=== PATIENT | male | born 1980 | race Caucasian/White ===

== ENCOUNTER 2017-05-16 13:58 | Emergency (ER) | payer OTHER ==
[~2017-05-16] VITALS: Ht 185.4 cm; Wt 127.0 kg
[~2017-05-16 13:58] MED LIST: AMOXICILLIN875 MG PO; BENZTROPINE MESY1 MG PO; CENTRUM SILVER1 EAC3 PO; CHLORPROMAZINE50 MG PO; CIPRODEX OTIC7.5 ML AD; DIVALPROEX SOD125 M1 PO; DULERA 100 MCG/13 GM INH; FLUOXETINE HCL20 MG PO; GABAPENTIN300 MG PO; HYCET 7.5 MG-3473 ML PO; IBUPROFEN600 MG PO; LUTEIN6 M1 PO; OLANZAPINE5 MG PO; PROAIR HFA8.5 GM INH; VITAMIN B122500 MC1 PO; VITAMIN C500 M1 PO; VITAMIN D31000 UNIT PO
[2017-05-16] MEDS ORDERED: ZYPREXA7.5 MG PO (14:25)
[2017-05-16] MEDS ORDERED: KETOROLAC TROME10 MG PO (15:55)
== END 2017-05-16 16:09 | disposition home or self-care (01) ==
LOC: ED 13:58
DX: K42.9 Umbilical hernia without obstruction or gangrene (principal); K80.20 Calculus of gallbladder without cholecystitis without obstruction; F31.9 Bipolar disorder, unspecified; F20.9 Schizophrenia, unspecified; G40.909 Epilepsy, unspecified, not intractable, without status epilepticus; Z87.891 Personal history of nicotine dependence; Z90.89 Acquired absence of other organs; Z79.899 Other long term (current) drug therapy
CPT/HCPCS: 74177; 80053; 81001; 85025; 99284; Q9967

== ENCOUNTER 2017-08-09 12:30 | Emergency (ER) | payer OTHER ==
[~2017-08-09] VITALS: Ht 185.4 cm; Wt 127.0 kg
[~2017-08-09 12:30] MED LIST changes: +KETOROLAC TROME10 MG PO; +ZYPREXA7.5 MG PO
[2017-08-09] MEDS ORDERED: VITAMIN B125000 MCG PO (12:55)
[2017-08-09] MEDS ORDERED: L-METHYLFOLATE15 M1 PO (12:55)
[2017-08-09] MEDS ORDERED: STRATTERA40 MG PO (12:56)
[2017-08-09] MEDS ORDERED: MULTIVITAMINS1 EAC3 PO (12:56)
[2017-08-09] MEDS ORDERED: NAPROXEN500 MG PO (12:57)
[2017-08-09] MEDS ORDERED: GABAPENTIN300 MG PO (13:00)
[2017-08-09] MEDS ORDERED: OMEPRAZOLE20 MG PO (13:01)
[2017-08-09] MEDS ORDERED: OLANZAPINE5 MG PO (13:02)
[2017-08-09] MEDS ORDERED: VENTOLIN HFA18 GM INH (13:03)
[2017-08-09] MEDS ORDERED: SUDOGEST30 MG PO (13:03)
[2017-08-09] MEDS ORDERED: ATOMOXETINE HCL60 MG PO (13:04)
[2017-08-09] MEDS ORDERED: CLONIDINE HCL0.1 M1 PO (13:04)
[2017-08-10] MEDS ORDERED: AUGMENTIN 875-1 EACH PO (16:30)
== END 2017-08-10 16:44 | disposition home or self-care (01) ==
LOC: ED 12:30
PROC: 0T9B70Z Drainage of Bladder with Drainage Device, Via Natural or Artificial Opening (ICD-10-PCS; principal; 2017-08-09)
DX: T65.891A Toxic effect of other specified substances, accidental (unintentional), initial encounter (principal); F20.9 Schizophrenia, unspecified; F17.200 Nicotine dependence, unspecified, uncomplicated; Z79.899 Other long term (current) drug therapy
CPT/HCPCS: 36415; 51701; 80053; 80176; 81001; 84443; 85025; 96372; 99283; G0480; J2060

== ENCOUNTER 2017-11-22 15:06 | Emergency (ER) | payer MEDICAID ==
[~2017-11-22] VITALS: Ht 185.4 cm; Wt 127.0 kg
[~2017-11-22 15:06] MED LIST changes: +ATOMOXETINE HCL60 MG PO; +AUGMENTIN 875-1 EACH PO; +CLONIDINE HCL0.1 M1 PO; +L-METHYLFOLATE15 M1 PO; +MULTIVITAMINS1 EAC3 PO; +NAPROXEN500 MG PO; +OMEPRAZOLE20 MG PO; +STRATTERA40 MG PO; +SUDOGEST30 MG PO; +VENTOLIN HFA18 GM INH; +VITAMIN B125000 MCG PO
[2017-11-22] MEDS ORDERED: TRAZODONE HCL50 MG PO (16:45)
[2017-11-22] MEDS ORDERED: DEPAKOTE250 MG PO (16:46)
[2017-11-22] MEDS ORDERED: PENICILLIN V P500 MG PO (17:58)
== END 2017-11-22 18:09 | disposition home or self-care (01) ==
LOC: ED 15:06
PROC: 0T9B70Z Drainage of Bladder with Drainage Device, Via Natural or Artificial Opening (ICD-10-PCS; principal; 2017-11-22)
PROC: 0HQ1XZZ Repair Face Skin, External Approach (ICD-10-PCS; principal; 2017-11-22)
DX: S01.511A Laceration without foreign body of lip, initial encounter (principal); F20.9 Schizophrenia, unspecified; F17.200 Nicotine dependence, unspecified, uncomplicated; Z79.899 Other long term (current) drug therapy; Y04.0XXA Assault by unarmed brawl or fight, initial encounter
CPT/HCPCS: 12013; 51701; 80053; 80176; 81001; 84443; 85025; 96360; 99283; G0480; J7030

== ENCOUNTER 2019-09-08 22:05 | Observation (INO) | payer OTHER ==
[~2019-09-08] VITALS: Ht 185.4 cm; Wt 110.0 kg
--- OUTSIDE RECORDS SUMMARY | ~2019-09-08 | XMS | Encounter Summary ---
Demographics + + + | Address | [address] | | | [place] [address] | + + + | Home Phone | | + + + | Preferred Language | Unknown | + + + | Marital Status | Single | + + + | Yazdanism Affiliation | 1013 | + + + | Race | Unknown | + + + | Ethnic Group | Unknown | + + + Author + + + | Author | [facility] | | | and [place] | + + + | Organization | [facility] | | | and [place] | + + + | Address | Unknown | + + + | Phone | Unavailable | + + + Support + + + + + | Name | Relationship | Address | Phone | + + + + + | Claudiakyle Graf | ECON | [address] | | | | | [place], [place] | | | | | [address] | | + + + + + | Hilda Ramirez | ECON | [place], | | | | | [place] [address] | | + + + + + Care Team Providers + +------+ + | Care Camera Technician Name | Role | Phone | + +------+ + PCP | Unavailable | + +------+ + Encounter Details +--------+ + + + + | Date | Type | Department | Care Team | Description | +--------+ + + + + | 01/08/ | Hospital | [facility] | | | | 2007 | Encounter | MED CTR GENERIC OP | | | | | | CONV DEPT [address] | | | | | | [place], | | | | | | [place] [address] | | | | | | [phone] | | | +--------+ + + + + Social History + +-------+ +--------+------+ | Tobacco Use | Types | Packs/Day | Years | Date | | | | | Used | | + +-------+ +--------+------+ | Never Assessed | | | | | + +-------+ +--------+------+ + + + | Sex Assigned at | Date Recorded | | | | + + + | Not on file | | + + + + + + + | Job Start Date | Occupation | Industry | + + + + | Not on file | Not on file | Not on file | + + + + + + + + | Travel History | Travel Start | Travel End | + + + + + + | No recent travel history available. | + + documented as of this encounter Plan of Treatment Not on filedocumented as of this encounter Visit Diagnoses Not on filedocumented in this encounter"
--- OUTSIDE RECORDS SUMMARY | ~2019-09-08 | XMS | Encounter Summary ---
Demographics + + + | Address | [address] | | | [place] [address] | + + + | Home Phone | | + + + | Preferred Language | Unknown | + + + | Marital Status | Single | + + + | Catholic Affiliation | 1013 | + + + | Race | Unknown | + + + | Ethnic Group | Unknown | + + + Author + + + | Author | [facility] | | | and [place] | + + + | Organization | [facility] | | | and [place] | + + + | Address | Unknown | + + + | Phone | Unavailable | + + + Support + + + + + | Name | Relationship | Address | Phone | + + + + + | Claudia Homar | ECON | [address] | | | | | [place], [place] | | | | | [address] | | + + + + + | Hilda Ramirez | ECON | [place], | | | | | [place] [address] | | + + + + + Care Team Providers + +------+ + | Care Business Administration Professor Name | Role | Phone | + +------+ + | Chauncey Gloria MD | PCP | | + +------+ + Reason for Visit + + + | Reason | Comments | + + + | Pharyngitis | Rm 3 - x 1.5 week, mucous | + + + | Otalgia | | + + + | Headache | | + + + | Nasal Congestion | | + + + Encounter Details +--------+---------+ + + + | Date | Type | Department | Care Team | Description | +--------+---------+ + + + | 06/29/ | Office | [facility] [place] | Carlos Pizano, | Sore throat (Primary | | 2013 | Visit | [facility] [address] | MD [address] | Dx); Otitis media | | | | [address] [place] | [place] [facility] [place] | of both ears; URI | | | | [place] | [address] | (upper respiratory | | | | [address] | | infection) | | | | [phone] | | | +--------+---------+ + + + Social History + +-------+ +--------+------+ | Tobacco Use | Types | Packs/Day | Years | Date | | | | | Used | | + +-------+ +--------+------+ | Current Every Day | | 0.8 | | | | Smoker | | | | | + +-------+ +--------+------+ + +---+---+---+ | Smokeless Tobacco: | | | | | Never Used | | | | + +---+---+---+ + + +---------+ + | Alcohol Use | Drinks/Week | oz/Week | Comments | + + +---------+ + | Not Asked | | | | + + +---------+ + + + + | Sex Assigned at [...] + + documented as of this encounter Last Filed Vital Signs + + + + + | Vital Sign | Reading | Time Taken | Comments | + + + + + | Blood Pressure | 128/74 | 06/29/2012 9:36 AM | | | | | PST | | + + + + + | Pulse | 87 | 06/29/2012 9:36 AM | | | | | PST | | + + + + + | Temperature | 36.4 C (97.5 F) | 06/29/2012 9:36 AM | | | | | PST | | + + + + + | Respiratory Rate | 20 | 06/29/2012 9:36 AM | | | | | PST | | + + + + + | Oxygen Saturation | 96% | 06/29/2012 9:36 AM | | | | | PST | | + + + + + | Inhaled Oxygen | - | - | | | Concentration | | | | + + + + + | Weight | 123.7 kg (272 lb 9.6 | 06/29/2012 9:36 AM | | | | oz) | PST | | + + + + + | Height | 186.7 cm (6' 1.5") | 06/29/2012 9:36 AM | | | | | PST | | + + + + + | Body Mass Index | 35.48 | 06/29/2012 9:36 AM | | | | | PST | | + + + + + documented in this encounter Patient Instructions Patient Instructions Carlos Pizano MD - 06/29/2012 10:17 AM PSTGet plenty of rest and w ater. Take the medications as directed. Recheck as needed. documented in this encounter Progress Notes Carlos Pizano MD - 06/29/2012 10:17 AM PSTFormatting of this note might be different fr om the original. Subjective: Patient ID: Ant Graf is a 32 y.o. male. HPI Patient's medications, allergies, past medical, surgical, social and family histories were reviewed and updated as appropriate. This man came to the clinic because of several days of congestion and cough. He aches all over. He thinks he might have some fever but he doesn't have it here today. His ears hurt. He has a sore throat. He is blowing green mucus out of his nose and coughing green mucus up. His sinuses hurt. He's had no vomiting or diarrhea. Review of Systems Constitutional: Positive for chills. HENT: Positive for congestion and sinus pressure. Respiratory: Positive for cough. Cardiovascular: Negative. Gastrointestinal: Negative. Musculoskeletal: Positive for myalgias. Objective: Physical Exam Constitutional: He is oriented to person, place, and time. He appears well-developed and we ll-nourished. He appears distressed (he's not severely distress but clearly doesn't feel gia y good He is flushed and congested, hoarse, and his ears are red on exam). HENT: Head: Normocephalic. Right Ear: Hearing and external ear normal. Tympanic membrane is injected and erythematous. Left Ear: Hearing and external ear normal. Tympanic membrane is injected and erythematous. Nose: Rhinorrhea present. Right sinus exhibits maxillary sinus tenderness. Left sinus exhib its maxillary sinus tenderness. Mouth/Throat: Uvula is midline and mucous membranes are normal. Posterior oropharyngeal hannah thema present. Eyes: Conjunctivae are normal. Pupils are equal, round, and reactive to light. Neck: Normal range of motion. Neck supple. Cardiovascular: Normal rate, regular rhythm and normal heart sounds. Pulmonary/Chest: Effort normal. He has rhonchi in the right lower field and the left lower field. He has no rales. Abdominal: Soft. Musculoskeletal: Normal range of motion. Neurological: He is alert and oriented to person, place, and time. Skin: Skin is warm and dry. Assessment: 1. Sore throat POCT Rapid Strep A Screen 2. Otitis media of both ears 3. URI (upper respiratory infection) Plan: Please see the AVS for the plan unless outlined elsewhere. Rapid strep was neg documented in this e ncounter Plan of Treatment Not on filedocumented as of this encounter Procedures + +--------+ + + + | Procedure Name | Priori | Date/Time | Associated Diagnosis | Comments | | | ty | | | | + +--------+ + + + | POCT RAPID STREP A | Routin | 06/29/2012 | Sore throat | Results for this | | SCREEN | e | 9:55 AM | | procedure are in the | | | | PST | | results section. | + +--------+ + + + documented in this encounter Results POCT Rapid Strep A Screen (06/29/2012 9:55 AM PST) + + + + + + | Component | Value | Ref Range | Performed | Pathologist | | | | | At | Signature | + + + + + + | Rapid Strep | Negative | Negative | | | | A Screen | | | | | + + + + + + | Internal QC | | (none) | | | + + + + + + + + | Specimen | + + | Respiratory sample | | (specimen) | + + documented in this encounter Visit Diagnoses + + | Diagnosis | + + | Sore throat - Primary Acute pharyngitis | + + | Otitis media of both ears Unspecified otitis media | + + | URI (upper respiratory infection) Acute upper respiratory infections of unspecified | | site | + + documented in this encounter
--- OUTSIDE RECORDS SUMMARY | ~2019-09-08 | XMS | Encounter Summary ---
Demographics + + + | Address | [address] | | | [place] [address] | + + + | Home Phone | | + + + | Preferred Language | Unknown | + + + | Marital Status | Single | + + + | Orthodox Affiliation | 1013 | + + + | Race | Unknown | + + + | Ethnic Group | Unknown | + + + Author + + + | Author | [facility] | | | and [place] | + + + | Organization | [facility] | | | and [...] [place], [place] | | | | | [address] | | + + + + + | Hilda Ramirez | ECON | [place], | | | | | [place] [address] | | + + + + + Care Team Providers + +------+ + | Care Chief Of Surgery Name | Role | Phone | + +------+ + | No, Physician | PCP | Unavailable | + +------+ + Reason for Visit + + + | Reason | Comments | + + + | Foot Pain | | + + + Encounter Details +--------+ + + + + | Date | Type | Department | Care Team | Description | +--------+ + + + + | 01/26/ | Emergency | [facility] | Leonel Dimas, | Bilateral foot pain | | 2014 | | MED CTR EMERGENCY | MD [address] | (Primary Dx); | | | | CENTER [address] | [facility] [place] | Friction blisters of | | | | [place], [place] | [place] [address] | the soles, right, | | | | [address] | [phone] | initial encounter; | | | | [phone] | | Friction blisters of | | | | | | the soles, left, | | | | | | initial encounter | +--------+ + + + + Social History + + + +--------+------+ | Tobacco Use | Types | Packs/Day | Years | Date | | | | | Used | | + + + +--------+------+ | Current Every Day | Cigarettes | 0.5 | | | | Smoker | | | | | + + + +--------+------+ + +---+---+---+ | Smokeless Tobacco: | | | | | Never Used | | | | + +---+---+---+ + + +---------+ + | Alcohol Use | Drinks/Week | oz/Week | Comments | + + +---------+ + | Yes | | | | + + +---------+ [...] + + + | Blood Pressure | 130/78 | 01/26/2014 3:07 PM | | | | | PDT | | + + + + + | Pulse | 100 | 01/26/2014 3:07 PM | | | | | PDT | | + + + + + | Temperature | 36.8 C (98.2 F) | 01/26/2014 3:07 PM | | | | | PDT | | + + + + + | Respiratory Rate | 16 | 01/26/2014 3:07 PM | | | | | PDT | | + + + + + | Oxygen Saturation | 96% | 01/26/2014 3:07 PM | | | | | PDT | | + + + + + | Inhaled Oxygen | - | - | | | Concentration | | | | + + + + + | Weight | 106.6 kg (235 lb) | 01/26/2014 3:07 PM | | | | | PDT | | + + + + + | Height | 185.4 cm (6' 1") | 01/26/2014 3:07 PM | | | | | PDT | | + + + + + | Body Mass Index | 31 | 01/26/2014 3:07 PM | | | | | PDT | | + + + + + documented in this encounter Discharge Instructions Instructions Leonel Dimas MD - 01/26/2014Keep feet clean and dry Change socks daily Tylenol and/or ibuprofen for pain Wear supportive shoes (good arch support) AttachmentsThe following attachments cannot be sent through Care Everywhere.JANIS (RAMOS Dubois)documented in this encounter Medications at Time of Discharge + + + +---------+--------+ + | Medication | Sig | Dispensed | Refills | Start | End Date | | | | | | Date | | + + + +---------+--------+ + | Cholecalciferol | Take by mouth. | | 0 | | | | (VITAMIN D3) 5000 | | | | | | | UNITS CAPS | | | | | | + + + +---------+--------+ + documented as of this encounter Plan of Treatment Not on filedocumented as of this encounter Procedures + +--------+ + + + | Procedure Name | Priori | Date/Time | Associated Diagnosis | Comments | | | ty | | | | + +--------+ + + + | XR FOOT RIGHT 3 + VW | STAT | 01/26/2014 | | Results for this | | | | 3:44 PM | | procedure are in the | | | | PDT | | results section. | + +--------+ + + + | XR FOOT LEFT 3 + VW | STAT | 01/26/2014 | | Results for this | | | | 3:43 PM | | procedure are in the | | | | PDT | | results section. | + +--------+ + + + documented in this encounter Results XR Foot Right 3 + Vw (01/26/2014 3:44 PM PDT) + + | Specimen | + + | | + + + + + | Narrative | Performed At | + + + | XR FOOT RIGHT 3 + VW 01/26/2014 3:38 PM HISTORY: PAIN. | [facility] | | COMPARISON: None. FINDINGS: There are no acute osseous | LAB | | abnormalities. There is a tiny spur of the inferior calcaneus. Bone | | | mineralization is normal. Soft tissue structures are unremarkable. | | | IMPRESSION - No acute findings. Dictated and Signed by: Champ | | | MD Meek Electronically signed: 01/26/2014 4:30 PM | | + + + + + | Procedure Note | + + | Daniel Geiger Results In - 01/26/2014 4:33 PM PDT XR FOOT RIGHT 3 + VW 01/26/2014 3:38 PM | | | | HISTORY: PAIN. | | | | COMPARISON: None. | | | | FINDINGS: | | There are no acute osseous abnormalities. There is a tiny spur of the inferior | | calcaneus. Bone mineralization is normal. Soft tissue structures are | | unremarkable. | | | | IMPRESSION - | | No acute findings. | | | | Dictated and Signed by: Champ Eden MD | | Electronically signed: 01/26/2014 4:30 PM | + + + +---------+ + + | Performing | Address | City/State/Zipcode | Phone Number | | Organization | | | | + +---------+ + + | [facility] | | | [phone] | + +---------+ + + | [facility] | | | [phone] | + +---------+ + + XR Foot Left 3 + Vw (01/26/2014 3:43 PM PDT) + + | Specimen | + + | | + + + + + | Narrative | Performed At | + + + | XR FOOT LEFT 3 + VW 01/26/2014 3:36 PM HISTORY: PAIN. | MISCELANIOUS | | COMPARISON: None. FINDINGS: There are no acute osseous | LAB | | abnormalities. No significant degenerative changes are seen. Bone | | | mineralization is normal. Soft tissue structures are unremarkable. | | | IMPRESSION - No acute findings. Dictated and Signed by: Champ | | | MD Meek Electronically signed: 01/26/2014 4:30 PM | | + + + + + | Procedure Note | + + | Juanjo, Rad Results In - 01/26/2014 4:33 PM PDT XR FOOT LEFT 3 + VW 01/26/2014 3:36 PM | | | | HISTORY: PAIN. | | | | COMPARISON: None. | | | | FINDINGS: | | There are no acute osseous abnormalities. No significant degenerative changes | | are seen. Bone mineralization is normal. Soft tissue structures are | | unremarkable. | | | | IMPRESSION - | | No acute findings. | | | | Dictated and Signed by: Champ Eden MD | | Electronically signed: 01/26/2014 4:30 PM | + + + +---------+ + + | Performing | Address | City/State/Zipcode | Phone Number | | Organization | | | | + +---------+ + + | [facility] | | | [phone] | + +---------+ + + | [facility] | | | [phone] | + +---------+ + + documented in this encounter Visit Diagnoses + + | Diagnosis | + + | Bilateral foot pain - Primary Pain in limb | + + | Friction blisters of the soles, right, initial encounter | + + | Friction blisters of the soles, left, initial encounter | + + documented in this encounter
--- OUTSIDE RECORDS SUMMARY | ~2019-09-08 | XMS | Encounter Summary ---
Demographics + + + | Address | [address] | | | [place] [address] | + + + | Home Phone | | + + + | Preferred Language | Unknown | + + + | Marital Status | Single | + + + | Adventism Affiliation | 1013 | + + + | Race | Unknown | + + + | Ethnic Group | Unknown | + + + Author + + + | Author | [facility] | | | and [place] | + + + | Organization | [facility] | | | [...] [place], [place] | | | | | [address] | | + + + + + | Hilda Ramirez | ECON | [place], | | | | | [place] [address] | | + + + + + Care Team Providers + +------+ + | Care Food Bagging Machine Operator Name | Role | Phone | + +------+ + PCP | Unavailable | + +------+ + Encounter Details +--------+ + + + + | Date | Type | Department | Care Team | Description | +--------+ + + + + | 11/08/ | Hospital | [facility] | Brian Orozco | | | 2002 | Encounter | MED CTR EMERGENCY | MD [address] | | | | | [place] [address] | [facility] | | | | | [place], [place] | [place] [address] | | | | | [address] | [phone] | | | | | [phone] | | | +--------+ + + + [...]
--- OUTSIDE RECORDS SUMMARY | ~2019-09-08 | XMS | Encounter Summary ---
Demographics + + + | Address | [address] | | | [place] [address] | + + + | Home Phone | | + + + | Preferred Language | Unknown | + + + | Marital Status | Single | + + + | Anabaptist Affiliation | 1013 | + + + | Race | Unknown | + + + | Ethnic Group | Unknown | + + + Author + + + | Author | [facility] | | | and [place] | + + + | Organization | [facility] | | | [...] [place], [place] | | | | | [address] | | + + + + + | Hilda Ramirez | ECON | [place], | | | | | [place] [address] | | + + + + + Care Team Providers + +------+ + | Care Roofing Tile Sorter Name | Role | Phone | + +------+ + | No, Physician | PCP | Unavailable | + +------+ + Reason for Visit + + + | Reason | Comments | + + + | Difficulty Breathing | | + + + Encounter Details +--------+ + + + + | Date | Type | Department | Care Team | Description | +--------+ + + + + | 01/25/ | Emergency | [facility] | | Surgical or other | | 2013 | | MED CTR EMERGENCY | | procedure not | | | | [address] | | carried out because | | | | [place] | | of patient's | | | | [address] | | decision (Primary | | | | [phone] | | Dx) | +--------+ + + + + Social [...] + + + | Blood Pressure | 123/69 | 01/25/2014 5:23 PM | | | | | PDT | | + + + + + | Pulse | 87 | 01/25/2014 5:23 PM | | | | | PDT | | + + + + + | Temperature | 37 C (98.6 F) | 01/25/2014 5:23 PM | | | | | PDT | | + + + + + | Respiratory Rate | 16 | 01/25/2014 5:23 PM | | | | | PDT | | + + + + + | Oxygen Saturation | 99% | 01/25/2014 5:23 PM | | | | | PDT | | + + + + + | Inhaled Oxygen | - | - | | | Concentration | | | | + + + + + | Weight | 120.2 kg (265 lb) | 01/25/2014 5:23 PM | | | | | PDT | | + + + + + | Height | 185.4 cm (6' 1") | 01/25/2014 5:23 PM | | | | | PDT | | + + + + + | Body Mass Index | 34.96 | 01/25/2014 5:23 PM | | | | | PDT | | + + + + + documented in this encounter Medications at Time of [...] filedocumented as of this encounter Visit Diagnoses + + | Diagnosis | + + | Surgical or other procedure not carried out because of patient's decision - Primary | + + documented in this encounter
--- OUTSIDE RECORDS SUMMARY | ~2019-09-08 | XMS | Encounter Summary ---
Demographics + + + | Address | [address] | | | [place] [address] | + + + | Home Phone | | + + + | Preferred Language | Unknown | + + + | Marital Status | Single | + + + | Methodist Affiliation | 1013 | + + + | Race | Unknown | + + + | Ethnic Group | Unknown | + + + Author + + + | Author | [facility] | | | and [place] | + + + | Organization | [facility] | | | and [...] [place], [place] | | | | | [address] | | + + + + + | Hilda Ramirez | ECON | [place], | | | | | [place] [address] | | + + + + + Care Team Providers + +------+ + | Care Supervisor Bakery Sanitation Name | Role | Phone | + +------+ + | No, Physician | PCP | Unavailable | + +------+ + Encounter Details +--------+ + + + + | Date | Type | Department | Care Team | Description | +--------+ + + + + | 02/23/ | Emergency | [facility] | | Surgical or other | | 2013 | | [facility] | | procedure not | | | | CENTER [address] | | carried out because | | | | [place] | | of patient's | | | | [address] | | decision (Primary | | | | [phone] | | Dx) | +--------+ + + [...] + + documented as of this encounter Medications at Time of Discharge [...] | + +--------+ + + + | ED INFORMATION | Routin | 02/23/2014 | | Results for this | | EXCHANGE | e | 3:32 AM | | procedure are in the | | | | PDT | | results section. | + +--------+ + + + documented in this encounter Results ED INFORMATION EXCHANGE (02/23/2014 3:32 AM PDT) + + | Specimen | + + | | + + + + + | Narrative | Performed At | + + + | VISIT TRACKING (3 MO.) Visit Date Location | [facility] | | Type Diagnoses | | | -------- | | | ---- 02/23/2014 03:32 [place] | | | [facility] Emergency -Withdrawals 01/31/2014 | | | 20:26 [facility] Emergency | | | -Pain in limb | | | -Feet burning | | | | | | -Foot Pain 01/26/2014 15:03 | | | [facility] Emergency -Blister of | | | foot and toe(s), without mention of infection | | | | | | -Blister of foot and toe(s), without mention of | | | infection | | | -Back Pain | | | | | | -Foot Pain | | | | | | -Pain in limb 01/25/2014 16:54 [facility] | [place] Emergency -SOB | | | | | | -Difficulty Breathing VISIT COUNT (1 YR.) Visits Medicaid | | | NE Dx Location ------ --------- 4 | | | 0 [facility] | | | 4 0 Total Note: Visits | | | indicate total known visits. Medicaid NE Dx are the number of primary | | | diagnoses on the [facility]'s non-emergent dx list. | | | | | | --- [facility] has no Care Guidelines for this patient. | | + + + + +---------+ + + | Performing | Address | City/State/Zipcode | Phone Number | | Organization | | | | + +---------+ + + | [facility] | | | | + +---------+ + + documented in this encounter Visit Diagnoses + + | Diagnosis | + + | Surgical or other procedure not carried out because of patient's decision - Primary | + + documented in this encounter"
--- OUTSIDE RECORDS SUMMARY | ~2019-09-08 | XMS | Encounter Summary ---
Demographics + + + | Address | [address] | | | [place] [address] | + + + | Home Phone | | + + + | Preferred Language | Unknown | + + + | Marital Status | Single | + + + | Religion Affiliation | 1013 | + + + [...] [place], [place] | | | | | [address] | | + + + + + | Hilda Ramirez | ECON | [place], | | | | | [place] [address] | | + + + + + Care Team Providers + +------+ + | Care Detector Car Operator Name | Role | Phone | [...] | | | | CENTER [address] | | carried out because | | | | [place] | | of patient's | | | | [address] | | decision (Primary | | | | [phone] | | Dx) | +--------+ + + [...] TRACKING (3 MO.) Visit Date Location | [facility] | | Type Diagnoses | | | -------- | | | ---- 02/23/2014 03:32 [place] | | | [facility] Emergency -Withdrawals 01/31/2014 | | | 20:26 [facility] Emergency | | | -Pain in limb | | | -Feet burning | | | | | | -Foot Pain 01/26/2014 15:03 | | | [facility] Emergency -Blister of | | | foot and toe(s), without mention of infection | | | | | | -Blister of foot and toe(s), without mention of | | | infection | | | -Back Pain | | | | | | -Foot Pain | | | | | | -Pain in limb 01/25/2014 16:54 [facility] | [place] Emergency -SOB | | | | | | -Difficulty Breathing VISIT COUNT (1 YR.) Visits Medicaid | | | NE Dx Location ------ --------- 4 | | | 0 [facility] | | | 4 0 Total Note: Visits | | | indicate total known visits. Medicaid NE Dx are the number of primary | | | diagnoses on the [facility]'s non-emergent dx list. | | | [...]
--- OUTSIDE RECORDS SUMMARY | ~2019-09-08 | XMS | Encounter Summary ---
Demographics + + + | Address | [address] | | | [place] [address] | + + + | Home Phone | | + + + | Preferred Language | Unknown | + + + | Marital Status | Single | + + + | Restorationist Affiliation | 1013 | + + + | Race | Unknown | + + + | Ethnic Group | Unknown | + + + Author + + + | Author | [facility] | | | and [place] | + + + | Organization | [facility] | | | [...] [place], [place] | | | | | [address] | | + + + + + | Hilda Ramirez | ECON | [place], | | | | | [place] [address] | | + + + + + Care Team Providers + +------+ + | Care Chemistry Technical Officer Name | Role | Phone | + +------+ + PCP | Unavailable | + +------+ + Encounter Details +--------+ + + + + | Date | Type | Department | Care Team | Description | +--------+ + + + + | 10/10/ | Hospital | [facility] | David Alonso, | | | 2004 | Encounter | [facility] CTR LAB[facility] | [address] | | | | | [address] [place] | [place] | | | | | [place] | [address] | | | | | [address] | | | | | | [phone] | | | +--------+ + + + [...]
--- OUTSIDE RECORDS SUMMARY | ~2019-09-08 | XMS | Encounter Summary ---
Demographics + + + | Address | [address] | | | [place] [address] | + + + | Home Phone | | + + + | Preferred Language | Unknown | + + + | Marital Status | Single | + + + | Temple Affiliation | 1013 | + + + | Race | Unknown | + + + | Ethnic Group | Unknown | + + + Author + + + | Author | [facility] | | | and [place] | + + + | Organization | [facility] | | | [...] [place], [place] | | | | | [address] | | + + + + + | Hilda Ramirez | ECON | [place], | | | | | [place] [address] | | + + + + + Care Team Providers + +------+ + | Care Surgical Assistant Name | Role | Phone | + +------+ + PCP | Unavailable | + +------+ + Encounter Details +--------+ + + + + | Date | Type | Department | Care Team | Description | +--------+ + + + + | 10/10/ | Hospital | [facility] | David Alonso, | | | 2004 | Encounter | [facility] LAB[facility] | [address] | | | | | [address] [place] | [place] | | | | | [place] | [address] | | | | | [address] | | | | | | [phone] | | | +--------+ + + + [...]
--- OUTSIDE RECORDS SUMMARY | ~2019-09-08 | XMS | Encounter Summary ---
Demographics + + + | Address | [address] | | | [place] [address] | + + + | Home Phone | | + + + | Preferred Language | Unknown | + + + | Marital Status | Single | + + + | Sabianist Affiliation | 1013 | + + + | Race | Unknown | + + + | Ethnic Group | Unknown | + + + Author + + + | Author | [facility] | | | and [place] | + + + | Organization | [facility] | | | and [...] [place], [place] | | | | | [address] | | + + + + + | Hilda Ramirez | ECON | [place], | | | | | [place] [address] | | + + + + + Care Team Providers + +------+ + | Care Air Brakes Inspector Name | Role | Phone | + [...] + + | 01/26/ | Emergency | [facility] | Leonel Dimas, | Bilateral foot pain | | 2014 | | [facility] EM[facility] | MD [address] | (Primary Dx); | | | | CENTER [address] | [facility] [place] | Friction blisters of | | | | [place], [place] | [place] [address] | the soles, right, | | | | [address] | [phone] | initial encounter; | | | | [phone] | | Friction blisters of | | [...] + | MISCELLANEOUS LAB | | | [phone] | + +---------+ + + | MISCELANIOUS LAB | | | [phone] | + +---------+ + + XR Foot [...] + | MISCELLANEOUS LAB | | | [phone] | + +---------+ + + | MISCELANIOUS LAB | | | [phone] | + +---------+ + + documented in [...]
--- OUTSIDE RECORDS SUMMARY | ~2019-09-08 | XMS | Encounter Summary ---
Demographics + + + | Address | [address] | | | [place] [address] | + + + | Home Phone | | + + + | Preferred Language | Unknown | + + + | Marital Status | Single | + + + | Scientologist Affiliation | 1013 | + + + | Race | Unknown | + + + | Ethnic Group | Unknown | + + + Author + + + | Author | [facility] | | | and [place] | + + + | Organization | [facility] | | | and [...] [place], [place] | | | | | [address] | | + + + + + | Hilda Ramirez | ECON | [place], | | | | | [place] [address] | | + + + + + Care Team Providers + +------+ + | Care Community Coordinator For High School Name | Role | Phone | + +------+ + | No, Physician | PCP | Unavailable | + +------+ + Reason for Visit + + + | Reason | Comments | + + + | Generalized Body | | | Aches | | + + + Encounter Details +--------+ + + + + | Date | Type | Department | Care Team | Description | +--------+ + + + + | 02/25/ | Emergency | [facility] | Leonel Dimas, | Myalgia (Primary | | 2013 | | MED CTR EM[facility] | MD [address] | Dx); Arthralgia | | | | CENTER [address] | [facility] [place] | | | | | [place] | [place] [address] | | | | | [address] | [phone] | | | | | [phone] | | | +--------+ + + + [...] + + + | Blood Pressure | 105/65 | 02/25/2014 5:29 AM | | | | | PDT | | + + + + + | Pulse | 56 | 02/25/2014 5:29 AM | | | | | PDT | | + + + + + | Temperature | 37.3 C (99.1 F) | 02/25/2014 4:38 AM | | | | | PDT | | + + + + + | Respiratory Rate | 16 | 02/25/2014 4:38 AM | | | | | PDT | | + + + + + | Oxygen Saturation | 95% | 02/25/2014 5:29 AM | | | | | PDT | | + + + + + | Inhaled Oxygen | - | - | | | Concentration | | | | + + + + + | Weight | 99.8 kg (220 lb) | 02/25/2014 4:38 AM | | | | | PDT | | + + + + + | Height | 182.9 cm (6') | 02/25/2014 4:38 AM | | | | | PDT | | + + + + + | Body Mass Index | 29.84 | 02/25/2014 4:38 AM | | | | | PDT | | + + + + + documented in this encounter Discharge Instructions Instructions Leonel Dimas MD - 02/25/2014cetaminophen and/or ibuprofen for pain as n eeded. Stay well hydrated. Establish a primary care provider. AttachmentsThe following attachments cannot be sent through Care Everywhere.ARTHRALGIA (ENG THOMAS)MYALGIAS (ALBANIAN)documented in this encounter Medications at Time of [...] + | ED INFORMATION | Routin | 02/25/2014 | | Results for this | | EXCHANGE | e | 4:33 AM | | procedure are in the | | | | PDT | | results section. | + +--------+ + + + documented in this encounter Results ED INFORMATION EXCHANGE (02/25/2014 4:33 AM PDT) + + | Specimen | + + | | + + + + + | Narrative | Performed At | + + + | VISIT TRACKING (3 MO.) Visit Date Location | [facility] | | Type Diagnoses | | | -------- | | | ---- 02/25/2014 04:32 [place] | | | [facility] Emergency -Body pain 02/23/2014 | | | 03:36 [facility] Emergency | | | -Withdrawals 01/31/2014 20:26 [facility] Emergency -Pain in limb | | | | | | -Feet burning | | | -Foot Pain | | | 01/26/2014 15:03 [facility] | | | Emergency -Blister of foot and toe(s), without mention of | | | infection | | | -Blister of foot and | | | toe(s), without mention of infection | | | | | | -Back Pain | | | -Foot Pain | | | | | | -Pain in limb 01/25/2014 16:54 | | | [facility] Emergency -SOB | | | | | | -Difficulty Breathing VISIT COUNT (1 | | | YR.) Visits Medicaid NE Dx Location ------ | | | --------- 5 0 | | | [facility] 5 0 | | | Total Note: Visits indicate total known visits. Medicaid | | | NE Dx are the number of primary diagnoses on the [facility]'s non-emergent dx | | | list. | | | | | | [...] + | Diagnosis | + + | Myalgia - Primary Mylagia and myositis, unspecified | + + | Arthralgia Pain in joint, site unspecified | + + documented in this encounter Administered Medications + +--------+ +--------+------+------+ | Medication Order | MAR | Action | Dose | Rate | Site | | | Action | Date | | | | + +--------+ +--------+------+------+ | ibuprofen (ADVIL,MOTRIN) tablet | Given | 02/26/20 | 600 mg | | | | 600 mg 600 mg, Oral, ONCE, Lilliana | | 14 5:38 | | | | | 02/25/14 at 0530, For 1 dose, Give | | AM PDT | | | | | with food., | | | | | | + +--------+ +--------+------+------+ +---+---+ | | | +---+---+ documented in this encounter"
--- OUTSIDE RECORDS SUMMARY | ~2019-09-08 | XMS | Encounter Summary ---
Demographics + + + | Address | [address] | | | [place] [address] | + + + | Home Phone | | + + + | Preferred Language | Unknown | + + + | Marital Status | Single | + + + | Taoist Affiliation | 1013 | + + + | Race | Unknown | + + + | Ethnic Group | Unknown | + + + Author + + + | Author | [facility] | | | and [place] | + + + | Organization | [facility] | | | [...] [place], [place] | | | | | [address] | | + + + + + | Hilda Ramirez | ECON | [place], | | | | | [place] [address] | | + + + + + Care Team Providers + +------+ + | Care Field Services Analyst Name | Role | Phone | + [...] | | | | CENTER [address] | [facility] [place] | Friction blisters of | | | | [place], [place] | [place] [address] | the soles, right, | | | | [address] | [phone] | initial encounter; | | | | [phone] | | Friction blisters of | | [...] + | MISCELLANEOUS LAB | | | [phone] | + +---------+ + + | MISCELANIOUS LAB | | | [phone] | + +---------+ + + XR Foot [...] + | MISCELLANEOUS LAB | | | [phone] | + +---------+ + + | MISCELANIOUS LAB | | | [phone] | + +---------+ + + documented in [...]
--- OUTSIDE RECORDS SUMMARY | ~2019-09-08 | XMS | Encounter Summary ---
Demographics + + + | Address | [address] | | | [place] [address] | + + + | Home Phone | | + + + | Preferred Language | Unknown | + + + | Marital Status | Single | + + + | Druze Affiliation | 1013 | + + + | Race | Unknown | + + + | Ethnic Group | Unknown | + + + Author + + + | Author | [facility] | | | and [place] | + + + | Organization | [facility] | | [...] [place], [place] | | | | | [address] | | + + + + + | Hilda Ramirez | ECON | [place], | | | | | [place] [address] | | + + + + + Care Team Providers + +------+ + | Care County Director Name | Role | Phone | + +------+ + PCP | Unavailable | + +------+ + Encounter Details +--------+ + + + + | Date | Type | Department | Care Team | Description | +--------+ + + + + | 08/23/ | Hospital | [facility] | | | | 2007 | Encounter | [facility] LAB[facility] | | | | | | [address] | | | | | | [place] | | | | | | [address] | | | | | | [phone] | | | +--------+ + + + [...]
--- OUTSIDE RECORDS SUMMARY | ~2019-09-08 | XMS | Encounter Summary ---
Demographics + + + | Address | [address] | | | [place] [address] | + + + | Home Phone | | + + + | Preferred Language | Unknown | + + + | Marital Status | Single | + + + | Zoroastrian Affiliation | 1013 | + + + | Race | Unknown | + + + | Ethnic Group | Unknown | + + + Author + + + | Author | [facility] | | | and [place] | + + + | Organization | [facility] | | [...] [place], [place] | | | | | [address] | | + + + + + | Hilda Ramirez | ECON | [place], | | | | | [place] [address] | | + + + + + Care Team Providers + +------+ + | Care Autopsy Assistant Name | Role | Phone | [...] + + | 01/25/ | Emergency | [facility] | | Surgical or other | | 2013 | | MED CTR EM[facility]Y | | procedure not | | | | [address] | | carried out because | | | | [place] | | of patient's | | | | [address] | | decision (Primary | | | | [phone] | | Dx) | +--------+ + + [...]
--- OUTSIDE RECORDS SUMMARY | ~2019-09-08 | XMS | Encounter Summary ---
Demographics + + + | Address | [address] | | | [place] [address] | + + + | Home Phone | | + + + | Preferred Language | Unknown | + + + | Marital Status | Single | + + + | Faith Affiliation | 1013 | + + + | Race | Unknown | + + + | Ethnic Group | Unknown | + + + Author + + + | Author | [facility] | | | and [place] | + + + | Organization | [facility] | | | and [...] [place], [place] | | | | | [address] | | + + + + + | Hilda Ramirez | ECON | [place], | | | | | [place] [address] | | + + + + + Care Team Providers + +------+ + | Care Plasterer Spray Gun Name | Role | Phone | + [...] + + | 01/31/ | Emergency | [facility] | Brian Orozco | Foot pain, bilateral | | 2013 | | MED CTR EMERGENCY | MD [address] | (Primary Dx) | | | | CENTER [address] | [address] [facility] | | | | | [place], [place] | [place] [address] | | | | | [address] | [phone] | | | | | [phone] | | | +--------+ + + + [...]
--- OUTSIDE RECORDS SUMMARY | ~2019-09-08 | XMS | Encounter Summary ---
Demographics + + + | Address | [address] | | | [place] [address] | + + + | Home Phone | | + + + | Preferred Language | Unknown | + + + | Marital Status | Single | + + + | Nondenominational Affiliation | 1013 | + + + | Race | Unknown | + + + | Ethnic Group | Unknown | + + + Author + + + | Author | [facility] | | | and [place] | + + + | Organization | [facility] | | | [...] [place], [place] | | | | | [address] | | + + + + + | Hilda Ramirez | ECON | [place], | | | | | [place] [address] | | + + + + + Care Team Providers + +------+ + | Care Rail Engineer Name | Role | Phone | + +------+ + PCP | Unavailable | + +------+ + Encounter Details +--------+ + + + + | Date | Type | Department | Care Team | Description | +--------+ + + + + | 07/17/ | Hospital | [facility] | | | | 2000 | Encounter | MED CTR EM[facility]Y | | | | | | CENTER [address] | | | | | | [place], [place] | | | | | | [address] | | | | | | [phone] | | | +--------+ + + + [...]
--- OUTSIDE RECORDS SUMMARY | ~2019-09-08 | XMS | Encounter Summary ---
Demographics + + + | Address | [address] | | | [place] [address] | + + + | Home Phone | | + + + | Preferred Language | Unknown | + + + | Marital Status | Single | + + + | Mormon Affiliation | 1013 | + + + | Race | Unknown | + + + | Ethnic Group | Unknown | + + + Author + + + | Author | [facility] | | | and [place] | + + + | Organization | [facility] | | [...] [place], [place] | | | | | [address] | | + + + + + | Hilda Ramirez | ECON | [place], | | | | | [place] [address] | | + + + + + Care Team Providers + +------+ + | Care Sheeter Operator Name | Role | Phone | + +------+ + PCP | Unavailable | + +------+ + Encounter Details +--------+ + + + + | Date | Type | Department | Care Team | Description | +--------+ + + + + | 08/23/ | Hospital | [facility] | | | | 2007 | Encounter | MED [facility] LAB[facility] | | | | | | [address] | | | | | | [place] | | | | | | [address] | | | | | | [phone] | | | +--------+ + + + [...]
--- OUTSIDE RECORDS SUMMARY | ~2019-09-08 | XMS | Encounter Summary ---
Demographics + + + | Address | [address] | | | [place] [address] | + + + | Home Phone | | + + + | Preferred Language | Unknown | + + + | Marital Status | Single | + + + | Anglican Affiliation | 1013 | + + + | Race | Unknown | + + + | Ethnic Group | Unknown | + + + Author + + + | Author | [facility] | | | and [place] | + + + | Organization | [facility] | | | [...] [place], [place] | | | | | [address] | | + + + + + | Hilda Ramirez | ECON | [place], | | | | | [place] [address] | | + + + + + Care Team Providers + +------+ + | Care Supervisor Plastering Name | Role | Phone | + +------+ + PCP | Unavailable | + +------+ + Encounter Details +--------+ + + + + | Date | Type | Department | Care Team | Description | +--------+ + + + + | 12/20/ | Hospital | [facility] | Unknown, | | | 2006 | Encounter | MED CTR LABORATORY | MD [place] . | | | | | [address] | | | | | | [place] | (Fax) | | | | | [address] | | | | | | [phone] | | | +--------+ + + + [...]
--- OUTSIDE RECORDS SUMMARY | ~2019-09-08 | XMS | Encounter Summary ---
Demographics + + + | Address | [address] | | | [place] [address] | + + + | Home Phone | | + + + | Preferred Language | Unknown | + + + | Marital Status | Single | + + + | Episcopalian Affiliation | 1013 | + + + | Race | Unknown | + + + | Ethnic Group | Unknown | + + + Author + + + | Author | [facility] | | | and [place] | + + + | Organization | [facility] | | | [...] [place], [place] | | | | | [address] | | + + + + + | Hilda Ramirez | ECON | [place], | | | | | [place] [address] | | + + + + + Care Team Providers + +------+ + | Care Decating Machine Operator Name | Role | Phone | + +------+ + | No, Physician | PCP | Unavailable | + +------+ + Reason for Visit + + + | Reason | Comments | + + + | Pharyngitis | Rm#5, productive ligh green/brown/black phlegm x 1 month | | | ("fighting a cold for 3 years") fevers/chills | + + + | Otalgia | x 1 month | + + + | Jaw Pain | posterior neck pain ("might be grinding my teeth at night") x | | | 1month | + + + Encounter Details +--------+---------+ + + + | Date | Type | Department | Care Team | Description | +--------+---------+ + + + | 06/24/ | Office | [facility] | Carlos Pizano, | Sinusitis (Primary | | 2014 | Visit | [facility] [address] | MD [address] | Dx); Otitis media of | | | | [place], [place] | [place] | both ears; URI | | | | [id number] | [id number] | (upper respiratory | | | | [phone] | | infection); Sore | | | | | | throat | +--------+---------+ + + + Social History + + [...] + + + | Blood Pressure | 104/78 | 06/24/2014 11:21 AM | | | | | PST | | + + + + + | Pulse | 89 | 06/24/2014 11:21 AM | | | | | PST | | + + + + + | Temperature | 37.2 C (98.9 F) | 06/24/2014 11:21 AM | | | | | PST | | + + + + + | Respiratory Rate | 18 | 06/24/2014 11:21 AM | | | | | PST | | + + + + + | Oxygen Saturation | 95% | 06/24/2014 11:21 AM | | | | | PST | | + + + + + | Inhaled Oxygen | - | - | | | Concentration | | | | + + + + + | Weight | 127.3 kg (280 lb | 06/24/2014 11:21 AM | | | | 11.2 oz) | PST | | + + + + + | Height | 185.4 cm (6' 1") | 06/24/2014 11:21 AM | | | | | PST | | + + + + + | Body Mass Index | 37.03 | 06/24/2014 11:21 AM | | | | | PST | | + + + + + documented in this encounter Patient Instructions Patient Instructions Carlos Pizano MD - 06/24/2014 11:41 AM PSTGet plenty of rest and w ater. Take the amoxicillin as directed. Recheck as needed. documented in this encounter Progress Notes Carlos Pizano MD - 06/24/2014 11:57 AM PSTFormatting of this note might be different fr om the original. Subjective: Patient ID: Ant Graf is a 33 y.o. male. HPI Patient's medications, allergies, past medical, surgical, social and family histories were reviewed and updated as appropriate. This man came to the clinic with a complaint of 2 weeks of cough and congestion and now sin us and ear pain bilaterally. He is bringing up phlegm. He has no other complaint. Review of Systems Constitutional: Negative. HENT: Positive for congestion, ear pain and sinus pressure. Respiratory: Positive for cough. Cardiovascular: Negative. Gastrointestinal: Negative. Objective: Physical Exam Vitals reviewed. Constitutional: He is oriented to person, place, and time. He appears well-developed and we ll-nourished. No distress. HENT: Head: Normocephalic. Right Ear: External ear and ear canal normal. Tympanic membrane is erythematous. Left Ear: External ear and ear canal normal. Tympanic membrane is erythematous. Nose: Right sinus exhibits maxillary sinus tenderness. Right sinus exhibits no frontal sinu s tenderness. Left sinus exhibits maxillary sinus tenderness. Left sinus exhibits no frontal sinus tenderness. Mouth/Throat: Uvula is midline, oropharynx is clear and moist and mucous membranes are norm al. Eyes: Conjunctivae normal are normal. Pupils are equal, round, and reactive to light. Neck: Normal range of motion. Neck supple. Cardiovascular: Normal rate, regular rhythm and normal heart sounds. Pulmonary/Chest: Effort normal. He has no wheezes. He has rhonchi (Mild in both bases) in t he right lower field and the left lower field. He has no rales. Musculoskeletal: Normal range of motion. Lymphadenopathy: He has cervical adenopathy (Mild). Neurological: He is alert and oriented to person, place, and time. Assessment: 1. Sinusitis 2. Otitis media of both ears 3. URI (upper respiratory infection) Plan: Please see the AVS for the plan unless outlined elsewhere. I gave him prescription for amoxicillin. Recheck as needed. documented in this e ncounter Plan of Treatment Not on filedocumented as of this encounter Procedures + +--------+ + + + | Procedure Name | Priori | Date/Time | Associated Diagnosis | Comments | | | ty | | | | + +--------+ + + + | POCT RAPID STREP A | Routin | 06/24/2014 | Sore throat | Results for this | | SCREEN | e | 11:19 AM | | procedure are in the | | | | PST | | results section. | + +--------+ + + + documented in this encounter Results POCT Rapid Strep A Screen (06/24/2014 11:19 AM PST) + + + + + + | Component | Value | Ref Range | Performed | Pathologist | | | | | At | Signature | + + + + + + | Rapid Strep | Negative | Negative | | | | A Screen | | | | | + + + + + + | Internal QC | Acceptable | | | | + + + + + + | CULTURE | | | | | | SENT TO LAB | | | | | + + + + + + + + | Specimen | + + | Respiratory sample | | (specimen) | + + documented in this encounter Visit Diagnoses + + | Diagnosis | + + | Sinusitis - Primary Unspecified sinusitis (chronic) | + + | Otitis media of both ears Unspecified otitis media | + + | URI (upper respiratory infection) Acute upper respiratory infections of unspecified | | site | + + | Sore throat Acute pharyngitis | + + documented in this encounter
--- OUTSIDE RECORDS SUMMARY | ~2019-09-08 | XMS | Encounter Summary ---
Demographics + + + | Address | [address] | | | [place] [address] | + + + | Home Phone | | + + + | Preferred Language | Unknown | + + + | Marital Status | Single | + + + | Orthodoxy Affiliation | 1013 | + + + | Race | Unknown | + + + | Ethnic Group | Unknown | + + + Author + + + | Author | [facility] | | | and [place] | + + + | Organization | [facility] | | | and [...] [place], [place] | | | | | [address] | | + + + + + | Hilda Ramirez | ECON | [place], | | | | | [place] [address] | | + + + + + Care Team Providers + +------+ + | Care Journalism Instructor Name | Role | Phone | + +------+ + PCP | Unavailable | + +------+ + Encounter Details +--------+ + + + + | Date | Type | Department | Care Team | Description | +--------+ + + + + | 05/17/ | Hospital | [facility] | Milagros Kebede | | | 2008 | Encounter | [facility] | DO Brigido Dumont [place] | | | | | [address] [facility] | [place], [place] | | | | | [place], [place] | [address] | | | | | [address] | | | | | | [phone] | | | +--------+ + + + [...]
--- OUTSIDE RECORDS SUMMARY | ~2019-09-08 | XMS | Encounter Summary ---
Demographics + + + | Address | [address] | | | [place] [address] | + + + | Home Phone | | + + + | Preferred Language | Unknown | + + + | Marital Status | Single | + + + | Quaker Affiliation | 1013 | + + + | Race | Unknown | + + + | Ethnic Group | Unknown | + + + Author + + + | Author | [facility] | | | and [place] | + + + | Organization | [facility] | | [...] [place], [place] | | | | | [address] | | + + + + + | Hilda Ramirez | ECON | [place], | | | | | [place] [address] | | + + + + + Care Team Providers + +------+ + | Care Combat Rifle Crewmember Name | Role | Phone | + +------+ + PCP | Unavailable | + +------+ + Encounter Details +--------+ + + + + | Date | Type | Department | Care Team | Description | +--------+ + + + + | 11/08/ | Hospital | [facility] | Brian Orozco | | | 2002 | Encounter | [facility] | MD [address] | | | | | [place] [address] | [place] [facility] | | | | | [place], [place] | [place] [address] | | | | | [address] | [phone] | | | | | [phone] | | | +--------+ + + + [...]
--- OUTSIDE RECORDS SUMMARY | ~2019-09-08 | XMS | Encounter Summary ---
Demographics + + + | Address | [address] | | | [place] [address] | + + + | Home Phone | | + + + | Preferred Language | Unknown | + + + | Marital Status | Single | + + + | Lutheran Affiliation | 1013 | + + + | Race | Unknown | + + + | Ethnic Group | Unknown | + + + Author + + + | Author | [facility] | | | and [place] | + + + | Organization | [facility] | | | [...] [place], [place] | | | | | [address] | | + + + + + | Hilda Ramirez | ECON | [place], | | | | | [place] [address] | | + + + + + Care Team Providers + +------+ + | Care Cable Mock Up Assembler Name | Role | Phone | + +------+ + | No, Physician | PCP | Unavailable | + +------+ + Reason for Visit + + + | Reason | Comments | + + + | Congestion | Rm4 body aches x 3months | + + + Encounter Details +--------+---------+ + + + | Date | Type | Department | Care Team | Description | +--------+---------+ + + + | 02/05/ | Office | [facility] | Francisco Mcnamara | Cough (Primary Dx); | | 2013 | Visit | CARE [address] | Neeraj Fragoso MD | Nasal congestion; | | | | [place] | [address] | Weight loss | | | | [address] | [place] | | | | | [phone] | [address] | | | | | | | | +--------+---------+ + + + [...] + + + | Blood Pressure | 128/68 | 02/05/2014 10:29 AM | | | | | PDT | | + + + + + | Pulse | 77 | 02/05/2014 10:29 AM | | | | | PDT | | + + + + + | Temperature | 37.4 C (99.4 F) | 02/05/2014 10:29 AM | | | | | PDT | | + + + + + | Respiratory Rate | 20 | 02/05/2014 10:29 AM | | | | | PDT | | + + + + + | Oxygen Saturation | 97% | 02/05/2014 10:29 AM | | | | | PDT | | + + + + + | Inhaled Oxygen | - | - | | | Concentration | | | | + + + + + | Weight | 108.8 kg (239 lb | 02/05/2014 10:29 AM | | | | 12.8 oz) | PDT | | + + + + + | Height | 185.4 cm (6' 1") | 02/05/2014 10:29 AM | | | | | PDT | | + + + + + | Body Mass Index | 31.64 | 02/05/2014 10:29 AM | | | | | PDT | | + + + + + documented in this encounter Patient Instructions Patient Instructions Francisco Mcnamara Jr., MD - 02/05/2014 12:35 PM PDTMake an appoi ntment with Dr. Zamora as instructed by the ER Contact her health insurance company to see which edger runner or on your panel and make an a ppointment with a edger runner to address your foot pain documented in this encounter Progress Notes Francisco Mcnamara Jr., MD - 02/05/2014 11:22 AM PDTFormatting of this note might be d ifferent from the original. Ant Graf presents with a three-day six-month history of persistent nasal congestion with y ellow-green rhinorrhea and a cough productive of yellow-green rhinorrhea along with weight l oss. He denies vomiting or diarrhea. He has not had night sweats. He has no history of th yroid disorder Exam: No distress, non-toxic in appearance Nose: Mildly congested with bilateral maxillary sinus tenderness Ears: TM's not inflamed Throat: erythema, no exudate Neck: Supple, no stridor, no adenopathy, Thyroid not enlarged Chest: No rales, no rhonchi, no wheezes, good breath sounds bilaterally, no respiratory di stress Heart: Regular rhythm, no murmur, no gallop, no rub Abdomen: Soft, bowel sounds normal, not distended, no hepatosplenomegaly, no palpable mass Extremities: Good pinprick sensation and good vibratory sense with tuning fork on the ankle bones CXR: Negative Water's view: Negative Recent Results (from the past 24 hour(s)) CBC WITH DIFFERENTIAL Component Value Range WBC 10.2 4.0-11.0 K/uL RBC 5.27 4.30-5.70 M/uL Hgb 15.3 13.5-18.0 g/dL Hct 46.1 40.0-51.0 % MCV 87.4 83.0-101.0 fL MCH 28.9 28.0-35.0 pg MCHC 33.1 32.0-36.0 g/dL RDW 14.1 <15.0 % Platelet Count 256 140-440 K/uL MPV 9.0 % Neutrophils 72.2 45.0-82.0 % % Lymphocytes 18.5 (*) 20.0-45.0 % % Monocytes 6.2 4.0-12.0 % % Eosinophils 2.3 0.0-5.0 % % Basophils 0.8 0.0-1.0 % Absolute Neutrophils 7.40 1.80-8.50 K/uL Absolute Lymphocytes 1.90 0.60-3.20 K/uL Absolute Monocytes 0.60 0.00-1.00 K/uL Absolute Eosinophils 0.20 0.00-0.40 K/uL Absolute Basophils 0.10 0.00-0.10 K/uL COMPREHENSIVE METABOLIC PANEL Component Value Range NA 140 136-149 mmol/L K 3.7 3.5-5.1 mmol/L CL 107 98-109 mmol/L CO2 30 24-31 mmol/L ANION GAP 3 3-16 mmol/L GLUCOSE 97 70-109 mg/dL BUN 10 7-18 mg/dL Creatinine, Serum 0.91 0.60-1.30 mg/dL eGFR if not >60 >=60 mL/min/1.73m2 CALCIUM 9.1 8.3-10.5 mg/dL ALBUMIN 3.4 3.2-5.0 g/dL BILIRUBIN TOTAL 0.7 0.1-1.5 mg/dL Total protein 5.7 (*) 6.0-7.8 g/dL AST 18 10-42 U/L ALT 22 6-45 U/L ALK PHOS 48 40-110 U/L GLOBULIN 2.3 Albumin/Globulin ratio 1.5 BUN/CREA 11.0 TSH Component Value Range TSH 1.19 0.34-5.60 uIU/mL C-REACTIVE PROTEIN Component Value Range CRP 0.90 <8.00 mg/L SEDIMENTATION RATE Component Value Range ESR 1 <15 mm/hr Diagnosis: Weight loss of uncertain etiology, Bilateral foot pain oard, Thong Cee MA - 02/06/20 14 11:07 AM PDTDrew blood left ac. Patient tolerated well.1107 documented in this encounter Plan of Treatment [...] | + +--------+ + + + | SEDIMENTATION RATE | Routin | 02/05/2014 | Cough Nasal | Results for this | | | e | 11:07 AM | congestion Weight | procedure are in the | | | | PDT | loss | results section. | + +--------+ + + + | CBC WITH | Routin | 02/05/2014 | Cough Weight loss | Results for this | | DIFFERENTIAL | e | 11:07 AM | | procedure are in the | | | | PDT | | results section. | + +--------+ + + + | C-REACTIVE PROTEIN | STAT | 02/05/2014 | Cough Nasal | Results for this | | | | 11:07 AM | congestion Weight | procedure are in the | | | | PDT | loss | results section. | + +--------+ + + + | TSH | Routin | 02/05/2014 | Weight loss | Results for this | | | e | 11:07 AM | | procedure are in the | | | | PDT | | results section. | + +--------+ + + + | COMPREHENSIVE | Routin | 02/05/2014 | Weight loss | Results for this | | METABOLIC PANEL | e | 11:07 AM | | procedure are in the [...] + | MISCELLANEOUS LAB | | | [phone] | + +---------+ + + | MISCELANIOUS LAB | | | [phone] | + +---------+ + + XR Chest [...] + | MISCELLANEOUS LAB | | | [phone] | + +---------+ + + | MISCELANIOUS LAB | | | [phone] | + +---------+ + + Sedimentation Rate (02/05/2014 11:07 AM PDT) + +-------+ + + + | Component | Value | Ref Range | Performed | Pathologist | | | | | At | Signature | + +-------+ + + + | Erythrocyte | 1 | <15 mm/hr | [facility] | | | | [facility] | | | [facility] | | | MEDICAL | | | on Rate | | | CENTER - | | | | | | LABORATORY | | + +-------+ + + + + + | Specimen | + + | Blood | + + + + + + + | Performing | Address | City/State/Zipcode | Phone Number | | Organization | | | | + + + + + | [facility] | [address] | [place], [place] | [phone] | | [facility] | | [address] | | | - LABORATORY | | | | + + + + + | [facility] | [address] | [place], [place] | | | [facility] | | [address], [facility] | | | - LABORATORY | | | | + + + + + C-Reactive Protein (02/05/2014 11:07 AM PDT) + +-------+ + + + | Component | Value | Ref Range | Performed | Pathologist | | | | | At | Signature | + +-------+ + + + | CRP | 0.90 | <8.00 mg/L | [facility] | | | | | [facility] | | | | | | MEDICAL | | | | | | CENTER - | | | | | | LABORATORY | | + +-------+ + + + + + | Specimen | + + | Blood | + + + + + + + | Performing | Address | City/State/Zipcode | Phone Number | | Organization | | | | + + + + + | [facility] | [address] | [place] | [phone] | | [facility] | | [address] | | | - LABORATORY | | | | + + + + + | [facility] | [address] | [place], [place] | | | [facility] | | [id number] | | | - LABORATORY | | | | + + + + + TSH (02/05/2014 11:07 AM PDT) + + + + + + | Component | Value | Ref Range | Performed | Pathologist | | | | | At | Signature | + + + + + + | TSH | 1.19Comment: All TSH | 0.34 - 5.60 | [facility] | | | | samples are screened | uIU/mL | [facility] | | | | using a 2nd Generation | | MEDICAL | | | | test, and are reflexed | | CENTER - | | | | to a 3rd Generation test | | LABORATORY | | | | if indicated. | | | | + + + + + + + + | Specimen | + + | Blood | + + + + + + + | Performing | Address | City/State/Zipcode | Phone Number | | Organization | | | | + + + + + | [facility] | [address] | [place] | [phone] | | [facility] | | [address] | | | - LABORATORY | | | | + + + + + | [facility] | [address] | [place] | | | [facility] | | [id number] | | | - LABORATORY | | | | + + + + + Comprehensive Metabolic Panel (02/05/2014 11:07 AM PDT) + + + + + + | Component | Value | Ref Range | Performed | Pathologist | | | | | At | Signature | + + + + + + | Na | 140 | 136 - 149 | [facility] | | | | | mmol/L | [facility] | | | | | | MEDICAL | | | | | | CENTER - | | | | | | LABORATORY | | + + + + + + | K | 3.7 | 3.5 - 5.1 | [facility] | | | | | mmol/L | [facility] | | | | | | MEDICAL | | | | | | CENTER - | | | | | | LABORATORY | | + + + + + + | Cl | 107 | 98 - 109 mmol/L | [facility] | | | | | | [facility] | | | | | | MEDICAL | | | | | | CENTER - | | | | | | LABORATORY | | + + + + + + | CO2 | 30 | 24 - 31 mmol/L | [facility] | | | | | | [facility] | | | | | | MEDICAL | | | | | | CENTER - | | | | | | LABORATORY | | + + + + + + | Anion Gap | 3 | 3 - 16 mmol/L | [facility] | | | | | | [facility] | | | | | | MEDICAL | | | | | | CENTER - | | | | | | LABORATORY | | + + + + + + | Glucose | 97 | 70 - 109 mg/dL | [facility] | | | | | | [facility] | | | | | | MEDICAL | | | | | | CENTER - | | | | | | LABORATORY | | + + + + + + | BUN | 10 | 7 - 18 mg/dL | [facility] | | | | | | [facility] | | | | | | MEDICAL | | | | | | CENTER - | | | | | | LABORATORY | | + + + + + + | Creatinine | 0.91 | 0.60 - 1.30 | [facility] | | | | | mg/dL | [facility] | | | | | | MEDICAL | | | | | | CENTER - | | | | | | LABORATORY | | + + + + + + | eGFR if not | >60Comment: GLOMERULAR | >=60 | [facility] | | | | FILTRATION | mL/min/1.73m2 | [facility] | | | ANDORRAN | RATE,ESTIMATED | | MEDICAL | | | | mL/min/1.32x1Lygv than | | CENTER - | | | | 60 Chronic kidney | | LABORATORY | | | | disease,if found over a | | | | | | 3-month period.Less than | | | | | | 15 Kidney failureFor | | | | | | | | | | | | Americans,multiply the | | | | | | calculated GFR by 1.21. | | | | | | | | | | + + + + + + | Calcium | 9.1 | 8.3 - 10.5 | [facility] | | | | | mg/dL | [facility] | | | | | | MEDICAL | | | | | | CENTER - | | | | | | LABORATORY | | + + + + + + | Albumin | 3.4 | 3.2 - 5.0 g/dL | [facility] | | | | | | [facility] | | | | | | MEDICAL | | | | | | CENTER - | | | | | | LABORATORY | | + + + + + + | Bilirubin | 0.7 | 0.1 - 1.5 mg/dL | [facility] | | | Total | | | [facility] | | | | | | MEDICAL | | | | | | CENTER - | | | | | | LABORATORY | | + + + + + + | Total | 5.7 (L) | 6.0 - 7.8 g/dL | [facility] | | | Protein | | | [facility] | | | | | | MEDICAL | | | | | | CENTER - | | | | | | LABORATORY | | + + + + + + | AST | 18 | 10 - 42 U/L | [facility] | | | | | | [facility] | | | | | | MEDICAL | | | | | | CENTER - | | | | | | LABORATORY | | + + + + + + | ALT | 22 | 6 - 45 U/L | [facility] | | | | | | [facility] | | | | | | MEDICAL | | | | | | CENTER - | | | | | | LABORATORY | | + + + + + + | Alkaline | 48 | 40 - 110 U/L | [facility] | | | Phosphatase | | | [facility] | | | | | | MEDICAL | | | | | | CENTER - | | | | | | LABORATORY | | + + + + + + | Globulin | 2.3 | g/dL | [facility] | | | | | | [facility] | | | | | | MEDICAL | | | | | | CENTER - | | | | | | LABORATORY | | + + + + + + | Albumin/Raya | 1.5 | | [facility] | | | bulin Ratio | | | [facility] | | | | | | MEDICAL | | | | | | CENTER - | | | | | | LABORATORY | | + + + + + + | BUN/Creatin | 11.0 | | [facility] | | | ine Ratio | | | [facility] | | | | | | MEDICAL | | | | | | CENTER - | | | | | | LABORATORY | | + + + + + + + + | Specimen | + + | Blood | + + + + + + + | Performing | Address | City/State/Zipcode | Phone Number | | Organization | | | | + + + + + | [facility] | [address] | [place], [place] | [phone] | | [facility] | | [address] | | | - LABORATORY | | | | + + + + + | [facility] | [address] | [place], [place] | | | [facility] | | [id number] | | | - LABORATORY | | | | + + + + + CBC with Differential (02/05/2014 11:07 AM PDT) + + + + + + | Component | Value | Ref Range | Performed | Pathologist | | | | | At | Signature | + + + + + + | WBC | 10.2 | 4.0 - 11.0 K/uL | [facility] | | | | | | [facility] | | | | | | MEDICAL | | | | | | CENTER - | | | | | | LABORATORY | | + + + + + + | RBC | 5.27 | 4.30 - 5.70 | [facility] | | | | | M/uL | [facility] | | | | | | MEDICAL | | | | | | CENTER - | | | | | | LABORATORY | | + + + + + + | Hemoglobin | 15.3 | 13.5 - 18.0 | [facility] | | | | | g/dL | [facility] | | | | | | MEDICAL | | | | | | CENTER - | | | | | | LABORATORY | | + + + + + + | Hematocrit | 46.1 | 40.0 - 51.0 % | [facility] | | | | | | [facility] | | | | | | MEDICAL | | | | | | CENTER - | | | | | | LABORATORY | | + + + + + + | MCV | 87.4 | 83.0 - 101.0 fL | [facility] | | | | | | [facility] | | | | | | MEDICAL | | | | | | CENTER - | | | | | | LABORATORY | | + + + + + + | MCH | 28.9 | 28.0 - 35.0 pg | [facility] | | | | | | [facility] | | | | | | MEDICAL | | | | | | CENTER - | | | | | | LABORATORY | | + + + + + + | MCHC | 33.1 | 32.0 - 36.0 | [facility] | | | | | g/dL | [facility] | | | | | | MEDICAL | | | | | | CENTER - | | | | | | LABORATORY | | + + + + + + | RDW-CV | 14.1 | <15.0 % | [facility] | | | | | | [facility] | | | | | | MEDICAL | | | | | | CENTER - | | | | | | LABORATORY | | + + + + + + | Platelet | 256 | 140 - 440 K/uL | [facility] | | | Count | | | [facility] | | | | | | MEDICAL | | | | | | CENTER - | | | | | | LABORATORY | | + + + + + + | MPV | 9.0 | fL | [facility] | | | | | | [facility] | | | | | | MEDICAL | | | | | | CENTER - | | | | | | LABORATORY | | + + + + + + | % | 72.2 | 45.0 - 82.0 % | [facility] | | | Neutrophils | | | [facility] | | | | | | MEDICAL | | | | | | CENTER - | | | | | | LABORATORY | | + + + + + + | % | 18.5 (L) | 20.0 - 45.0 % | [facility] | | | Lymphocytes | | | [facility] | | | | | | MEDICAL | | | | | | CENTER - | | | | | | LABORATORY | | + + + + + + | % Monocytes | 6.2 | 4.0 - 12.0 % | [facility] | | | | | | [facility] | | | | | | MEDICAL | | | | | | CENTER - | | | | | | LABORATORY | | + + + + + + | % | 2.3 | 0.0 - 5.0 % | [facility] | | | Eosinophils | | | [facility] | | | | | | MEDICAL | | | | | | CENTER - | | | | | | LABORATORY | | + + + + + + | % Basophils | 0.8 | 0.0 - 1.0 % | [facility] | | | | | | [facility] | | | | | | MEDICAL | | | | | | CENTER - | | | | | | LABORATORY | | + + + + + + | Absolute | 7.40 | 1.80 - 8.50 | [facility] | | | Neutrophils | | K/uL | [facility] | | | | | | MEDICAL | | | | | | CENTER - | | | | | | LABORATORY | | + + + + + + | Absolute | 1.90 | 0.60 - 3.20 | [facility] | | | Lymphocytes | | K/uL | [facility] | | | | | | MEDICAL | | | | | | CENTER - | | | | | | LABORATORY | | + + + + + + | Absolute | 0.60 | 0.00 - 1.00 | [facility] | | | Monocytes | | K/uL | [facility] | | | | | | MEDICAL | | | | | | CENTER - | | | | | | LABORATORY | | + + + + + + | Absolute | 0.20 | 0.00 - 0.40 | [facility] | | | Eosinophils | | K/uL | [facility] | | | | | | MEDICAL | | | | | | CENTER - | | | | | | LABORATORY | | + + + + + + | Absolute | 0.10 | 0.00 - 0.10 | [facility] | | | Basophils | | K/uL | [facility] | | | | | | MEDICAL | | | | | | CENTER - | | | | | | LABORATORY | | + + + + + + + + | Specimen | + + | Blood | + + + + + + + | Performing | Address | City/State/Zipcode | Phone Number | | Organization | | | | + + + + + | [facility] | [address] | [place], [place] | [phone] | | [facility] | | [address] | | | - LABORATORY | | | | + + + + + | [facility] | [address] | [place], [place] | | | [facility] | | [id number] | | | - LABORATORY | | | | + + + + + documented in this encounter Visit Diagnoses + + | Diagnosis | + + | Cough - Primary | + + | Nasal congestion Other diseases of nasal cavity and sinuses | + + | Weight loss Loss of weight | + + documented in this encounter
--- OUTSIDE RECORDS SUMMARY | ~2019-09-08 | XMS | Encounter Summary ---
Demographics + + + | Address | [address] | | | [place] [address] | + + + | Home Phone [...] [place], [place] | | | | | [address] | | + + + + + | Hilda Ramirez | ECON | [place], | | | | | [place] [address] | | + + + + + Care Team Providers + +------+ + | Care Mud Analysis Well Logging Captain Name | Role | Phone | + [...] | SR | | | | | [address] | | | | | | [place], [place] | | | | | | [address] | | | | | | [phone] | | | +--------+ + + + [...]
--- OUTSIDE RECORDS SUMMARY | ~2019-09-08 | XMS | Encounter Summary ---
Demographics + + + | Address | [address] | | | [place] [address] | + + + | Home Phone | | + + + | Preferred Language | Unknown | + + + | Marital Status | Single | + + + | Christian Affiliation | 1013 | + + + | Race | Unknown | + + + | Ethnic Group | Unknown | + + + Author + + + | Author | [facility] | | | and [place] | + + + | Organization | [facility] | | | [...] [place], [place] | | | | | [address] | | + + + + + | Hilda Ramirez | ECON | [place], | | | | | [place] [address] | | + + + + + Care Team Providers + +------+ + | Care Social Contact Worker Name | Role | Phone | + +------+ + PCP | Unavailable | + +------+ + Encounter Details +--------+ + + + + | Date | Type | Department | Care Team | Description | +--------+ + + + + | 05/17/ | Hospital | [facility] | Milagros Kebede | | | 2008 | Encounter | [facility] | DO Brigido Dumont GONZ[place]LEZ | | | | | [address] [facility] | [place], [place] | | | | | [place], [place] | [address] | | | | | [address] | | | | | | [phone] | | | +--------+ + + + [...]
--- OUTSIDE RECORDS SUMMARY | ~2019-09-08 | XMS | Encounter Summary ---
Demographics + + + | Address | [address] | | | [place] [address] | + + + | Home Phone | | + + + | Preferred Language | Unknown | + + + | Marital Status | Single | + + + | Church Affiliation | 1013 | + + + | Race | Unknown | + + + | Ethnic Group | Unknown | + + + Author + + + | Author | [facility] | | | and [place] | + + + | Organization | [facility] | | | and [...] [place], [place] | | | | | [address] | | + + + + + | Hilda Ramirez | ECON | [place], | | | | | [place] [address] | | + + + + + Care Team Providers + +------+ + | Care Pharmacy Picking Tech Name | Role | Phone | + +------+ + PCP | Unavailable | + +------+ + Encounter Details +--------+ + + + + | Date | Type | Department | Care Team | Description | +--------+ + + + + | 12/20/ | Hospital | [facility] | Unknown, | | | 2006 | Encounter | [facility] | MD Tayler . | | | | | [address] | | | | | | [place] | (Fax) | | | | | [address] | | | | | | [phone] | | | +--------+ + + + [...]
--- OUTSIDE RECORDS SUMMARY | ~2019-09-08 | XMS | Encounter Summary ---
Demographics + + + | Address | [address] | | | [place] [address] | + + + | Home Phone | | + + + | Preferred Language | Unknown | + + + | Marital Status | Single | + + + | Congregation Affiliation | 1013 | + + + | Race | Unknown | + + + | Ethnic Group | Unknown | + + + Author + + + | Author | [facility] | | | and [place] | + + + | Organization | [facility] | | | and [...] [place], [place] | | | | | [address] | | + + + + + | Hilda Ramirez | ECON | [place], | | | | | [place] [address] | | + + + + + Care Team Providers + +------+ + | Care Manager Applied Name | Role | Phone | + +------+ + | No, Physician | PCP | Unavailable | + +------+ + Reason for Visit + + + | Reason | Comments | + + + | Follow-up | Re: Recent visit to Urgent Care | + + + Encounter Details +--------+ + + + + | Date | Type | Department | Care Team | Description | +--------+ + + + + | 06/30/ | Telephone | [facility] | Carlos Pizano, | Follow-up (Re: | | 2014 | | CARE [address] | MD [address] | Recent visit to | | | | [place] | [place] [facility] Urgent Care) | | | | [address] | [address] | | | | | [phone] | | | +--------+ + + + [...]
--- OUTSIDE RECORDS SUMMARY | ~2019-09-08 | XMS | Encounter Summary ---
Demographics + + + | Address | [address] | | | [place] [address] | + + + | Home Phone [...] | Organization | [facility] [...] [place], [place] | | | | | [address] | | + + + + + | Hilda Ramirez | ECON | [place], | | | | | [place] [address] | | + + + + + Care Team Providers + +------+ + | Care Air Conditioning Installer Name | Role | Phone | + +------+ + PCP | Unavailable | + +------+ + Encounter Details +--------+ + + + + | Date | Type | Department | Care Team | Description | +--------+ + + + + | 07/17/ | Hospital | [facility] | | | | 2000 | Encounter | [facility] | | | | | | CENTER [address] | | | | | | [place], [place] | | | | | | [address] | | | | | | [phone] | | | +--------+ + + + [...]
--- OUTSIDE RECORDS SUMMARY | ~2019-09-08 | XMS | Encounter Summary ---
Demographics + + + | Address | [address] | | | [place] [address] | + + + | Home Phone [...] [place], [place] | | | | | [address] | | + + + + + | Hilda Ramirez | ECON | [place], | | | | | [place] [address] | | + + + + + Care Team Providers + +------+ + | Care Library Cataloging Technician Name | Role | Phone | + +------+ + PCP | Unavailable | + +------+ + Encounter Details +--------+ + + + + | Date | Type | Department | Care Team | Description | +--------+ + + + + | 01/08/ | Hospital | [facility] | | | | 2007 | Encounter | [facility] GENER[facility] OP | | | | | | CONV DEPT [address] | | | | | [place], | | | | | | [place] [address] | | | | | | [phone] | | | +--------+ + + + [...]
--- OUTSIDE RECORDS SUMMARY | ~2019-09-08 | XMS | Encounter Summary ---
Demographics + + + | Address | [address] | | | [place] [address] | + + + | Home Phone | | + + + | Preferred Language | Unknown | + + + | Marital Status | Single | + + + | Jewish Affiliation | 1013 | + + + [...] [place], [place] | | | | | [address] | | + + + + + | Hilda Ramirez | ECON | [place], | | | | | [place] [address] | | + + + + + Care Team Providers + +------+ + | Care Lens Polisher Hand Name | Role | Phone | + [...] + + | 02/05/ | Office | [facility] | Francisco Mcnamara | Cough (Primary Dx); | | 2013 | Visit | CARE [address] | Neeraj Fragoso MD | Nasal congestion; | | | | [place] | [address] | Weight loss | | | | [address] | [place] [address] | | | | | [phone] | [address] | | | | | | | [...] her health insurance company to see which tool dresser or on your panel and make an a ppointment with a tool dresser to address your foot pain documented in [...] + | MISCELLANEOUS LAB | | | [phone] | + +---------+ + + | MISCELANIOUS LAB | | | [phone] | + +---------+ + + XR Chest [...] + | MISCELLANEOUS LAB | | | [phone] | + +---------+ + + | MISCELANIOUS LAB | | | [phone] | + +---------+ + + Sedimentation Rate [...] + | [facility] | [address] | [place], [place] | [phone] | | [facility] | | [address] | | | - LABORATORY | | | | + + + + + | [facility] | [address] | [place], [place] | | | [facility] | | [address], [facility] | | | - LABORATORY [...] + | [facility] | [address] | [place] | [phone] | | [facility] | | [address] | | | - LABORATORY | | | | + + + + + | [facility] | [address] | [place], [place] | | | [facility] | | [id number] | | | - LABORATORY | | | | + + + + + TSH (02/05/2014 11:07 AM PDT) + + + + + + | Component | Value | Ref Range | Performed | Pathologist | | | | | At | Signature | + + + + + + | TSH | 1.19Comment: All TSH | 0.34 - 5.60 | [facility] | | | | samples are screened | uIU/mL | [facility] | | | | using a 2nd [...] + | [facility] | [address] | [place] | [phone] | | [facility] | | [address] | | | - LABORATORY | | | | + + + + + | [facility] | [address] | [place] | | | [facility] | | [id number] | | | - LABORATORY | | [...] mL/min/1.73m2 | [facility] | | | [facility] | RATE,ESTIMATED | | MEDICAL | | | | mL/min/1.80t8Ixjf than | | CENTER - | | [...] + | [facility] | [address] | [place], [place] | [phone] | | [facility] | | [address] | | | - LABORATORY | | | | + + + + + | [facility] | [address] | [place], [place] | | | [facility] | | [id number] | | | - LABORATORY | | [...] ST. | [address] | [place], [place] | [phone] | | [facility] | | [address] | | | - LABORATORY | | | | + + + + + | [facility] | [address] | [place], [place] | | | [facility] | | [id number] | | | - LABORATORY | | [...]
--- OUTSIDE RECORDS SUMMARY | ~2019-09-08 | XMS | Encounter Summary ---
Demographics + + + | Address | [address] | | | [place] [address] | + + + | Home Phone | | + + + | Preferred Language | Unknown | + + + | Marital Status | Single | + + + | Voodoo Affiliation | 1013 | + + + | Race | Unknown | + + + | Ethnic Group | Unknown | + + + Author + + + | Author | [facility] | | | and [place] | + + + | Organization | [facility] | | [...] [place], [place] | | | | | [address] | | + + + + + | Hilda Ramirez | ECON | [place], | | | | | [place] [address] | | + + + + + Care Team Providers + +------+ + | Care Data Processor Name | Role | Phone | + [...] [address] | | | | | | [place], [place] | | | | | | [address] | | | | | | [phone] | | | +--------+ + + + [...]
--- OUTSIDE RECORDS SUMMARY | ~2019-09-08 | XMS | Encounter Summary ---
Demographics + + + | Address | [address] | | | [place] [address] | + + + | Home Phone | | + + + | Preferred Language | Unknown | + + + | Marital Status | Single | + + + | Mandaeism Affiliation | 1013 | + + + | Race | Unknown | + + + | Ethnic Group | Unknown | + + + Author + + + | Author | [facility] | | | and [place] | + + + | Organization | [facility] | | | [...] [place], [place] | | | | | [address] | | + + + + + | Hilda Ramirez | ECON | [place], | | | | | [place] [address] | | + + + + + Care Team Providers + +------+ + | Care Licensed Physical Therapist Name | Role | Phone | + +------+ + PCP | Unavailable | + +------+ + Encounter Details +--------+ + + + + | Date | Type | Department | Care Team | Description | +--------+ + + + + | 06/26/ | Hospital | [facility] | | | | 2008 | Encounter | MED CTR GENERIC OP | | | | | | CONV DEPT [address] | | | | | | [place], | | | | | | [place] [address] | | | | | | [phone] | | | +--------+ + + + [...]
--- OUTSIDE RECORDS SUMMARY | ~2019-09-08 | XMS | Encounter Summary ---
Demographics + + + | Address | [address] | | | [place] [address] | + + + | Home Phone | | + + + | Preferred Language | Unknown | + + + | Marital Status | Single | + + + | Adventist Affiliation | 1013 | + + + | Race | Unknown | + + + | Ethnic Group | Unknown | + + + Author + + + | Author | [facility] | | | and [place] | + + + | Organization | [facility] | | | [...] [place], [place] | | | | | [address] | | + + + + + | Hilda Ramirez | ECON | [place], | | | | | [place] [address] | | + + + + + Care Team Providers + +------+ + | Care Doll Wigs Hackler Name | Role | Phone | + [...] [address] | | | | | | [place], [place] | | | | | | [address] | | | | | | [phone] | | | +--------+ + + + [...]
--- OUTSIDE RECORDS SUMMARY | ~2019-09-08 | XMS | Encounter Summary ---
Demographics + + + | Address | [address] | | | [place] [address] | + + + | Home Phone | | + + + | Preferred Language | Unknown | + + + | Marital Status | Single | + + + | Nondenominational Affiliation | 1013 | + + + | Race | Unknown | + + + | Ethnic Group | Unknown | + + + Author + + + | Author | [facility] | | | and [place] | + + + | Organization | [facility] | | [...] [place], [place] | | | | | [address] | | + + + + + | Hilda Ramirez | ECON | [place], | | | | | [place] [address] | | + + + + + Care Team Providers + +------+ + | Care Morning News Anchor Name | Role | Phone | + +------+ + PCP | Unavailable | + +------+ + Encounter Details +--------+ + + + + | Date | Type | Department | Care Team | Description | +--------+ + + + + | 05/17/ | Hospital | [facility] | Milagros Kebede | | | 2008 | Encounter | MED CTR LABORATORY | DO Brigido Dumont GONZÁLEZ | | | | | [address] [facility] | [place], [place] | | | | | [place], [place] | [address] | | | | | [address] | | | | | | [phone] | | | +--------+ + + + [...]
--- OUTSIDE RECORDS SUMMARY | ~2019-09-08 | XMS | Encounter Summary ---
Demographics + + + | Address | [address] | | | [place] [address] | + + + | Home Phone | | + + + | Preferred Language | Unknown | + + + | Marital Status | Single | + + + | Sikh Affiliation | 1013 | + + + [...] [place], [place] | | | | | [address] | | + + + + + | Hilda Ramirez | ECON | [place], | | | | | [place] [address] | | + + + + + Care Team Providers + +------+ + | Care Obstetrician Name | Role | Phone | + +------+ + | No, Physician | PCP | Unavailable | + +------+ + Encounter Details +--------+ + + + + | Date | Type | Department | Care Team | Description | +--------+ + + + + | 02/05/ | Hospital | [facility] | Francisco Mcnamara | | | 2014 | Encounter | MED CTR [facility] XRAY | Neeraj Fragoso MD | | | | | [address] | [address] | | | | | [place] | [place] | | | | | [address] | [address] | | | | | [phone] | | | +--------+ + + + [...] + | MISCELLANEOUS LAB | | | [phone] | + +---------+ + + | MISCELANIOUS LAB | | | [phone] | + +---------+ + + XR Chest [...] + | MISCELLANEOUS LAB | | | [phone] | + +---------+ + + | MISCELANIOUS LAB | | | [phone] | + +---------+ + + documented in this encounter Visit Diagnoses Not on filedocumented in this encounter"
--- OUTSIDE RECORDS SUMMARY | ~2019-09-08 | XMS | Clinical Summary ---
Demographics + + + | Address | [address] | | | [place] [address] | + + + | Home Phone [...] [place], [place] | | | | | [address] | | + + + + + | Hilda Ramirez | ECON | [place], | | | | | [place] [address] | | + + + + + Care Team Providers + +------+ + | Care Crown Assembly Machine Set Up Mechanic Name | Role | Phone | + +------+ + | No, Physician | PCP | Unavailable | + +------+ + Allergies No Known [...] Noted Date | + + + | SINUSITIS | 01/15/2012 | + + + | SINUSITIS, ACUTE | 11/05/2011 | + + + Social History + + [...] | + + Last Filed Vital Signs + [...] | Vaccine: | | | | | Dtap/Tdap/Td (1 - | 3 | | | | Tdap) | | | | + + + + + | Vaccine: Influenza | | | | | (Season Ended) | 0 | | | + + + + + Results Not on filefrom Last 3 Months Insurance + +--------+ +--------+ [...] + +--------+ | MODA | MODA | [id number] | | [phone] | [address] | PPO | | | HEALTH | | [address] | [address] | [address] | | | | | | esent | | [place], | | | | [place] | | | | [place] [address] | | | | [place] | | | | | | + +--------+ +--------+ + +--------+ | [place] | MEDICA | [id number] | 06/24/19 | [phone] | | Medica [...] | Self | [birth year] | [address] | | | al/Seth | | 1981 | [phone] | [place], [place] | | | alyssa | | | 6 (Home) | [address] | + +--------+ +--------+ + + Advance Directives + + + + + | Type | Date Recorded | Patient | Explanation | | | | Exit Booth Agent | | + + + + + | Power of | | | | | Clutch Inspector | | | | + + + + + | Advance | 01/26/2014 3:43 | | | | Directive | PM | | | + + + + +
--- OUTSIDE RECORDS SUMMARY | ~2019-09-08 | XMS | Encounter Summary ---
Demographics + + + | Address | [address] | | | [place] [address] | + + + | Home Phone | | + + + | Preferred Language | Unknown | + + + | Marital Status | Single | + + + | Sabianism Affiliation | 1013 | + + + | Race | Unknown | + + + | Ethnic Group | Unknown | + + + Author + + + | Author | [facility] | | | and [place] | + + + | Organization | [facility] | | [...] [place], [place] | | | | | [address] | | + + + + + | Hilda Ramirez | ECON | [place], | | | | | [place] [address] | | + + + + + Care Team Providers + +------+ + | Care Composite Worker Name | Role | Phone | + +------+ + | No, Physician | PCP | Unavailable | + +------+ + Encounter Details +--------+ + + + + | Date | Type | Department | Care Team | Description | +--------+ + + + + | 02/05/ | Hospital | [facility] | Francisco Mcnamara | | | 2014 | Encounter | MED CTR GON[facility]LE[facility] XRAY | Neeraj Fragoso MD | | | | | [address] | [address] | | | | | [place] | [place] | | | | | [address] | [address] | | | | | [phone] | | | +--------+ + + + [...] + | MISCELLANEOUS LAB | | | [phone] | + +---------+ + + | MISCELANIOUS LAB | | | [phone] | + +---------+ + + XR Chest [...] + | MISCELLANEOUS LAB | | | [phone] | + +---------+ + + | MISCELANIOUS LAB | | | [phone] | + +---------+ + + documented in this encounter Visit Diagnoses Not on filedocumented in this encounter"
--- OUTSIDE RECORDS SUMMARY | ~2019-09-08 | XMS | Encounter Summary ---
Demographics + + + | Address | [address] | | | [place] [address] | + + + | Home Phone [...] [place], [place] | | | | | [address] | | + + + + + | Hilda Ramirez | ECON | [place], | | | | | [place] [address] | | + + + + + Care Team Providers + +------+ + | Care Map Editor Name | Role | Phone | + +------+ + PCP | Unavailable | + +------+ + Encounter Details +--------+ + + + + | Date | Type | Department | Care Team | Description | +--------+ + + + + | 12/20/ | Hospital | [facility] | Unknown, | | | 2006 | Encounter | MED CTR LABORATORY | MD Tayler . | | | | | [address] | | | | | | [place] | (Fax) | | | | | [address] | | | | | | [phone] | | | +--------+ + + + [...]
--- OUTSIDE RECORDS SUMMARY | ~2019-09-08 | XMS | Clinical Summary ---
Demographics + + + | Address | [address] | | | [place] [address] | + + + | Home Phone | | + + + | Preferred Language | Unknown | + + + | Marital Status | Single | + + + | Alevism Affiliation | 1013 | + + + | Race | Unknown | + + + | Ethnic Group | Unknown | + + + Author + + + | Author | [facility] | | | and [place] | + + + | Organization | [facility] | | | [...] [place], [place] | | | | | [address] | | + + + + + | Hilda Ramirez | ECON | [place], | | | | | [place] [address] | | + + + + + Care Team Providers + +------+ + | Care Instructor Robotics Name | Role | Phone | + [...] + +--------+ | MODA | MODA | [id number] | | [phone] | [address] | PPO | | | HEALTH | | [address] | 9 | [id number] | | | | | | esent | | [place], | | | | [place] | | | | [place] [address] | | | | [place] | | | | | | + +--------+ +--------+ + +--------+ | [place] | MEDICA | [id number] | 06/24/19 | [phone] | | Medica [...] | | al/Seth | | 1981 | [phone] | [place], [place] | | | [place] | | | 6 (Home) | [address] | + +--------+ +--------+ + + Advance Directives + + + + + | Type | Date Recorded | Patient | Explanation | | | | Research Manager | | + + + + + | Power of | | | | | Lead Pl Sql Developer | | | | + + + + + | Advance | 01/26/2014 3:43 | | | | Directive | PM | | | + + + + +
--- OUTSIDE RECORDS SUMMARY | ~2019-09-08 | XMS | Encounter Summary ---
Demographics + + + | Address | [address] | | | [place] [address] | + + + | Home Phone [...] + + + | Author | [facility] | | | and [place] | + + + | Organization | [facility] | | [...] [place], [place] | | | | | [address] | | + + + + + | Hilda Ramirez | ECON | [place], | | | | | [place] [address] | | + + + + + Care Team Providers + +------+ + | Care Finish Opener Name | Role | Phone | + [...] | 02/25/ | Emergency | [facility] | Leonel Dimas, | Myalgia (Primary | | 2013 | | MED CTR EMERGENCY | MD [address] | Dx); Arthralgia | | | | CENTER [address] | [facility] [place] | | | | | [place] | [place] [address] | | | | | [address] | [phone] | | | | | [phone] | | | +--------+ + + + [...] be sent through Care Everywhere.ARTHRALGIA (ENG THOMAS)MYALGIAS (CHINESE)documented in this encounter Medications at Time of [...] -------- | | | ---- 02/25/2014 04:32 [place] | | | [facility] Emergency -Body pain 02/23/2014 | | | 03:36 [facility] Emergency | | | -Withdrawals 01/31/2014 20:26 [facility] Emergency -Pain in limb | | | | | | -Feet burning | | | -Foot Pain | | | 01/26/2014 15:03 [facility] | | | Emergency -Blister of foot and toe(s), without mention of | | | infection | | | -Blister of foot and | | | toe(s), without mention of infection | | | | | | -Back Pain | | | -Foot Pain | | | | | | -Pain in limb 01/25/2014 16:54 | | | [facility] Emergency -SOB | | | | | | -Difficulty Breathing VISIT COUNT (1 | | | YR.) Visits Medicaid NE Dx Location ------ | | | --------- 5 0 | | | [facility] 5 0 | | | Total Note: Visits indicate total known visits. Medicaid | | | NE Dx are the number of primary diagnoses on the [facility]'s non-emergent dx | | | list. | [...]
--- OUTSIDE RECORDS SUMMARY | ~2019-09-08 | XMS | Encounter Summary ---
Demographics + + + | Address | [address] | | | [place] [address] | + + + | Home Phone | | + + + | Preferred Language | Unknown | + + + | Marital Status | Single | + + + | Yazidism Affiliation | 1013 | + + + | Race | Unknown | + + + | Ethnic Group | Unknown | + + + Author + + + | Author | [facility] | | | and [place] | + + + | Organization | [facility] | | | [...] [place], [place] | | | | | [address] | | + + + + + | Hilda Ramirez | ECON | [place], | | | | | [place] [address] | | + + + + + Care Team Providers + +------+ + | Care Spider Assembler Name | Role | Phone | + +------+ + PCP | Unavailable | + +------+ + Encounter Details +--------+ + + + + | Date | Type | Department | Care Team | Description | +--------+ + + + + | 11/08/ | Hospital | [facility] | Brian Orozco | | | 2002 | Encounter | MED CTR EMERGENCY | MD [address] | | | | | [place] [address] | [facility] | | | | | [place], [place] | [place] [address] | | | | | [address] | [phone] | | | | | [phone] | | | +--------+ + + + [...]
--- OUTSIDE RECORDS SUMMARY | ~2019-09-08 | XMS | Encounter Summary ---
Demographics + + + | Address | [address] | | | [place] [address] | + + + | Home Phone | | + + + | Preferred Language | Unknown | + + + | Marital Status | Single | + + + | Confucianism Affiliation | 1013 | + + + [...] [place], [place] | | | | | [address] | | + + + + + | Hilda Ramirez | ECON | [place], | | | | | [place] [address] | | + + + + + Care Team Providers + +------+ + | Care Mental Health Professional Name | Role | Phone | + +------+ + PCP | Unavailable | + +------+ + Encounter Details +--------+ + + + + | Date | Type | Department | Care Team | Description | +--------+ + + + + | 07/15/ | Hospital | [facility] | | | | 2000 | Encounter | MED CTR EMERGENCY | | | | | | CENTER [address] | | | | | | [place], [place] | | | | | | [address] | | | | | | [phone] | | | +--------+ + + + [...]
--- OUTSIDE RECORDS SUMMARY | ~2019-09-08 | XMS | Clinical Summary ---
Demographics + + + | Address | [address] | | | [place] [address] | + + + | Home Phone | | + + + | Preferred Language | Unknown | + + + | Marital Status | Single | + + + | Taoism Affiliation | 1013 | + + + | Race | Unknown | + + + | Ethnic Group | Unknown | + + + Author + + + | Author | [facility] | | | and [place] | + + + | Organization | [facility] | | [...] [place], [place] | | | | | [address] | | + + + + + | Hilda Ramirez | ECON | [place], | | | | | [place] [address] | | + + + + + Care Team Providers + +------+ + | Care Cemetery Keeper Name | Role | Phone | + [...] + +--------+ | MODA | MODA | [id number] | | [phone] | [address] | PPO | | | HEALTH | | [address] | 9 | [id number] | | | | | | esent | | [place], | | | | [place] | | | | [place] [address] | | | | [place] | | | | | | + +--------+ +--------+ + +--------+ | [place] | MEDICA | [id number] | 06/24/19 | [phone] | | Medica [...] | | al/Seth | | 1981 | [phone] | [place], [place] | | | [place] | | | 6 (Home) | [address] | + +--------+ +--------+ + + Advance Directives + + + + + | Type | Date Recorded | Patient | Explanation | | | | Duck Farmer | | + + + + + | Power of | | | | | Guyline Operator | | | | + + + + + | Advance | 01/26/2014 3:43 | | | | Directive | PM | | | + + + + +
--- OUTSIDE RECORDS SUMMARY | ~2019-09-08 | XMS | Encounter Summary ---
Demographics + + + | Address | [address] | | | [place] [address] | + + + | Home Phone | | + + + | Preferred Language | Unknown | + + + | Marital Status | Single | + + + | Pentecostal Affiliation | 1013 | + + + | Race | Unknown | + + + | Ethnic Group | Unknown | + + + Author + + + | Author | [facility] | | | and [place] | + + + | Organization | [facility] | | | [...] [place], [place] | | | | | [address] | | + + + + + | Hilda Ramirez | ECON | [place], | | | | | [place] [address] | | + + + + + Care Team Providers + +------+ + | Care Top Lift Cutter Name | Role | Phone | + +------+ + PCP | Unavailable | + +------+ + Encounter Details +--------+ + + + + | Date | Type | Department | Care Team | Description | +--------+ + + + + | 06/26/ | Hospital | [facility] | | | | 2008 | Encounter | MED CTR GENERIC OP | | | | | | CONV DEPT [address] | | | | | | [place], | | | | | | [place] [address] | | | | | | [phone] | | | +--------+ + + + [...]
--- OUTSIDE RECORDS SUMMARY | ~2019-09-08 | XMS | Encounter Summary ---
Demographics + + + | Address | [address] | | | [place] [address] | + + + | Home Phone [...] + + + | Author | [facility] | | | and [place] | + + + | Organization | [facility] | | | [...] [place], [place] | | | | | [address] | | + + + + + | Hilda Ramirez | ECON | [place], | | | | | [place] [address] | | + + + + + Care Team Providers + +------+ + | Care Polisher Numeral Name | Role | Phone | + [...] + + | 01/31/ | Emergency | [facility] | Brian Orozco | Foot pain, bilateral | | 2013 | | MED CTR EMERGENCY | MD [address] | (Primary Dx) | | | | CENTER [address] | [address] | | | | | [place], [place] | [place] [address] | | | | | [address] | [phone] | | | | | [phone] | | | +--------+ + + + [...]
--- OUTSIDE RECORDS SUMMARY | ~2019-09-08 | XMS | Encounter Summary ---
Demographics + + + | Address | [address] | | | [place] [address] | + + + | Home Phone | | + + + | Preferred Language | Unknown | + + + | Marital Status | Single | + + + | Yazidi Affiliation | 1013 | + + + | Race | Unknown | + + + | Ethnic Group | Unknown | + + + Author + + + | Author | [facility] | | | and [place] | + + + | Organization | [facility] | | | [...] [place], [place] | | | | | [address] | | + + + + + | Hilda Ramirez | ECON | [place], | | | | | [place] [address] | | + + + + + Care Team Providers + +------+ + | Care Box Turner Name | Role | Phone | + +------+ + PCP | Unavailable | + +------+ + Encounter Details +--------+ + + + + | Date | Type | Department | Care Team | Description | +--------+ + + + + | 03/24/ | Hospital | [facility] | | | | 2006 | Encounter | MED CTR LABORATORY | | | | | | [address] | | | | | | [place] | | | | | | [address] | | | | | | [phone] | | | +--------+ + + + [...]
--- OUTSIDE RECORDS SUMMARY | ~2019-09-08 | XMS | Encounter Summary ---
Demographics + + + | Address | [address] | | | [place] [address] | + + + | Home Phone | | + + + | Preferred Language | Unknown | + + + | Marital Status | Single | + + + | Worship Affiliation | 1013 | + + + | Race | Unknown | + + + | Ethnic Group | Unknown | + + + Author + + + | Author | [facility] | | | and [place] | + + + | Organization | [facility] | | | and [...] [place], [place] | | | | | [address] | | + + + + + | Hilda Ramirez | ECON | [place], | | | | | [place] [address] | | + + + + + Care Team Providers + +------+ + | Care Interior Designer Name | Role | Phone | + [...] + + | 01/25/ | Emergency | [facility] | | Surgical or other | | 2013 | | MED CTR EMERGENCY | | procedure not | | | | [address] | | carried out because | | | | [place] | | of patient's | | | | [address] | | decision (Primary | | | | [phone] | | Dx) | +--------+ + + [...]
--- OUTSIDE RECORDS SUMMARY | ~2019-09-08 | XMS | Encounter Summary ---
Demographics + + + | Address | [address] | | | [place] [address] | + + + | Home Phone | | + + + | Preferred Language | Unknown | + + + | Marital Status | Single | + + + | Scientologist Affiliation | 1013 | + + + | Race | Unknown | + + + | Ethnic Group | Unknown | + + + Author + + + | Author | [facility] | | | and [place] | + + + | Organization | [facility] | | [...] [place], [place] | | | | | [address] | | + + + + + | Hilda Ramirez | ECON | [place], | | | | | [place] [address] | | + + + + + Care Team Providers + +------+ + | Care Gravity Prospecting Observer Name | Role | Phone | + +------+ + PCP | Unavailable | + +------+ + Encounter Details +--------+ + + + + | Date | Type | Department | Care Team | Description | +--------+ + + + + | 03/24/ | Hospital | [facility] | | | | 2006 | Encounter | [facility] | | | | | | [address] | | | | | | [place] | | | | | | [address] | | | | | | [phone] | | | +--------+ + + + [...]
--- OUTSIDE RECORDS SUMMARY | ~2019-09-08 | XMS | Encounter Summary ---
Demographics + + + | Address | [address] | | | [place] [address] | + + + | Home Phone | | + + + | Preferred Language | Unknown | + + + | Marital Status | Single | + + + | Synagogue Affiliation | 1013 | + + + | Race | Unknown | + + + | Ethnic Group | Unknown | + + + Author + + + | Author | [facility] | | | and [place] | + + + | Organization | [facility] | | [...] [place], [place] | | | | | [address] | | + + + + + | Hilda Ramirez | ECON | [place], | | | | | [place] [address] | | + + + + + Care Team Providers + +------+ + | Care Turner Off Name | Role | Phone | + [...] + + | 02/25/ | Emergency | [facility] | Leonel Dimas, | Myalgia (Primary | | 2013 | | MED CTR EMERGENCY | MD [address] | Dx); Arthralgia | | | | CENTER [address] | [facility] [place] | | | | | [place] | [place] [address] | | | | | [address] | [phone] | | | | | [phone] | | | +--------+ + + + [...] be sent through Care Everywhere.ARTHRALGIA (ENG THOMAS)MYALGIAS (CZECH)documented in this encounter Medications at Time of [...] -------- | | | ---- 02/25/2014 04:32 [place] | | | [facility] Emergency -Body pain 02/23/2014 | | | 03:36 [facility] Emergency | | | -Withdrawals 01/31/2014 20:26 [facility] Emergency -Pain in limb | | | | | | -Feet burning | | | -Foot Pain | | | 01/26/2014 15:03 [facility] | | | Emergency -Blister of foot and toe(s), without mention of | | | infection | | | -Blister of foot and | | | toe(s), without mention of infection | | | | | | -Back Pain | | | -Foot Pain | | | | | | -Pain in limb 01/25/2014 16:54 | | | [facility] Emergency -SOB | | | | | | -Difficulty Breathing VISIT COUNT (1 | | | YR.) Visits Medicaid NE Dx Location ------ | | | --------- 5 0 | | | [facility] 5 0 | | | Total Note: Visits indicate total known visits. Medicaid | | | NE Dx are the number of primary diagnoses on the [facility]'s non-emergent dx | | | list. | [...]
--- OUTSIDE RECORDS SUMMARY | ~2019-09-08 | XMS | Encounter Summary ---
Demographics + + + | Address | [address] | | | [place] [address] | + + + | Home Phone [...] + + + | Author | [facility] | | | and [place] | + + + | Organization | [facility] | | [...] [place], [place] | | | | | [address] | | + + + + + | Hilda Ramirez | ECON | [place], | | | | | [place] [address] | | + + + + + Care Team Providers + +------+ + | Care Staple Cutter Name | Role | Phone | + +------+ + PCP | Unavailable | + +------+ + Encounter Details +--------+ + + + + | Date | Type | Department | Care Team | Description | +--------+ + + + + | 03/24/ | Hospital | [facility] | | | | 2006 | Encounter | [facility] LAB[facility] | | | | | | [address] | | | | | | [place] | | | | | | [address] | | | | | | [phone] | | | +--------+ + + + [...]
--- OUTSIDE RECORDS SUMMARY | ~2019-09-08 | XMS | Encounter Summary ---
Demographics + + + | Address | [address] | | | [place] [address] | + + + | Home Phone | | + + + | Preferred Language | Unknown | + + + | Marital Status | Single | + + + | Anabaptist Affiliation | 1013 | + + + | Race | Unknown | + + + | Ethnic Group | Unknown | + + + Author + + + | Author | [facility] | | | and [place] | + + + | Organization | [facility] | | | [...] [place], [place] | | | | | [address] | | + + + + + | Hilda Ramirez | ECON | [place], | | | | | [place] [address] | | + + + + + Care Team Providers + +------+ + | Care Digital Strategist Name | Role | Phone | + [...] + + | 01/31/ | Emergency | [facility] | Brian Orozco | Foot pain, bilateral | | 2013 | | MED CTR EMERGENCY | MD [address] | (Primary Dx) | | | | CENTER [address] | [address] [facility] | | | | | [place], [place] | [place] [address] | | | | | [address] | [phone] | | | | | [phone] | | | +--------+ + + + [...]
--- OUTSIDE RECORDS SUMMARY | ~2019-09-08 | XMS | Encounter Summary ---
Demographics + + + | Address | [address] | | | [place] [address] | + + + | Home Phone | | + + + | Preferred Language | Unknown | + + + | Marital Status | Single | + + + | Restorationism Affiliation | 1013 | + + + [...] [place], [place] | | | | | [address] | | + + + + + | Hilda Ramirez | ECON | [place], | | | | | [place] [address] | | + + + + + Care Team Providers + +------+ + | Care Lead Application Architect Name | Role | Phone | + +------+ + PCP | Unavailable | + +------+ + Encounter Details +--------+ + + + + | Date | Type | Department | Care Team | Description | +--------+ + + + + | 08/23/ | Hospital | [facility] | | | | 2007 | Encounter | [facility] LAB[facility] | | | | | | [address] | | | | | | [place] | | | | | | [address] | | | | | | [phone] | | | +--------+ + + + [...]
--- OUTSIDE RECORDS SUMMARY | ~2019-09-08 | XMS | Encounter Summary ---
Demographics + + + | Address | [address] | | | [place] [address] | + + + | Home Phone | | + + + | Preferred Language | Unknown | + + + | Marital Status | Single | + + + | Protestant Affiliation | 1013 | + + + | Race | Unknown | + + + | Ethnic Group | Unknown | + + + Author + + + | Author | [facility] | | | and [place] | + + + | Organization | [facility] | | [...] [place], [place] | | | | | [address] | | + + + + + | Hilda Ramirez | ECON | [place], | | | | | [place] [address] | | + + + + + Care Team Providers + +------+ + | Care Greenhouse Technician Name | Role | Phone | [...] + + | 06/30/ | Telephone | [facility] | Carlos Pizano, | Follow-up (Re: | | 2014 | | CARE [address] | MD [address] | Recent visit to | | | | [place] [facility] [place] | Urgent Care) | | | | [address] | [address] | | | | | [phone] | | | +--------+ + + + [...]
--- OUTSIDE RECORDS SUMMARY | ~2019-09-08 | XMS | Encounter Summary ---
Demographics + + + | Address | [address] | | | [place] [address] | + + + | Home Phone [...] + | Organization | [facility] | [...] [place], [place] | | | | | [address] | | + + + + + | Hilda Ramirez | ECON | [place], | | | | | [place] [address] | | + + + + + Care Team Providers + +------+ + | Care Merchandiser Seasonal Name | Role | Phone | + +------+ + PCP | Unavailable | + +------+ + Encounter Details +--------+ + + + + | Date | Type | Department | Care Team | Description | +--------+ + + + + | 07/15/ | Hospital | [facility] | | | | 2000 | Encounter | MED CTR EMERGENCY | | | | | | CENTER [address] | | | | | | [place], [place] | | | | | | [address] | | | | | | [phone] | | | +--------+ + + + [...]
--- OUTSIDE RECORDS SUMMARY | ~2019-09-08 | XMS | Encounter Summary ---
Demographics + + + | Address | [address] | | | [place] [address] | + + + | Home Phone | | + + + | Preferred Language | Unknown | + + + | Marital Status | Single | + + + | Mormonism Affiliation | 1013 | + + + | Race | Unknown | + + + | Ethnic Group | Unknown | + + + Author + + + | Author | [facility] | | | and [place] | + + + | Organization | [facility] | | | [...] [place], [place] | | | | | [address] | | + + + + + | Hilda Ramirez | ECON | [place], | | | | | [place] [address] | | + + + + + Care Team Providers + +------+ + | Care Crew Caller Name | Role | Phone | + +------+ + PCP | Unavailable | + +------+ + Encounter Details +--------+ + + + + | Date | Type | Department | Care Team | Description | +--------+ + + + + | 01/08/ | Hospital | [facility] | | | | 2007 | Encounter | MED CTR GENERIC OP | | | | | | CONV DEPT [address] | | | | | | [place], | | | | | | [place] [address] | | | | | | [phone] | | | +--------+ + + + [...]
--- OUTSIDE RECORDS SUMMARY | ~2019-09-08 | XMS | Encounter Summary ---
Demographics + + + | Address | [address] | | | [place] [address] | + + + | Home Phone [...] [place], [place] | | | | | [address] | | + + + + + | Hilda Ramirez | ECON | [place], | | | | | [place] [address] | | + + + + + Care Team Providers + +------+ + | Care Civil Geotechnical Engineer Name | Role | Phone | [...] | | [address] [place] | [facility] [place], [place] | of both ears; URI | | | | [place] | [address] | (upper respiratory | | | | [address] | | infection) | | | | [phone] | | | +--------+---------+ + + + [...]
--- OUTSIDE RECORDS SUMMARY | ~2019-09-08 | XMS | Encounter Summary ---
Demographics + + + | Address | [address] | | | [place] [address] | + + + | Home Phone | | + + + | Preferred Language | Unknown | + + + | Marital Status | Single | + + + | Gnosticist Affiliation | 1013 | + + + | Race | Unknown | + + + | Ethnic Group | Unknown | + + + Author + + + | Author | [facility] | | | and [place] | + + + | Organization | [facility] | | | and [...] [place], [place] | | | | | [address] | | + + + + + | Hilda Ramirez | ECON | [place], | | | | | [place] [address] | | + + + + + Care Team Providers + +------+ + | Care Manager Small Business Name | Role | Phone | + [...] + + | 06/30/ | Telephone | [facility] | Carlos Pizano, | Follow-up (Re: | | 2014 | | CARE [address] | MD [address] | Recent visit to | | | | [place] | Urgent Care) | | | | [address] | [address] | | | | | [phone] | | | +--------+ + + + [...]
--- OUTSIDE RECORDS SUMMARY | ~2019-09-08 | XMS | Encounter Summary ---
Demographics + + + | Address | [address] | | | [place] [address] | + + + | Home Phone | | + + + | Preferred Language | Unknown | + + + | Marital Status | Single | + + + | Scientologist Affiliation | 1013 | + + + | Race | Unknown | + + + | Ethnic Group | Unknown | + + + Author + + + | Author | [facility] | | | and [place] | + + + | Organization | [facility] | | [...] [place], [place] | | | | | [address] | | + + + + + | Hilda Ramirez | ECON | [place], | | | | | [place] [address] | | + + + + + Care Team Providers + +------+ + | Care Director Non Profit Name | Role | Phone | + [...] both ears; URI | | | | [address] | [address] | (upper respiratory | | | | [phone] | | infection); Sore | | | [...]
--- OUTSIDE RECORDS SUMMARY | ~2019-09-08 | XMS | Encounter Summary ---
Demographics + + + | Address | [address] | | | [place] [address] | + + + | Home Phone [...] + | Organization | [facility] | [...] [place], [place] | | | | | [address] | | + + + + + | Hilda Ramirez | ECON | [place], | | | | | [place] [address] | | + + + + + Care Team Providers + +------+ + | Care Mail Messenger Name | Role | Phone | + +------+ + PCP | Unavailable | + +------+ + Encounter Details +--------+ + + + + | Date | Type | Department | Care Team | Description | +--------+ + + + + | 10/10/ | Hospital | [facility] | David Alonso, | | | 2004 | Encounter | MED CTR LABORATORY | [address] | | | | | [address] [place] | [place] | | | | | [place] | [address] | | | | | [address] | | | | | | [phone] | | | +--------+ + + + [...]
--- OUTSIDE RECORDS SUMMARY | ~2019-09-08 | XMS | Encounter Summary ---
Demographics + + + | Address | [address] | | | [place] [address] | + + + | Home Phone | | + + + | Preferred Language | Unknown | + + + | Marital Status | Single | + + + | Adventism Affiliation | 1013 | + + + | Race | Unknown | + + + | Ethnic Group | Unknown | + + + Author + + + | Author | [facility] | | | and [place] | + + + | Organization | [facility] | [...] [place], [place] | | | | | [address] | | + + + + + | Hilda Ramirez | ECON | [place], | | | | | [place] [address] | | + + + + + Care Team Providers + +------+ + | Care Chest Pain Coordinator Name | Role | Phone | [...] both ears; URI | | | | [address] | [address] | (upper respiratory | | | | [phone] | | infection); Sore | | | [...]
--- OUTSIDE RECORDS SUMMARY | ~2019-09-08 | XMS | Encounter Summary ---
Demographics + + + | Address | [address] | | | [place] [address] | + + + | Home Phone | | + + + | Preferred Language | Unknown | + + + | Marital Status | Single | + + + | Zoroastrianism Affiliation | 1013 | + + + | Race | Unknown | + + + | Ethnic Group | Unknown | + + + Author + + + | Author | [facility] | | | and [place] | + + + | Organization | [facility] | | [...] [place], [place] | | | | | [address] | | + + + + + | Hilda Ramirez | ECON | [place], | | | | | [place] [address] | | + + + + + Care Team Providers + +------+ + | Care Trace Evidence Technician Name | Role | Phone | [...] | | | | CENTER [address] | | carried out because | | | | [place] | | of patient's | | | | [address] | | decision (Primary | | | | [phone] | | Dx) | +--------+ + + [...] TRACKING (3 MO.) Visit Date Location | [facility] | | Type Diagnoses | | | -------- | | | ---- 02/23/2014 03:32 [place] | | | [facility] Emergency -Withdrawals 01/31/2014 | | | 20:26 [facility] Emergency | | | -Pain in limb | | | -Feet burning | | | | | | -Foot Pain 01/26/2014 15:03 | | | [facility] Emergency -Blister of | | | foot and toe(s), without mention of infection | | | | | | -Blister of foot and toe(s), without mention of | | | infection | | | -Back Pain | | | | | | -Foot Pain | | | | | | -Pain in limb 01/25/2014 16:54 [facility] | [place] [facility] -SOB | | | | | | -Difficulty Breathing VISIT COUNT (1 YR.) Visits Medicaid | | | NE Dx Location ------ --------- 4 | | | 0 [facility] | | | 4 0 Total Note: Visits | | | indicate total known visits. Medicaid NE Dx are the number of primary | | | diagnoses on the [facility]'s non-emergent dx list. | | | [...]
--- OUTSIDE RECORDS SUMMARY | ~2019-09-08 | XMS | Encounter Summary ---
Demographics + + + | Address | [address] | | | [place] [address] | + + + | Home Phone [...] + + + | Author | [facility] | | | and [place] | + + + | Organization | [facility] | | [...] [place], [place] | | | | | [address] | | + + + + + | Hilda Ramirez | ECON | [place], | | | | | [place] [address] | | + + + + + Care Team Providers + +------+ + | Care Polishing Pad Mounter Name | Role | Phone | + +------+ + PCP | Unavailable | + +------+ + Encounter Details +--------+ + + + + | Date | Type | Department | Care Team | Description | +--------+ + + + + | 06/26/ | Hospital | [facility] | | | | 2008 | Encounter | MED CTR GENERIC OP | | | | | | CONV DEPT [address] | | | | | | [place], | | | | | | [place] [address] | | | | | | [phone] | | | +--------+ + + + [...]
--- OUTSIDE RECORDS SUMMARY | ~2019-09-08 | XMS | Encounter Summary ---
Demographics + + + | Address | [address] | | | [place] [address] | + + + | Home Phone | | + + + | Preferred Language | Unknown | + + + | Marital Status | Single | + + + | Baptism Affiliation | 1013 | + + + | Race | Unknown | + + + | Ethnic Group | Unknown | + + + Author + + + | Author | [facility] | | | and [place] | + + + | Organization | [facility] | | | [...] [place], [place] | | | | | [address] | | + + + + + | Hilda Ramirez | ECON | [place], | | | | | [place] [address] | | + + + + + Care Team Providers + +------+ + | Care Bulk Picker Name | Role | Phone | + +------+ + PCP | Unavailable | + +------+ + Encounter Details +--------+ + + + + | Date | Type | Department | Care Team | Description | +--------+ + + + + | 07/17/ | Hospital | [facility] | | | | 2000 | Encounter | MED CTR EMERGENCY | | | | | | CENTER [address] | | | | | | [place], [place] | | | | | | [address] | | | | | | [phone] | | | +--------+ + + + [...]
--- OUTSIDE RECORDS SUMMARY | ~2019-09-08 | XMS | Encounter Summary ---
Demographics + + + | Address | [address] | | | [place] [address] | + + + | Home Phone [...] + + + | Author | [facility] | | | and [place] | + + + | Organization | [facility] | | | [...] [place], [place] | | | | | [address] | | + + + + + | Hilda Ramirez | ECON | [place], | | | | | [place] [address] | | + + + + + Care Team Providers + +------+ + | Care Home Improvement Installer Name | Role | Phone | [...] + + | 02/05/ | Office | [facility] | Francisco Mcnamara | Cough (Primary Dx); | | 2013 | Visit | CARE [address] | Neeraj Fragoso MD | Nasal congestion; | | | | [place] | [address] | Weight loss | | | | [address] | [place] | | | | | [phone] | [address] | | | | | | | [...] her health insurance company to see which mother's helper or on your panel and make an a ppointment with a mother's helper to address your foot pain documented in [...] + | MISCELLANEOUS LAB | | | [phone] | + +---------+ + + | MISCELANIOUS LAB | | | [phone] | + +---------+ + + XR Chest [...] + | MISCELLANEOUS LAB | | | [phone] | + +---------+ + + | MISCELANIOUS LAB | | | [phone] | + +---------+ + + Sedimentation Rate [...] + | [facility] | [address] | [place], [place] | [phone] | | [facility] | | [address] | | | - LABORATORY | | | | + + + + + | [facility] | [address] | [place], [place] | | | [facility] | | [address], [facility] | | | - LABORATORY [...] + | [facility] | [address] | [place] | [phone] | | [facility] | | [address] | | | - LABORATORY | | | | + + + + + | [facility] | [address] | [place], [place] | | | [facility] | | [id number] | | | - LABORATORY | | | | + + + + + TSH (02/05/2014 11:07 AM PDT) + + + + + + | Component | Value | Ref Range | Performed | Pathologist | | | | | At | Signature | + + + + + + | TSH | 1.19Comment: All TSH | 0.34 - 5.60 | [facility] | | | | samples are screened | uIU/mL | [facility] | | | | using a 2nd [...] + | [facility] | [address] | [place] | [phone] | | [facility] | | [address] | | | - LABORATORY | | | | + + + + + | [facility] | [address] | [place] | | | [facility] | | [id number] | | | - LABORATORY | | [...] mL/min/1.73m2 | [facility] | | | [facility] | RATE,ESTIMATED | | MEDICAL | | | | mL/min/1.27v6Qxbb than | | CENTER - | | [...] + | [facility] | [address] | [place], [place] | [phone] | | [facility] | | [address] | | | - LABORATORY | | | | + + + + + | [facility] | [address] | [place], [place] | | | [facility] | | [id number] | | | - LABORATORY | | [...] ST. | [address] | [place], [place] | [phone] | | [facility] | | [address] | | | - LABORATORY | | | | + + + + + | [facility] | [address] | [place], [place] | | | [facility] | | [id number] | | | - LABORATORY | | [...]
--- OUTSIDE RECORDS SUMMARY | ~2019-09-08 | XMS | Encounter Summary ---
Demographics + + + | Address | [address] | | | [place] [address] | + + + | Home Phone | | + + + | Preferred Language | Unknown | + + + | Marital Status | Single | + + + | Yarsanism Affiliation | 1013 | + + + | Race | Unknown | + + + | Ethnic Group | Unknown | + + + Author + + + | Author | [facility] | | | and [place] | + + + | Organization | [facility] | | | [...] [place], [place] | | | | | [address] | | + + + + + | Hilda Ramirez | ECON | [place], | | | | | [place] [address] | | + + + + + Care Team Providers + +------+ + | Care Credit Portfolio Manager Name | Role | Phone | + +------+ + | No, Physician | PCP | Unavailable | + +------+ + Encounter Details +--------+ + + + + | Date | Type | Department | Care Team | Description | +--------+ + + + + | 02/05/ | Hospital | [facility] | Francisco Mcnamara | | | 2014 | Encounter | MED CTR [facility] XRAY | Neeraj Fragoso MD | | | | | [address] | [address] | | | | | [place] | [place] | | | | | [address] | [address] | | | | | [phone] | | | +--------+ + + + [...] + | MISCELLANEOUS LAB | | | [phone] | + +---------+ + + | MISCELANIOUS LAB | | | [phone] | + +---------+ + + XR Chest [...] + | MISCELLANEOUS LAB | | | [phone] | + +---------+ + + | MISCELANIOUS LAB | | | [phone] | + +---------+ + + documented in this encounter Visit Diagnoses Not on filedocumented in this encounter"
--- OUTSIDE RECORDS SUMMARY | ~2019-09-08 | XMS | Encounter Summary ---
Demographics + + + | Address | [address] | | | [place] [address] | + + + | Home Phone | | + + + | Preferred Language | Unknown | + + + | Marital Status | Single | + + + | Oriental Orthodox Affiliation | 1013 | + + + | Race | Unknown | + + + | Ethnic Group | Unknown | + + + Author + + + | Author | [facility] | | | and [place] | + + + | Organization | [facility] | | [...] [place], [place] | | | | | [address] | | + + + + + | Hilda Ramirez | ECON | [place], | | | | | [place] [address] | | + + + + + Care Team Providers + +------+ + | Care Homicide Detective Name | Role | Phone | + +------+ + PCP | Unavailable | + +------+ + Encounter Details +--------+ + + + + | Date | Type | Department | Care Team | Description | +--------+ + + + + | 07/15/ | Hospital | [facility] | | | | 2000 | Encounter | MED CTR EMERGENCY | | | | | | CENTER [address] | | | | | | [place], [place] | | | | | | [address] | | | | | | [phone] | | | +--------+ + + + [...]
--- OUTSIDE RECORDS SUMMARY | ~2019-09-08 | XMS | Encounter Summary ---
Demographics + + + | Address | [address] | | | [place] [address] | + + + | Home Phone [...] + + + | Author | [facility] | | | and [place] | + + + | Organization | [facility] | | | [...] [place], [place] | | | | | [address] | | + + + + + | Hilda Ramirez | ECON | [place], | | | | | [place] [address] | | + + + + + Care Team Providers + +------+ + | Care Concrete Finisher Apprentice Name | Role | Phone | + [...] | | [address] [place] | [facility], [place] | of both ears; URI | | | | [place] | [address] | (upper respiratory | | | | [address] | | infection) | | | | [phone] | | | +--------+---------+ + + + [...]
[~2019-09-08 22:05] MED LIST changes: +DEPAKOTE250 MG PO; +PENICILLIN V P500 MG PO; +TRAZODONE HCL50 MG PO
--- OUTSIDE RECORDS SUMMARY | 2019-09-08 22:08 | XMS ---
PreManage Notification: DOLORES OVIEDO Security Hide Salter Events No recent Security Events currently on file CRITERIA MET - [facility] Guidelines - [facility] SASHA DELGADO Physician Business Applications Manager 05/18/2019-Current PHONE: [phone] Guidelines Source: [facility] Guidelines Date: 11/14/2018 Additional Information: [facility].\T\nbsp; Please contact [facility] for mental health concerns:\T\nbsp;\T\nbsp; Care History Behavioral 09/30/2017 [facility] Enrolled in the Assertive Community Treatment program at [facility] [place].\T\nbsp; Contact Pauly Combs with behavioral health concerns. [phone] E.D. VISIT COUNT (12 MO.) 9 [facility] 1 [facility] 2 [facility] TOTAL 12 NOTE: Visits indicate total known visits. ED/UCC VISIT TRACKING (12 MO.) 09/08/2019 22:06 [facility] [place] TYPE: Emergency COMPLAINT: - MULTIPLE COMPLAINTS 08/08/2019 16:27 [facility] [place] [facility]: Emergency DIAGNOSES: 0. AMS VIA OPD 05/15/2019 10:[address] [facility] [place] TYPE: Emergency COMPLAINT: - MEDICAL CLEARANCE DIAGNOSES: - Schizophrenia, unspecified - Nicotine dependence, unspecified, uncomplicated 05/01/2019 14:43 [facility] [place] [facility] TYPE: Emergency DIAGNOSES: 0. SENT BY [facility] 03/26/2019 16:30 [facility] TYPE: Emergency DIAGNOSES: 0. AMS 03/07/2019 20:47 [facility] [place] [facility] TYPE: Emergency DIAGNOSES: 0. DETOX 03/07/2019 04:52 [facility] [place] [facility] TYPE: Emergency DIAGNOSES: 0. AMS VIA TVP 02/05/2019 14:37 [facility] [place] TYPE: Emergency DIAGNOSES: 0. NAUSEA X1 WEEK POSS FOOD POISONING 01/28/2019 20:50 [facility] [place] TYPE: Emergency DIAGNOSES: 0. WANTS TO GET CHECKED OUT 01/16/2019 23:28 [facility] [place] TYPE: Emergency DIAGNOSES: 0. FOOT PAIN 12/02/2018 [facility] [place] [facility]: [facility] DIAGNOSES: - Body pain - Pain, unspecified - Generalized Body Aches 11/13/2018 08:04 [facility] [place] [facility] TYPE: Emergency DIAGNOSES: 0. BOIL ON INSIDE OF LEG INPATIENT VISIT TRACKING (12 MO.) No inpatient visits to display in this time frame [id number]
[2019-09-08] MEDS ORDERED: CATAPRES0.1 MG PO (22:21)
[2019-09-08] MEDS ORDERED: ATIVAN0.5 MG PO (22:21)
--- NOTE | 2019-09-09 03:44 | NUR ---
PT ARRIVED TO THE UNIT FROM ER [facility], [place] STRETCHER. DROWSY, ORIENTED TO HIMSELF AND PLACE. WAS ABLE TO TRANSFER HIMSELF FROM THE STRETCHER TO BED. DENIED PAIN. VS CHECKED, SCHEDULED MEDICATION GIVEN. SEE JUL. THERE IS A DRESSING ON RIGHT LEG. IV FLASHED WITH 10 ML OF NS. PATENT. IV DRESSING IS INTACT. BED ALARM ON FOR SAFETY. CALL LIGHT IN REACH. DIM LIGHT IN THE ROOM.
--- NOTE | 2019-09-09 06:42 | NUR ---
PT ARRIVED TO THE UNIT FROM ER [facility] STRETCHER. DROWSY. WAS ABLE TO TRANSFER HIMSELF FROM STRETNCHER TO BED. IV FLUSHED WITH 10 ML OF NS, PATENT. DRESSING INTACT. PT SLEPT UNTIL MORNING. WOKE UP, ANBULATED TO THE BATHROOM. VOIDED. FEBRILE. REPORTED PAIN IN HIS RIGHT LEG. PT USED HOME REMEDIES TRYING TO GET RID OF TATTOO. DRESSING CHANGED WITH ABD AND GAUZ. SOME DISCHARGE NOTED, REDNESS, SKIN HOT TO TOUCH. SCDs ORDERED, PUT ON LEFT LEG.
--- NOTE | 2019-09-09 06:57 | NUR ---
pt reported pain in his right leg and headache. prn medciations was given see jul. pt resting in bed with eyes closed. call light in reach.
--- NOTE | 2019-09-09 07:30 | NUR ---
RECEIVED REPORT FROM JENNIFER CORONADO, PT APPEARS TO BE RESTING AT THIS TIME. CLAIMS ADJUDICATOR JULIANA VASQUEZ WILL BE FOLLOWING THIS RN TODAY FOR THIS PT
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
--- NOTE | 2019-09-09 09:30 | NUR ---
Notified by charge account identification clerk, pt will not have surgery due to the cellulitis in his leg. They are working on his discharge.
--- NOTE | 2019-09-09 09:45 | NUR ---
DICUSSED WITH PT THAT WE ARE WORKING ON HIS DISCHARGE PACKET. DID PTS WOUND DRESSING AND EDUCATED PT ABOUT KEEPING THE DRESSING CLEAN, WARM AND DRY. ALSO DISCUSSED WITH PT TO COVER THE GAUZE WITH A LOOSE DRESSING TO ALLOW FOR SWELLING AND SOME AIR FLOW TO WOUND
[2019-09-09] MEDS ORDERED: SULFAMETHOXAZO1 EAC1 PO (10:10)
[2019-09-09] MEDS ORDERED: NICOTINE PATCH1 EAC1 TD (10:11)
--- NOTE | 2019-09-09 10:14 | NUR ---
DISCUSSED WITH PT HOW TO DO WOUND DRESSINGS AND WHEN TO DO THEM. PT PARTICIPATE IN TEACH-BACK EDCUATION ON WOUND CARE. DISCUSSED WITH PT THAT IF HE IS A SMOKER THAT WOUND HEALING WILL BE SLOWER. PT STATED THAT HE KNEW THAT. DICUSSED WITH PT THAT IN THE HOSPITAL WE HAVE A QUIT CESSATION PROGRAM, PT STATED THAT HE WANTED TO GO [place]. DISCUSSED WITH , WHO ORDERED TAMMY FROM RT TO COME AND SPEAK WITH PT
--- NOTE | 2019-09-09 12:27 | NUR ---
Called and spokew with Marco Antonio from the ACT Team at [facility]. Updated given. He states they call him daily and case manage his care. He will follow up with him today.
--- NOTE | 2019-09-09 12:54 | NUR ---
PT WAS TO HAVE SURGERY, BUT INFECTION HAS PUT THAT ON HOLD. HAD GOOD VISIT, PT SEEMED ATTENTIVE, EVEN THOUGH SOMEWHAT SUBDUED. PT REQUESTED PRAYER
--- NOTE | 2019-09-10 13:05 | HP ---
[facility] [address] [place], [place] [address] Signed ADMISSION DATE: 09/08/2019 REASON FOR ADMISSION: Nonreducible symptomatic umbilical hernia. HISTORY OF PRESENT ILLNESS: This 39-year-old white man has a history of chronic schizophrenia. He said he has had vomiting for the preceding two weeks, and he presented to the emergency room at approximately [address] evaluated by Dr. Neff. He was noted to have abdominal pain radiating to his sternum and clinical examination confirming a nonreducible hernia at the umbilicus. Abdomen is soft and nondistended without signs of peritonitis, but a 4 cm umbilical hernia unable to be reduced with overlying violaceous skin was noted. On the basis of these findings, he is admitted for further evaluation and care. His past medical history does include history of gallstones incidentally noted on CT scan. CT scan additionally showed an umbilical hernia containing a short segment of small bowel with incomplete bowel obstruction noted, this was interpreted by Dr. Dumas. Evaluation also showed white count of 10.9, hematocrit of 41.2, and platelets 240,000 with normal electrolytes. Creatinine was elevated at 1.15. HOSPITAL COURSE: The patient was admitted and given intravenous fluids and rest. He had no nausea, vomiting, or anything to suggest complete bowel obstruction. I evaluated him in the morning, and he was found to have spontaneous reduction of the umbilical hernia. He has no abdominal tenderness and states his desire to be discharged. The patient is on the [facility] Health Plan and has been considered for hernia repair in the past, so due to the structure of the program, non-incarcerated hernias are not eligible for repair. Additionally, the patient smokes one pack of cigarettes a day and has never been able to initiate a smoking cessation plan to allow for elective procedures of any sort. The patient was noted on my examination to have a soft abdomen and no sign of hernia. The fascial defect approximately 2 cm at the umbilicus. He has no tenderness, certainly no evidence of bowel obstruction. Incidentally noted on his right lateral calf is an area of a large tattoo, which he has been attempting to remove himself with a salt rock poultice and abrasion. This area was rather inflamed, although not frankly infected, is slightly erythematous on the edges and vulnerable to infection. Electronically Signed By: CLARY VARNER MD 09/10/19 1305 PATIENT NAME: DOLORES OVIEDO HISTORY AND PHYSICAL DATE OF : 82 REPORT #: [id number] PHYSICIAN: CLARY VARNER MD PCP: DEEP KO MD REPORT IS CONFIDENTIAL AND NOT TO BE RELEASED WITHOUT AUTHORIZATION [facility] [address] [place], [place] [address] Signed ASSESSMENT AND PLAN: The patient was admitted with a non-reducible umbilical hernia with impending small bowel obstruction, which ultimately spontaneously reduced with intravenous fluids and rest. The patient is very desirous of discharge at this point. His underlying schizophrenia is well acknowledged by the patient and he says he has been taking medications for this. Repair of the hernia would be indicated typically with implantation of mesh considering the fascial defect size and his overall body habitus. I would certainly not advise implantation of mesh currently considering his right lateral calf, possibly a low-grade infection in relation to his attempts at self debridement of his tattoo. I explained to him that approach for tattoo removal will not be successful and likely result in harm including infection and so on. At this point, the patient is able to be discharged to home and highly desirous of doing so. We will treat the right lateral lower extremity infection with Bactrim DS one p.o. b.i.d., #20. Additionally, we will initiate a smoking cessation plan with nicotine patch 21 mg topically daily. He will follow up with his primary provider, Dr. Ko, for further evaluation of these two elements. Upon referral from Dr. Ko per program requirements, revisit for the wound infection as well as the umbilical hernia, which at present is fully reducible without signs of obstruction. I have advised the patient to avoid excessive lifting, so as to avoid worsening his umbilical hernia pending arrangements for its repair in the future possibly. Clary Varner MD /MODL /[id number] cc: MD Deep Nielsen MD Electronically Signed By: CLARY VARNER MD 09/10/19 1305 PATIENT NAME: DOLORES OVIEDO HISTORY AND PHYSICAL DATE OF : 82 REPORT #: [id number] PHYSICIAN: CLARY VARNER MD PCP: DEEP KO MD REPORT IS CONFIDENTIAL AND NOT TO BE RELEASED WITHOUT AUTHORIZATION [address] [address] Signed Copies: SYDNEY NEFF MD, ROBERT D DMD ~ Electronically Signed By: CLARY VARNER MD 09/10/19 1305 PATIENT NAME: DOLORES OVIEDO HISTORY AND PHYSICAL DATE OF : [birth year] REPORT #: [id number] PHYSICIAN: CLARY VARNER MD PCP: DEEP KO MD REPORT IS CONFIDENTIAL AND NOT TO BE RELEASED WITHOUT AUTHORIZATION
== END 2019-09-09 10:45 | disposition home or self-care (01) ==
LOC: ED 22:05 → MS 22:07
PROVIDERS: ADMIT Surgery
DX: K42.0 Umbilical hernia with obstruction, without gangrene (principal); F20.9 Schizophrenia, unspecified; F32.9 Major depressive disorder, single episode, unspecified; F41.9 Anxiety disorder, unspecified; F17.200 Nicotine dependence, unspecified, uncomplicated; Z79.899 Other long term (current) drug therapy
CPT/HCPCS: 74177; 80053; 81001; 83690; 85025; 96361; 96375; 96376; 99285-25; 99406; G0378; J2270; J2405; J3370; J7030; J7121; Q9967

== ENCOUNTER 2019-10-14 22:26 | Emergency (ER) | payer OTHER ==
[~2019-10-14] VITALS: Ht 185.4 cm; Wt 97.5 kg
[~2019-10-14 22:26] MED LIST changes: +ATIVAN0.5 MG PO; +CATAPRES0.1 MG PO; +NICOTINE PATCH1 EAC1 TD; +SULFAMETHOXAZO1 EAC1 PO
--- OUTSIDE RECORDS SUMMARY | 2019-10-14 22:28 | XMS ---
PreManage Notification: DOLORES OVIEDO Security Operations Clerk Events No recent Security Events currently on file CRITERIA MET - [facility] Guidelines - [facility] CARE PROVIDERS MENDOZA HOLLY Clinical Nurse Specialist: Family Health Current PHONE: [phone] SASHA DELGADO Physician Manager Payer 05/18/2019-Current PHONE: [phone] Guidelines Source: [facility] Luz Lopez Guidelines Date: 11/14/2018 Additional Information: Currently engaged in mental health services with [facility].\T\nbsp; Please contact [facility] for mental health concerns:\T\nbsp;\T\nbsp; Care History Behavioral 09/30/2017 [facility] Luz Lopez Enrolled in the Assertive Community Treatment program at [facility].\T\nbsp; Contact Pauly Combs with behavioral health concerns. [phone] E.D. VISIT COUNT (12 MO.) [address] [facility] TOTAL 13 NOTE: Visits indicate total known visits. ED/UCC VISIT TRACKING (12 MO.) 10/14/2019 22:26 [facility] [place] TYPE: Emergency COMPLAINT: - LT HAND PAIN/INJURY 09/08/2019 22:06 [facility] [place] TYPE: Emergency COMPLAINT: - MULTIPLE COMPLAINTS 08/08/2019 16:27 [facility] DIAGNOSES: 0. AMS VIA OPD 05/15/2019 10:[address] [facility] TYPE: Emergency COMPLAINT: - MEDICAL CLEARANCE DIAGNOSES: - Schizophrenia, unspecified - Nicotine dependence, unspecified, uncomplicated 05/01/2019 14:43 [facility] DIAGNOSES: 0. SENT BY [employer] 03/26/2019 16:30 [facility] DIAGNOSES: 0. AMS 03/07/2019 20:47 [facility] DIAGNOSES: 0. DETOX 03/07/2019 04[facility] DIAGNOSES: 0. AMS VIA TVP 02/05/2019 14:37 [facility] DIAGNOSES: 0. NAUSEA X1 WEEK POSS FOOD POISONING 01/28/2019 20:50 [facility]: Emergency DIAGNOSES: 0. WANTS TO GET CHECKED OUT 01/16/2019 23:28 [facility] [place] TYPE: Emergency DIAGNOSES: 0. FOOT PAIN 12/02/2018 13:11 [facility] TYPE: Emergency DIAGNOSES: - Body pain - Pain, unspecified - Generalized Body Aches 11/13/2018 08:04 [facility] [place] TYPE: Emergency DIAGNOSES: 0. BOIL ON INSIDE OF LEG INPATIENT VISIT TRACKING (12 MO.) 09/08/2019 22:07 [facility] [place] TYPE: Observation COMPLAINT: - INCARCERATED UMBILICAL HERNIA DIAGNOSES: - Other retirement (current) drug therapy - Umbilical hernia with obstruction, without gangrene - Major depressive disorder, single episode, unspecified - Anxiety disorder, unspecified - Schizophrenia, unspecified - Nicotine dependence, unspecified, uncomplicated [email or web address]
== END 2019-10-14 23:57 | disposition home or self-care (01) ==
LOC: ED 22:26
PROC: 2W3MX1Z Immobilization of Left Lower Extremity using Splint (ICD-10-PCS; principal; 2019-10-14)
DX: S62.317A Displaced fracture of base of fifth metacarpal bone, left hand, initial encounter for closed fracture (principal); F32.9 Major depressive disorder, single episode, unspecified; F41.9 Anxiety disorder, unspecified; F17.200 Nicotine dependence, unspecified, uncomplicated; Z79.899 Other long term (current) drug therapy; W22.8XXA Striking against or struck by other objects, initial encounter
CPT/HCPCS: 29125; 73110; 73130; 99283-25

== ENCOUNTER 2019-10-21 15:21 | Emergency (ER) | payer OTHER ==
[~2019-10-21] VITALS: Ht 185.4 cm; Wt 97.5 kg
--- OUTSIDE RECORDS SUMMARY | 2019-10-21 15:24 | XMS ---
PreManage Notification: DOLORES OVIEDO Security Welcome Center Agent Events No recent Security Events currently on file CRITERIA MET - 6 ED Visits in 6 Months - [facility] - Has Care Guidelines - PDMP - [facility] - 2 Visits in 30 Days CARE PROVIDERS MENDOZA HOLLY Clinical Nurse Specialist: Family Health Current PHONE: [phone] SASHA DELGADO Physician Supervisor Assembly Department 05/18/2019-Current PHONE: [phone] DEEP KO [facility] 10/15/2019-Current PHONE: [phone] Guidelines Source: [facility] Guidelines Date: 11/14/2018 Additional Information: Currently engaged in mental health services with [facility]T\nbsp; Please contact [facility] for mental health concerns:\T\nbsp;\T\nbsp; Care History Behavioral 09/30/2017 Kieran Lopez Enrolled in the Assertive Community Treatment program at [facility].\T\nbsp; Contact Pauly Combs with behavioral health concerns. [phone] E.D. VISIT COUNT (12 MO.) [address] [place] [address] [facility] TOTAL 14 NOTE: Visits indicate total known visits. ED/UCC VISIT TRACKING (12 MO.) 10/21/2019 15:22 [facility] [place] TYPE: Emergency COMPLAINT: - MEDICAL CLEARANCE 10/14/2019 22:26 [facility] [place] TYPE: Emergency COMPLAINT: - LT HAND PAIN/INJURY DIAGNOSES: - Pain in left hand - Striking against or struck by other objects, initial encounte - Displaced fracture of base of fifth metacarpal bone, left mejia - Nicotine dependence, unspecified, uncomplicated - Other remote computer terminal operator (current) drug therapy - Major depressive disorder, single episode, unspecified - Anxiety disorder, unspecified 09/08/2019 22:06 [facility] TYPE: Emergency COMPLAINT: - MULTIPLE COMPLAINTS 08/08/2019 16:27 [facility] TYPE: Emergency DIAGNOSES: 0. AMS VIA OPD 05/15/2019 10:[address] [facility] TYPE: Emergency COMPLAINT: - MEDICAL CLEARANCE DIAGNOSES: - Schizophrenia, unspecified - Nicotine dependence, unspecified, uncomplicated 05/01/2019 14:43 [facility]: Emergency DIAGNOSES: 0. SENT BY [employer] 03/26/2019 16:30 [facility]: Emergency DIAGNOSES: 0. AMS 03/07/2019 20:47 [facility]: Emergency DIAGNOSES: 0. DETOX 03/07/2019 04:52 [facility] [place] TYPE: Emergency DIAGNOSES: 0. AMS VIA TVP 02/05/2019 14:37 [facility] OR [place] TYPE: Emergency DIAGNOSES: 0. NAUSEA X1 WEEK POSS FOOD POISONING 01/28/2019 20:50 [facility] [place] TYPE: Emergency DIAGNOSES: 0. WANTS TO GET CHECKED OUT 01/16/2019 23:28 [facility] [place] TYPE: Emergency DIAGNOSES: 0. FOOT PAIN 12/02/2018 [facility] DIAGNOSES: - Body pain - Pain, unspecified - Generalized Body Aches 11/13/2018 08:04 [facility] DIAGNOSES: 0. BOIL ON INSIDE OF LEG INPATIENT VISIT TRACKING (12 MO.) 09/08/2019 22:07 [facility] TYPE: Observation COMPLAINT: - INCARCERATED UMBILICAL HERNIA DIAGNOSES: - Other remote computer terminal operator (current) drug therapy - Umbilical hernia with obstruction, without gangrene - Major depressive disorder, single episode, unspecified - Anxiety disorder, unspecified - Schizophrenia, unspecified - Nicotine dependence, unspecified, uncomplicated [email or web address]
[2019-10-21] MEDS ORDERED: STRATTERA25 MG PO (21:09)
[2019-10-21] MEDS ORDERED: VITAMIN D21250 MCG PO (21:12)
[2019-10-21] MEDS ORDERED: OMEPRAZOLE20 MG PO (21:12)
[2019-10-21] MEDS ORDERED: PROPRANOLOL HCL20 MG PO (21:14)
[2019-10-21] MEDS ORDERED: INVEGA TRI819 MG/2.6 IM (21:14)
[2019-10-21] MEDS ORDERED: LORAZEPAM0.5 MG PO (21:15)
== END 2019-10-22 16:05 ==
LOC: ED 15:21
DX: F99 Mental disorder, not otherwise specified (principal); F31.9 Bipolar disorder, unspecified; F41.9 Anxiety disorder, unspecified; F17.200 Nicotine dependence, unspecified, uncomplicated; Z79.899 Other long term (current) drug therapy
CPT/HCPCS: 80053; 80176; 81001; 84443; 85025; 99284; G0480

== ENCOUNTER 2019-12-18 11:05 | Emergency (ER) | payer OTHER ==
[~2019-12-18] VITALS: Ht 185.4 cm; Wt 80.6 kg
--- OUTSIDE RECORDS SUMMARY | ~2019-12-18 | XMS | Encounter Summary ---
Demographics + + + | Address | [address] | | | [place] [address] | + + + | Home Phone | | + + + | Preferred Language | Unknown | + + + | Marital Status | Single | + + + | Denominational Affiliation | Unknown | + + + | Race | White | + + + | Ethnic Group | Not or | + + + Author + + + | Author | [facility] | + + + | Organization | [facility] | + + + | Address | Unknown | + + + | Phone | Unavailable | + + + Support + + +---------+ + | Name | Relationship | Address | Phone | + + +---------+ + | Beth Galaviz | ECON | Unknown | | + + +---------+ + Care Team Providers + +------+ + | Care Gas Plumbing Inspector Name | Role | Phone | + +------+ + | Etienne Spencer MD | PCP | | + +------+ + Encounter Details +--------+--------+ + + + | Date | Type | Department | Care Team | Description | +--------+--------+ + + + | 12/01/ | Intake | Transfer Center | | N/A | | 2020 | | [address] | | | | | | [place], | | | | | | [place] [address] | | | +--------+--------+ + + + [...]
--- OUTSIDE RECORDS SUMMARY | ~2019-12-18 | XMS | Clinical Summary ---
Demographics + + + | Address | [address] | | | [place] [address] | + + + | Home Phone [...] Team Providers + +------+ + | Care Process Engineering Intern Name | Role | Phone | + +------+ + | Etienne Spencer MD | PCP | | + +------+ + Source Comments [facility] is fully live on both [facility] and [facility] InPatient.[facility] Allergies Not on File Medications Not on file Active Problems Not on file Encounters +--------+--------+ + + + | Date | Type | Specialty | Care Team | Description | +--------+--------+ + + + | 12/01/ | Intake | | | N/A | | 2020 | | | | [...] recent travel history available. | + + Last Filed Vital Signs Not on file Plan of Treatment + + + + + | Health Maintenance | Due Date | Last Done | Comments | + + + + + | Influenza (Flu) | | 04/29/2017, 05/08/2016, | | | vaccination (#1) | 0 | 08/02/2015, Additional history | | | | | exists | | + + + + + | Pneumococcal | Aged Out | | No longer eligible | | vaccination | | | based on patient's | | | | | age to complete this | | | | | topic | + + + + + Results Not on filefrom Last 3 Months"
--- OUTSIDE RECORDS SUMMARY | ~2019-12-18 | XMS | Encounter Summary ---
Demographics + + + | Address | [address] | | | [place] [address] | + + + | Home Phone | | + + + | Preferred Language | Unknown | + + + | Marital Status | Single | + + + | Amish Affiliation | Unknown | + + + | Race | White | + + + | Ethnic Group | Not or | + + + Author + + + | Author | [facility] | + + + | Organization | [facility] | + + + | Address | Unknown | + + + | Phone | Unavailable | + + + Support + + +---------+ + | Name | Relationship | Address | Phone | + + +---------+ + | Beth Galaviz | ECON | Unknown | | + + +---------+ + Care Team Providers + +------+ + | Care Swine Extension Field Specialist Name | Role | Phone | [...] | | | | | [place], | | | | | | [place] [address] | | | +--------+--------+ + + + [...]
--- OUTSIDE RECORDS SUMMARY | ~2019-12-18 | XMS | Clinical Summary ---
Demographics + + + | Address | [address] | | | [place] [address] | + + + | Home Phone | | + + + | Preferred Language | Unknown | + + + | Marital Status | Single | + + + | Worship Affiliation | Unknown | + + + [...] Team Providers + +------+ + | Care Special Events Fundraiser Name | Role | Phone | + +------+ + | Etienne Spencer MD | PCP | | + +------+ + Source Comments IRASEMA is fully live on both [facility] Amb[facility] and [facility] InPatient.[facility] Allergies Not on File Medications Not [...]
[~2019-12-18 11:05] MED LIST changes: +INVEGA TRI819 MG/2.6 IM; +LORAZEPAM0.5 MG PO; +LORAZEPAM1 MG PO; +PERPHENAZINE4 MG PO; +PREPLUS CA-FE1 EACH PO; +PROPRANOLOL HCL20 MG PO; +SERTRALINE HCL50 MG PO; +STRATTERA25 MG PO; +TRAZODONE HCL150 MG PO; +VITAMIN D21250 MCG PO
--- OUTSIDE RECORDS SUMMARY | 2019-12-18 11:08 | XMS ---
PreManage Notification: DOLORES OVIEDO Security Trust Officer Events No recent Security Events currently on file CRITERIA MET - 6 ED Visits in 6 Months - [facility] - Has Care Guidelines - PDMP - [facility] - 2 Visits in 30 Days CARE PROVIDERS MENDOZA HOLLY Clinical Nurse Specialist: Family Health Current PHONE: [phone] SASHA DELGADO Physician Cut Out Stitcher 05/18/2019-Current PHONE: [phone] DEEP KO [facility] 10/15/2019-Current PHONE: [phone] Guidelines Source: [facility] Guidelines Date: 11/14/2018 Additional Information: Currently engaged in mental health services with [facility].\T\nbsp; Please contact [facility] for mental health concerns:\T\nbsp;\T\nbsp; Care History Behavioral 09/30/2017 Kieran Lopez Enrolled in the Assertive Community Treatment program at [facility].\T\nbsp; Contact Pauly Combs with behavioral health concerns. [phone] E.D. VISIT COUNT (12 MO.) [address] [place] [address] [facility] [place] TOTAL 14 NOTE: Visits indicate total known visits. ED/UCC VISIT TRACKING (12 MO.) 12/18/2019 11:05 [facility] [place] TYPE: Emergency COMPLAINT: - VOMITING, SWALLOWING PROBLEM 11/29/2019 19:50 [facility] [place] TYPE: Emergency COMPLAINT: - SEIZURES, HEAD INJURY 10/21/2019 15:22 [facility] [place] TYPE: Emergency COMPLAINT: - MEDICAL CLEARANCE DIAGNOSES: - Other assistant terminal manager (current) drug therapy - Mental disorder, not otherwise specified - Unspecified psychosis not due to a substance or known physiol - Anxiety disorder, unspecified - Nicotine dependence, unspecified, uncomplicated - Bipolar disorder, unspecified 10/14/2019 22:26 [facility] [place] TYPE: Emergency COMPLAINT: - LT HAND PAIN/INJURY DIAGNOSES: - Pain in left hand - Striking against or struck by other objects, initial encounte - Displaced fracture of base of fifth metacarpal bone, left mejia - Nicotine dependence, unspecified, uncomplicated - Other alf (current) drug therapy - Major depressive disorder, single episode, unspecified - Anxiety disorder, unspecified 09/08/2019 22:06 [facility] TYPE: Emergency COMPLAINT: - MULTIPLE COMPLAINTS 08/08/2019 16:27 [facility] DIAGNOSES: 0. AMS VIA OPD 05/15/2019 10:32 [facility] TYPE: Emergency COMPLAINT: - MEDICAL CLEARANCE DIAGNOSES: - Schizophrenia, unspecified - Nicotine dependence, unspecified, uncomplicated 05/01/2019 14:43 [facility]: Emergency DIAGNOSES: 0. SENT BY [employer] 03/26/2019 16:30 [facility] TYPE: Emergency DIAGNOSES: 0. AMS 03/07/2019 20:47 [facility] OR [facility] TYPE: Emergency DIAGNOSES: 0. DETOX 03/07/2019 04:52 [facility] OR [facility] TYPE: Emergency DIAGNOSES: 0. AMS VIA TVP 02/05/2019 14:37 [facility] TYPE: Emergency DIAGNOSES: 0. NAUSEA X1 WEEK POSS FOOD POISONING 01/28/2019 20:50 [facility] TYPE: Emergency DIAGNOSES: 0. WANTS TO GET CHECKED OUT 01/16/2019 23:28 [facility]: Emergency DIAGNOSES: 0. FOOT PAIN INPATIENT VISIT TRACKING (12 MO.) 11/29/2019 19:51 [facility] TYPE: Observation COMPLAINT: - SYNCOPE, DEHYDRATION DIAGNOSES: - Dehydration - Hypokalemia - Acute kidney failure, unspecified - Abnormal weight loss - Orthostatic hypotension - Schizophrenia, unspecified - Body mass index (BMI) 23.0-23.9, adult - Contact with and (suspected) exposure to other viral communic - Other assistant terminal manager (current) drug therapy - Dysphagia, unspecified - Malignant neoplasm of cardia - Gastro-esophageal reflux disease without esophagitis 09/08/2019 22:[address] [facility] [address] [facility] [place] TYPE: Observation COMPLAINT: - INCARCERATED UMBILICAL HERNIA DIAGNOSES: - Other alf (current) drug therapy - Umbilical hernia with obstruction, without gangrene - Major depressive disorder, single episode, unspecified - Anxiety disorder, unspecified - Schizophrenia, unspecified - Nicotine dependence, unspecified, uncomplicated [email or web address]
[2019-12-18] MEDS ORDERED: SUMATRIPTAN SUC50 MG PO ×2 (11:38→11:39)
== END 2019-12-18 16:55 | disposition short-term general hospital (02) ==
LOC: ED 11:05
DX: C15.9 Malignant neoplasm of esophagus, unspecified (principal); F20.9 Schizophrenia, unspecified; F31.9 Bipolar disorder, unspecified; F41.9 Anxiety disorder, unspecified; F17.200 Nicotine dependence, unspecified, uncomplicated; Z79.899 Other long term (current) drug therapy
CPT/HCPCS: 71045; 80053; 81001; 83690; 85025; 96361; 96374; 96375; 96376; 99285-25; J1170; J1790; J7030

== ENCOUNTER 2020-01-05 14:53 | Emergency (ER) | payer OTHER ==
[~2020-01-05] VITALS: Ht 185.4 cm; Wt 62.6 kg
--- OUTSIDE RECORDS SUMMARY | ~2020-01-05 | XMS | Encounter Summary ---
Demographics + + + | Address | [address] | | | [place] [address] | + + + | Home Phone | | + + + | Preferred Language | Unknown | + + + | Marital Status | Single | + + + | Gnosticist Affiliation | Unknown | + + + [...] Team Providers + +------+ + | Care Auto Engine Mechanic Name | Role | Phone | + [...] | | | | | Ava Ambrosio [place], | | | | | | [place] [address] | | | +--------+--------+ + + + [...]
--- OUTSIDE RECORDS SUMMARY | ~2020-01-05 | XMS | Clinical Summary ---
Demographics + + + | Address | [address] | | | [place] [address] | + + + | Home Phone | | + + + | Preferred Language | Unknown | + + + | Marital Status | Single | + + + | Hoahaoism Affiliation | Unknown | + + + [...] Team Providers + +------+ + | Care Industrial Electrician Name | Role | Phone | + +------+ + | Etienne Spencer MD | PCP | | + +------+ + Source Comments IRASEMA is fully live on both [facility] Ambulatory and [facility] InPatient.[facility] Allergies Not on File Medications Not on file Active Problems Not on file Encounters +--------+--------+ + + + | Date | Type | Specialty | Care Team | Description | +--------+--------+ + + + | 12/17/ | Intake | | | N/A | [...]
--- OUTSIDE RECORDS SUMMARY | ~2020-01-05 | XMS | Encounter Summary ---
Demographics + + + | Address | [address] | | | [place] [address] | + + + | Home Phone | | + + + | Preferred Language | Unknown | + + + | Marital Status | Single | + + + | Confucianist Affiliation | Unknown | + + + | Race | White | + + + | Ethnic Group | Not or | + + + Author + + + | Author | [facility] | + + + | Organization | [facility] | + + + | Address | Unknown | + + + | Phone | Unavailable | + + + Support + + +---------+ + | Name | Relationship | Address | Phone | + + +---------+ + | Beth Galaviz | ECON | Unknown | | + + +---------+ + Care Team Providers + +------+ + | Care Senior Ui Software Engineer Name | Role | Phone | [...] | | | | | Ava Ambrosio [place], | | | | | | [place] [address] | | | +--------+--------+ + + + [...]
--- OUTSIDE RECORDS SUMMARY | ~2020-01-05 | XMS | Encounter Summary ---
Demographics + + + | Address | [address] | | | [place] [address] | + + + | Home Phone | | + + + | Preferred Language | Unknown | + + + | Marital Status | Single | + + + | Rastafari Affiliation | Unknown | + + + | Race | White | + + + | Ethnic Group | Not or | + + + Author + + + | Author | [facility] | + + + | Organization | [facility] | + + + | Address | Unknown | + + + | Phone | Unavailable | + + + Support + + +---------+ + | Name | Relationship | Address | Phone | + + +---------+ + | Beth Galaviz | ECON | Unknown | | + + +---------+ + Care Team Providers + +------+ + | Care Employment Consultant Name | Role | Phone | [...] | | | | | Ava Ambrosio [place], | | | | | | [place] [address] | | | +--------+--------+ + + + [...]
--- OUTSIDE RECORDS SUMMARY | ~2020-01-05 | XMS | Clinical Summary ---
Demographics + + + | Address | [address] | | | [place] [address] | + + + | Home Phone | | + + + | Preferred Language | Unknown | + + + | Marital Status | Single | + + + | Sikh Affiliation | Unknown | + + + [...] Team Providers + +------+ + | Care Microsoft Developer Name | Role | Phone | + +------+ + | Etienne Spencer MD | PCP | | + +------+ + Source Comments IRASEMA is fully live on both [facility] Ambulatory and [facility] InPatient.[facility] Allergies Not on File Medications Not [...]
--- OUTSIDE RECORDS SUMMARY | ~2020-01-05 | XMS | Encounter Summary ---
Demographics + + + | Address | [address] | | | [place] [address] | + + + | Home Phone | | + + + | Preferred Language | Unknown | + + + | Marital Status | Single | + + + | Episcopal Affiliation | Unknown | + + + | Race | White | + + + | Ethnic Group | Not or | + + + Author + + + | Author | [facility] | + + + | Organization | [facility] | + + + | Address | Unknown | + + + | Phone | Unavailable | + + + Support + + +---------+ + | Name | Relationship | Address | Phone | + + +---------+ + | Beth Galaviz | ECON | Unknown | | + + +---------+ + Care Team Providers + +------+ + | Care Freight Forwarder Name | Role | Phone | + [...] | | | | | Ava Ambrosio [place], | | | | | | [place] [address] | | | +--------+--------+ + + + [...]
[~2020-01-05 14:53] MED LIST changes: +SUMATRIPTAN SUC50 MG PO
--- OUTSIDE RECORDS SUMMARY | 2020-01-05 14:56 | XMS ---
PreManage Notification: DOLORES OVIEDO Security Greens Keeper Events No recent Security Events currently on file CRITERIA MET - 6 ED Visits in 6 Months - [facility] - Has Care Guidelines - PDMP - [facility] - 2 Visits in 30 Days CARE PROVIDERS MENDOZA HOLLY Clinical Nurse Specialist: Family Health Current PHONE: [phone] SASHA DELGADO Physician Ethics Manager 05/18/2019-Current PHONE: [phone] DEEP KO [facility] 10/15/2019-Current PHONE: [phone] Guidelines Source: [employer] Luz [place] Guidelines Date: 12/18/2019 Additional Information: Currently engaged in mental health services with [employer].\T\nbsp; Please contact [facility] for all mental health concerns:\T\nbsp; [place] Office: [phone]. Currently assigned with [facility] for medical concerns. Contact has also been made to\T\nbsp;Lior Julian one of the foster care case manager at [place]\T\rsquo; aftab Ferrera Contact information: Nancy Benedict RN Veneer Taping Machine Operator, Healthcare Services office\T\nbsp; [phone]\T\nbsp;\T\nbsp; \F\\T\nbsp; \T\ nbsp;\T\nbsp;[email or web address] Care History Behavioral 09/30/2017 [facility] Luz Lopez Enrolled in the Assertive Community Treatment program at [facility].\T\nbsp; Contact [facility] with behavioral health concerns. [phone] E.D. VISIT COUNT (12 MO.) [address] TOTAL 15 NOTE: Visits indicate total known visits. ED/UCC VISIT TRACKING (12 MO.) 01/05/2020 14:54 [facility] [place] TYPE: Emergency COMPLAINT: - DEHYDRATION 12/18/2019 11:05 [facility] [place] TYPE: Emergency COMPLAINT: - VOMITING, SWALLOWING PROBLEM DIAGNOSES: - Nicotine dependence, unspecified, uncomplicated - Schizophrenia, unspecified - Dysphagia, unspecified - Other halfway (current) drug therapy - Bipolar disorder, unspecified - Anxiety disorder, unspecified - Malignant neoplasm of esophagus, unspecified 11/29/2019 19:50 [facility] [place] TYPE: Emergency COMPLAINT: - SEIZURES, HEAD INJURY 10/21/2019 15:22 [facility] [place] TYPE: Emergency COMPLAINT: - MEDICAL CLEARANCE DIAGNOSES: - Other screw driver operator (current) drug therapy - Mental disorder, not otherwise specified - Unspecified psychosis not due to a substance or known physiol - Schizoaffective disorder, unspecified - Anxiety disorder, unspecified - Nicotine dependence, unspecified, uncomplicated - Bipolar disorder, unspecified 10/14/2019 22:26 [facility] [place] TYPE: Emergency COMPLAINT: - LT HAND PAIN/INJURY DIAGNOSES: - Pain in left hand - Striking against or struck by other objects, initial encounte - Displaced fracture of base of fifth metacarpal bone, left mejia - Nicotine dependence, unspecified, uncomplicated - Other screw driver operator (current) drug therapy - Major depressive disorder, single episode, unspecified - Anxiety disorder, unspecified 09/08/2019 22:06 [facility] [place] TYPE: Emergency COMPLAINT: - MULTIPLE COMPLAINTS 08/08/2019 16:27 [facility] DIAGNOSES: 0. AMS VIA OPD 05/15/2019 10:[address] [facility] TYPE: Emergency COMPLAINT: - MEDICAL CLEARANCE DIAGNOSES: - Schizophrenia, unspecified - Nicotine dependence, unspecified, uncomplicated 05/01/2019 14:43 [facility] DIAGNOSES: 0. SENT BY [facility] 03/26/2019 16:30 [facility] DIAGNOSES: 0. AMS 03/07/2019 20:47 [facility] DIAGNOSES: 0. DETOX 03/07/2019 04:52 [facility] DIAGNOSES: 0. AMS VIA TVP 02/05/2019 14:37 [facility] DIAGNOSES: 0. NAUSEA X1 WEEK POSS FOOD POISONING 01/28/2019 20:50 [facility] DIAGNOSES: 0. WANTS TO GET CHECKED OUT 01/16/2019 23:28 [facility] DIAGNOSES: 0. FOOT PAIN INPATIENT VISIT TRACKING (12 MO.) 12/18/2019 20:05 [facility] [place] TYPE: Oncology DIAGNOSES: - esophageal cancer - Hypokalemia - Undifferentiated schizophrenia - Secondary malignant neoplasm of unspecified site - Esophageal obstruction - Unspecified asthma, uncomplicated - Unspecified severe protein-calorie malnutrition - Bipolar disorder, currently in remission, most recent episode - Bilious vomiting - Tobacco use - Low back pain - Other chronic pain - Nicotine dependence, unspecified, uncomplicated - Malignant neoplasm of esophagus, unspecified - schizophrenia - Schizophrenia, unspecified 11/29/2019 19:51 [facility] [place] TYPE: Observation COMPLAINT: - SYNCOPE, DEHYDRATION DIAGNOSES: - Dehydration - Hypokalemia - Acute kidney failure, unspecified - Abnormal weight loss - Orthostatic hypotension - Schizophrenia, unspecified - Body mass index (BMI) 23.0-23.9, adult - Contact with and (suspected) exposure to other viral communic - Other screw driver operator (current) drug therapy - Dysphagia, unspecified - Malignant neoplasm of cardia - Gastro-esophageal reflux disease without esophagitis 09/08/2019 22:07 [facility] [place] TYPE: Observation COMPLAINT: - INCARCERATED UMBILICAL HERNIA DIAGNOSES: - Other halfway (current) drug therapy - Umbilical hernia with obstruction, without gangrene - Major depressive disorder, single episode, unspecified - Anxiety disorder, unspecified - Schizophrenia, unspecified - Nicotine dependence, unspecified, uncomplicated [email or web address]
== END 2020-01-05 18:20 | disposition home or self-care (01) ==
LOC: ED 14:53
DX: T67.8XXA Other effects of heat and light, initial encounter (principal); R11.10 Vomiting, unspecified; F31.9 Bipolar disorder, unspecified; F41.9 Anxiety disorder, unspecified; F17.200 Nicotine dependence, unspecified, uncomplicated; Z79.899 Other long term (current) drug therapy
CPT/HCPCS: 80053; 81001; 83735; 85025; 99284; J7030

== ENCOUNTER 2020-01-23 19:25 | Emergency (ER) | payer OTHER ==
[~2020-01-23] VITALS: Ht 185.4 cm; Wt 59.0 kg
--- OUTSIDE RECORDS SUMMARY | ~2020-01-23 | XMS | Encounter Summary ---
Demographics + + + | Address | [address] | | | [place] [address] | + + + | Home Phone | | + + + | Preferred Language | Unknown | + + + | Marital Status | Single | + + + | Congregational Affiliation | Unknown | + + + [...] Team Providers + +------+ + | Care Mortgage Field Inspector Name | Role | Phone | [...] | | | | | Ava Ambrosio [place], | | | | | | [place] [address] | | | +--------+--------+ + + + [...] Referring Physician: Dr. Joiner Referring Site (or [facility] Specialists involved: Oncology Reason for Transfer/Admission: Esophageal [...] up biopsy results from EGD (performed in [place], no need for repeat) 3. Nutrition status- [...]
--- OUTSIDE RECORDS SUMMARY | ~2020-01-23 | XMS | Clinical Summary ---
Demographics + + + | Address | [address] | | | [place] [address] | + + + | Home Phone | | + + + | Preferred Language | Unknown | + + + | Marital Status | Single | + + + | Baptist Affiliation | Unknown | + + + [...] Team Providers + +------+ + | Care Felt Hat Mellowing Machine Operator Name | Role | Phone | + +------+ + | Etienne Spencer MD | PCP | | + +------+ + Source Comments IRASEMA is fully live on both [facility] Ambulatory and [facility] InPatient.[facility] Allergies Not on File Medications Not [...]
--- OUTSIDE RECORDS SUMMARY | ~2020-01-23 | XMS | Encounter Summary ---
Demographics + + + | Address | [address] | | | [place] [address] | + + + | Home Phone | | + + + | Preferred Language | Unknown | + + + | Marital Status | Single | + + + | Catholic Affiliation | Unknown | + + + | Race | White | + + + | Ethnic Group | Not or | + + + Author + + + | Author | [facility] | + + + | Organization | [facility] | + + + | Address | Unknown | + + + | Phone | Unavailable | + + + Support + + +---------+ + | Name | Relationship | Address | Phone | + + +---------+ + | Beth Galaviz | ECON | Unknown | | + + +---------+ + Care Team Providers + +------+ + | Care Cook Mess Name | Role | Phone | + [...] | | | | | Ava Ambros[place], | | | | | | [place] [address] | | | +--------+--------+ + + + [...]
[~2020-01-23 19:25] MED LIST changes: +KLOR-CON20 MEQ PO
--- OUTSIDE RECORDS SUMMARY | 2020-01-23 19:28 | XMS ---
PreManage Notification: DOLORES OVIEDO Security Search Engine Optimization Analyst Events No recent Security Events currently on file CRITERIA MET - 6 ED Visits in 6 Months - [facility] - Has Care Guidelines - PDMP - [facility] - 2 Visits in 30 Days CARE PROVIDERS MENDOZA HOLLY Clinical Nurse Specialist: Family Health Current PHONE: [phone] SASHA DELGADO Physician Recreational Therapy Technician 05/18/2019-Current PHONE: [phone] DEEP KO [facility] 10/15/2019-Current PHONE: [phone] Guidelines Source: [employer] [place] Guidelines Date: 12/18/2019 Additional Information: Currently engaged in mental health services with [employer].\T\nbsp; Please contact [facility] for all mental health concerns:\T\nbsp; [place] Office: [phone]. Currently assigned with [facility] for medical concerns. Contact has also been made to\T\nbsp;Lior Julian one of the medical case worker at [place]\T\rsquo; aftab Ferrera Contact information: Nancy Madison Lead RN Crimp Setter, Healthcare Services office\T\nbsp; [phone]\T\nbsp;\T\nbsp; \F\\T\nbsp; \T\ nbsp;\T\nbsp;brands4friends Care History Behavioral 09/30/2017 [facility] - [place] Enrolled in the Assertive Community Treatment program at [facility].\T\nbsp; Contact [facility] with behavioral health concerns. [phone] Medical/Surgical 01/18/2020 [facility] - PLEASE CONTACT [facility] IF PATIENT IS ADMITTED AND OR SEEN IN THE ED- PATIENT IS CURRENTLY UNDER THEIR CARE- [phone]. 01/07/2020 [facility] - PLEASE REVIEW CURRENT TUBE FEED ORDERS (ATTACHED) - [facility] IS CURRENTLY WORK WITH PATIENT. - PLEASE REVIEW ATTACHED DOCUMENTS IN EDIE. [place] VISIT COUNT ([address] MO[address] 7 [facility] 9 [facility] TOTAL 16 NOTE: Visits indicate total known visits. ED/UCC VISIT TRACKING (12 MO.) 01/23/2020 19:26 [facility] [place] TYPE: Emergency COMPLAINT: - SYNCOPE EPISODE 01/17/2020 12:58 [facility] [place] TYPE: Emergency COMPLAINT: - FALL DIAGNOSES: - Nicotine dependence, unspecified, uncomplicated - Anxiety disorder, unspecified - Major depressive disorder, single episode, unspecified - Schizophrenia, unspecified - Fall on same level, unspecified, initial encounter - Other chest pain - Hypokalemia - Malignant neoplasm of esophagus, unspecified - Other usp (current) drug therapy 01/05/2020 14:54 [facility] [place] TYPE: Emergency COMPLAINT: - DEHYDRATION DIAGNOSES: - Other terminal computer operator (current) drug therapy - Nicotine dependence, unspecified, uncomplicated - Vomiting, unspecified - Other effects of heat and light, initial encounter - Bipolar disorder, unspecified - Anxiety disorder, unspecified 12/18/2019 11:05 [facility] [place] TYPE: Emergency COMPLAINT: - VOMITING, SWALLOWING PROBLEM DIAGNOSES: - Nicotine dependence, unspecified, uncomplicated - Schizophrenia, unspecified - Dysphagia, unspecified - Other terminal computer operator (current) drug therapy - Bipolar disorder, unspecified - Anxiety disorder, unspecified - Malignant neoplasm of esophagus, unspecified 11/29/2019 19:50 [facility] [place] TYPE: Emergency COMPLAINT: - SEIZURES, HEAD INJURY 10/21/2019 15:22 [facility] [place] TYPE: Emergency COMPLAINT: - MEDICAL CLEARANCE DIAGNOSES: - Other terminal computer operator (current) drug therapy - Mental disorder, [...] - Nicotine dependence, unspecified, uncomplicated - Other usp (current) drug therapy - Major depressive disorder, single episode, unspecified - Anxiety disorder, unspecified 09/08/2019 22:06 [facility] [place] TYPE: Emergency COMPLAINT: - MULTIPLE COMPLAINTS 08/08/2019 16:27 [facility] [place] TYPE: Emergency DIAGNOSES: 0. AMS VIA OPD 05/15/2019 10:32 [facility] [place] TYPE: Emergency COMPLAINT: - MEDICAL CLEARANCE DIAGNOSES: - Schizophrenia, unspecified - Nicotine dependence, unspecified, uncomplicated 05/01/2019 14:43 [facility] TYPE: Emergency DIAGNOSES: 0. SENT BY [facility] 03/26/2019 16:30 [facility] TYPE: Emergency DIAGNOSES: 0. AMS 03/07/2019 20:47 [facility] TYPE: Emergency DIAGNOSES: 0. DETOX 03/07/2019 04:52 [facility] TYPE: Emergency DIAGNOSES: 0. AMS VIA TVP 02/05/2019 14:37 [facility] [place] [facility] TYPE: Emergency DIAGNOSES: 0. NAUSEA X1 WEEK POSS FOOD POISONING 01/28/2019 20:50 [facility] [place] TYPE: Emergency DIAGNOSES: 0. WANTS TO GET CHECKED OUT INPATIENT VISIT TRACKING (12 MO.) 12/18/2019 [facility] DIAGNOSES: - esophageal cancer - [...] exposure to other viral communic - Other usp (current) drug therapy - Dysphagia, unspecified - Malignant neoplasm of cardia - Gastro-esophageal reflux disease without esophagitis 09/08/2019 22:07 [facility] [place] TYPE: Observation COMPLAINT: - INCARCERATED UMBILICAL HERNIA DIAGNOSES: - Other terminal computer operator (current) drug therapy - Umbilical hernia with obstruction, without gangrene - Major depressive disorder, single episode, unspecified - Anxiety disorder, unspecified - Schizophrenia, unspecified - Nicotine dependence, unspecified, uncomplicated [email or web address]
[2020-01-23] MEDS ORDERED: ZYPREXA5 MG PO (19:39)
[2020-01-23] MEDS ORDERED: ONDANSETRON ODT8 MG PO (19:40)
[2020-01-23] MEDS ORDERED: ATOMOXETINE HCL25 MG PO (19:41)
[2020-01-23] MEDS ORDERED: FOLIC ACID1 MG PO (19:41)
[2020-01-23] MEDS ORDERED: PRENATAL TABLE1 EAC2 PO (19:41)
[2020-01-23] MEDS ORDERED: PROCHLORPERAZIN10 MG PO (19:42)
[2020-01-23] MEDS ORDERED: NALTREXONE HCL50 MG PO (19:42)
[2020-01-23] MEDS ORDERED: VITAMIN D21250 MCG PO (19:42)
[2020-01-23] MEDS ORDERED: VITAMIN E1000 UNI2 PO (19:43)
[2020-01-23] MEDS ORDERED: K-TAB ER20 MEQ PO (21:38)
== END 2020-01-23 22:01 | disposition home or self-care (01) ==
LOC: ED 19:25
DX: R55 Syncope and collapse (principal); F31.9 Bipolar disorder, unspecified; F41.9 Anxiety disorder, unspecified; F17.200 Nicotine dependence, unspecified, uncomplicated; Z79.899 Other long term (current) drug therapy
CPT/HCPCS: 80053; 85025; 96374; 99284-25; J7030; J7121

== ENCOUNTER 2020-01-24 16:28 | Emergency (ER) | payer OTHER ==
[~2020-01-24] VITALS: Ht 185.4 cm; Wt 59.0 kg
--- OUTSIDE RECORDS SUMMARY | ~2020-01-24 | XMS | Encounter Summary ---
Demographics + + + | Address | [address] | | | [place] [address] | + + + | Home Phone | | + + + | Preferred Language | Unknown | + + + | Marital Status | Single | + + + | Mormon Affiliation | Unknown | + + + | Race | White | + + + | Ethnic Group | Not or | + + + Author + + + | Author | [facility] | + + + | Organization | [facility] | + + + | Address | Unknown | + + + | Phone | Unavailable | + + + Support + + +---------+ + | Name | Relationship | Address | Phone | + + +---------+ + | Beth Galaviz | ECON | Unknown | | + + +---------+ + Care Team Providers + +------+ + | Care Traveling Construction Superintendent Name | Role | Phone | + +------+ + | Etienne Spencer MD | PCP | | + +------+ + Encounter Details +--------+--------+ + + + | Date | Type | Department | Care Team | Description | +--------+--------+ + + + | 12/17/ | Intake | Transfer Center | | | | 2020 | | [address] | | | | | | [place], | | | | | | [place] [address] | | | +--------+--------+ + + + Social History + +-------+ [...]
--- OUTSIDE RECORDS SUMMARY | ~2020-01-24 | XMS | Clinical Summary ---
Demographics + + + | Address | [address] | | | [place] [address] | + + + | Home Phone | | + + + | Preferred Language | Unknown | + + + | Marital Status | Single | + + + | Adventist Affiliation | Unknown | + + + [...] Team Providers + +------+ + | Care Software Database Architect Name | Role | Phone | + +------+ + | Etienne Spencer MD | PCP | | + +------+ + Source Comments IRASEMA is fully live on both [facility] Ambulatory and [facility] InPatient.[facility] Allergies Not on File Medications Not [...]
--- OUTSIDE RECORDS SUMMARY | ~2020-01-24 | XMS | Encounter Summary ---
Demographics + + + | Address | [address] | | | [place] [address] | + + + | Home Phone [...] Author + + + | Author | [facility] | + + + | Organization | [facility] | + + + | Address | Unknown | + + + | Phone | Unavailable | + + + Support + + +---------+ + | Name | Relationship | Address | Phone | + + +---------+ + | Beth Galaviz | ECON | Unknown | | + + +---------+ + Care Team Providers + +------+ + | Care Mobile Health Vehicle Operator Name | Role | Phone | [...] | | | | | [place], | | | | | | [place] [address] | | | +--------+--------+ + + + [...] Referring Physician: Dr. Joiner Referring Site (or [facility] Specialists involved: Oncology Reason for Transfer/Admission: [...] up biopsy results from EGD (performed in [place], no need for repeat) 3. Nutrition status- [...]
[~2020-01-24 16:28] MED LIST changes: +ATOMOXETINE HCL25 MG PO; +FOLIC ACID1 MG PO; +K-TAB ER20 MEQ PO; +NALTREXONE HCL50 MG PO; +ONDANSETRON ODT8 MG PO; +PRENATAL TABLE1 EAC2 PO; +PROCHLORPERAZIN10 MG PO; +VITAMIN E1000 UNI2 PO; +ZYPREXA5 MG PO
--- OUTSIDE RECORDS SUMMARY | 2020-01-24 16:32 | XMS ---
PreManage Notification: DOLORES OVIEDO Security Heel Trimmer Events No recent Security Events currently on file CRITERIA MET - 6 ED Visits in 6 Months - [facility] - Has Care Guidelines - PDMP - [facility] - 2 Visits in 30 Days CARE PROVIDERS MENDOZA HOLLY Clinical Nurse Specialist: Family Health Current PHONE: [phone] SASHA DELGADO Physician Social Media Marketer 05/18/2019-Current PHONE: [phone] DEEP KO [facility] 10/15/2019-Current PHONE: [phone] Guidelines Source: [employer] [place] Guidelines Date: 12/18/2019 Additional Information: Currently engaged in mental health services with [employer].\T\nbsp; Please contact [facility] for all mental health concerns:\T\nbsp; [place] Office: . Currently assigned with [facility] for medical concerns. Contact has also been made to\T\nbsp;Lior Julian one of the director of casework department at [place]\T\rsquo; aftab Ferrera Contact information: Nancy Madison Lead RN Sales And Marketing Administrator, Healthcare Services office\T\nbsp; [phone]\T\nbsp;\T\nbsp; \F\\T\nbsp; \T\ nbsp;\T\nbsp;[facility] Care History Behavioral 09/30/2017 [facility] - [place] Enrolled in the Assertive Community Treatment program at [facility].\T\nbsp; Contact [facility] with behavioral health concerns. [phone] Medical/Surgical 01/18/2020 [facility] - PLEASE CONTACT [facility] IF PATIENT IS ADMITTED AND OR SEEN IN THE ED- PATIENT IS CURRENTLY UNDER THEIR CARE- [phone]. 01/07/2020 [facility] - PLEASE REVIEW CURRENT TUBE FEED ORDERS (ATTACHED) - [facility] IS CURRENTLY WORK WITH PATIENT. - PLEASE REVIEW ATTACHED DOCUMENTS IN EDIE. [place] VISIT COUNT (12 MO[address] [facility] 10 [facility] TOTAL 17 NOTE: Visits indicate total known visits. ED/UCC VISIT TRACKING (12 MO.) 01/24/2020 16:29 [facility] [place] TYPE: Emergency COMPLAINT: - SYNCOPE EPISODE, HIT HEAD 01/23/2020 19:26 [facility] [place] TYPE: Emergency COMPLAINT: - SYNCOPE EPISODE 01/17/2020 12:58 [facility] [place] TYPE: Emergency COMPLAINT: - FALL DIAGNOSES: - Nicotine dependence, unspecified, uncomplicated - Anxiety disorder, unspecified - Major depressive disorder, single episode, unspecified - Schizophrenia, unspecified - Fall on same level, unspecified, initial encounter - Other chest pain - Hypokalemia - Malignant neoplasm of esophagus, unspecified - Other care home (current) drug therapy 01/05/2020 14:54 [facility] [place] TYPE: Emergency COMPLAINT: - DEHYDRATION DIAGNOSES: - Other care home (current) drug therapy - Nicotine dependence, unspecified, uncomplicated - Vomiting, unspecified - Other effects of heat and light, initial encounter - Bipolar disorder, unspecified - Anxiety disorder, unspecified 12/18/2019 11:05 [facility] [place] TYPE: Emergency COMPLAINT: - VOMITING, SWALLOWING PROBLEM DIAGNOSES: - Nicotine dependence, unspecified, uncomplicated - Schizophrenia, unspecified - Dysphagia, unspecified - Other care home (current) drug therapy - Bipolar disorder, unspecified - Anxiety disorder, unspecified - Malignant neoplasm of esophagus, unspecified 11/29/2019 19:50 [facility] [place] TYPE: Emergency COMPLAINT: - SEIZURES, HEAD INJURY 10/21/2019 15:22 [facility] [place] TYPE: Emergency COMPLAINT: - MEDICAL CLEARANCE DIAGNOSES: - Other care home (current) drug therapy - Mental disorder, not [...] - Nicotine dependence, unspecified, uncomplicated - Other auto rebuilder (current) drug therapy - Major depressive disorder, single episode, unspecified - Anxiety disorder, unspecified 09/08/2019 22:06 [facility] [place] TYPE: Emergency COMPLAINT: - MULTIPLE COMPLAINTS 08/08/2019 16:27 [facility] DIAGNOSES: 0. AMS VIA OPD 05/15/2019 10:[address] [facility] TYPE: Emergency COMPLAINT: - MEDICAL CLEARANCE DIAGNOSES: - Schizophrenia, unspecified - Nicotine dependence, unspecified, uncomplicated 05/01/2019 14:43 [facility] DIAGNOSES: 0. SENT BY [employer] 03/26/2019 16:30 [facility] DIAGNOSES: 0. AMS 03/07/2019 20:47 [facility] DIAGNOSES: 0. DETOX 03/07/2019 04:52 [facility] OR [facility] TYPE: Emergency DIAGNOSES: 0. AMS VIA TVP 02/05/2019 14:37 [facility] TYPE: Emergency DIAGNOSES: 0. NAUSEA X1 WEEK POSS FOOD POISONING 01/28/2019 20:50 [facility] [place] [facility] TYPE: Emergency DIAGNOSES: 0. WANTS TO GET CHECKED OUT INPATIENT VISIT TRACKING (12 MO.) 12/18/2019 20:05 [facility] [place] TYPE: Oncology DIAGNOSES: - esophageal cancer [...] exposure to other viral communic - Other auto rebuilder (current) drug therapy - Dysphagia, unspecified - Malignant neoplasm of cardia - Gastro-esophageal reflux disease without esophagitis 09/08/2019 22:07 [facility] [place] TYPE: Observation COMPLAINT: - INCARCERATED UMBILICAL HERNIA DIAGNOSES: - Other care home (current) drug therapy - Umbilical hernia with obstruction, without gangrene - Major depressive disorder, single episode, unspecified - Anxiety disorder, unspecified - Schizophrenia, unspecified - Nicotine dependence, unspecified, uncomplicated [email or web address]
--- NOTE | 2020-01-24 22:47 | EKG ---
[facility] [address] [place] [address] Signed Normal sinus rhythm Prolonged QT Abnormal ECG When compared with ECG of 08-MAY-2016 07:26, Non-specific change in ST segment in Anterior leads QT has lengthened Confirmed by ANDREEA SHIPMAN MD ([id number]) on 01/24/2020 10:46:59 PM Electronically Signed By: ANDREEA SHIPMAN MD 01/24/20 2247 PATIENT NAME: PREETDOLORES Electrocardiogram DATE OF : 82 PHYSICIAN: ANDREEA SHIPMAN MD REPORT #: [id number] REPORT IS CONFIDENTIAL AND NOT TO BE RELEASED WITHOUT AUTHORIZATION
== END 2020-01-24 19:58 | disposition home or self-care (01) ==
LOC: ED 16:28
PROC: 0HQ0XZZ Repair Scalp Skin, External Approach (ICD-10-PCS; principal; 2020-01-24)
DX: S01.01XA Laceration without foreign body of scalp, initial encounter (principal); E86.0 Dehydration; E87.6 Hypokalemia; F15.90 Other stimulant use, unspecified, uncomplicated; X58.XXXA Exposure to other specified factors, initial encounter
CPT/HCPCS: 12002; 70450; 80053; 81001; 84484; 85025; 93005; 93010; 99285-25; J2060; J2270; J3480; J7030

== ENCOUNTER 2020-01-29 03:40 | Emergency (ER) | payer OTHER ==
[~2020-01-29] VITALS: Ht 185.4 cm; Wt 59.0 kg
--- OUTSIDE RECORDS SUMMARY | ~2020-01-29 | XMS | Clinical Summary ---
Demographics + + + | Address | [address] | | | [place] [address] | + + + | Home Phone | | + + + | Preferred Language | Unknown | + + + | Marital Status | Single | + + + | Uatsdin Affiliation | Unknown | + + + [...] Team Providers + +------+ + | Care Network Contract Manager Name | Role | Phone | + +------+ + | Etienne Spencer MD | PCP | | + +------+ + Source Comments IRASEMA is fully live on both [facility] Amb[facility] and [facility] InPatient.[facility] Allergies Not on File Medications [...]
--- OUTSIDE RECORDS SUMMARY | ~2020-01-29 | XMS | Encounter Summary ---
Demographics + + + | Address | [address] | | | [place] [address] | + + + | Home Phone | | + + + | Preferred Language | Unknown | + + + | Marital Status | Single | + + + | Mosque Affiliation | Unknown | + + + [...] Team Providers + +------+ + | Care Central Lab Technician Name | Role | Phone | [...] | | | | | [place], | | | | | | [place] [address] | | | +--------+--------+ + + + [...]
--- OUTSIDE RECORDS SUMMARY | ~2020-01-29 | XMS | Encounter Summary ---
Demographics + + + | Address | [address] | | | [place] [address] | + + + | Home Phone [...] + + + | Author | [facility] | + + + | Organization | [facility] | + + + | Address | Unknown | + + + | Phone | Unavailable | + + + Support + + +---------+ + | Name | Relationship | Address | Phone | + + +---------+ + | Beth Galaviz | ECON | Unknown | | + + +---------+ + Care Team Providers + +------+ + | Care Die Maker Electronic Name | Role | Phone | + [...] | | | | | [place], | | | | | | [place] [address] | | | +--------+--------+ + + + [...] Referring Physician: Dr. Joiner Referring Site (or [facility] Specialists involved: Oncology Reason for Transfer/Admission: Esophageal [...] up biopsy results from EGD (performed in [place], no need for repeat) 3. Nutrition status- [...]
--- OUTSIDE RECORDS SUMMARY | 2020-01-29 03:42 | XMS ---
PreManage Notification: DOLORES OVIEDO Security Squeegeer And Former Events No recent Security Events currently on file CRITERIA MET - 6 ED Visits in 6 Months - [facility] - Has Care Guidelines - PDMP - [facility] - 2 Visits in 30 Days CARE PROVIDERS MENDOZA HOLLY Clinical Nurse Specialist: Family Health Current PHONE: [phone] SASHA DELGADO Physician Extension Specialist 05/18/2019-Current PHONE: [phone] DEEP KO [facility] 10/15/2019-Current PHONE: [phone] Guidelines Source: [employer] [place] Guidelines Date: 12/18/2019 Additional Information: Currently engaged in mental health services with [employer].\T\nbsp; Please contact [facility] for all mental health concerns:\T\nbsp; [place] Office: . Currently assigned with [facility] for medical concerns. Contact has also been made to\T\nbsp;Lior Julian one of the pillowcase cutter at [place]\T\rsquo; aftab Ferrera Contact information: Nancy Madison Lead RN Janitorial Maintenance Worker, Healthcare Services office\T\nbsp; [phone]\T\nbsp;\T\nbsp; \F\\T\nbsp; \T\ nbsp;\T\nbsp;[employer] Care History Behavioral 09/30/2017 [facility] - [place] Enrolled in the Assertive Community Treatment program at [facility].\T\nbsp; Contact [facility] with behavioral health concerns. [phone] Medical/Surgical 01/18/2020 [facility] - PLEASE CONTACT [facility] IF PATIENT IS ADMITTED AND OR SEEN IN THE ED- PATIENT IS CURRENTLY UNDER THEIR CARE- [phone]. 01/07/2020 [facility] - PLEASE REVIEW CURRENT TUBE FEED ORDERS (ATTACHED) - [facility] IS CURRENTLY WORK WITH PATIENT. - PLEASE REVIEW ATTACHED DOCUMENTS IN EDIE. [place] VISIT COUNT (12 MO.) [address] [facility] 11 [facility] TOTAL 17 NOTE: Visits indicate total known visits. ED/UCC VISIT TRACKING (12 MO.) 01/29/2020 03:41 [facility] [place] TYPE: Emergency COMPLAINT: - CHEST AND ABDOMENAL PAIN 01/24/2020 16:29 [facility] [place] TYPE: Emergency COMPLAINT: - SYNCOPE EPISODE, HIT HEAD DIAGNOSES: - Laceration without foreign body of scalp, initial encounter - Exposure to other specified factors, initial encounter - Dehydration - Other stimulant use, unspecified, uncomplicated - Hypokalemia - Unspecified injury of head, initial encounter 01/23/2020 19:26 [facility] [place] TYPE: Emergency COMPLAINT: - SYNCOPE EPISODE DIAGNOSES: - Nicotine dependence, unspecified, uncomplicated - Syncope and collapse - Other terminal carman (current) drug therapy - Bipolar disorder, unspecified - Weakness - Anxiety disorder, unspecified 01/17/2020 12:58 [facility] [place] TYPE: Emergency COMPLAINT: - FALL DIAGNOSES: - Nicotine dependence, unspecified, uncomplicated - Anxiety disorder, unspecified - Major depressive disorder, single episode, unspecified - Schizophrenia, unspecified - Fall on same level, unspecified, initial encounter - Other chest pain - Hypokalemia - Malignant neoplasm of esophagus, unspecified - Other assisted (current) drug therapy 01/05/2020 14:54 [facility] [place] TYPE: Emergency COMPLAINT: - DEHYDRATION DIAGNOSES: - Other terminal carman (current) drug therapy - Nicotine dependence, unspecified, uncomplicated - Vomiting, unspecified - Other effects of heat and light, initial encounter - Bipolar disorder, unspecified - Anxiety disorder, unspecified 12/18/2019 11:05 [facility] [place] TYPE: Emergency COMPLAINT: - VOMITING, SWALLOWING PROBLEM DIAGNOSES: - Nicotine dependence, unspecified, uncomplicated - Schizophrenia, unspecified - Dysphagia, unspecified - Other terminal carman (current) drug therapy - Bipolar disorder, unspecified - Anxiety disorder, unspecified - Malignant neoplasm of esophagus, unspecified 11/29/2019 19:50 [facility] [place] TYPE: Emergency COMPLAINT: - SEIZURES, HEAD INJURY 10/21/2019 15:22 [facility] [place] TYPE: Emergency COMPLAINT: - MEDICAL CLEARANCE DIAGNOSES: - Other assisted (current) drug therapy - Mental disorder, not [...] - Nicotine dependence, unspecified, uncomplicated - Other terminal carman (current) drug therapy - Major depressive disorder, single episode, unspecified - Anxiety disorder, unspecified 09/08/2019 22:06 [facility] [place] TYPE: Emergency COMPLAINT: - MULTIPLE COMPLAINTS 08/08/2019 16:27 [facility] OR [facility] TYPE: Emergency DIAGNOSES: 0. AMS VIA OPD 05/15/2019 10:[address] [facility] [place] TYPE: Emergency COMPLAINT: - MEDICAL CLEARANCE DIAGNOSES: - Schizophrenia, unspecified - Nicotine dependence, unspecified, uncomplicated 05/01/2019 14:43 [facility] OR [facility] TYPE: Emergency DIAGNOSES: 0. SENT BY [employer] [facility] 03/26/2019 16:30 [facility] TYPE: Emergency DIAGNOSES: 0. AMS 03/07/2019 20:47 [facility]: [facility] DIAGNOSES: 0. DETOX 03/07/2019 04:52 [facility]: Emergency DIAGNOSES: 0. AMS VIA TVP 02/05/2019 14:37 [facility]: [facility] DIAGNOSES: 0. NAUSEA X1 WEEK POSS FOOD POISONING 01/28/2019 20:[facility]: Emergency DIAGNOSES: 0. WANTS TO GET CHECKED OUT INPATIENT VISIT TRACKING (12 MO.) 12/18/2019 [facility] TYPE: Oncology DIAGNOSES: - esophageal [...] exposure to other viral communic - Other terminal carman (current) drug therapy - Dysphagia, unspecified - Malignant neoplasm of cardia - Gastro-esophageal reflux disease without esophagitis 09/08/2019 22:07 [facility] [place] TYPE: Observation COMPLAINT: - INCARCERATED UMBILICAL HERNIA DIAGNOSES: - Other assisted (current) drug therapy - Umbilical hernia with obstruction, without gangrene - Major depressive disorder, single episode, unspecified - Anxiety disorder, unspecified - Schizophrenia, unspecified - Nicotine dependence, unspecified, uncomplicated [email or web address]
--- NOTE | 2020-01-30 15:10 | EKG ---
[facility] [address] [place] [address] Signed Normal sinus rhythm Prolonged QT Abnormal ECG When compared with ECG of 24-JAN-2020 17:26, QT has shortened Confirmed by ALEAH ADAMS MD ([id number]) on 01/30/2020 3:10:20 PM Electronically Signed By: ALEAH ADAMS MD 01/30/20 1510 PATIENT NAME: PREETDOLORES Electrocardiogram DATE OF : 82 PHYSICIAN: ALEAH ADAMS MD REPORT #: [id number] REPORT IS CONFIDENTIAL AND NOT TO BE RELEASED WITHOUT AUTHORIZATION
== END 2020-01-29 04:30 | disposition home or self-care (01) ==
LOC: ED 03:40
DX: C15.9 Malignant neoplasm of esophagus, unspecified (principal); F20.9 Schizophrenia, unspecified; G89.3 Neoplasm related pain (acute) (chronic); R07.9 Chest pain, unspecified; M54.9 Dorsalgia, unspecified; R10.9 Unspecified abdominal pain; F32.9 Major depressive disorder, single episode, unspecified; F41.9 Anxiety disorder, unspecified; F17.200 Nicotine dependence, unspecified, uncomplicated; Z79.899 Other long term (current) drug therapy
CPT/HCPCS: 93005; 93010; 99285-25

== ENCOUNTER 2020-02-01 13:24 | Emergency (ER) | payer OTHER ==
[~2020-02-01] VITALS: Ht 185.4 cm; Wt 59.0 kg
--- OUTSIDE RECORDS SUMMARY | 2020-02-01 13:28 | XMS ---
PreManage Notification: DOLORES OVIEDO Security Able Seaman Events No recent Security Events currently on file CRITERIA MET - 6 ED Visits in 6 Months - [facility] - Has Care Guidelines - PDMP - [facility] - 2 Visits in 30 Days CARE PROVIDERS MENDOZA HOLLY Clinical Nurse Specialist: Family Health Current PHONE: [phone] SASHA DELGADO Physician Quality Compliance Consultant 05/18/2019-Current PHONE: [phone] DEEP KO [facility] 10/15/2019-Current PHONE: [phone] Guidelines Source: [employer] [place] Luz Lopez Guidelines Date: 02/01/2020 Additional Information: Currently engaged in mental health services and enrolled in the ACT program with [employer] [place].\T\nbsp; Please contact [place] [place] for all mental health concerns:\T\nbsp; [employer] Office: [phone]. Current Moda member. Contact has been made to\T\ nbsp;Lior Julian one of the outpatient case manager at [place]\T\rsquo;s. Moda has approved for client to be admitted to a swing bed for medical concerns:\T\nbsp; Moda Contact information: Nancy Benedict RN Freight Coordinator, Healthcare Services office\T\nbsp;[phone]\T\nbsp;\T\nbsp;\F\\T\nbsp;\T\nbsp;\T\nbsp; [employer] Contact information: Lidia Quintero MA, [facility] Clinical Shipping And Receiving [email or web address] [phone] Care History Medical/Surgical 01/18/2020 [facility] - PLEASE CONTACT [facility] IF PATIENT IS ADMITTED AND OR SEEN IN THE ED- PATIENT IS CURRENTLY UNDER THEIR CARE- [phone]. 01/07/2020 [facility] - PLEASE REVIEW CURRENT TUBE FEED ORDERS (ATTACHED) - [facility] IS CURRENTLY WORK WITH PATIENT. - PLEASE REVIEW ATTACHED DOCUMENTS IN CAR[place]. Behavioral 09/30/2017 [facility] [place] - [place] Currently engaged in mental health services and enrolled in the ACT program with [employer] [place].\T\nbsp; Please contact [place] [place] for all mental health concerns:\ T\nbsp; [employer] Office: [phone]. Current Moda member. Contact has been made to\T\nbsp;Lior Julian one of the outpatient case manager at [place]\T\rsquo;s. Moda has approved for client to be admitted to a swing bed for medical concerns:\T\nbsp; Moda Contact information: Nancy Benedict RN Freight Coordinator, Healthcare Services office\T\nbsp;[phone]\T\nbsp;\T\nbsp;\F\\ T\nbsp;\T\nbsp;\T\nbsp;[employer] Contact information: Lidia Quintero MA, [facility] Complex Clinical Shipping And Receiving [email or web address] [phone] Scot VISIT COUNT ([address] [facility] [address] [facility] [place] TOTAL 18 NOTE: Visits indicate total known visits. ED/UCC VISIT TRACKING (12 MO.) 02/01/2020 13:24 [facility] [place] TYPE: Emergency COMPLAINT: - BODY ACHE, DEHYDRATION, UNABLE TO EAT 01/29/2020 03:41 [facility] [place] TYPE: Emergency COMPLAINT: - CHEST AND ABDOMENAL PAIN 01/24/2020 16:29 [facility] [place] TYPE: Emergency COMPLAINT: - SYNCOPE EPISODE, [...] uncomplicated - Syncope and collapse - Other intermediate (current) drug therapy - Bipolar disorder, unspecified [...] Malignant neoplasm of esophagus, unspecified - Other intermediate (current) drug therapy 01/05/2020 14:54 [facility] [place] TYPE: Emergency COMPLAINT: - DEHYDRATION DIAGNOSES: - Other intermediate (current) drug therapy - Nicotine dependence, unspecified, uncomplicated - Vomiting, unspecified - Other effects of heat and light, initial encounter - Bipolar disorder, unspecified - Anxiety disorder, unspecified 12/18/2019 11:05 [facility] [place] TYPE: Emergency COMPLAINT: - VOMITING, SWALLOWING PROBLEM DIAGNOSES: - Nicotine dependence, unspecified, uncomplicated - Schizophrenia, unspecified - Dysphagia, unspecified - Other intermodal truck driver (current) drug therapy - Bipolar disorder, unspecified - Anxiety disorder, unspecified - Malignant neoplasm of esophagus, unspecified 11/29/2019 19:50 [facility] [place] TYPE: Emergency COMPLAINT: - SEIZURES, HEAD INJURY 10/21/2019 15:22 [facility] [place] TYPE: Emergency COMPLAINT: - MEDICAL CLEARANCE DIAGNOSES: - Other intermodal truck driver (current) drug therapy - Mental disorder, not [...] - Nicotine dependence, unspecified, uncomplicated - Other intermediate (current) drug therapy - Major depressive disorder, single episode, unspecified - Anxiety disorder, unspecified 09/08/2019 22:06 [facility] [place] TYPE: Emergency COMPLAINT: - MULTIPLE COMPLAINTS 08/08/2019 16:27 [facility] OR [facility] TYPE: Emergency DIAGNOSES: 0. AMS VIA OPD 05/15/2019 10:32 [facility] [place] TYPE: Emergency COMPLAINT: - MEDICAL CLEARANCE DIAGNOSES: - Schizophrenia, unspecified - Nicotine dependence, unspecified, uncomplicated 05/01/2019 14:43 [facility] DIAGNOSES: 0. SENT BY [employer] 03/26/2019 16:30 [facility] DIAGNOSES: 0. AMS 03/07/2019 20:47 [facility] [place] TYPE: Emergency DIAGNOSES: 0. DETOX 03/07/2019 04:52 [facility] [place] TYPE: Emergency DIAGNOSES: 0. AMS VIA TVP 02/05/2019 14:37 [facility] [place] TYPE: Emergency DIAGNOSES: 0. NAUSEA X1 WEEK POSS FOOD POISONING INPATIENT VISIT TRACKING (12 MO.) 12[facility]18[facility]2019 [facility] DIAGNOSES: - esophageal cancer [...] exposure to other viral communic - Other intermediate (current) drug therapy - Dysphagia, unspecified - Malignant neoplasm of cardia - Gastro-esophageal reflux disease without esophagitis 09/08/2019 22:07 [facility] [place] TYPE: Observation COMPLAINT: - INCARCERATED UMBILICAL HERNIA DIAGNOSES: - Other intermediate (current) drug therapy - Umbilical hernia with obstruction, without gangrene - Major depressive disorder, single episode, unspecified - Anxiety disorder, unspecified - Schizophrenia, unspecified - Nicotine dependence, unspecified, uncomplicated [email or web address]
[2020-02-01] MEDS ORDERED: POTASSIUM40 MEQ/15 PO (16:32)
== END 2020-02-01 16:45 | disposition home or self-care (01) ==
LOC: ED 13:24
DX: C15.9 Malignant neoplasm of esophagus, unspecified (principal); K22.2 Esophageal obstruction; E87.6 Hypokalemia; F31.9 Bipolar disorder, unspecified; F17.200 Nicotine dependence, unspecified, uncomplicated; Z79.899 Other long term (current) drug therapy
CPT/HCPCS: 80053; 85025; 96360; 99284-25; J7030

== ENCOUNTER 2020-02-18 14:21 | Inpatient (IN) | payer OTHER ==
[~2020-02-18] VITALS: Ht 185.4 cm; Wt 54.9 kg
--- OUTSIDE RECORDS SUMMARY | ~2020-02-18 | XMS | Encounter Summary ---
Demographics + + + | Address | [address] | | | [place] [address] | + + + | Home Phone | | + + + | Preferred Language | Unknown | + + + | Marital Status | Single | + + + | Shinto Affiliation | 1013 | + + + | Race | White | + + + | Ethnic Group | Not or | + + + Author + + + | Author | [facility] | | | and [place] | + + + | Organization | [facility] | | | and [place] | + + + | Address | Unknown | + + + | Phone | Unavailable | + + + Support + + + + + | Name | Relationship | Address | Phone | + + + + + | Claudia Graf | ECON | [address] | | | | | [place], [place] | | | | | [address] | | + + + + + | Hilda Ramirez | ECON | [place], | | | | | [place] [address] | | + + + + + | Sara Fields | ECON | Unknown | | | [place] | | | | + + + + + Care Team Providers + +------+ + | Care Audio Specialist Name | Role | Phone | + +------+ + PCP | Unavailable | + +------+ + Encounter Details +--------+ + + + + | Date | Type | Department | Care Team | Description | +--------+ + + + + | 05/17/ | Hospital | [facility] | Milagros Kebede | | | 2008 | Encounter | MED CTR LABORATORY | DO Brigido Dumont | | | | | [address] [facility] | [place], [place] | | | | | [place], [place] | [address] | | | | | [address] | | | | | | [phone] | | | +--------+ + + + [...] on file | | + + + documented as of this encounter Plan of Treatment Not on filedocumented as of this encounter Visit Diagnoses Not on filedocumented in this encounter"
--- OUTSIDE RECORDS SUMMARY | ~2020-02-18 | XMS | Clinical Summary ---
Demographics + + + | Address | [address] | | | [place] [address] | + + + | Home Phone | | + + + | Preferred Language | Unknown | + + + | Marital Status | Single | + + + | Moravian Affiliation | Unknown | + + + | Race | White | + + + | Ethnic Group | Not or | + + + Author + + + | Author | [facility] | + + + | Organization | [facility] | + + + | Address | Unknown | + + + | Phone | Unavailable | + + + Support + + +---------+ + | Name | Relationship | Address | Phone | + + +---------+ + | Beth Galaviz | ECON | Unknown | | + + +---------+ + Care Team Providers + +------+ + | Care Iridologist Name | Role | Phone | + +------+ + | Etienne Spencer MD | PCP | | + +------+ + Source Comments IRASEMA is fully live on both [facility] Ambulatory and [facility] InPatient.[facility] Allergies Not on File Medications Not on file Active Problems Not on file Encounters +--------+--------+ + + + | Date | Type | Specialty | Care Team | Description | +--------+--------+ + + + | 02/18/ | Intake | | | | | 2019 | | | | | +--------+--------+ + + + | 12/17/ | Intake | | | | | 2020 | | | | | +--------+--------+ + + + | 12/01/ | Intake | | | | | 2020 | | | | | +--------+--------+ + + + from Last 3 Months Social History + +-------+ +--------+------+ | Tobacco [...] on file | | + + + Last Filed Vital Signs Not on file Plan of Treatment + + + + + | Health Maintenance | Due Date | Last | Comments | | | | Done | | + + + + + | Influenza (Flu) | | 04/29/20 | | | vaccination (#1) | 0 | 17, | | | | | 05/08/20 | | | | | 16, | | | | | 08/02/19 | | | | | 16, | | | | | Addition | | | | | al | | | | | history | | | | | exists | | + + + + + | Pneumococcal | Aged Out | | No longer eligible based on patient's age | | vaccination | | | to complete this topic | + + + + + Results Not on filefrom Last 3 Months"
--- OUTSIDE RECORDS SUMMARY | ~2020-02-18 | XMS | Encounter Summary ---
Demographics + + + | Address | [address] | | | [place] [address] | + + + | Home Phone | | + + + | Preferred Language | Unknown | + + + | Marital Status | Single | + + + | Taoist Affiliation | 1013 | + + + | Race | White | + + + | Ethnic Group | Not or | + + + Author + + + | Author | [facility] | | | and [place] | + + + | Organization | [facility] | | | and [place] [...] [place], [place] | | | | | [address] | | + + + + + | Hilda Ramirez | ECON | [place], | | | | | [place] [address] | | + + + + + | Sara Fields | ECON | Unknown | | | [place] | | | | + + + + + Care Team Providers + +------+ + | Care Thread Separator Name | Role | Phone | + [...] + + | 01/26/ | Emergency | [facility] | Leonel Dimas, | Bilateral foot pain | | 2013 | | MED CTR EMERGENCY | MD [address] | (Primary Dx); | | | | CENTER [address] | [facility] | Friction blisters of | | | | [place] | [place] [address] | the soles, right, | | | | [address] | [phone] | initial encounter; | | | | [phone] | | Friction blisters of | | [...] +---------+--------+ + documented as of this encounter ED Notes Leonel Dimas MD - 01/26/2014 3:32 PM PDTFormatting of this note might be different f rom the original. [facility] Ant Graf Emergency Department Encounter Note [address] [place] [address] PCP:Physician No [phone] CHIEF COMPLAINT Chief Complaint Patient presents with Foot Pain HPI Ant Graf is a 33 y.o. male who presents to the emergency department with bilateral foot pain. The patient presented to the emergency department complaining that both his feet are hurting. He has blisters on both of his feet. He states he walks a lot. He has had e pisodes where he has injured his feet, although he cannot recall a specific incident in the last day or 2. This pain has been ongoing issue. He notes that whenever he starts to walk the pain flares up once again. No neck or back pain. No headache. He is providing his own history. Patient states that he is homeless. Patient noted that his right foot pain seeme d to start after he started storing methamphetamine in his sock. PAST MEDICAL HISTORY Past Medical History Diagnosis Date Schizophrenia (HCC) Bipolar disorder (HCC) SURGICAL HISTORY No past surgical history on file. CURRENT MEDICATIONS Previous Medications CHOLECALCIFEROL (VITAMIN D3) 5000 UNITS CAPS Take by mouth. ALLERGIES Allergies Allergen Reactions Hydrocodone Itching FAMILY HISTORY No family history on file. SOCIAL HISTORY History Social History Marital Status: Single Spouse Name: N/A Number of Children: N/A Years of Education: N/A Social History Main Topics Smoking status: Current Every Day Smoker -- 0.5 packs/day Types: Cigarettes Smokeless tobacco: Never Used Alcohol Use: Yes Drug Use: Yes Special: Marijuana, Methamphetamines, Cocaine Sexually Active: None Other Topics Concern None Social History Narrative None REVIEW OF SYSTEMS All systems reviewed and found negative except what is in the HPI PHYSICAL EXAM VITAL SIGNS: BP 130/78 | Pulse 100 | Temp 36.8 C (98.2 F) (Oral) | Resp 16 | Ht 1.854 m (6' 1") | Wt 106.595 kg (235 lb) | BMI 31.01 kg/m2 | SpO2 96% Constitutional: Well developed, Desheveled, No acute distress, Non-toxic appearance. HENT: Normocephalic, Atraumatic, Bilateral external ears normal, Mucous membranes are penny [address], Nasal mucosa is normal. Eyes: PERRL, EOMI, Conjunctiva normal, No discharge. Palpebral conjunctiva are pink. Neck: Normal range of motion, No tenderness, Supple, No stridor. Respiratory: No respiratory distress, No wheezing Extremities: Warm and well perfused, no edema, no joint swelling or deformity. Good ROM. Tenderness of both feet in the midfoot. Back: No CVAT, No tenderness of the thoracic or lumbar spine. Skin: Warm, Dry, No erythema, No induration, No rash. Blisters in various stages on both f eet plantar aspects. Neurologic: Alert & oriented x 3, No focal motor or sensory deficits. Speech is clear. G ait is normal. RADIOLOGY Bilateral foot x-rays show no acute pathology ED COURSE & MEDICAL DECISION MAKING Pertinent Labs & Imaging studies reviewed. (See chart for details) The patient was seen and examined shortly after arriving in the emergency department. Hist ory and physical were obtained, vital signs were noted. The patient has blisters. Radiogra phs are unremarkable. No infections are present. I will recommend decreased use, keep feet clean and dry. F/U with PCP. FINAL IMPRESSION 1. Bilateral foot pain 2. Friction blisters of the soles, right, initial encounter 3. Friction blisters of the soles, left, initial encounter PLAN Follow-up Information Follow up with your doctor. In 2 weeks. Follow up with SAMANTHA Yoon. Call today. Contact information: [phone] Leonel Dimas MD 01/26/14 2312 docume nted in this encounter Miscellaneous Notes Plan of Care - ONMICHAEL SCAN WAMT - 01/28/2014 12:00 AM PDT D Triage Notes - Delbert Zuniga RN - 01/26/2014 3:05 PM PD TReports foot pain states he walks a lot documented in this en counter Plan of Treatment Not on filedocumented as [...] + | MISCELLANEOUS LAB | | | [phone] | + +---------+ + + | MISCELANIOUS LAB | | | [phone] | + +---------+ + + XR Foot [...] + | MISCELLANEOUS LAB | | | [phone] | + +---------+ + + | MISCELANIOUS LAB | | | [phone] | + +---------+ + + documented in [...]
--- OUTSIDE RECORDS SUMMARY | ~2020-02-18 | XMS | Encounter Summary ---
Demographics + + + | Address | [address] | | | [place] [address] | + + + | Home Phone | | + + + | Preferred Language | Unknown | + + + | Marital Status | Single | + + + | Scientology Affiliation | 1013 | + + + | Race | White | + + + | Ethnic Group | Not or | + + + Author + + + | Author | [facility] | | | and [place] | + + + | Organization | [facility] | | | and [place] [...] [place], [place] | | | | | [address] | | + + + + + | Hilda Ramirez | ECON | [place], | | | | | [place] [address] | | + + + + + | Sara Fields | ECON | Unknown | | | [place] | | | | + + + + + Care Team Providers + +------+ + | Care Military Police Officer Name | Role | Phone | + +------+ + PCP | Unavailable | + +------+ + Encounter Details +--------+ + + + + | Date | Type | Department | Care Team | Description | +--------+ + + + + | 11/08/ | Hospital | [facility] | Brian Orozco | | | 2002 | Encounter | MED CTR EMERGENCY | MD Se[address] | | | | | [place] [address] | [facility] | | | | | [place], [place] | [place] [address] | | | | | [address] | [phone] | | | | | [phone] | | | +--------+ + + + [...]
--- OUTSIDE RECORDS SUMMARY | ~2020-02-18 | XMS | Encounter Summary ---
Demographics + + + | Address | [address] | | | [place] [address] | + + + | Home Phone | | + + + | Preferred Language | Unknown | + + + | Marital Status | Single | + + + | Sikhism Affiliation | 1013 | + + + | Race | White | + + + | Ethnic Group | Not or | + + + Author + + + | Author | [facility] | | | and [place] | + + + | Organization | [facility] | | | and [place] | [...] [place], [place] | | | | | [address] | | + + + + + | Hilda Ramirez | ECON | [place], | | | | | [place] [address] | | + + + + + | Sara Fields | ECON | Unknown | | | [facility] | | | | + + + + + Care Team Providers + +------+ + | Care Welder Fitter Name | Role | Phone | + +------+ + PCP | Unavailable | + +------+ + Encounter Details +--------+ + + + + | Date | Type | Department | Care Team | Description | +--------+ + + + + | 03/24/ | Hospital | [facility] | | | | 2006 | Encounter | [facility] | | | | | | [address] | | | | | | [place] | | | | | | [address] | | | | | | [phone] | | | +--------+ + + + [...]
--- OUTSIDE RECORDS SUMMARY | ~2020-02-18 | XMS | Encounter Summary ---
Demographics + + + | Address | [address] | | | [place] [address] | + + + | Home Phone | | + + + | Preferred Language | Unknown | + + + | Marital Status | Single | + + + | Rastafarian Affiliation | 1013 | + + + | Race | White | + + + | Ethnic Group | Not or | + + + Author + + + | Author | [facility] | | | and [place] | + + + | Organization | [facility] | | | and [...] [place], [place] | | | | | [address] | | + + + + + | Hilda Ramirez | ECON | [place], | | | | | [place] [address] | | + + + + + | Sara Fileds | ECON | Unknown | | | [facility] | | | | + + + + + Care Team Providers + +------+ + | Care Patient Carrier Name | Role | Phone | + [...] + + | 01/26/ | Emergency | [facility] | Leonel Dimas, | Bilateral foot pain | | 2013 | | MED CTR EMERGENCY | MD [address] | (Primary Dx); | | | | CENTER [address] | [facility] | Friction blisters of | | | | [place] | [place] [address] | the soles, right, | | | | [address] | [phone] | initial encounter; | | | | [phone] | | Friction blisters of | | [...] might be different f rom the original. [facility] Emergency Department Encounter Note [address] [place] [address] PCP:Physician No [phone] CHIEF COMPLAINT Chief Complaint [...] with SAMANTHA Yoon. Call today. Contact information: [phone] Leonel Dimas MD 01/26/14 2312 docume nted [...] + | MISCELLANEOUS LAB | | | [phone] | + +---------+ + + | MISCELANIOUS LAB | | | [phone] | + +---------+ + + XR Foot [...] + | MISCELLANEOUS LAB | | | [phone] | + +---------+ + + | MISCELANIOUS LAB | | | [phone] | + +---------+ + + documented in [...]
--- OUTSIDE RECORDS SUMMARY | ~2020-02-18 | XMS | Encounter Summary ---
Demographics + + + | Address | [address] | | | [place] [address] | + + + | Home Phone | | + + + | Preferred Language | Unknown | + + + | Marital Status | Single | + + + | Tenriism Affiliation | 1013 | + + + | Race | White | + + + | Ethnic Group | Not or | + + + Author + + + | Author | [facility] | | | and [place] | + + + | Organization | [facility] | | | and [place] | [...] [place], [place] | | | | | [address] | | + + + + + | Hilda Ramirez | ECON | [place], | | | | | [place] [address] | | + + + + + | Sara Fields | ECON | Unknown | | | [facility] | | | | + + + + + Care Team Providers + +------+ + | Care Electronic Publications Specialist Name | Role | Phone | + +------+ + PCP | Unavailable | + +------+ + Encounter Details +--------+ + + + + | Date | Type | Department | Care Team | Description | +--------+ + + + + | 07/15/ | Hospital | [facility] | | | | 2000 | Encounter | MED CTR EMER[facility]ENCY | | | | | | CENTER [address] | | | | | | [place] | | | | | | [address] | | | | | | [phone] | | | +--------+ + + + [...]
--- OUTSIDE RECORDS SUMMARY | ~2020-02-18 | XMS | Encounter Summary ---
Demographics + + + | Address | [address] | | | [place] [address] | + + + | Home Phone | | + + + | Preferred Language | Unknown | + + + | Marital Status | Single | + + + | Latter Day Affiliation | 1013 | + + + | Race | White | + + + | Ethnic Group | Not or | + + + Author + + + | Author | [facility] | | | and [place] | + + + | Organization | [facility] | | | and [place] | [...] [place], [place] | | | | | [address] | | + + + + + | Hilda Ramirez | ECON | [place], | | | | | [place] [address] | | + + + + + | Sara Fields | ECON | Unknown | | | [facility] | | | | + + + + + Care Team Providers + +------+ + | Care Mining And Quarrying Machinery Repairer Name | Role | Phone | + [...] | +--------+ + + + + | 01/31/ | Emergency | [facility] | Brian Orozco | Foot pain, bilateral | | 2013 | | MED CTR EMERGENCY | MD [address] | (Primary Dx) | | | | CENTER [address] | [facility] | | | | | [place] | [place] [address] | | | | | [address] | [phone] | | | | | [phone] | | | +--------+ + + + [...] + + + | Blood Pressure | 137/84 | 01/31/2014 7:45 PM | | | | | PDT | | + + + + + | Pulse | 94 | 01/31/2014 7:45 PM | | | | | PDT | | + + + + + | Temperature | 37.3 C (99.1 F) | 01/31/2014 7:45 PM | | | | | PDT | | + + + + + | Respiratory Rate | 16 | 01/31/2014 7:45 PM | | | | | PDT | | + + + + + | Oxygen Saturation | 97% | 01/31/2014 7:45 PM | | | | | PDT | | + + + + + | Inhaled Oxygen | - | - | | | Concentration | | | | + + + + + | Weight | 113.4 kg (250 lb) | 01/31/2014 7:45 PM | | | | | PDT | | + + + + + | Height | 185.4 cm (6' 1") | 01/31/2014 7:45 PM | | | | | PDT | | + + + + + | Body Mass Index | 32.98 | 01/31/2014 7:45 PM | | | | | PDT | | + + + + + documented in this encounter Discharge Instructions Instructions Brian Orozco MD - 01/31/2014Try getting bunion pads to protect your f eet Call the crisis number for help establishing mental health care. documented in this encounter Medications at Time [...] documented as of this encounter ED Notes Brian Orozco MD - 01/31/2014 8:43 PM PDTFormatting of this note might be differen t from the original. [facility] Emergency Department Encounter Note [address] [place] [address] PCP:Physician No [phone] eMERGENCY dEPARTMENT eNCOUnter CHIEF COMPLAINT Chief Complaint Patient presents with Foot Pain HPI [facility] is a 33 y.o. male who presents evaluation of bilateral burning pain to his feet. This is been going on for about a month. He seen here a week ago for the same probl em and was found have blisters. Since then he's got new shoes and some gel pad and soles wh ich has helped some. He continues to have significant corns and calluses on his feet and th ey hurt when he walks on them. They don't hurt otherwise. He is asking for help getting es tablish with primary care and with mental health care. PAST MEDICAL HISTORY Past Medical History Diagnosis Date Schizophrenia (HCC) Bipolar disorder (HCC) SURGICAL HISTORY History reviewed. No pertinent past surgical history. CURRENT MEDICATIONS Previous Medications CHOLECALCIFEROL (VITAMIN D3) 5000 UNITS CAPS Take by mouth. ALLERGIES No Active Allergies FAMILY HISTORY No family history on file. [...] Narrative None REVIEW OF SYSTEMS All systems negative except as marked. PHYSICAL EXAM VITAL SIGNS: (first vital signs):Temp: 37.3 C (99.1 F) Pulse: 94 Resp: 16 SpO2: 97 % BP: 137/84 mmHg Constitutional: No Acute distress Focused Exam: Bilateral feet: Multiple callouses and corns around the heels, over the base of the fifth m etatarsals and over the ball of the feet. No sign of infection. Normal sensation. Normal cap refill and pulses. ED COURSE & MEDICAL DECISION MAKING Last Set of Vital Signs: Temp: 37.3 C (99.1 F) Pulse: 94 Resp: 16 SpO2: 97 % BP: 137/ 84 mmHg Pertinent Labs & Imaging studies reviewed. (See chart for details) The patient has multiple callouses and corns. I recommended he try some bunion past to rel ieve the pressure. I am also giving him a referral for primary care and we will give him a number for crisis to help establish mental health care. FINAL IMPRESSION 1. Foot pain, bilateral Plan: Follow-up Information Schedule an appointment as soon as possible for a visit with Griffin Zam[facility] MD. [facility] Specialty: Family Medicine Contact information: [address] [place] [address] Discharge Instructions Try getting bunion pads to protect your feet Call the crisis number for help establishing mental health care. Portions of this chart may have been created with [employer] voice recognition software. Occasi onal wrong-word or sound-alike substitutions may have occurred due to the inherent maria itations of voice recognition software. Please read the chart carefully and recognize, using context, where these substitutions have occurred Brian Orozco MD 01/31/149 doc umented in this encounter Miscellaneous Notes Plan of Care - HERMELINDO SCAN WAMT - 02/01/2014 12:00 AM PDT D Triage Notes - Windy Spencer, RN - 01/31/2014 7:44 PM PDT Pt reports getting new shoes and his feet are burning. States he was seen here for this bef ore and they took xrays and he was told that if it got worse to come back.Electronically sig salima by Windy Spencer RN at 01/31/2014 7:45 PM PDTdocumented in this encounter Plan of Treatment Not on filedocumented as of this encounter Visit Diagnoses + + | Diagnosis | + + | Foot pain, bilateral - Primary | + + documented in this encounter Administered Medications + +--------+ + +------+------+ | Medication Order | MAR | Action | Dose | Rate | Site | | | Action | Date | | | | + +--------+ + +------+------+ | acetaminophen (TYLENOL) tablet | Given | 02/01/20 | 1,000 mg | | | | 1,000 mg 1,000 mg, Oral, ONCE, | | 14 9:00 | | | | | 01/31/14 at 2115, For 1 dose | | PM PDT | | | | + +--------+ + +------+------+ +---+---+ | | | +---+---+ documented in this encounter
--- OUTSIDE RECORDS SUMMARY | ~2020-02-18 | XMS | Encounter Summary ---
Demographics + + + | Address | [address] | | | [place] [address] | + + + | Home Phone | | + + + | Preferred Language | Unknown | + + + | Marital Status | Single | + + + | Latter Day Affiliation | Unknown | + + + | Race | White | + + + | Ethnic Group | Not or | + + + Author + + + | Author | [facility] | + + + | Organization | [facility] | + + + | Address | Unknown | + + + | Phone | Unavailable | + + + Support + + +---------+ + | Name | Relationship | Address | Phone | + + +---------+ + | Beth Galaviz | ECON | Unknown | | + + +---------+ + Care Team Providers + +------+ + | Care Launch Check Out Name | Role | Phone | + [...] | | | | | [place], | | | | | | [place] [address] | | | +--------+--------+ + + + [...] + + documented as of this encounter Miscellaneous Notes Transfer Note - Windy Kinney MD - 12/02/2019 3:15 PM PDTINPATIENT MEDICINE TRANSFER CENTER & INTRA-HOSPITAL ACCEPT NOTE Medicine Hospitalist Attending Author: Windy Kinney MD PCP: No primary provider on file. No primary physician on file. Phone: None FAX: None Referring Physician: Dr. Joiner Referring Site (or [facility] Specialists involved: Oncology Reason for Transfer/Admission: Esophageal mass Floor or ICU Request: Floor HPI/PMH/Exam: 39M Schizophrenia Admitted to OSH with KALEE, syncope- found to have esophageal mass 40 lb weight loss over past few months CT scan with thickening around GEJ EGD +obstructive mass- biopsies taken but not resulted Patient cannot take any po- including liquids and solids Has poor understanding of his disease/prognosis Ex-fiance somewhat engaged in care- ?G tube Needs parenteral nutrition during workup # KALEE- normalized with fluids # Esophageal mass 1. FTT- unable to tolerate po as above 2. Malignancy workup and determination whether he can tolerate inpatient chemo (with curren t FTT/ECOG status) Procedures: EGD 11/30 Code Status: FULL Other Isolation/Care Issues: Isolation COVID r/o but no results yet Disposition: (accepted or declined) accepted Problem List/Recommendations: 1. Staging- CT chest with contrast and PET scan 2. Follow up biopsy results from EGD (performed in [place], no need for repeat) 3. Nutrition status- ?parenteral therapy to bridge to therapy 4. Consult oncology for recommendations re: possible chemo/RT- will probably depend on ECOG status as above 5. If no therapy inpatient/GOC not consistent, may need to consider GI consult for ?pallati ve stent documented in thi s encounter Plan of Treatment Not on filedocumented as of this encounter Visit Diagnoses Not on filedocumented in this encounter"
--- OUTSIDE RECORDS SUMMARY | ~2020-02-18 | XMS | Encounter Summary ---
Demographics + + + | Address | [address] | | | [place] [address] | + + + | Home Phone | | + + + | Preferred Language | Unknown | + + + | Marital Status | Single | + + + | Roman Catholic Affiliation | Unknown | + + + | Race | White | + + + | Ethnic Group | Not or | + + + Author + + + | Author | [facility] | + + + | Organization | [facility] | + + + | Address | Unknown | + + + | Phone | Unavailable | + + + Support + + +---------+ + | Name | Relationship | Address | Phone | + + +---------+ + | Beth Galaviz | ECON | Unknown | | + + +---------+ + Care Team Providers + +------+ + | Care Cushion Assembler Name | Role | Phone | + +------+ + | Etienne Spencer MD | PCP | | + +------+ + Encounter Details +--------+--------+ + + + | Date | Type | Department | Care Team | Description | +--------+--------+ + + + | 02/18/ | Intake | Transfer Center | | | | 2020 | | [address] | | | | | | [place], | | | | | | [place] [address] | | | +--------+--------+ + + + [...]
--- OUTSIDE RECORDS SUMMARY | ~2020-02-18 | XMS | Encounter Summary ---
Demographics + + + | Address | [address] | | | [place] [address] | + + + | Home Phone | | + + + | Preferred Language | Unknown | + + + | Marital Status | Single | + + + | Roman Catholic Affiliation | 1013 | + + + | Race | White | + + + | Ethnic Group | Not or | + + + Author + + + | Author | [facility] | | | and [place] | + + + | Organization | [facility] | | [...] [place], [place] | | | | | [address] | | + + + + + | Hilda Ramirez | ECON | [place], | | | | | [place] [address] | | + + + + + | Sara Fields | ECON | Unknown | | | [place] | | | | + + + + + Care Team Providers + +------+ + | Care Sap Pi Developer Name | Role | Phone | + +------+ + PCP | Unavailable | + +------+ + Encounter Details +--------+ + + + + | Date | Type | Department | Care Team | Description | +--------+ + + + + | 01/29/ | Abstract | [facility] | [facility] | | | 2011 | | Conversion Location | SR | | | | | [facility] | | | | | | [place], [place] | | | | | | [address] | | | | | | [phone] | | | +--------+ + + + [...] + + + | Blood Pressure | 163/90 | 01/15/2012 12:00 AM | | | | | PDT | | + + + + + | Pulse | - | - | | + + + + + | Temperature | - | - | | + + + + + | Respiratory Rate | - | - | | + + + + + | Oxygen Saturation | - | - | | + + + + + | Inhaled Oxygen | - | - | | | Concentration | | | | + + + + + | Weight | 132.9 kg (293 lb) | 01/15/2012 12:00 AM | | | | | PDT | | + + + + + | Height | 185.4 cm (6' 1") | 11/05/2011 12:00 AM | | | | | PDT | | + + + + + | Body Mass Index | 38.66 | 11/05/2011 12:00 AM | | | | | PDT | | + + + + + documented in this encounter Plan of Treatment Not on filedocumented as of this encounter Visit Diagnoses Not on filedocumented in this encounter
--- OUTSIDE RECORDS SUMMARY | ~2020-02-18 | XMS | Encounter Summary ---
Demographics + + + | Address | [address] [facility] | | | [place] [address] | + + + | Home Phone [...] Author + + + | Author | [facility] | | | and [place] | + + + | Organization | [facility] | | | and [place] [...] [place], [place] | | | | | [address] | | + + + + + | Hilda Ramirez | ECON | [place], | | | | | [place] [address] | | + + + + + | Sara Fields | ECON | Unknown | | | [place] | | | | + + + + + Care Team Providers + +------+ + | Care Breakdown Worker Name | Role | Phone | + +------+ + | No, Physician | PCP | Unavailable | + +------+ + Reason for Visit + +--------+ + | Reason | Onset | Comments | | | Date | | + +--------+ + | Follow-up | 06/30/ | Re: Recent visit to Urgent Care | | | 2014 | | + +--------+ + Encounter Details +--------+ + + + + | Date | Type | Department | Care Team | Description | +--------+ + + + + | 06/30/ | Telephone | [facility] | Carlos Pizano, | Follow-up (Re: | | 2014 | | CARE [address] | MD [address] | Recent visit to | | | | [place] | [place] | Urgent Care) | | | | [address] | [address] | | | | | [phone] | | | +--------+ + + + [...] documented as of this encounter Miscellaneous Notes Telephone Encounter - Lexi Gupta - 06/30/2014 4:48 PM PSTCalled and left courtesy [employer] w-up voice message regarding patient's recent visit to Urgent Care. documented in this encounter Plan of Treatment Not on filedocumented as of this encounter Visit Diagnoses Not on filedocumented in this encounter"
--- OUTSIDE RECORDS SUMMARY | ~2020-02-18 | XMS | Encounter Summary ---
Demographics + + + | Address | [address] [facility] [address] [facility] | | | [place] [address] | + + + | Home Phone | | + + + | Preferred Language | Unknown | + + + | Marital Status | Single | + + + | Judaism Affiliation | 1013 | + + + | Race | White | + + + | Ethnic Group | Not or | + + + Author + + + | Author | [facility] | | | and [place] | + + + | Organization | [facility] | | | and [place] [...] [place], [place] | | | | | [address] | | + + + + + | Hilda Ramirez | ECON | [place], | | | | | [place] [address] | | + + + + + | Sara Fields | ECON | Unknown | | | [place] | | | | + + + + + Care Team Providers + +------+ + | Care Box Stamper Name | Role | Phone | + +------+ + | No, Physician | PCP | Unavailable | + +------+ + Encounter Details +--------+ + + + + | Date | Type | Department | Care Team | Description | +--------+ + + + + | 02/05/ | Hospital | [facility] | Francisco Mcnamara | | | 2013 | Encounter | [facility] | Neeraj Fragoso MD | | | | | [address] | [address] | | | | | [place] | [place] | | | | | [address] | [address] | | | | | [phone] | | | +--------+ + + + [...] + +--------+ + + + | XR SINUSES < 3 VW | Routin | 02/05/2014 | Nasal congestion | Results for this | | | e | 11:23 AM | | procedure are in the | | | | PDT | | results section. | + +--------+ + + + | XR CHEST PA AND | Routin | 02/05/2014 | Cough | Results for this | | LATERAL | e | 11:23 AM | | procedure are in the | | | | PDT | | results section. | + +--------+ + + + documented in this encounter Results XR Sinuses < 3 Vw (02/05/2014 11:23 AM PDT) + + | Specimen | + + | | + + + + + | Narrative | Performed At | + + + | XR SINUSES < 3 VW 02/05/2014 11:23 AM HISTORY: sinus congestion | MISCELANIOUS | | for 3 months. COMPARISON: None. FINDINGS: The orbits and | LAB | | paranasal sinuses are normal. Mastoids are grossly unremarkable. | | | Limited evaluation of the nasal bones demonstrate no abnormalities. | | | Skull and imaged cervical spine show no acute findings. | | | IMPRESSION - No acute findings. Dictated and Signed by: Champ | | | MD Meek Electronically signed: 02/05/2014 11:27 AM | | + + + + + | Procedure Note | + + | Juanjo, Rad Results In - 02/05/2014 11:30 AM PDT XR SINUSES < 3 VW 02/05/2014 11:23 AM | | | | HISTORY: sinus congestion for 3 months. | | | | COMPARISON: None. | | | | FINDINGS: | | The orbits and paranasal sinuses are normal. Mastoids are grossly unremarkable. | | Limited evaluation of the nasal bones demonstrate no abnormalities. Skull and | | imaged cervical spine show no acute findings. | | | | IMPRESSION - | | No acute findings. | | | | Dictated and Signed by: Champ Eden MD | | Electronically signed: 02/05/2014 11:27 AM | + + + +---------+ + + | Performing | Address | City/State/Zipcode | Phone Number | | Organization | | | | + +---------+ + + | MISCELLANEOUS LAB | | | [phone] | + +---------+ + + | MISCELANIOUS LAB | | | [phone] | + +---------+ + + XR Chest PA and Lateral (02/05/2014 11:23 AM PDT) + + | Specimen | + + | | + + + + + | Narrative | Performed At | + + + | XR CHEST PA AND LATERAL 02/05/2014 11:23 AM HISTORY: cough. | MISCELANIOUS | | COMPARISON: None. Findings: Heart size is within normal limits. | LAB | | Aorta is normal. Mediastinum is unremarkable. Central pulmonary | | | vasculature is normal. The bilateral lungs are clear with no evidence | | | for pleural effusion or pneumothorax. There are no acute osseous | | | abnormalities. IMPRESSION - No acute findings. Dictated | | | and Signed by: Champ Eden MD Electronically signed: 02/05/2014 | | | 11:26 AM | | + + + + + | Procedure Note | + + | Juanjo, Rad Results In - 02/05/2014 11:29 AM PDT XR CHEST PA AND LATERAL 02/05/2014 11:23 | | AMHISTORY: cough.COMPARISON: None.Findings:Heart size is within normal limits. Aorta is | | normal. Mediastinum isunremarkable. Central pulmonary vasculature is normal. The | | bilateral lungs areclear with no evidence for pleural effusion or pneumothorax. There | | are no acuteosseous abnormalities.IMPRESSION -No acute findings. Dictated and Signed by: | | Champ Eden MD Electronically signed: 02/05/2014 11:26 AM | |Findings: | |Heart size is within normal limits. Aorta is normal. Mediastinum is | |unremarkable. Central pulmonary vasculature is normal. The bilateral lungs are | |clear with no evidence for pleural effusion or pneumothorax. There are no acute | |osseous abnormalities. | | | |IMPRESSION - | |No acute findings. | | | | | |Dictated and Signed by: Champ Eden MD | | Electronically signed: 02/05/2014 11:26 AM | + + + +---------+ + + | Performing | Address | City/State/Zipcode | Phone Number | | Organization | | | | + +---------+ + + | MISCELLANEOUS LAB | | | [phone] | + +---------+ + + | MISCELANIOUS LAB | | | [phone] | + +---------+ + + documented in this encounter Visit Diagnoses Not on filedocumented in this encounter"
--- OUTSIDE RECORDS SUMMARY | ~2020-02-18 | XMS | Encounter Summary ---
Demographics + + + | Address | [address] | | | [place] [address] | + + + | Home Phone [...] Author + + + | Author | [facility] | | | and [place] | + + + | Organization | [facility] | | | and [place] [...] [place], [place] | | | | | [address] | | + + + + + | Hilda Ramirez | ECON | [place], | | | | | [place] [address] | | + + + + + | Sara Fields | ECON | Unknown | | | [facility] | | | | + + + + + Care Team Providers + +------+ + | Care Sand Shoveler Name | Role | Phone | + +------+ + PCP | Unavailable | + +------+ + Encounter Details +--------+ + + + + | Date | Type | Department | Care Team | Description | +--------+ + + + + | 03/24/ | Hospital | [facility] | | | | 2006 | Encounter | [facility] | | | | | | [address] | | | | | | [place] | | | | | | [address] | | | | | | [phone] | | | +--------+ + + + [...]
--- OUTSIDE RECORDS SUMMARY | ~2020-02-18 | XMS | Encounter Summary ---
Demographics + + + | Address | [address] | | | [place] [address] | + + + | Home Phone | | + + + | Preferred Language | Unknown | + + + | Marital Status | Single | + + + | Baptist Affiliation | 1013 | + + + | Race | White | + + + | Ethnic Group | Not or | + + + Author + + + | Author | [facility] | | | and [place] | + + + | Organization | [facility] and [facility] | | | and [place] | [...] [place], [place] | | | | | [address] | | + + + + + | Hilda Ramirez | ECON | [place], | | | | | [place] [address] | | + + + + + | Sara Fields | ECON | Unknown | | | [place] | | | | + + + + + Care Team Providers + +------+ + | Care Sr. Payroll Manager Name | Role | Phone | + [...] + + | 02/25/ | Emergency | [facility] | Leonel Dimas, | Myalgia (Primary | | 2013 | | MED CTR EMERGENCY | [address] | Dx); Arthralgia | | | | CENTER [address] | [facility] | | | | | [place] | [place] [address] | | | | | [address] | [phone] | | | | | [phone] | | | +--------+ + + + [...] be sent through Care Everywhere.ARTHRALGIA (ENG THOMAS)MYALGIAS (MACEDONIAN)documented in this encounter Medications at Time of [...] documented as of this encounter ED Notes Maki Gonzalez RN - 02/25/2014 5:41 AM PDTPatient discharge instructions reviewed, p atient states "I'm not doing that" - patient questioned regarding his statement and patient refused to provide further detail and left emergency department. Patient ambulated with nam pinzon gait. Radha Grant MD - 02/25/2014 5:03 AM PDTFormatting of this note might be different from the o riginal. [facility] [place] Emergency Department Encounter Note [address] [place] [address] PCP:Physician No [phone] CHIEF COMPLAINT Chief Complaint Patient presents with Generalized Body Aches HPI Ant Graf is a 33 y.o. male who presents to the emergency department with generalize d aching. This patient presented to the emergency apartment for evaluation. Tonight he sta emelia that he feels like he is achy all over the place. He states that he also has been feeli ng a little bit nauseated. He is homeless. He is providing his own history. He has been p resenting to the emergency department frequently over the past month. No skin sores or lesi ons at this time. No chest pain or shortness of breath. He denies any cough or cold sympto ms at this time. He denies any abdominal pain at this time. He states the generalized achi ng has been going on for years. PAST MEDICAL HISTORY Past Medical History Diagnosis Date Schizophrenia (HCC) Bipolar disorder (HCC) SURGICAL HISTORY History reviewed. No pertinent past surgical history. CURRENT MEDICATIONS Previous Medications CHOLECALCIFEROL (VITAMIN D3) 5000 UNITS CAPS Take by mouth. ALLERGIES No Known Allergies FAMILY HISTORY No family history on [...] the HPI PHYSICAL EXAM VITAL SIGNS: BP 120/70 | Pulse 62 | Temp 37.3 C (99.1 F) (Oral) | Resp 16 | Ht 1.829 m (6') | Wt 99.791 kg (220 lb) | BMI 29.83 kg/m2 | SpO2 99% Constitutional: Well developed, Well nourished, disheveled, No acute distress, Non-toxic a ppearance. HENT: Normocephalic, Atraumatic, Bilateral external ears normal, Tympanic membranes normal , Mucous membranes are moist, Nasal mucosa is normal. Eyes: PERRL, EOMI, Conjunctiva normal, No discharge. Palpebral conjunctiva are pink. Neck: Normal range of motion, No tenderness, Supple, No stridor. Respiratory: Clear to auscultation bilaterally, No respiratory distress, No wheezing Cardiovascular: Normal heart rate, Normal rhythm, No murmurs appreciated. GI: Soft, Non tenderness, No peritoneal signs, No masses Extremities: Warm and well perfused, no edema, no joint swelling or deformity. Good ROM. Back: No CVAT, No tenderness of the thoracic or lumbar spine. Skin: Warm, Dry, No erythema, No induration, No rash. Neurologic: Alert & oriented x 3, No focal motor or sensory deficits. Speech is clear. G ait is normal. ED COURSE & MEDICAL DECISION MAKING Pertinent Labs & Imaging studies reviewed. (See chart for details) The patient was seen and examined shortly after arriving in the emergency department. Hist ory and physical were obtained, vital signs were noted. Vital signs are unremarkable. Ther e is no significant findings on exam that require some type of intervention. I recommend sy mptomatic outpatient treatment for the pain he is experiencing. Tylenol and/or ibuprofen sh ould help. I've encouraged him to establish a primary care provider. FINAL IMPRESSION 1. Myalgia 2. Arthralgia PLAN Follow-up Information Follow up with Graeme Flores MD. Schedule an appointment as soon as possible for a visi t in 1 week. Specialty: Family Medicine Contact information: [address] [place] [phone] Leonel Dimas MD 02/25/14 0719 docume nted in this encounter Miscellaneous Notes Plan of Care - HERMELINDO IBARRA [facility] - 03/01/2014 12:00 AM PDT D Triage Notes - Cindy Macias RN - 02/25/2014 4:3 7 AM PDTPt. Complains of generalized body aches for "years", also right foot pain for the la st several "years". documented in this encounter Plan of Treatment [...] -------- | | | ---- 02/25/2014 04:32 [place] | | | [facility] Emergency -Body pain 02/23/2014 | | | 03:36 [facility] Emergency | | | -Withdrawals 01/31/2014 20:26 [facility] | [place] Emergency -Pain in limb | | | | | | -Feet burning | | | -Foot Pain | | | 01/26/2014 15:03 [facility] | | | Emergency -Blister of foot and toe(s), without mention of | | | infection | | | -Blister of foot and | | | toe(s), without mention of infection | | | | | | -Back Pain | | | -Foot Pain | | | | | | -Pain in limb 01/25/2014 16:54 | | | [facility] Emergency -SOB | | | | | | -Difficulty Breathing VISIT COUNT (1 | | | YR.) Visits Medicaid NE Dx Location ------ | | | --------- 5 0 | | | [facility] 5 0 | | | Total Note: Visits indicate total known visits. Medicaid | | | NE Dx are the number of primary diagnoses on the [facility]'s non-emergent dx | | | list. | [...]
--- OUTSIDE RECORDS SUMMARY | ~2020-02-18 | XMS | Encounter Summary ---
Demographics + + + | Address | [address] | | | [place] [address] | + + + | Home Phone | | + + + | Preferred Language | Unknown | + + + | Marital Status | Single | + + + | Synagogue Affiliation | 1013 | + + + | Race | White | + + + | Ethnic Group | Not or | + + + Author + + + | Author | [facility] | | | and [place] | + + + | Organization | [facility] | [...] [place], [place] | | | | | [address] | | + + + + + | Hilda Ramirez | ECON | [place], | | | | | [place] [address] | | + + + + + | Sara Fields | ECON | Unknown | | | [place] | | | | + + + + + Care Team Providers + +------+ + | Care Marketing Associate Name | Role | Phone | + [...] Carlos Pizano, | Sinusitis (Primary | | 2015 | Visit | CARE [address] | [place] [address] | Dx); Otitis media of | | | | [place] | both ears; URI | | | | [address] | [address] | (upper respiratory | | | | [phone] | | infection); Sore | | | [...] as needed. documented in this e ncounter Miscellaneous Notes Addendum Note - Lexi Newell - 06/24/2014 12:19 PM PST Addended by: LEXI NEWELL on: 2014 12:19 Modules accepted: Orders documented in this encoun ter Plan of Treatment Not on filedocumented as [...]
--- OUTSIDE RECORDS SUMMARY | ~2020-02-18 | XMS | Encounter Summary ---
Demographics + + + | Address | [address] | | | [place] [address] | + + + | Home Phone | | + + + | Preferred Language | Unknown | + + + | Marital Status | Single | + + + | Yarsani Affiliation | Unknown | + + + [...] Team Providers + +------+ + | Care Police Captain Senior Name | Role | Phone | + [...] | | | | | [place], | | | | | | [place] [address] | | | +--------+--------+ + + + [...] Referring Physician: Dr. Joiner Referring Site (or [facility] Service): [facility]) [facility] Specialists involved: Oncology Reason for Transfer/Admission: Esophageal [...] up biopsy results from EGD (performed in [place], no need for repeat) 3. Nutrition status- [...]
--- OUTSIDE RECORDS SUMMARY | ~2020-02-18 | XMS | Encounter Summary ---
Demographics + + + | Address | [address] | | | [place] [address] | + + + | Home Phone [...] Author + + + | Author | [facility] | | | and [place] | + + + | Organization | [facility] | | | and [...] [place], [place] | | | | | [address] | | + + + + + | Hilda Ramirez | ECON | [place], | | | | | [place] [address] | | + + + + + | Sara Fields | ECON | Unknown | | | [place] | | | | + + + + + Care Team Providers + +------+ + | Care Patient Services Rep Name | Role | Phone | + [...] both ears; URI | | | | [address] | [address] | (upper respiratory | | | | [phone] | | infection); Sore | | | [...]
--- OUTSIDE RECORDS SUMMARY | ~2020-02-18 | XMS | Encounter Summary ---
Demographics + + + | Address | [address] | | | [place] [address] | + + + | Home Phone | | + + + | Preferred Language | Unknown | + + + | Marital Status | Single | + + + | Moravian Affiliation | 1013 | + + + | Race | White | + + + | Ethnic Group | Not or | + + + Author + + + | Author | [facility] | | | and [place] | + + + | Organization | [facility] | | | and [place] [...] [place], [place] | | | | | [address] | | + + + + + | Hilda Ramirez | ECON | [place], | | | | | [place] [address] | | + + + + + | Sara Fields | ECON | Unknown | | | [place] | | | | + + + + + Care Team Providers + +------+ + | Care Lead Solutions Architect Name | Role | Phone | [...] | | | | | [facility] | | | | | | [place], [place] | | | | | | [address] | | | | | | [phone] | | | +--------+ + + + [...]
--- OUTSIDE RECORDS SUMMARY | ~2020-02-18 | XMS | Encounter Summary ---
Demographics + + + | Address | [address] | | | [place] [address] | + + + | Home Phone | | + + + | Preferred Language | Unknown | + + + | Marital Status | Single | + + + | Anabaptism Affiliation | 1013 | + + + | Race | White | + + + | Ethnic Group | Not or | + + + Author + + + | Author | [facility] | | | and [place] | + + + | Organization | [facility] and [facility] | | | and [place] | [...] [place], [place] | | | | | [address] | | + + + + + | Hilda Ramirez | ECON | [place], | | | | | [place] [address] | | + + + + + | Sara Fields | ECON | Unknown | | | [place] | | | | + + + + + Care Team Providers + +------+ + | Care Gsa Coordinator Name | Role | Phone | + [...] | Urgent Care) | | | | [address] | [address] | | | | | [phone] | | | +--------+ + + + [...] 06/30/2014 4:48 PM PSTCalled and left courtesy qcueo w-up voice message regarding patient's recent visit to Urgent Care. documented in this encounter Plan of Treatment Not on filedocumented as of this encounter Visit Diagnoses Not on filedocumented in this encounter"
--- OUTSIDE RECORDS SUMMARY | ~2020-02-18 | XMS | Encounter Summary ---
Demographics + + + | Address | [address] [facility] | | | [place] [address] | + + + | Home Phone | | + + + | Preferred Language | Unknown | + + + | Marital Status | Single | + + + | Evangelical Affiliation | 1013 | + + + | Race | White | + + + | Ethnic Group | Not or | + + + Author + + + | Author | [facility] | | | and [place] | + + + | Organization | [facility] | | | and [...] [place], [place] | | | | | [address] | | + + + + + | Hilda Ramirez | ECON | [place], | | | | | [place] [address] | | + + + + + | Sara Fields | ECON | Unknown | | | [place] | | | | + + + + + Care Team Providers + +------+ + | Care Heavy Duty Press Operator Name | Role | Phone | [...] + + | 02/25/ | Emergency | [facility] | Leonel Dimas, | Myalgia (Primary | | 2013 | | MED CTR EMERGENCY | [address] | Dx); Arthralgia | | | | CENTER [address] | [facility] | | | | | [place] | [place] [address] | | | | | [address] | [phone] | | | | | [phone] | | | +--------+ + + + [...] be sent through Care Everywhere.ARTHRALGIA (ENG THOMAS)MYALGIAS (MALIAN)documented in this encounter Medications at Time of [...] might be different from the o riginal. [facility] Ant [place]f Emergency Department Encounter Note [address] [place] [address] PCP:Physician No [phone] CHIEF COMPLAINT Chief Complaint [...] 1 week. Specialty: Family Medicine Contact information: [address] [place] [phone] Leonel Dimas MD 02/25/14 0719 docume nted in this encounter Miscellaneous Notes Plan of Care - HER[facility]ELINDO [facility]RA [facility] - 03/01/2014 12:00 AM PDT D [...] -------- | | | ---- 02/25/2014 04:32 [place] | | | [facility] Emergency -Body pain 02/23/2014 | | | 03:36 [facility] Emergency | | | -Withdrawals 01/31/2014 20:26 [facility] | [place] Emergency -Pain in limb | | | | | | -Feet burning | | | -Foot Pain | | | 01/26/2014 15:03 [facility] | | | Emergency -Blister of foot and toe(s), without mention of | | | infection | | | -Blister of foot and | | | toe(s), without mention of infection | | | | | | -Back Pain | | | -Foot Pain | | | | | | -Pain in limb 01/25/2014 16:54 | | | [facility] Emergency -SOB | | | | | | -Difficulty Breathing VISIT COUNT (1 | | | YR.) Visits Medicaid NE Dx Location ------ | | | --------- 5 0 | | | [facility] 5 0 | | | Total Note: Visits indicate total known visits. Medicaid | | | NE Dx are the number of primary diagnoses on the [facility]'s non-emergent dx | | | list. [...]
--- OUTSIDE RECORDS SUMMARY | ~2020-02-18 | XMS | Encounter Summary ---
Demographics + + + | Address | [address] [facility] [facility] | | | [place] [address] | + + + | Home Phone | | + + + | Preferred Language | Unknown | + + + | Marital Status | Single | + + + | Restoration Affiliation | 1013 | + + + | Race | White | + + + | Ethnic Group | Not or | + + + Author + + + | Author | [facility] | | | and [place] | + + + | Organization | [facility] and [facility] | | | and [place] | [...] [place], [place] | | | | | [address] | | + + + + + | Hilda Ramierz | ECON | [place], | | | | | [place] [address] | | + + + + + | Sara Fields | ECON | Unknown | | | [place] | | | | + + + + + Care Team Providers + +------+ + | Care Call Center Dispatcher Name | Role | Phone | + +------+ + PCP | Unavailable | + +------+ + Encounter Details +--------+ + + + + | Date | Type | Department | Care Team | Description | +--------+ + + + + | 06/26/ | Hospital | [facility] | | | | 2008 | Encounter | MED CTR GENERIC OP | | | | | | CONV DEPT [address] | | | | | | [place], | | | | | | [place] [address] | | | | | | [phone] | | | +--------+ + + + [...]
--- OUTSIDE RECORDS SUMMARY | ~2020-02-18 | XMS | Encounter Summary ---
Demographics + + + | Address | [address] | | | [place] [address] | + + + | Home Phone | | + + + | Preferred Language | Unknown | + + + | Marital Status | Single | + + + | Samaritan Affiliation | Unknown | + + + | Race | White | + + + | Ethnic Group | Not or | + + + Author + + + | Author | [facility] | + + + | Organization | [facility] | + + + | Address | Unknown | + + + | Phone | Unavailable | + + + Support + + +---------+ + | Name | Relationship | Address | Phone | + + +---------+ + | Beth Galaviz | ECON | Unknown | | + + +---------+ + Care Team Providers + +------+ + | Care Vacuum Applicator Operator Name | Role | Phone | [...] | | | | | [place] Ambros[place], | | | | | | [place] [address] | | | +--------+--------+ + + + [...]
--- OUTSIDE RECORDS SUMMARY | ~2020-02-18 | XMS | Encounter Summary ---
Demographics + + + | Address | [address] | | | [place] [address] | + + + | Home Phone [...] Organization | [facility] | | | and [place] [...] [place], [place] | | | | | [address] | | + + + + + | Hilda Ramirez | ECON | [place], | | | | | [place] [address] | | + + + + + | Sara Fields | ECON | Unknown | | | [place] | | | | + + + + + Care Team Providers + +------+ + | Care Car Audio Installer Name | Role | Phone | + +------+ + PCP | Unavailable | + +------+ + Encounter Details +--------+ + + + + | Date | Type | Department | Care Team | Description | +--------+ + + + + | 07/15/ | Hospital | [facility] | | | | 2000 | Encounter | MED CTR EMERGENCY | | | | | | CENTER [address] | | | | | | [place] | | | | | | [address] | | | | | | [phone] | | | +--------+ + + + [...]
--- OUTSIDE RECORDS SUMMARY | ~2020-02-18 | XMS | Encounter Summary ---
Demographics + + + | Address | [address] [facility] | | | [place] [address] | + + + | Home Phone [...] Author + + + | Author | [facility] | | | and [place] | + + + | Organization | [facility] | | | and [place] [...] [place], [place] | | | | | [address] | | + + + + + | Hilda Ramirez | ECON | [place], | | | | | [place] [address] | | + + + + + | Sara Fields | ECON | Unknown | | | [place] | | | | + + + + + Care Team Providers + +------+ + | Care Video Photographer Name | Role | Phone | + +------+ + PCP | Unavailable | + +------+ + Encounter Details +--------+ + + + + | Date | Type | Department | Care Team | Description | +--------+ + + + + | 06/26/ | Hospital | [facility] | | | | 2008 | Encounter | MED CTR GENERIC OP | | | | | | CONV DEPT [address] | | | | | | [place], | | | | | | [place] [address] | | | | | | [phone] | | | +--------+ + + + [...]
--- OUTSIDE RECORDS SUMMARY | ~2020-02-18 | XMS | Encounter Summary ---
Demographics + + + | Address | [address] [facility] | | | [place] [address] | + + + | Home Phone | | + + + | Preferred Language | Unknown | + + + | Marital Status | Single | + + + | Mandaen Affiliation | 1013 | + + + | Race | White | + + + | Ethnic Group | Not or | + + + Author + + + | Author | [facility] | | | and [place] | + + + | Organization | [facility] | | | and [place] [...] [place], [place] | | | | | [address] | | + + + + + | Hilda Ramirez | ECON | [place], | | | | | [place] [address] | | + + + + + | Sara Fields | ECON | Unknown | | | [place] | | | | + + + + + Care Team Providers + +------+ + | Care Crusher Foreman Name | Role | Phone | + +------+ + PCP | Unavailable | + +------+ + Encounter Details +--------+ + + + + | Date | Type | Department | Care Team | Description | +--------+ + + + + | 11/08/ | Hospital | [facility] | Brian Orozco | | | 2002 | Encounter | MED CTR EMERGENCY | MD [address] | | | | | [place] [address] | [address] | | | | | [place], [place] | [place] [address] | | | | | [address] | [phone] | | | | | [phone] | | | +--------+ + + + [...]
--- OUTSIDE RECORDS SUMMARY | ~2020-02-18 | XMS | Encounter Summary ---
Demographics + + + | Address | [address] [facility] | | | [place] [address] | + + + | Home Phone | | + + + | Preferred Language | Unknown | + + + | Marital Status | Single | + + + | Buddhist Affiliation | 1013 | + + + | Race | White | + + + | Ethnic Group | Not or | + + + Author + + + | Author | [facility] | | | and [place] | + + + | Organization | [facility] | | | and [...] [place], [place] | | | | | [address] | | + + + + + | Hilda Ramirez | ECON | [place], | | | | | [place] [address] | | + + + + + | Sara Fields | ECON | Unknown | | | [place] | | | | + + + + + Care Team Providers + +------+ + | Care Free Lance Model Name | Role | Phone | + +------+ + PCP | Unavailable | + +------+ + Encounter Details +--------+ + + + + | Date | Type | Department | Care Team | Description | +--------+ + + + + | 01/08/ | Hospital | [facility] | | | | 2007 | Encounter | MED CTR GENERIC OP | | | | | | CONV DEPT [address] | | | | | | [place], | | | | | | [place] [address] | | | | | | [phone] | | | +--------+ + + + [...]
--- OUTSIDE RECORDS SUMMARY | ~2020-02-18 | XMS | Encounter Summary ---
Demographics + + + | Address | [address] [facility] | | | [place] [address] | + + + | Home Phone | | + + + | Preferred Language | Unknown | + + + | Marital Status | Single | + + + | Advent Affiliation | 1013 | + + + | Race | White | + + + | Ethnic Group | Not or | + + + Author + + + | Author | [facility] | | | and [place] | + + + | Organization | [facility] | | | and [...] [place], [place] | | | | | [address] | | + + + + + | Hilda Ramirez | ECON | [place], | | | | | [place] [address] | | + + + + + | Sara Fields | ECON | Unknown | | | [place] | | | | + + + + + Care Team Providers + +------+ + | Care Biomathematician Name | Role | Phone | + [...] + + | 01/25/ | Emergency | [facility] | | Surgical or other | | 2013 | | MED CTR EMERGENCY | | procedure not | | | | JAC Galvan | | carried out because | | | | [place] | | of patient's | | | | [address] | | decision (Primary | | | | [phone] | | Dx) | +--------+ + + [...] +---------+--------+ + documented as of this encounter Miscellaneous Notes ED Triage Notes - Loulou Khan RN - 01/25/2014 5:21 PM PDTC/O difficulty breathing. Pt states he is unable to breathe through his nose and continues to repeat "I need oxygen". No acute distress. States this is an ongoing issue for him, denies any new symptoms. ETOH.El ectronically signed by Loulou Khan RN at 01/25/2014 5:23 PM PDTdocumented in this enc ounter Plan of Treatment Not on filedocumented as of this encounter Visit Diagnoses + + | Diagnosis | + + | Surgical or other procedure not carried out because of patient's decision - Primary | + + documented in this encounter
--- OUTSIDE RECORDS SUMMARY | ~2020-02-18 | XMS | Encounter Summary ---
Demographics + + + | Address | [address] | | | [place] [address] | + + + | Home Phone | | + + + | Preferred Language | Unknown | + + + | Marital Status | Single | + + + | Spiritism Affiliation | Unknown | + + + | Race | White | + + + | Ethnic Group | Not or | + + + Author + + + | Author | [facility] | + + + | Organization | [facility] | + + + | Address | Unknown | + + + | Phone | Unavailable | + + + Support + + +---------+ + | Name | Relationship | Address | Phone | + + +---------+ + | Beth Galaviz | ECON | Unknown | | + + +---------+ + Care Team Providers + +------+ + | Care Echo Vascular Technologist Name | Role | Phone | + [...] | | | | | Ava Ambrosio [place], | | | | | | [place] [address] | | | +--------+--------+ + + + [...]
--- OUTSIDE RECORDS SUMMARY | ~2020-02-18 | XMS | Encounter Summary ---
Demographics + + + | Address | [address] | | | [place] [address] | + + + | Home Phone [...] Organization | [facility] | | | and [...] [place], [place] | | | | | [address] | | + + + + + | Hilda Ramirez | ECON | [place], | | | | | [place] [address] | | + + + + + | Sara Fields | ECON | Unknown | | | [facility] | | | | + + + + + Care Team Providers + +------+ + | Care Weather Reporter Name | Role | Phone | + +------+ + PCP | Unavailable | + +------+ + Encounter Details +--------+ + + + + | Date | Type | Department | Care Team | Description | +--------+ + + + + | 07/17/ | Hospital | [facility] | | | | 2000 | Encounter | [facility] | | | | | | CENTER [address] | | | | | | [place] | | | | | | [address] | | | | | | [phone] | | | +--------+ + + + [...]
--- OUTSIDE RECORDS SUMMARY | ~2020-02-18 | XMS | Encounter Summary ---
Demographics + + + | Address | [address] | | | [place] [address] | + + + | Home Phone | | + + + | Preferred Language | Unknown | + + + | Marital Status | Single | + + + | Alevism Affiliation | 1013 | + + + | Race | White | + + + | Ethnic Group | Not or | + + + Author + + + | Author | [facility] | | | and [place] | + + + | Organization | [facility] | | | and [place] [...] [place], [place] | | | | | [address] | | + + + + + | Hilda Ramirez | ECON | [place], | | | | | [place] [address] | | + + + + + | Sara Fields | ECON | Unknown | | | [facility] | | | | + + + + + Care Team Providers + +------+ + | Care Certified Technician Specialist Name | Role | Phone | [...] + | 01/25/ | Emergency | [facility] | | Surgical or other | | 2013 | | [facility] | | procedure not | | | | JAC Galvan | | carried out because | | | | [place] | | of patient's | | | | [address] | | decision (Primary | | | | [phone] | | Dx) | +--------+ + + [...]
--- OUTSIDE RECORDS SUMMARY | ~2020-02-18 | XMS | Encounter Summary ---
Demographics + + + | Address | [address] | | | [place] [address] | + + + | Home Phone | | + + + | Preferred Language | Unknown | + + + | Marital Status | Single | + + + | Christianity Affiliation | 1013 | + + + | Race | White | + + + | Ethnic Group | Not or | + + + Author + + + | Author | [facility] | | | and [place] | + + + | Organization | [facility] | | | and [place] [...] [place], [place] | | | | | [address] | | + + + + + | Hilda Ramirez | ECON | [place], | | | | | [place] [address] | | + + + + + | Sara Fields | ECON | Unknown | | | [facility] | | | | + + + + + Care Team Providers + +------+ + | Care Engraving Supervisor Name | Role | Phone | + +------+ + PCP | Unavailable | + +------+ + Encounter Details +--------+ + + + + | Date | Type | Department | Care Team | Description | +--------+ + + + + | 12/20/ | Hospital | [facility] | Unknown, | | | 2006 | Encounter | [facility] | [place] . | | | | | [address] | | | | | | [place] | (Fax) | | | | | [address] | | | | | | [phone] | | | +--------+ + + + [...]
--- OUTSIDE RECORDS SUMMARY | ~2020-02-18 | XMS | Clinical Summary ---
Demographics + + + | Address | [address] | | | [place] [address] | + + + | Home Phone | | + + + | Preferred Language | Unknown | + + + | Marital Status | Single | + + + | Jehovah'S Witness Affiliation | 1013 | + + + | Race | White | + + + | Ethnic Group | Not or | + + + Author + + + | Author | [facility] | | | and [place] | + + + | Organization | [facility] | | | and [place] [...] [place], [place] | | | | | [address] | | + + + + + | Hilda Ramirez | ECON | [place], | | | | | [place] [address] | | + + + + + | Sara Fields | ECON | Unknown | | | [facility] | | | | + + + + + Care Team Providers + +------+ + | Care Soda Tester Name | Role | Phone | + +------+ + | Etienne Spencer | PCP | | + +------+ + Allergies No Known Allergies Medications + + + +---------+------+------+-------+ | Medication | Sig | Dispensed | Refills | Star | End | Statu | | | | | | t | Date | s | | | | | | Date | | | + + + +---------+------+------+-------+ | Cholecalciferol | Take by mouth. | | 0 | | | Activ | | (VITAMIN D3) 5000 | | | | | | e | | UNITS CAPS | | | | | | | + + + +---------+------+------+-------+ | OMEPRAZOLE PO | Take by mouth | | 0 | | | Activ | | | Daily. | | | | | e | + + + +---------+------+------+-------+ | BuPROPion HCl | Take by mouth. | | 0 | | | Activ | | (WELLBUTRIN PO) | Patient states he | | | | | e | | | takes 1 capsule in | | | | | | | | the morning and 2 at | | | | | | | | night. | | | | | | + + + +---------+------+------+-------+ | lamoTRIgine | Take 25 mg by mouth | | 0 | | | Activ | | (LAMICTAL) 25 mg | 2 times daily. | | | | | e | | tablet | | | | | | | + + + +---------+------+------+-------+ | escitalopram | Take 20 mg by mouth | | 0 | | | Activ | | (LEXAPRO) 20 mg | Daily. | | | | | e | | tablet | | | | | | | + + + +---------+------+------+-------+ | QUEtiapine | Take 300 mg by mouth | | 0 | | | Activ | | (SEROQUEL) 300 mg | Daily. Patient | | | | | e | | tablet | states he takes 1 in | | | | | | | | the morning and two | | | | | | | | in the evening. | | | | | | + + + +---------+------+------+-------+ | PERPHENAZINE PO | Take by mouth. | | 0 | | | Activ | | | | | | | | e | + + + +---------+------+------+-------+ | MIRTAZAPINE PO | Take by mouth. | | 0 | | | Activ | | | | | | | | e | + + + +---------+------+------+-------+ | TRAZODONE HCL PO | take 1/2 tablet by | | 0 | 05/0 | | Activ | | | mouth nightly at | | | 5/20 | | e | | | bedtime if needed | | | 20 | | | + + + +---------+------+------+-------+ | albuterol 90 | Inhale 2 puffs into | | 0 | | | Activ | | mcg/puff inhaler | the lungs every 6 | | | | | e | | | hours as needed. | | | | | | + + + +---------+------+------+-------+ | albuterol 90 | | | 0 | 06/1 | | Activ | | mcg/puff inhaler | | | | 9/20 | | e | | | | | | 20 | | | + + + +---------+------+------+-------+ | PROAIR DIGIHALER | inhale 1 to 2 puffs | | 0 | 05/0 | | Activ | | 108 MCG/ACT inhaler | by mouth and INTO | | | 8/20 | | e | | | THE LUNGS every 6 | | | 20 | | | | | hours if needed | | | | | | + + + +---------+------+------+-------+ | B Complex Vitamins | Take 1 tablet by | | 0 | | | Activ | | (VITAMIN B-COMPLEX) | mouth. | | | | | e | | TABS | | | | | | | + + + +---------+------+------+-------+ | benztropine | 1 mg. | | 0 | 08/0 | | Activ | | (COGENTIN) 1 mg | | | | 9/20 | | e | | tablet | | | | 20 | | | + + + +---------+------+------+-------+ | benztropine | | | 0 | 08/0 | | Activ | | (COGENTIN) 1 mg | | | | 9/20 | | e | | tablet | | | | 20 | | | + + + +---------+------+------+-------+ | cloNIDine | Take 0.2 mg by mouth | | 0 | 12/2 | | Activ | | (CATAPRES) 0.2 MG | nightly at | | | 7/20 | | e | | tablet | bedtime.. | | | 19 | | | + + + +---------+------+------+-------+ | diclofenac | | | 0 | 09/1 | | Activ | | (VOLTAREN) 50 mg EC | | | | 9/20 | | e | | tablet | | | | 19 | | | + + + +---------+------+------+-------+ | ergocalciferol | | | 0 | 09/1 | | Activ | | (VITAMIN D2) 1.25 mg | | | | 0/20 | | e | | (50,000 units) | | | | 20 | | | | capsule | | | | | | | + + + +---------+------+------+-------+ | famotidine | | | 0 | 10/1 | | Activ | | (PEPCID) 20 mg | | | | 5/20 | | e | | tablet | | | | 19 | | | + + + +---------+------+------+-------+ | FLOVENT DISKUS 100 | | | 0 | 01/2 | | Activ | | MCG/BLIST diskus | | | | 4/20 | | e | | inhaler | | | | 20 | | | + + + +---------+------+------+-------+ | ADVAIR HFA 45-21 | | | 0 | 08/0 | | Activ | | MCG/ACT inhaler | | | | 9/20 | | e | | | | | | 20 | | | + + + +---------+------+------+-------+ | gabapentin | 300 mg Twice daily | | 0 | 08/0 | | Activ | | (NEURONTIN) 300 mg | as needed. | | | 9/20 | | e | | capsule | | | | 20 | | | + + + +---------+------+------+-------+ | LORazepam (ATIVAN) | Take 0.5 mg by mouth | | 0 | 03/3 | | Activ | | 0.5 mg tablet | every morning. | | | 0/20 | | e | | | | | | 20 | | | + + + +---------+------+------+-------+ | naltrexone (REVIA) | | | 0 | 05/1 | | Activ | | 50 mg tablet | | | | 8/20 | | e | | | | | | 20 | | | + + + +---------+------+------+-------+ | | | | 0 | 06/1 | | Activ | | osajzfke-cwlkvuzmq-c | | | | 9/20 | | e | | ydrocortisone | | | | 20 | | | | (CORTISPORIN) otic | | | | | | | | solution | | | | | | | + + + +---------+------+------+-------+ | nicotine | | | 0 | 04/2 | | Activ | | (NICODERM) 21 mg/24 | | | | 2/20 | | e | | hr | | | | 20 | | | + + + +---------+------+------+-------+ | nicotine | Place 1 patch onto | | 0 | 08/0 | | Activ | | (NICODERM) 14 mg/24 | the skin Daily as | | | 9/20 | | e | | hr | needed. | | | 20 | | | + + + +---------+------+------+-------+ | omeprazole | | | 0 | 07/0 | | Activ | | (PRILOSEC) 20 mg | | | | 8/20 | | e | | capsule | | | | 20 | | | + + + +---------+------+------+-------+ | ondansetron | | | 0 | 06/1 | | Activ | | (ZOFRAN) 4 mg tablet | | | | 9/20 | | e | | | | | | 20 | | | + + + +---------+------+------+-------+ | OXcarbazepine | Take 150 mg by mouth | | 0 | 12/2 | | Activ | | (TRILEPTAL) 150 mg | 2 times daily. | | | 8/20 | | e | | tablet | | | | 19 | | | + + + +---------+------+------+-------+ | paliperidone | Take 6 mg by mouth | | 0 | 12/2 | | Activ | | (INVEGA) 6 MG 24 hr | every morning. | | | 8/20 | | e | | tablet | | | | 19 | | | + + + +---------+------+------+-------+ | perphenazine 2 mg | TAKE TWO TABLET BY | | 0 | 04/0 | | Activ | | tablet | MOUTH EVERY DAY | | | 1/20 | | e | | | (4mg) | | | 20 | | | + + + +---------+------+------+-------+ | Vit-Fe | | | 0 | 06/2 | | Activ | | Fumarate-FA (M-DAGMAR | | | | 2/20 | | e | | PLUS) 27-1 MG TABS | | | | 20 | | | + + + +---------+------+------+-------+ | prochlorperazine 5 | | | 0 | 08/0 | | Activ | | mg tablet | | | | 9/20 | | e | | | | | | 20 | | | + + + +---------+------+------+-------+ | propranolol | 20 mg. | | 0 | 08/0 | | Activ | | (INDERAL) 20 MG | | | | 9/20 | | e | | tablet | | | | 20 | | | + + + +---------+------+------+-------+ | docusate-senna | 1 tablet Daily as | | 0 | 08/0 | | Activ | | (SENOKOT-S) 50-8.6 | needed. | | | 9/20 | | e | | mg per tablet | | | | 20 | | | + + + +---------+------+------+-------+ | | | | 0 | 04/2 | | Activ | | sulfamethoxazole-tri | | | | 2/20 | | e | | methoprim (BACTRIM | | | | 20 | | | | DS) 800-160 mg per | | | | | | | | tablet | | | | | | | + + + +---------+------+------+-------+ | SUMAtriptan | | | 0 | 06/1 | | Activ | | (IMITREX) 50 mg | | | | 2/20 | | e | | tablet | | | | 20 | | | + + + +---------+------+------+-------+ | ANORO ELLIPTA | | | 0 | 06/1 | | Activ | | 62.5-25 MCG/INH | | | | 9/20 | | e | | inhaler | | | | 20 | | | + + + +---------+------+------+-------+ Active Problems + + + | Problem | Noted Date | + + + | Malignant neoplasm of lower third of esophagus | 02/01/2020 | + + + + + | Cancer Staging: Clinical stage from 12/22/2019: Stage IVB (cTX, | | cN1, cM1, G3) - Signed by Jeffry Mcintosh MD on | | 02/01/2020 | + + + + + | SINUSITIS | 01/15/2012 | + + + | SINUSITIS, ACUTE | 11/05/2011 | + + + Encounters +--------+---------+ + + + | Date | Type | Specialty | Care Team | Description | +--------+---------+ + + + | 01/31/ | Office | Oncology | Arnaldo, | Malignant neoplasm | | 2020 | Visit | | Jeffry Cosme MD | of lower third of | | | | | | esophagus (HCC) | +--------+---------+ + + + from Last 3 Months Immunizations + + + + | Name | Administration Dates | Next Due | + + + + | DTP (PED) | 01/19/1986, 04/18/1983, 03/16/1982, | | | | 1981, 1981 | | + + + + | Hep B (PED/ADOL) 3 | 10/10/1999, 03/07/1999, 01/10/1999 | | | DOSE | | | + + + + | INFLUENZA PF | 04/29/2017, 05/08/2016, 04/14/2013 | | | QUAD(PED/ADOL/ADULT) | | | | ,PSKT or VIAL | | | + + + + | INFLUENZA TRIV | 08/02/2015 | | | W/PRES(PED/ADOL/ADUL | | | | T),MULTIDOSE | | | + + + + | MMR, 2 DOSE | 01/10/1999, 12/12/1982 | | | (PED/ADULT) | | | + + + + | POLIOVIRUS,OPV | 04/18/1983, 03/16/1982, 1981, | | | (LIVE) | 1981 | | + + + + | PPD Test | 10/02/2016, 07/26/2015 | | + + + + | TD PF (2 LF TETANUS) | 01/10/1999 | | | (ADOL/ADULT) | | | + + + + | TDAP, (ADOL/ADULT) | 08/13/2013 | | + + + + Family History + + +------+ + | Medical History | Relation | Name | Comments | + + +------+ + | Breast cancer | Mother | | | + + +------+ + | Lung cancer | Paternal | | | | | Grandfath | | | | | er | | | + + +------+ + + +------+ + + | Relation | Name | Status | Comments | + +------+ + + | Mother | | | | + +------+ + + | Paternal Grandfather | | | | + +------+ + + Social History + + + +--------+------+ | Tobacco Use | Types | Packs/Day | Years | Date | | | | | Used | | + + + +--------+------+ | Current Every Day | Cigarettes | 0.5 | | | | Smoker | | | | | + + + +--------+------+ + +---+---+---+ | Smokeless Tobacco: | | | | | Former User | | | | + +---+---+---+ + [...] + + + Last Filed Vital Signs + + + + + | Vital Sign | Reading | Time Taken | Comments | + + + + + | Blood Pressure | 120/76 | 02/01/2020 10:28 AM | | | | | PDT | | + + + + + | Pulse | 98 | 02/01/2020 10:28 AM | | | | | PDT | | + + + + + | Temperature | 37.6 C (99.6 F) | 02/01/2020 10:28 AM | | | | | PDT | | + + + + + | Respiratory Rate | 16 | 02/01/2020 10:28 AM | | | | | PDT | | + + + + + | Oxygen Saturation | 97% | 02/01/2020 10:28 AM | | | | | PDT | | + + + + + | Inhaled Oxygen | - | - | | | Concentration | | | | + + + + + | Weight | 67.2 kg (148 lb 1.9 | 02/01/2020 10:28 AM | | | | oz) | PDT | | + + + + + | Height | 181.6 cm (5' 11.5") | 02/01/2020 10:28 AM | | | | | PDT | | + + + + + | Body Mass Index | 20.37 | 02/01/2020 10:28 AM | | | | | PDT | | + + + + + Plan of Treatment + + + + + | Health Maintenance | Due Date | Last | Comments | | | | Done | | + + + + + | Hepatitis C | | | | | Screening | 2 | | | + + + + + | Med Mgmt: HBA1C | | | | | | 2 | | | + + + + + | Med Mgmt: HDL | | | | | | 2 | | | + + + + + | Med Mgmt: LDL | | | | | | 2 | | | + + + + + | Med Mgmt: Total | | | | | Cholesterol | 2 | | | + + + + + | Med Mgmt: | | | | | Triglycerides | 2 | | | + + + + + | Med Mgmt: Vit D | | | | | | 2 | | | + + + + + | Medication | | | | | Management | 2 | | | + + + + + | Vaccine: | | | | | Pneumococcal 19-64 | 8 | | | | (1 of 3 - PCV13) | | | | + + + + + | Med Mgmt: ALT | | 02/06/20 | | | | 5 | 14 | | + + + + + | Med Mgmt: AST | | 02/06/20 | | | | 5 | 14 | | + + + + + | Med Mgmt: BUN | | 02/06/20 | | | | 5 | 14 | | + + + + + | Med Mgmt: Cr | | 02/06/20 | | | | 5 | 14 | | + + + + + | Med Mgmt: HCT | | 02/06/20 | | | | 5 | 14 | | + + + + + | Med Mgmt: HGB | | 02/06/20 | | | | 5 | 14 | | + + + + + | Med Mgmt: Na | | 02/06/20 | | | | 5 | 14 | | + + + + + | Med Mgmt: PLT | | 02/06/20 | | | | 5 | 14 | | + + + + + | Med Mgmt: RBC | | 02/06/20 | | | | 5 | 14 | | + + + + + | Med Mgmt: WBC | | 02/06/20 | | | | 5 | 14 | | + + + + + | Med Mgmt: eGFR | | 02/06/20 | | | | 5 | 14 | | + + + + + | Vaccine: Influenza | | 04/29/20 | | | (#1) | 0 | 17, | | | | | 05/08/20 | | | | | 16, | | | | | 08/02/19 | | | | | 16, | | | | | Addition | | | | | al | | | | | history | | | | | exists | | + + + + + | Vaccine: | | 08/14/19 | | | Dtap/Tdap/Td (7 - | 4 | 14, | | | Td) | | 01/10/19 | | | | | 99, | | | | | 01/19/19 | | | | | 86, | | | | | Addition | | | | | al | | | | | history | | | | | exists | | + + + + + Procedures + +--------+ + + + | Procedure Name | Priori | Date/Time | Associated Diagnosis | Comments | | | ty | | | | + +--------+ + + + | PATHOLOGY - EXTERNAL | | 12/01/2019 | | Results for this | | SCAN | | 12:00 AM | | procedure are in the | | | | PDT | | results section. | + +--------+ + + + | LABS - EXTERNAL SCAN | | 11/29/2019 | | Results for this | | | | 12:00 AM | | procedure are in the | | | | PDT | | results section. | + +--------+ + + + | IMAGING REPORT - | | 11/29/2019 | | Results for this | | EXTERNAL SCAN | | 12:00 AM | | procedure are in the | | | | PDT | | results section. | + +--------+ + + + | IMAGING REPORT - | | 11/29/2019 | | Results for this | | EXTERNAL SCAN | | 12:00 AM | | procedure are in the | | | | PDT | | results section. | + +--------+ + + + from Last 3 Months Results PATHOLOGY - EXTERNAL SCAN (12/01/2019 12:00 AM PDT) + + + | Narrative | Performed At | + + + | Ordered by an | | | unspecified provider. | | + + + IMAGING REPORT - EXTERNAL SCAN (11/29/2019 12:00 AM PDT)Only the most recent of 2 results w isaiasin the time period is included. + + + | Narrative | Performed At | + + + | Ordered by an | | | unspecified provider. | | + + + LABS - EXTERNAL SCAN (11/29/2019 12:00 AM PDT) + + + | Narrative | Performed At | + + + | Ordered by an | | | unspecified provider. | | + + + from Last 3 Months Insurance + +--------+ +--------+ + +--------+ | Payer | Benefi | Subscriber | Effect | Phone | Address | Type | | | t Plan | ID | kayla | | | | | | / | | Dates | | | | | | Group | | | | | | + +--------+ +--------+ + +--------+ | [employer] | MODA | [id number] | | [phone] | [address] | PPO | | | HEALTH | | [address] | 9 | [phone] | | | | | | esent | | [place], | | | | [place] | | | | [place] [address] | | | | [place] | | | | | | + +--------+ +--------+ + +--------+ | [employer] | MODA | [id number] | | [phone] | | Medica | | MEDICAID HMO | HEALTH | | 020-Pr | 1 | | id | | | MDCD | | esent | | | | | | [place] | | | | | | + +--------+ +--------+ + +--------+ | [place] | MEDICA | [id number] | 06/24/19 | [phone] | | Medica | | | ID | | 15-Pre | 2 | | id | | | [place] | | sent | | | | + +--------+ +--------+ + +--------+ + +--------+ +--------+ + + | Guarantor Name | Accoun | Relation to | Date | Phone | Billing Address | | | t Type | Patient | of | | | | | | | | | | + +--------+ +--------+ + + | Ant Graf | Person | Self [birth year] | [address] | | | al/Fam | | 1980 | [phone] | [place], [place] | | | [place] | | | 9 (Home) | [address] | + +--------+ +--------+ + + | Ant Graf | Person | Self [birth year] | [address] | | | al/Fam | | 1980 | [phone] | [facility] [place] | | | [place] | | | 9 (Home) | [address] | | | | | | [phone] | | | | | | | 5 (Work) | | + +--------+ +--------+ + + Advance Directives + + + + + | Type | Date Recorded | Patient | Explanation | | | | Foil Wrapper | | + + + + + | Power of | | | | | Teaching Specialists | | | | + + + + + | Advance | 01/26/2014 3:43 | | | | Directive | PM | | | + + + + +
--- OUTSIDE RECORDS SUMMARY | ~2020-02-18 | XMS | Encounter Summary ---
Demographics + + + | Address | [address] | | | [place] [address] | + + + | Home Phone | | + + + | Preferred Language | Unknown | + + + | Marital Status | Single | + + + | Samaritan Affiliation | 1013 | + + + | Race | White | + + + | Ethnic Group | Not or | + + + Author + + + | Author | [facility] | | | and [place] | + + + | Organization | [facility] | | | and [...] [place], [place] | | | | | [address] | | + + + + + | Hilda Ramirez | ECON | [place], | | | | | [place] [address] | | + + + + + | Sara Fields | ECON | Unknown | | | [facility] | | | | + + + + + Care Team Providers + +------+ + | Care Mandarin Chinese Teacher Name | Role | Phone | + +------+ + PCP | Unavailable | + +------+ + Encounter Details +--------+ + + + + | Date | Type | Department | Care Team | Description | +--------+ + + + + | 07/17/ | Hospital | [facility] | | | | 2000 | Encounter | [facility] | | | | | | CENTER [address] | | | | | | [place] | | | | | | [address] | | | | | | [phone] | | | +--------+ + + + [...]
--- OUTSIDE RECORDS SUMMARY | ~2020-02-18 | XMS | Encounter Summary ---
Demographics + + + | Address | [address] | | | [place] [address] | + + + | Home Phone [...] Author + + + | Author | [facility] | | | and [place] | + + + | Organization | [facility] | | | and [...] [place], [place] | | | | | [address] | | + + + + + | Hilda Ramirez | ECON | [place], | | | | | [place] [address] | | + + + + + | Sara Fields | ECON | Unknown | | | [facility] | | | | + + + + + Care Team Providers + +------+ + | Care Shuttle Hand Name | Role | Phone | + +------+ + | No, Physician | PCP | Unavailable | + +------+ + Encounter Details +--------+ + + + + | Date | Type | Department | Care Team | Description | +--------+ + + + + | 02/23/ | Emergency | [facility] | | Surgical or other | | 2013 | | [facility] | | procedure not | | | | [address] [place] | | carried out because | | | | [place] | | of patient's | | | | [address] | | decision (Primary | | | | [phone] | | Dx) | +--------+ + + [...] (3 MO.) Visit Date Location | [facility] | | Type Diagnoses | | | -------- | | | ---- 02/23/2014 03:32 [facility] | | | Emergency -Withdrawals 01/31/2014 | | | 20:26 [facility] Emergency | | | -Pain in limb | | | -Feet burning | | | | | | -Foot Pain 01/26/2014 15:03 | | | [facility] Emergency -Blister of | | | foot and toe(s), without mention of infection | | | | | | -Blister of foot and toe(s), without mention of | | | infection | | | -Back Pain | | | | | | -Foot Pain | | | | | | -Pain in limb 01/25/2014 16:54 [facility] [place] [facility] -SOB | | | | | | -Difficulty Breathing VISIT COUNT (1 YR.) Visits Medicaid | | | NE Dx Location ------ --------- 4 | | | 0 [facility] | | | 4 0 Total Note: Visits | | | indicate total known visits. Medicaid [place] Dx are the number of primary | | | diagnoses on the [facility] non-emergent dx list. | | | | [...]
--- OUTSIDE RECORDS SUMMARY | ~2020-02-18 | XMS | Encounter Summary ---
Demographics + + + | Address | [address] | | | [place] [address] | + + + | Home Phone [...] Author + + + | Author | [facility] | | | and [place] | + + + | Organization | [facility] | | | and [...] [place], [place] | | | | | [address] | | + + + + + | Hilda Ramirez | ECON | [place], | | | | | [place] [address] | | + + + + + | Sara Fields | ECON | Unknown | | | [employer] | | | | + + + + + Care Team Providers + +------+ + | Care Programmer Analyst Consultant Name | Role | Phone | + +------+ + PCP | Unavailable | + +------+ + Encounter Details +--------+ + + + + | Date | Type | Department | Care Team | Description | +--------+ + + + + | 01/08/ | Hospital | [facility] | | | | 2007 | Encounter | [facility] | | | | | | CONV DEPT [address] | | | | | | [place], | | | | | | [place] [address] | | | | | | [phone] | | | +--------+ + + + [...]
--- OUTSIDE RECORDS SUMMARY | ~2020-02-18 | XMS | Encounter Summary ---
Demographics + + + | Address | [address] | | | [place] [address] | + + + | Home Phone | | + + + | Preferred Language | Unknown | + + + | Marital Status | Single | + + + | Jehovah'S Witness Affiliation | Unknown | + + + | Race | White | + + + | Ethnic Group | Not or | + + + Author + + + | Author | [facility] | + + + | Organization | [facility] | + + + | Address | Unknown | + + + | Phone | Unavailable | + + + Support + + +---------+ + | Name | Relationship | Address | Phone | + + +---------+ + | Beth Galaviz | ECON | Unknown | | + + +---------+ + Care Team Providers + +------+ + | Care Bolt Maker Name | Role | Phone | + [...] | | | | | [place], | | | | | | [place] [address] | | | +--------+--------+ + + + [...]
--- OUTSIDE RECORDS SUMMARY | ~2020-02-18 | XMS | Encounter Summary ---
Demographics + + + | Address | [address] | | | [place] [address] | + + + | Home Phone | | + + + | Preferred Language | Unknown | + + + | Marital Status | Single | + + + | Mosque Affiliation | 1013 | + + + | Race | White | + + + | Ethnic Group | Not or | + + + Author + + + | Author | [facility] | | | and [place] | + + + | Organization | [facility] | | | and [place] | [...] [place], [place] | | | | | [address] | | + + + + + | Hilda Ramirez | ECON | [place], | | | | | [place] [address] | | + + + + + | Sara Fields | ECON | Unknown | | | [facility] | | | | + + + + + Care Team Providers + +------+ + | Care Supervisor [employer]iture [employer] Name | Role | Phone | + [...] + + | 06/29/ | Office | [facility] [place] | Carlos Pizano, | Sore throat (Primary | | 2012 | Visit | [facility] [address] | [address] | Dx); Otitis media | | | | [facility] | [place] | of both ears; URI | | | | [place] | [address] | (upper respiratory | | | | [address] | | infection) | | | | [phone] | | | +--------+---------+ + + + [...]
--- OUTSIDE RECORDS SUMMARY | ~2020-02-18 | XMS | Encounter Summary ---
Demographics + + + | Address | [address] | | | [place] [address] | + + + | Home Phone [...] Organization | [facility] | | | and [place] [...] [place], [place] | | | | | [address] | | + + + + + | Hilda Ramirez | ECON | [place], | | | | | [place] [address] | | + + + + + | Sara Fields | ECON | Unknown | | | [facility] | | | | + + + + + Care Team Providers + +------+ + | Care Credit Director Name | Role | Phone | + +------+ + PCP | Unavailable | + +------+ + Encounter Details +--------+ + + + + | Date | Type | Department | Care Team | Description | +--------+ + + + + | 10/10/ | Hospital | [facility] | David Alonso, | | | 2004 | Encounter | [facility] | [address] | | | | | [address] | [place] | | | | | [place] | [id number] | | | | | [address] | | | | | | [phone] | | | +--------+ + + + [...]
--- OUTSIDE RECORDS SUMMARY | ~2020-02-18 | XMS | Encounter Summary ---
Demographics + + + | Address | [address] | | | [place] [address] | + + + | Home Phone [...] + | Author | [facility] | | | and [place] | + + + | Organization | [facility] | | | and [place] | + + + | Address | Unknown | + + + | Phone | Unavailable | + + + Support + + + + + | Name | Relationship | Address | Phone | + + + + + | Claudia Oviedo | ECON | [address] | | | | | [place], [place] | | | | | [address] | | + + + + + | Hilda Ramirez | ECON | [place], | | | | | [place] [address] | | + + + + + | Sara Fields | ECON | Unknown | | | [facility] | | | | + + + + + Care Team Providers + +------+ + | Care Senior Applications Analyst Name | Role | Phone | + +------+ + | Etienne Spencer | PCP | | + +------+ + Reason for Referral Evaluate & Treat (Urgent) + + + + + + + | Status | Reason | Specialty | Diagnoses / | Referred By | Referred To | | | | | Procedures | Contact | Contact | + + + + + + + | Authorizatio | Specialty | Radiation | Diagnoses | | Forrest Gupta | | n not | Services | Oncology | Malignant | Arnaldo, | MD Valeria | | Required | Required | | neoplasm of | Rang[address]havwamy | [address] | | | | | lower third | MD Carmelina [address] | | | | | of esophagus | [address] | | | | | (HCC) | AVE | [place] | | | | | | [place], | [address] | | | | | | [place] [address] | Phone: | | | | | | Phone: | [phone] | | | | | | [phone] | Fax: | | | | | | Fax: | [phone] | | | | | | [phone] | | + + + + + + + Reason for Visit + + + | Reason | Comments | + + + | Consultation | onc | + + + Evaluate & Treat (Routine) + +--------+ + + + + | Status | Reason | Specialty | Diagnoses / | Referred By | Referred To | | | | | Procedures | Contact | Contact | + +--------+ + + + + | Authorizatio | | Hematology | Diagnoses | Tj, | | | n not | | and Oncology | Malignant | Etienne Rubi | Arnaldo, | | Required | | | neoplasm of | [address] | [address], | | | | | esophagus, | Tal[address] | [address] | | | | | unspecified | [place], | [address] | | | | | (HCC) | [place] [address] | [place], | | | | | Onc/New/Othe | Phone: | [place] [address] | | | | | r | [phone] | Phone: | | | | | | Fax: | [phone] | | | | | | [phone] | Fax: | | | | | | | [phone] | + +--------+ + + + + Encounter Details +--------+---------+ + + + | Date | Type | Department | Care Team | Description | +--------+---------+ + + + | 01/31/ | Office | [facility] | Chintapaattilaa, | Malignant neoplasm | | 2020 | Visit | HEMATOLOGY AND | Jeffry Cosme MD | of lower third of | | | | ONCOLOGY [address] | [address] | esophagus (HCC) | | | | [address] | [place] | | | | | [place] | [address] | | | | | [address] | | | | | | [phone] | | | +--------+---------+ + + + [...] + + + documented in this encounter Progress Notes Jeffry Mcintosh MD - 02/01/2020 10:00 AM PDTFormatting of this note might be dif ferent from the original. [facility] Hematology & Oncology Initial Oncology Consultation Patient Name: ANT OVIEDO Date of : 1980 Age: 39 y.o. Referring Provider: Dr. Wiggins PCP: Etienne Spencer Dear Dr. Wiggins, On February 01, 2020, I had the privilege of seeing your patient, Mr. Ant Oviedo, in consultation. I am certain that you are fully apprised of his medical history, but I would like to review it here for the sake of our mutual medical records. Reason for Consultation Esophageal Cancer History of Present Illness Mr. Ant Oviedo is a pleasant 39 y.o. male with history of psychiatric disorders, refe rred for further management of esophageal cancer. Patient had worsening dysphagia, and weight loss, and underwent endoscopy performed on 11/30 that showed a large obstructing mass in the distal third of esophagus. 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 He had CT abdomen and pelvis performed on 11/29/2019 that showed focal fatty i nfiltration of the liver, but otherwise no obvious evidence of distant metastatic disease. Esophageal thickness was noted. Patient was referred to [facility] in [place] for further management. PET CT scan perform ed on 12/21/2019 that showed supraclavicular lymph node measuring up to 12 mm with an SUV of 5 .6, distal esophageal and GE junction hypermetabolism with an SUV of 5.4, and hypermetabolic retroperitoneal lymph nodes measuring up to 1.5 cm with an SUV of 11.4. There are some lef t subcutaneous nodules in the lower abdomen that are presumed to be injection sites. Skyler leong had ultrasound guided biopsy of the left cervical lymph node performed on 12/22/2019 that co nfirmed diagnosis of metastatic lymph node involvement from esophageal cancer. Patient also had a PEG tube placement given significant dysphagia and weight loss. He is h ere today to establish care for further management. He reportedly was already seen at [facility] but I do not have details of work-up/recommendations available to me at this time. Review of systems as noted below Cancer Stage Cancer Staging No matching staging information was found for the patient. Oncology History Oncology History No history exists. Medical History No Known Allergies Past Medical History: Diagnosis Date Bipolar disorder (HCC) Schizophrenia (HCC) Past Surgical History: Procedure Laterality Date GASTROSTOMY TUBE INSERTION Family History Problem Relation Age of Onset Breast cancer Mother Lung cancer Paternal Grandfather Social History Socioeconomic History Marital status: Single Spouse name: Not on file Number of children: Not on file Years of education: Not on file Highest education level: Not on file Occupational History Not on file Social Needs Financial resource strain: Not on file Food insecurity Worry: Not on file Inability: Not on file Transportation needs Medical: Not on file Non-medical: Not on file Tobacco Use Smoking status: Current Every Day Smoker Packs/day: 0.50 Types: Cigarettes Smokeless tobacco: Former User Substance and Sexual Activity Alcohol use: Yes Drug use: Yes Types: Marijuana, Methamphetamines, Cocaine Sexual activity: Not on file Lifestyle Physical activity Days per week: Not on file Minutes per session: Not on file Stress: Not on file Relationships Social connections Talks on phone: Not on file Gets together: Not on file Attends christian service: Not on file Active member of club or organization: Not on file Attends meetings of clubs or organizations: Not on file Relationship status: Not on file Intimate partner violence Fear of current or ex partner: Not on file Emotionally abused: Not on file Physically abused: Not on file Forced sexual activity: Not on file Other Topics Concern Not on file Social History Narrative Not on file Patient's medical history above reviewed and updated on 02/01/2020 Medications Current Outpatient Medications Medication Sig Dispense Refill ADVAIR HFA 45-21 MCG/ACT inhaler albuterol 90 mcg/puff inhaler Inhale 2 puffs into the lungs every 6 hours as needed. albuterol 90 mcg/puff inhaler ANORO ELLIPTA 62.5-25 MCG/INH inhaler B Complex Vitamins (VITAMIN B-COMPLEX) TABS Take 1 tablet by mouth. benztropine (COGENTIN) 1 mg tablet 1 mg. benztropine (COGENTIN) 1 mg tablet BuPROPion HCl (WELLBUTRIN PO) Take by mouth. Patient states he takes 1 capsule in the morning and 2 at night. Cholecalciferol (VITAMIN D3) 5000 UNITS CAPS Take by mouth. cloNIDine (CATAPRES) 0.2 MG tablet Take 0.2 mg by mouth nightly at bedtime.. diclofenac (VOLTAREN) 50 mg EC tablet docusate-senna (SENOKOT-S) 50-8.6 mg per tablet 1 tablet Daily as needed. ergocalciferol (VITAMIN D2) 1.25 mg (50,000 units) capsule escitalopram (LEXAPRO) 20 mg tablet Take 20 mg by mouth Daily. famotidine (PEPCID) 20 mg tablet FLOVENT DISKUS 100 MCG/BLIST diskus inhaler gabapentin (NEURONTIN) 300 mg capsule 300 mg Twice daily as needed. lamoTRIgine (LAMICTAL) 25 mg tablet Take 25 mg by mouth 2 times daily. LORazepam (ATIVAN) 0.5 mg tablet Take 0.5 mg by mouth every morning. MIRTAZAPINE PO Take by mouth. naltrexone (REVIA) 50 mg tablet vyuegskp-ynuaykhpe-arihnokyrezfpx (CORTISPORIN) otic solution nicotine (NICODERM) 14 mg/[address] 1 patch onto the skin Daily as needed. nicotine (NICODERM) 21 mg/24 hr omeprazole (PRILOSEC) 20 mg capsule OMEPRAZOLE PO Take by mouth Daily. ondansetron (ZOFRAN) 4 mg tablet OXcarbazepine (TRILEPTAL) 150 mg tablet Take 150 mg by mouth 2 times daily. paliperidone (INVEGA) 6 MG 24 hr tablet Take 6 mg by mouth every morning. perphenazine 2 mg tablet TAKE TWO TABLET BY MOUTH EVERY DAY (4mg) PERPHENAZINE PO Take by mouth. Vit-Fe Fumarate-FA (M- PLUS) 27-1 MG TABS PROAIR DIGIHALER 108 MCG/ACT inhaler inhale 1 to 2 puffs by mouth and INTO THE LUNGS ev hannah 6 hours if needed prochlorperazine 5 mg tablet propranolol (INDERAL) 20 MG tablet 20 mg. QUEtiapine (SEROQUEL) 300 mg tablet Take 300 mg by mouth Daily. Patient states he takes 1 in the morning and two in the evening. sulfamethoxazole-trimethoprim (BACTRIM DS) 800-160 mg per tablet SUMAtriptan (IMITREX) 50 mg tablet TRAZODONE HCL PO take 1/2 tablet by mouth nightly at bedtime if needed No current facility-administered medications for this visit. Medications reviewed and updated on 02/01/2020 Review of Systems Review of Systems Constitutional: Positive for activity change, appetite change, fatigue and unexpected weigh t change. Negative for fever. HENT: Positive for trouble swallowing. Negative for mouth sores and sore throat. Eyes: Negative for photophobia and visual disturbance. Respiratory: Negative for cough, chest tightness and shortness of breath. Cardiovascular: Negative for chest pain and leg swelling. Gastrointestinal: Positive for abdominal pain. Negative for diarrhea, nausea and vomiting. Genitourinary: Negative for dysuria and hematuria. Musculoskeletal: Centralized body pains left shoulder pain Skin: Negative for rash. Allergic/Immunologic: Negative for immunocompromised state. Neurological: Negative for dizziness, seizures and headaches. Hematological: Negative for adenopathy. Does not bruise/bleed easily. Psychiatric/Behavioral: Negative for agitation and confusion. Physical Exam BP 120/76 | Pulse 98 | Temp 37.6 C (99.6 F) (Tympanic) | Resp 16 | Ht 1.816 m (5' 1 1.5") | Wt 67.2 kg (148 lb 1.9 oz) | SpO2 97% | BMI 20.37 kg/m ECOG Performance Status: 1 Physical Exam Constitutional: General: He is not in acute distress. HENT: Head: Normocephalic and atraumatic. Eyes: General: No scleral icterus. Conjunctiva/sclera: Conjunctivae normal. Neck: Musculoskeletal: Neck supple. Cardiovascular: Rate and Rhythm: Normal rate and regular rhythm. Pulmonary: Effort: Pulmonary effort is normal. No respiratory distress. Breath sounds: Normal breath sounds. Abdominal: General: Bowel sounds are normal. Palpations: Abdomen is soft. There is no mass. Comments: G-tube in place Musculoskeletal: General: No tenderness or deformity. Lymphadenopathy: Cervical: No cervical adenopathy. Upper Body: Right upper body: No supraclavicular or axillary adenopathy. Left upper body: Supraclavicular adenopathy present. No axillary adenopathy. Lower Body: No right inguinal adenopathy. No left inguinal adenopathy. Skin: General: Skin is warm and dry. Findings: No rash. Neurological: Mental Status: He is alert and oriented to person, place, and time. Psychiatric: Comments: Normal eye contact, asks appropriate questions Labs and Imaging No visits with results within 1 Month(s) from this visit. Latest known visit with results is: Office Visit on 06/24/2014 Component Date Value Ref Range Status Rapid Strep A Screen 06/24/2014 Negative Negative Final Internal QC 06/24/2014 Acceptable Final Assessment Mr. Ant Oviedo is a pleasant 39 y.o. male with history of psychiatric disorders, refe rred for further management of esophageal cancer. Plan 1. Reviewed biopsy confirming diagnosis of esophageal cancer, and PET CT scan showing dist al esophageal thickening and metastatic lymphadenopathy in the left supraclavicular lymph no de region retroperitoneal lymphadenopathy. Retroperitoneal lymphadenopathy could be related to lower esophageal cancer spread regionally, but supraclavicular lymphadenopathy should be considered as distant metastatic disease. However, given that there is no other evidence o f distant metastatic disease reasonable to pursue aggressive therapy with chemoradiation the rapy esophageal cancer with combination of chemotherapy and radiation therapy, along with ra diation given to supraclavicular lymph node. 2. I have reviewed his case with Dr. Forrest Gupta from radiation oncology after the visit who kindly agreed to see the patient as soon as possible to discuss regarding chemoradiation th marlene. I will try to obtain images of PET CT scan, as well as consult notes/recommendations from [facility] in [place] for review. Also, he has history of psychiatric disorders and would have difficult time sticking with decisions during the visit. Initially he was not in clined to pursue any treatment but after reviewing the discussion he is willing to consider starting treatment with chemoradiation therapy mentioned above. 3. I will present his case in the multidisciplinary tumor board to seek recommendations. Tentatively plan to start with chemoradiation therapy consisting of weekly carboplatin and p aclitaxel along with radiation therapy in the next 2 to 3 weeks, pending review of outside r eports/images and radiation oncology consult. If planning to pursue chemotherapy, consider port placement. Patient is accompanied by a caregiver from mental health facility during the visit. All the patient's questions were answered to his satisfaction. Greater than 60 minutes wer e spent in ooda-cy-ytyj encounter with review of medical records, counseling, coordination o f care, and CPOE. More than 50% of that time was spent counseling and coordination of care. I would like to thank Dr. Wiggins for the courtesy of this referral. Jeffry Mcintosh MD [facility] Hematology & Oncology 02/01/2020 Portions of this chart may have been created with voice recognition software. Occasional wr liyah-word or "sound-alike" substitutions may have occurred, even after review, due to the inh erent limitations of voice recognition software. Please read the chart carefully and recogni ze, using context, where these substitutions have occurred. Personal communication is reques frank for any clarification documented in this encounter Plan of Treatment + + +--------+ + + | Name | Type | Priori | Associated Diagnoses | Order Schedule | | | | ty | | | + + +--------+ + + | Ambulatory referral | Outpatient | [facility] | Malignant neoplasm | 1 Occurrences | | to Radiation | Referral | | of lower third of | starting 02/01/2020 | | Oncology [facility] | | | esophagus (HCC) | until 01/31/2021 | + + +--------+ + + documented as of this encounter Visit Diagnoses + + | Diagnosis | + + | Malignant neoplasm of lower third of esophagus (HCC) Malignant neoplasm of lower | | third of esophagus | + + documented in this encounter
--- OUTSIDE RECORDS SUMMARY | ~2020-02-18 | XMS | Encounter Summary ---
Demographics + + + | Address | [address] | | | [place] [address] | + + + | Home Phone [...] | Organization | [facility] | [...] [place], [place] | | | | | [address] | | + + + + + | Hilda Ramirez | ECON | [place], | | | | | [place] [address] | | + + + + + | Sara Fields | ECON | Unknown | | | [facility] | | | | + + + + + Care Team Providers + +------+ + | Care Photo Finisher Name | Role | Phone | + +------+ + PCP | Unavailable | + +------+ + Encounter Details +--------+ + + + + | Date | Type | Department | Care Team | Description | +--------+ + + + + | 10/10/ | Hospital | [facility] | David Alonso, | | | 2004 | Encounter | MED CTR LAB[facility]ATORY | [address] | | | | | [address] | [place] | | | | | [place] | [id number] | | | | | [address] | | | | | | [phone] | | | +--------+ + + + [...]
--- OUTSIDE RECORDS SUMMARY | ~2020-02-18 | XMS | Encounter Summary ---
Demographics + + + | Address | [address] | | | [place] [address] | + + + | Home Phone [...] + | Organization | [facility] | | | and [...] [place], [place] | | | | | [address] | | + + + + + | Hilda Ramirez | ECON | [place], | | | | | [place] [address] | | + + + + + | Sara Fields | ECON | Unknown | | | [facility] | | | | + + + + + Care Team Providers + +------+ + | Care Management Consulting Name | Role | Phone | + [...] + + | 02/05/ | Office | [facility] | Francisco Mcnamara | Cough (Primary Dx); | | 2013 | Visit | CARE [address] | Neeraj Fragoso MD | Nasal congestion; | | | | [place] | [address] | Weight loss | | | | [address] | [place] | | | | | [phone] | [address] | | | | | | | [...] her health insurance company to see which wind energy project manager or on your panel and make an a ppointment with a wind energy project manager to address your foot pain documented in [...] loss of uncertain etiology, Bilateral foot pain Jodee Campos Cert MA - 02/06/20 14 11:07 AM PDTDrew [...] + | MISCELLANEOUS LAB | | | [phone] | + +---------+ + + | MISCELANIOUS LAB | | | [phone] | + +---------+ + + XR Chest [...] + | MISCELLANEOUS LAB | | | [phone] | + +---------+ + + | MISCELANIOUS LAB | | | [phone] | + +---------+ + + Sedimentation Rate [...] + | [facility] | [address] | [place], [place] | [phone] | | [facility] | | [address] | | | - LABORATORY | | | | + + + + + | [facility] | [address] | [place], [place] | | | [facility] | | [address] | | | - LABORATORY | | | | + + + + + C-Reactive Protein (02/05/2014 11:07 AM PDT) + +-------+ + + + | Component | Value | Ref Range | Performed | Pathologist | | | | | At | Signature | + +-------+ + + + | CRP | 0.90 | <8.00 mg/L | [facility] | | | | | | [facility] | | | | | | [...] + | [facility] | [address] | [place], [place] | [phone] | | [facility] | | [address] | | | - LABORATORY | | | | + + + + + | [facility] | [address] | [place], [place] | | | [facility] | | [address] | | | - LABORATORY [...] All TSH | 0.34 - 5.60 | [facility] | | | | samples are screened | uIU/mL | [facility] | | | | using a 2nd [...] + | [facility] | [address] | [place], [place] | [phone] | | [facility] | | [address] | | | - LABORATORY | | | | + + + + + | [facility] | [address] | [place], [place] | | | [facility] | | [address], [facility] | | | - LABORATORY [...] | | | | mmol/L | [facility] | | | | | | MEDICAL | | | | | | CENTER - | | | | | | LABORATORY | | + + + + + + | K | 3.7 | 3.5 - 5.1 | [facility] | | | | | mmol/L | [facility] | | | | [...] [facility] | | | | | | [facility] | | | | | | MEDICAL | | | | | | CENTER - | | | | | | LABORATORY | | + + + + + + | Anion Gap | 3 | 3 - 16 mmol/L | [facility] | | | | | | [facility] | | | | | | MEDICAL | | | | | | CENTER - | | | | | | LABORATORY | | + + + + + + | Glucose | 97 | 70 - 109 mg/dL | [facility] | | | | | | [facility] | | | | | | MEDICAL | | | | | | CENTER - | | | | | | LABORATORY | | + + + + + + | BUN | 10 | 7 - 18 mg/dL | [facility] | | | | | | [facility] | | | | | | MEDICAL | | | | | | CENTER - | | | | | | LABORATORY | | + + + + + + | Creatinine | 0.91 | 0.60 - 1.30 | [facility] | | | | | mg/dL | [facility] | | | | | | MEDICAL | | | | | | CENTER - | | | | | | LABORATORY | | + + + + + + | eGFR, | >60Comment: GLOMERULAR | >=60 | [facility] | | | non- | FILTRATION | mL/min/1.73m2 | [facility] | | | [place] | RATE,ESTIMATED | | MEDICAL | | | | mL/min/1.60u0Mafz than | | CENTER - | | [...] | | | | mg/dL | [facility] | | | | | | MEDICAL | | | | | | CENTER - | | | | | | LABORATORY | | + + + + + + | Albumin | 3.4 | 3.2 - 5.0 g/dL | [facility] | | | | | | [facility] | | | | | | MEDICAL | | | | | | CENTER - | | | | | | LABORATORY | | + + + + + + | Bilirubin | 0.7 | 0.1 - 1.5 mg/dL | [facility] | | | Total | | | [facility] | | | | | | MEDICAL | | | | | | CENTER - | | | | | | LABORATORY | | + + + + + + | Total | 5.7 (L) | 6.0 - 7.8 g/dL | [facility] | | | Protein | | | [facility] | | [...] + | [facility] | [address] | [place], [place] | [phone] | | [facility] | | [address] | | | - LABORATORY | | | | + + + + + | [facility] | [address] | [place], [place] | | | [facility] | | [address], [facility] | | | - LABORATORY | | | | + + + + + CBC with Differential (02/05/2014 11:07 AM PDT) + + + + + + | Component | Value | Ref Range | Performed | Pathologist | | | | | At | Signature | + + + + + + | White Blood | 10.2 | 4.0 - 11.0 K/uL | [facility] | | | Cells | | | [facility] | | | | | | MEDICAL | | | | | | CENTER - | | | | | | LABORATORY | | + + + + + + | Red Blood | 5.27 | 4.30 - 5.70 | [facility] | | | Cells | | M/uL | [facility] | [...] | Neutrophils | | K/uL | [facility] | | | | | | MEDICAL | | | | | | CENTER - | | | | | | LABORATORY | | + + + + + + | Absolute | 1.90 | 0.60 - 3.20 | [facility] | | | Lymphocytes | | K/uL | [facility] | | | | | | MEDICAL | | | | | | CENTER - | | | | | | LABORATORY | | + + + + + + | Absolute | 0.60 | 0.00 - 1.00 | [facility] | | | Monocytes | | K/uL | [facility] | [...] | | Basophils | | K/uL | [facility] | [...] + | [facility] | [address] | [place], [place] | [phone] | | [facility] | | [address] | | | - LABORATORY | | | | + + + + + | [facility] | [address] | [place] | | | [facility] | | [address] | | | - LABORATORY [...]
--- OUTSIDE RECORDS SUMMARY | ~2020-02-18 | XMS | Encounter Summary ---
Demographics + + + | Address | [address] | | | [place] [address] | + + + | Home Phone [...] | [facility] | | | and [...] [place], [place] | | | | | [address] | | + + + + + | Hilda Ramirez | ECON | [place], | | | | | [place] [address] | | + + + + + | Sara Fields | ECON | Unknown | | | [facility] | | | | + + + + + Care Team Providers + +------+ + | Care Design Printing Machine Setter Name | Role | Phone | + [...] + + | 01/31/ | Emergency | [facility] | Brian Orozco | Foot pain, bilateral | | 2013 | | [facility] CTR EM[facility]Y | MD Seun [address] | (Primary Dx) | | | | CENTER [address] | [facility] | | | | | [place] | [place] [address] | | | | | [address] | [phone] | | | | | [phone] | | | +--------+ + + + [...] might be differen t from the original. [facility] Emergency Department Encounter Note [address] [place] [address] PCP:Physician No [id number] eMERGENCY dEPARTMENT eNCOUnter CHIEF COMPLAINT Chief Complaint [...] a visit with Griffin Zamora MD. [facility] Specialty: Family Medicine Contact information: [address] [place] [address] Discharge Instructions Try getting bunion pads to protect your feet Call the crisis number for help establishing mental health care. Portions of this chart may have been created with [employer] voice recognition software. Occasi onal wrong-word or [...]
--- OUTSIDE RECORDS SUMMARY | ~2020-02-18 | XMS | Encounter Summary ---
Demographics + + + | Address | [address] | | | [place] [address] | + + + | Home Phone | | + + + | Preferred Language | Unknown | + + + | Marital Status | Single | + + + | Baptism Affiliation | 1013 | + + + | Race | White | + + + | Ethnic Group | Not or | + + + Author + + + | Author | and Services Ph[facility] | | | and [place] | + + + | Organization | and [facility] | | | and [...] [place], [place] | | | | | [address] | | + + + + + | Hilda Ramirez | ECON | [place], | | | | | [place] [address] | | + + + + + | Sara Fields | ECON | Unknown | | | [facility] | | | | + + + + + Care Team Providers + +------+ + | Care Kilnman Name | Role | Phone | + +------+ + | No, Physician | PCP | Unavailable | + +------+ + Encounter Details +--------+ + + + + | Date | Type | Department | Care Team | Description | +--------+ + + + + | 02/05/ | Hospital | [facility] | Francisco Mcnamara | | | 2013 | Encounter | [facility] | Neeraj Fragoso MD | | | | | [address] [place] | [address] | | | | | [place] | [place] | | | | | [address] | [address] | | | | | [phone] | | | +--------+ + + + [...] + | MISCELLANEOUS LAB | | | [phone] | + +---------+ + + | MISCELANIOUS LAB | | | [phone] | + +---------+ + + XR Chest [...] + | MISCELLANEOUS LAB | | | [phone] | + +---------+ + + | MISCELANIOUS LAB | | | [phone] | + +---------+ + + documented in this encounter Visit Diagnoses Not on filedocumented in this encounter"
--- OUTSIDE RECORDS SUMMARY | ~2020-02-18 | XMS | Encounter Summary ---
Demographics + + + | Address | [address] | | | [place] [address] | + + + | Home Phone [...] + | Author | [facility] and [facility] | | | and [place] | + + + | Organization | [facility] | | | and [place] [...] [place], [place] | | | | | [address] | | + + + + + | Hilda Ramirez | ECON | [place], | | | | | [place] [address] | | + + + + + | Sara Fields | ECON | Unknown | | | [facility] | | | | + + + + + Care Team Providers + +------+ + | Care Traffic Incident Management Manager Name | Role | Phone | [...] + + | 06/29/ | Office | [facility] [place] | Carlos Pizano, | Sore throat (Primary | | 2012 | Visit | [facility] | [address] | Dx); Otitis media | | | | [facility] | [place] | of both ears; URI | | | | [place] | [address] | (upper respiratory | | | | [address] | | infection) | | | | [phone] | | | +--------+---------+ + + + [...]
--- OUTSIDE RECORDS SUMMARY | ~2020-02-18 | XMS | Encounter Summary ---
Demographics + + + | Address | [address] | | | [place] [address] | + + + | Home Phone [...] | Organization | [facility] | | | and [place] | [...] [place], [place] | | | | | [address] | | + + + + + | Hilda Ramirez | ECON | [place], | | | | | [place] [address] | | + + + + + | Sara Fields | ECON | Unknown | | | [facility] | | | | + + + + + Care Team Providers + +------+ + | Care Glass Glazier Name | Role | Phone | + +------+ + PCP | Unavailable | + +------+ + Encounter Details +--------+ + + + + | Date | Type | Department | Care Team | Description | +--------+ + + + + | 08/23/ | Hospital | [facility] | | | | 2007 | Encounter | MED CTR LABORATORY | | | | | | [address] | | | | | | [place] | | | | | | [address] | | | | | | [phone] | | | +--------+ + + + [...]
--- OUTSIDE RECORDS SUMMARY | ~2020-02-18 | XMS | Encounter Summary ---
Demographics + + + | Address | [address] | | | [place] [address] | + + + | Home Phone [...] + | Author | [facility] and [facility] | | | and [place] | + + + | Organization | [facility] | | | and [place] [...] [place], [place] | | | | | [address] | | + + + + + | Hilda Ramirez | ECON | [place], | | | | | [place] [address] | | + + + + + | Sara Fields | ECON | Unknown | | | [facility] | | | | + + + + + Care Team Providers + +------+ + | Care Redevelopment Manager Name | Role | Phone | + +------+ + PCP | Unavailable | + +------+ + Encounter Details +--------+ + + + + | Date | Type | Department | Care Team | Description | +--------+ + + + + | 12/20/ | Hospital | [facility] | Unknown, | | | 2006 | Encounter | MED CTR LAB[facility]ATORY | MD Tayler . | | | | | [address] | | | | | | [place] | (Fax) | | | | | [address] | | | | | | [phone] | | | +--------+ + + + [...]
--- OUTSIDE RECORDS SUMMARY | ~2020-02-18 | XMS | Encounter Summary ---
Demographics + + + | Address | [address] | | | [place] [address] | + + + | Home Phone | | + + + | Preferred Language | Unknown | + + + | Marital Status | Single | + + + | Confucianist Affiliation | 1013 | + + + | Race | White | + + + | Ethnic Group | Not or | + + + Author + + + | Author | [facility] and [facility] | | | and [place] | + + + | Organization | [facility] | | [...] [place], [place] | | | | | [address] | | + + + + + | Hilda Ramirez | ECON | [place], | | | | | [place] [address] | | + + + + + | Sara Fields | ECON | Unknown | | | [facility] | | | | + + + + + Care Team Providers + +------+ + | Care Softball Player Name | Role | Phone | + +------+ + | No, Physician | PCP | Unavailable | + +------+ + Encounter Details +--------+ + + + + | Date | Type | Department | Care Team | Description | +--------+ + + + + | 02/23/ | Emergency | [facility] | | Surgical or other | | 2013 | | [facility] EM[facility] | | procedure not | | | | [address] [place] | | carried out because | | | | [place] | | of patient's | | | | [address] | | decision (Primary | | | | [phone] | | Dx) | +--------+ + + [...] -------- | | | ---- 02/23/2014 03:32 [place] | | | [facility] Emergency -Withdrawals 01/31/2014 | | | 20:26 [facility] Emergency | | | -Pain in limb | | | -Feet burning | | | | | | -Foot Pain 01/26/2014 15:03 | | | [facility] Emergency -Blister of | | | foot and toe(s), without mention of infection | | | | | | -Blister of foot and toe(s), without mention of | | | infection | | | -Back Pain | | | | | | -Foot Pain | | | | | | -Pain in limb 01/25/2014 16:54 [facility] | [place] [facility] -SOB | | | | | | -Difficulty Breathing VISIT COUNT (1 YR.) Visits Medicaid | | | NE Dx Location ------ --------- 4 | | | 0 [facility] | | | 4 0 Total Note: Visits | | | indicate total known visits. Medicaid [place] Dx are the number of primary | | | diagnoses on the [facility]'s non-emergent dx list. | | | [...]
--- OUTSIDE RECORDS SUMMARY | ~2020-02-18 | XMS | Encounter Summary ---
Demographics + + + | Address | [address] | | | [place] [address] | + + + | Home Phone [...] | Organization | [facility] | | | and [place] [...] [place], [place] | | | | | [address] | | + + + + + | Hilda Ramirez | ECON | [place], | | | | | [place] [address] | | + + + + + | Sara Fields | ECON | Unknown | | | [facility] | | | | + + + + + Care Team Providers + +------+ + | Care Sales And Distribution Clerk Name | Role | Phone | + [...] | Weight loss | | | | [address] | [place] | | | | | [phone] | [address] | | | | | | | [...] her health insurance company to see which octave board assembler or on your panel and make an a ppointment with a octave board assembler to address your foot pain documented in [...] + | MISCELLANEOUS LAB | | | [phone] | + +---------+ + + | MISCELANIOUS LAB | | | [phone] | + +---------+ + + XR Chest [...] + | MISCELLANEOUS LAB | | | [phone] | + +---------+ + + | MISCELANIOUS LAB | | | [phone] | + +---------+ + + Sedimentation Rate [...] + | [facility] | [address] | [place], [place] | [phone] | | [facility] | | [address] | | | - LABORATORY | | | | + + + + + | [facility] | [address] | [place], [place] | | | [facility] | | [address] | | | [...] + | [facility] | [address] | [place], [place] | [phone] | | [facility] | | [address] | | | - LABORATORY | | | | + + + + + | [facility] | [address] | [place], [place] | | | [facility] | | [address] | | | - LABORATORY | | [...] + | [facility] | [address] | [place], [place] | [phone] | | [facility] | | [address] | | | - LABORATORY | | | | + + + + + | [facility] | [address] | [place], [place] | | | [facility] | | [address], [facility] | | | - LABORATORY | | [...] | | | | | mg/dL | [facility] | | | | | | MEDICAL | | | | | | CENTER - | | | | | | LABORATORY | | + + + + + + | eGFR, | >60Comment: GLOMERULAR | >=60 | [facility] | | | non- | FILTRATION | mL/min/1.73m2 | [facility] | | | Prydeinig | RATE,ESTIMATED | | MEDICAL | | | | mL/min/1.03i1Zuts than | | CENTER - | | [...] + | [facility] | [address] | [place], [place] | [phone] | | [facility] | | [address] | | | - LABORATORY | | | | + + + + + | [facility] | [address] | [place], [place] | | | [facility] | | [address], [facility] | | | - LABORATORY | | [...] + | [facility] | [address] | [place], [place] | [phone] | | [facility] | | [address] | | | - LABORATORY | | | | + + + + + | [facility] | [address] | [place] | | | [facility] | | [address] | | | - LABORATORY | | [...]
--- OUTSIDE RECORDS SUMMARY | ~2020-02-18 | XMS | Encounter Summary ---
Demographics + + + | Address | [address] [facility] | | | [place] [address] | + + + | Home Phone | | + + + | Preferred Language | Unknown | + + + | Marital Status | Single | + + + | Mu-Ism Affiliation | 1013 | + + + | Race | White | + + + | Ethnic Group | Not or | + + + Author + + + | Author | [facility] and [facility] | | | and [place] | + + + | Organization | [facility] | | | and [...] [place], [place] | | | | | [address] | | + + + + + | Hilda Ramirez | ECON | [place], | | | | | [place] [address] | | + + + + + | Sara Fields | ECON | Unknown | | | [place] | | | | + + + + + Care Team Providers + +------+ + | Care Goggles Assembler Name | Role | Phone | + +------+ + PCP | Unavailable | + +------+ + Encounter Details +--------+ + + + + | Date | Type | Department | Care Team | Description | +--------+ + + + + | 05/17/ | Hospital | [facility] | Milagros Kebede | | | 2008 | Encounter | MED CTR LABORATORY | DO Brigido Dumont | | | | | [address] [facility] | [place], [place] | | | | | [place], [place] | [address] | | | | | [address] | | | | | | [phone] | | | +--------+ + + + [...]
--- OUTSIDE RECORDS SUMMARY | ~2020-02-18 | XMS | Clinical Summary ---
Demographics + + + | Address | [address] | | | [place] [address] | + + + | Home Phone | | + + + | Preferred Language | Unknown | + + + | Marital Status | Single | + + + | Jew Affiliation | 1013 | + + + | Race | White | + + + | Ethnic Group | Not or | + + + Author + + + | Author | [facility] and [facility] | | | and [place] | + + + | Organization | [facility] | | | and [place] [...] [place], [place] | | | | | [address] | | + + + + + | Hilda Ramirez | ECON | [place], | | | | | [place] [address] | | + + + + + | Sara Fields | ECON | Unknown | | | [place] | | | | + + + + + Care Team Providers + +------+ + | Care Metallurgical Or Materials Technician Name | Role | Phone | [...] | 06/1 | | Activ | | [id number] | | | | 9/20 | | [...] + +--------+ | MOD[employer] | MODA | [id number] | | [phone] | [address] | PPO | | | HEALTH | | [address] | 9 | [address] | | | | | | esent | | [place], | | | | [place] | | | | [place] [address] | | | | [place] | | | | | | + +--------+ +--------+ + +--------+ | [employer] | MODA | [id number] | | [phone] | | Medica | | MEDICAID HMO | HEALTH | | 020-Pr | 1 | | id | | | MDCD | | esent | | | | | | [place]MO [place] | | | | | | + +--------+ +--------+ + +--------+ | MEDICAID [place] | MEDICA | [id number] | 06/24/19 | [phone] | | Medica [...] | | al/Fam | | 1980 | [phone] | [place], [place] | | | alyssa | | | 9 (Home) | [address] | + +--------+ +--------+ + + | [place] | Person | Self | [birth year] | [address] | | | al/Fam | | 1980 | [phone] | [facility] [place] | | | alyssa | | | 9 (Home) | [address] | | | | | | [phone] | | | | | | | 5 (Work) | | + +--------+ +--------+ + + Advance Directives + + + + + | Type | Date Recorded | Patient | Explanation | | | | Camera Assembler | | + + + + + | Power of | | | | | Entry Level Software Engineer | | | | + + + + + | Advance | 01/26/2014 3:43 | | | | Directive | PM | | | + + + + +
--- OUTSIDE RECORDS SUMMARY | ~2020-02-18 | XMS | Clinical Summary ---
Demographics + + + | Address | [address] | | | [place] [address] | + + + | Home Phone | | + + + | Preferred Language | Unknown | + + + | Marital Status | Single | + + + | Anabaptist Affiliation | Unknown | + + + [...] Phone | + + +---------+ + | Beht Galaviz | ECON | Unknown | | + + +---------+ + Care Team Providers + +------+ + | Care Sports Book Server Name | Role | Phone | + +------+ + | Etienne Spencer MD | PCP | | + +------+ + Source Comments [facility] is fully live on both [facility] Ambulatory and [facility] InPatient.[facility] Allergies Not on File Medications Not [...]
--- OUTSIDE RECORDS SUMMARY | ~2020-02-18 | XMS | Encounter Summary ---
Demographics + + + | Address | [address] | | | [place] [address] | + + + | Home Phone [...] | Organization | [facility] | | | and [...] [place], [place] | | | | | [address] | | + + + + + | Hilda Ramirez | ECON | [place], | | | | | [place] [address] | | + + + + + | Sara Fields | ECON | Unknown | | | [facility] | | | | + + + + + Care Team Providers + +------+ + | Care Patent Legal Assistant Name | Role | Phone | [...] | | lower third | MD Carmelina [address] | | | | | of esophagus | [address] | | | | | (HCC) | AVE | [place] | | | | | | [place], | [address] | | | | | | [place] [address] | Phone: | | | | | | Phone: | [phone] | | | | | | [phone] | Fax: | | | | | | Fax: | [phone] | | | | | | [phone] | | + + + + + [...] | | esophagus, | Talat Best | [address] | | | | | unspecified | [place], | [address] | | | | | (HCC) | [place] [address] | [place], | | | | | Onc/New/Othe | Phone: | [place] [address] | | | | | r | [phone] | Phone: | | | | | | Fax: | [phone] | | | | | | [phone] | Fax: | | | | | | | [phone] | + +--------+ + + + + Encounter Details +--------+---------+ + + + | Date | Type | Department | Care Team | Description | +--------+---------+ + + + | 01/31/ | Office | [facility] | [place], | 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 [facility] Hematology & Oncology Initial Oncology Consultation Patient [...] thickness was noted. Patient was referred to [facility] in [place] for further management. PET CT scan perform [...] management. He reportedly was already seen at [facility] but I do not have details of [...] file Gets together: Not on file Attends zoroastrianism service: Not on file Active member of [...] by mouth. naltrexone (REVIA) 50 mg tablet quadjeee-lzairsbvl-gpytisqvlbtwll (CORTISPORIN) otic solution nicotine (NICODERM) 14 mg/24 [...] scan, as well as consult notes/recommendations from [facility] in [place] for review. Also, he has history of [...] than 60 minutes wer e spent in kdbm-im-keek encounter with review of medical records, counseling, coordination o f care, and CPOE. More than 50% of that time was spent counseling and coordination of care. I would like to thank Dr. Wiggins for the courtesy of this referral. Jeffry Mcintosh MD [facility] Hematology & Oncology 02/01/2020 Portions of this [...]
--- OUTSIDE RECORDS SUMMARY | ~2020-02-18 | XMS | Encounter Summary ---
Demographics + + + | Address | [address] | | | [place] [address] | + + + | Home Phone [...] + + + | Organization | and [facility] | | | and [place] [...] [place], [place] | | | | | [address] | | + + + + + | Hilda Ramirez | ECON | [place], | | | | | [place] [address] | | + + + + + | Sara Fields | ECON | Unknown | | | [facility] | | | | + + + + + Care Team Providers + +------+ + | Care Bar Machine Operator Production Name | Role | Phone | + +------+ + PCP | Unavailable | + +------+ + Encounter Details +--------+ + + + + | Date | Type | Department | Care Team | Description | +--------+ + + + + | 08/23/ | Hospital | [facility] | | | | 2007 | Encounter | [facility] | | | | | | [address] | | | | | | [place] | | | | | | [address] | | | | | | [phone] | | | +--------+ + + + [...]
[~2020-02-18 14:21] MED LIST changes: +POTASSIUM40 MEQ/15 PO
--- OUTSIDE RECORDS SUMMARY | 2020-02-18 14:24 | XMS ---
PreManage Notification: DOLORES OVIEDO Security Partnership Manager Events No recent Security Events currently on file CRITERIA MET - 6 ED Visits in 6 Months - [facility] - Has Care Guidelines - [facility] - 2 Visits in 30 Days CARE PROVIDERS MENDOZA HOLLY Clinical Nurse Specialist: Family Health Current PHONE: [phone] SASHA DELGADO Physician Management Manager 05/18/2019-Current PHONE: [phone] DEEP KO [facility] 10/15/2019-Current PHONE: [phone] Guidelines Source: [facility] - [place] Guidelines Date: 02/01/2020 Additional Information: Currently engaged in mental health services and enrolled in the ACT program with [employer].\T\nbsp; Please contact [facility] for all mental health concerns:\T\nbsp; [employer] Office: [phone]. Current Moda member. Contact has been made to\T\ nbsp;Lior Julian one of the telehealth case manager at [place]\T\rsquo;s. Moda has approved for client to be admitted to a swing bed for medical concerns:\T\nbsp; Moda Contact information: Nancy Benedict RN Melting Supervisor, Healthcare Services office\T\nbsp;[phone]\T\nbsp;\T\nbsp;\F\\T\nbsp;\T\nbsp;\T\nbsp; [employer] Contact information: Lidia Quintero MA, [facility] Clinical Account Support Specialist [email or web address] [phone] Care History Medical/Surgical 01/18/2020 [facility] - PLEASE CONTACT [facility] IF PATIENT IS ADMITTED AND OR SEEN IN THE ED- PATIENT IS CURRENTLY UNDER THEIR CARE- [phone]. 01/07/2020 [facility] - PLEASE REVIEW CURRENT TUBE FEED ORDERS (ATTACHED) - [facility] IS CURRENTLY WORKING WITH PATIENT. - PLEASE REVIEW ATTACHED DOCUMENTS IN CARLY. Behavioral 09/30/2017 [facility] - [place] Currently engaged in mental health services and enrolled in the ACT program with [facility].\T\nbsp; Please contact [facility] for all mental health concerns:\ T\nbsp; [employer] Office: [phone]. Current Moda member. Contact has been made to\T\nbsp;Lior Julian one of the telehealth case manager at [place]\T\rsquo;s. Moda has approved for client to be admitted to a swing bed for medical concerns:\T\nbsp; Moda Contact information: Nancy Benedict RN Melting Supervisor, Healthcare Services office\T\nbsp;[phone]\T\nbsp;\T\nbsp;\F\\ T\nbsp;\T\nbsp;\T\nbsp;[employer] Contact information: Lidia Quintero MA, [facility] Complex Clinical Account Support Specialist [email or web address] [phone] Scot VISIT COUNT (12 MO.) [address] [facility] [address] [place] TOTAL 19 NOTE: Visits indicate total known visits. ED/UCC VISIT TRACKING (12 MO.) 02/18/2020 14:22 [facility] [place] TYPE: Emergency COMPLAINT: - JAW PAIN 02/04/2020 12:34 [facility] [place] TYPE: Emergency DIAGNOSES: - Dehydration - Malignant neoplasm of esophagus, unspecified - dehydration - Unspecified protein-calorie malnutrition - Neoplasm related pain (acute) (chronic) 02/01/2020 13:24 [facility] [place] TYPE: Emergency COMPLAINT: - BODY ACHE, DEHYDRATION, UNABLE TO EAT DIAGNOSES: - Malignant neoplasm of esophagus, unspecified - Esophageal obstruction - Other industrial welder (current) drug therapy - Bipolar disorder, unspecified - Hypokalemia - Nicotine dependence, unspecified, uncomplicated 01/29/2020 03:41 [facility] [place] TYPE: Emergency COMPLAINT: - CHEST AND ABDOMENAL PAIN DIAGNOSES: - Schizophrenia, unspecified - Unspecified abdominal pain - Other industrial welder (current) drug therapy - Chest pain, unspecified - Malignant neoplasm of esophagus, unspecified - Dorsalgia, unspecified - Major depressive disorder, single episode, unspecified - Anxiety disorder, unspecified - Neoplasm related pain (acute) (chronic) - Nicotine dependence, unspecified, uncomplicated 01/24/2020 16:29 [facility] [place] TYPE: Emergency [...] uncomplicated - Syncope and collapse - Other industrial welder (current) drug therapy - Bipolar disorder, unspecified [...] Malignant neoplasm of esophagus, unspecified - Other penitentiary (current) drug therapy 01/05/2020 14:54 [facility] [place] TYPE: Emergency COMPLAINT: - DEHYDRATION DIAGNOSES: - Other penitentiary (current) drug therapy - Nicotine dependence, unspecified, uncomplicated - Vomiting, unspecified - Other effects of heat and light, initial encounter - Bipolar disorder, unspecified - Anxiety disorder, unspecified 12/18/2019 11:05 [facility] [place] TYPE: Emergency COMPLAINT: - VOMITING, SWALLOWING PROBLEM DIAGNOSES: - Nicotine dependence, unspecified, uncomplicated - Schizophrenia, unspecified - Dysphagia, unspecified - Other industrial welder (current) drug therapy - Bipolar disorder, unspecified - Anxiety disorder, unspecified - Malignant neoplasm of esophagus, unspecified 11/29/2019 19:50 [facility] [place] TYPE: Emergency COMPLAINT: - SEIZURES, HEAD INJURY 10/21/2019 15:22 [facility] [place] TYPE: Emergency COMPLAINT: - MEDICAL CLEARANCE DIAGNOSES: - Other penitentiary (current) drug therapy - Mental disorder, not [...] - Nicotine dependence, unspecified, uncomplicated - Other penitentiary (current) drug therapy - Major depressive disorder, single episode, unspecified - Anxiety disorder, unspecified 09/08/2019 22:06 [facility] [place] TYPE: Emergency COMPLAINT: - MULTIPLE COMPLAINTS 08/08/2019 16:27 [facility] [place] TYPE: Emergency DIAGNOSES: 0. AMS VIA OPD 05/15/2019 10:[address] [facility] [place] TYPE: Emergency COMPLAINT: - MEDICAL CLEARANCE DIAGNOSES: - Schizophrenia, unspecified - Nicotine dependence, unspecified, uncomplicated 05/01/2019 14:43 [facility] [place] TYPE: Emergency DIAGNOSES: 0. SENT BY [employer] 03/26/2019 16:30 [facility] [place] TYPE: Emergency DIAGNOSES: 0. AMS 03/07/2019 20:47 [facility] [place] TYPE: Emergency DIAGNOSES: 0. DETOX 03/07/2019 04:52 [facility] [place] [place] OR [facility] TYPE: Emergency DIAGNOSES: 0. AMS VIA TVP INPATIENT VISIT TRACKING (12 MO.) 12/18/2019 [facility]05 [facility] TYPE: Oncology DIAGNOSES: - esophageal [...] exposure to other viral communic - Other penitentiary (current) drug therapy - Dysphagia, unspecified - Malignant neoplasm of cardia - Gastro-esophageal reflux disease without esophagitis 09/08/2019 22:07 [facility] [place] TYPE: Observation COMPLAINT: - INCARCERATED UMBILICAL HERNIA DIAGNOSES: - Other industrial welder (current) drug therapy - Umbilical hernia with obstruction, without gangrene - Major depressive disorder, single episode, unspecified - Anxiety disorder, unspecified - Schizophrenia, unspecified - Nicotine dependence, unspecified, uncomplicated [email or web address]
--- NOTE | 2020-02-19 07:08 | NUR ---
0645 PATIENT ARRIVED VIA STRETCHER. ABLE TO ASSIST PATIENT TO MOVE OVER TO THE BED. PATIENT IS WEAK AND LETHARGIC. WAKING ONLY TO LOUD VERBAL STIMULI. VS STABLE. IV FLUIDS STARTED PER ORDER. PATIENT PLACED ON OVERNIGHT ASSOCIATE. WARM BLANKET PROVIDED. CALL LIGHT ON LAP. HOB ELEVATED. PATIENT APPEARS CALM AND COMFORTABLE.
--- NOTE | 2020-02-19 07:30 | NUR ---
PATIENT SHIFT REPORT RECIVED FROM SAND CASTER APPRENTICE RN. PATIENT RESTING I NBED AT THIS TIME. PATIENT IS DROWSY BUT WILL WAKE TO STIMULUS. CALL LIGHT IN REACH. CURTAIN OPEN FOR PATIENT SAFETY. NO OTHER NEEDS AT THIS TIME. WILL CONTINUE TO CLOSELY MONITOR.
--- NOTE | 2020-02-19 08:39 | NUR ---
Pt. right armpit has open sores, weeping pus, I wiped out and cleaned entire area and notified CLIFF Torres
--- NOTE | 2020-02-19 09:30 | NUR ---
PATIENTS ASSESSMENT COMPLETED. PATIENT AWAKE, BUT DRIFTS OFF TO SLEEP EASILY. PATIENT HAS A GTUBE PRESENT. PATIENTS BREATH SOUNDS CLEAR. BOWEL TONES RARE. PATIENT STATES "I HAVENT BEEN USING MY DRINKS". PATIENT REQUESTS TUBE TO BE CLEANED. LEANED AROUND TUBE PER REQUEST. PATIENT PROVIDED WITH MOUTH SWABS AND ORAL CARE DONE. WILL CONTINUE TO CLSOELY MONITOR.
--- NOTE | 2020-02-19 09:40 | NUR ---
Attempted to speak with Ant. He is able to answer questions, but I am unable to understand his response. Pt very tired and falls asleep frequently. He does say he is staying in a motel and [facility] is assisting him. Discharge plan is pending at this time.
[2020-02-19] MEDS ORDERED: VENTOLIN HFA18 GM INH (09:57)
[2020-02-19] MEDS ORDERED: L-METHYLFOLATE15 MG PO (09:58)
[2020-02-19] MEDS ORDERED: ANORO ELLIPTA1 EACH INH (09:59)
--- NOTE | 2020-02-19 11:45 | NUR ---
XRAYS DONE TO CONFIRM TUBE PLACEMENT. PATIENT TOLERATED WELL. ICE PACK PROVIDED FOR PATIENTS FACE. GAVE ICE PER MDS APPROVAL. WILL CONSULT WITH DESK CLERKS SUPERVISOR IN REGAURDS TO PATIENTS TUBE FEEDS. PATIENTS ASESSMENT REMAINS UNACHANGED AT SI TIME. WILL CONTINUE TO CLSOELY MONITOR.
--- NOTE | 2020-02-19 13:00 | NUR ---
PER MD MATSON PATIENT MAY HAVE POPCYCLES FOR COMFORT. WILL START NG TUBE FEEDS ONCE G-TUBE PLACEMENT IS VERIFIED. PATIENT AGREEABLE TO PLAN OF CARE. WILL CONTINUE TO CLSOELY MONITOR. PATIENT RESTING AT THIS TIME.
--- NOTE | 2020-02-19 13:22 | NUR ---
at 1320 Dr. Joiner called and stated that pt. has g tube in that it can be used. I relayed message to CLIFF Chapa
--- NOTE | 2020-02-19 14:45 | NUR ---
PATIENT UP TO THE BEDSIDE CAMMODE WITH 1 PERSON STAND-BY TO MANAGE LINES. PATIENT TOELRATED WELL. LINEN CHANGED. NEW CLOTHES PROVIDED. NO OTHER NEEDS AT THIS TIME. PATIENT RESTING BACK IN BED AT THIS TIME. WILL CONTINUE TO CLOSELY MONTIOR.
--- NOTE | 2020-02-19 16:00 | NUR ---
REPORT GIVEN TO RENE CORONADO. RENE RN IN TO START TUBE FEEDINGS PER MD MATSON. PLACEMENT WAS VERIFIED AND OKAY TO USE TUBE. PER MD MATSON FOLLOW PLUG PASTER RECOMMENDATIONS. WILL PLACE ORDERS THAT PLUG PASTER WROTE AND SPOKE WITH AND THIS RN ABOUT. ALL QUESTIONS ANSWERED. PATIENT WILL TANSFER TO ROOM 111.
--- NOTE | 2020-02-19 16:17 | NUR ---
1600: JEVITY 1.2 BERTHA VIA THE G-TUBE STARTED ORDERED AFTER FLUSHING WITH 50 ML OF TAP WATER. PT CLEANED UP AND A FRESH GOWN AND PJ PANTS PLACED ON THE PT.
--- NOTE | 2020-02-19 16:30 | NUR ---
PATIENT TRANSFERED TO ROOM 111 WITH RENE CORONADO. NO FURTHER QUESTIONS AT THIS TIME.
--- NOTE | 2020-02-19 16:46 | NUR ---
Report received from Jarod CORONADO. 1640: Pt arrived to room 111 in Med surg via bed transfer. Pt oriented to his new room.
--- NOTE | 2020-02-19 17:16 | NUR ---
PT SLEEPING AT THIS TIME. HOB ELEVATED AND AN ICE PACK IS IN PLACE TO HIS LEFT JAW. CALL DIGGS WITHIN REACH, BED ALARM IS ON, PT IS VISIBLE FROM THE NURSING STATION.
--- NOTE | 2020-02-19 18:31 | NUR ---
MD AWARE OF PT'S BP. PT SLEEPING AT THIS TIME, HOB ELEVATED, CALL DIGGS WITHIN REACH, BED ALARM IS ON. TUBE FEEDING CONTINUES ORDERED.
--- NOTE | 2020-02-19 20:09 | NUR ---
PT SOMNELENT. AWAKENS ONLY BREIFLY DURING ASSESMENT, SPEECH GARBLED, UNCHANGED PER RENE RN REPORT AT CHANGE OF SHIFT. PT DENIES PAIN OR OTHER CONCERN, FALLS ASLEEP EASILY DURING CONVERSATION. GTUBE RUNNING JEVITY 1.2 BERTHA 20ML PER HR ON KANGAROO PUMP, PT DENIES NAUSEA OR ABD PAIN, ABD NON DISTENDED, BT HYPOACTIVE. MODERATE SWELLING NOTED TO THE LEFT JAW. IV INFUSING WNL. CALL LIGHT WITHIN REACH. BED ALARM ON.
--- NOTE | 2020-02-19 22:10 | NUR ---
PT REMAINS SOMNELENT, DOES NOT AWAKEN DURING FLUSHING OF GTUBE. APPROX 20ML OF BROWNISH RESIDUAL NOTED. ADMINISTERED MEDICATIONS VIA TUBE WITH 10ML OF TAP WATER AND THEN FLUSHED WITH 50ML TAP WATER PER ORDER, PT ALLEY WELL. PUMP CLEARED FOR 132ML OF FEEDING. BED ALARM ON.
--- NOTE | 2020-02-19 23:22 | PATH ---
[facility] [address], [place] [address] Signed ORDERING PHYSICIAN: Nii Neff MD PATIENT NAME: DOLORES OVIEDO GENDER: Antonia : 1980 Prior History: No cases found. SPECIMEN(S): No Source Given MOLECULAR PATHOLOGY RESULTS: SARS-CoV-2 Not Detected ADDITIONAL NOTES.: The [place] Fusion SARS-CoV-2 Assay is a multiplex real-time PCR (RT-PCR) in vitro diagnostic test intended for the qualitative detection of RNA from SARS-CoV-2 from individuals who meet COVID-19 clinical and/or epidemiological criteria. In general, SARS-CoV-2 RNA can be detected during the acute phase of infection. Positive results indicate the presence of SARS-CoV-2 RNA. Clinical correlation with patient history and other diagnostic information is necessary to determine patient infection status. Positive results do not rule out bacterial infection or co-infection with other viruses. Negative results do not preclude SARS-CoV-2 infection and should not be used as the sole basis for patient management decisions. Negative results must be combined with other clinical observations, patient history, and epidemiological information. The [place] Fusion SARS-CoV-2 Assay is not yet approved or cleared by the [place] FDA. When there are no FDA-approved or cleared tests available, and other criteria are met, FDA can make tests available under an emergency access mechanism called an Emergency Use Authorization (EUA). The EUA for this test is supported by the Summer Analyst of Health and Human Service's (HHS's) declaration that circumstances exist to justify the emergency use of in vitro diagnostics for the detection and/or diagnosis of the virus that causes COVID-19. This EUA will remain in effect for the duration of the COVID-19 declaration justifying emergency of IVDs, unless it is terminated or revoked by FDA, after which the test may no longer be used. The [place] Fusion SARS-CoV-2 Assay is for use only under EUA PATIENT NAME: DOLORES OVIEDO PATHOLOGY DATE OF : [birth year] REPORT #: [id number] PHYSICIAN: BEATRICE GOMEZ PCP: DEEP KO MD REPORT IS CONFIDENTIAL AND NOT TO BE RELEASED WITHOUT AUTHORIZATION [facility] [address], [place] [address] Signed in [place] laboratories certified under the Clinical Laboratory Improvement Amendments of 1988 (CLIA) to perform high complexity tests. [facility] is certified under CLIA to perform high complexity clinical laboratory testing. PERFORMING LABORATORY.: Molecular testing was performed by [facility] [place] [address] (Senior Financial Reporting Analyst: Reji Alan D.O.; CLIA#: [id number]) Diagnostician: System Interface Pathologist Electronically Signed 02/19/2020 Copies: ~ PATIENT NAME: DOLORES OVIEDO PATHOLOGY DATE OF : [birth year] REPORT #: [id number] PHYSICIAN: BEATRICE GOMEZ PCP: DEEP KO MD REPORT IS CONFIDENTIAL AND NOT TO BE RELEASED WITHOUT AUTHORIZATION
--- NOTE | 2020-02-20 00:15 | NUR ---
CAME TO ASST RN 2PA PIVOT PT TO BSC, ASST PT TO STAND AT THE WINDOW PER PT REQUEST, RN CHANGED BED LINENS, GOT PT SAT ON BED, PROVIDE PT WITH FRESH GOWN AND ICE PACK, GOT PT LAYING IN BED, HAD TO ASST ANOTHER PT WHILE RN TO FINISH WITH PT
--- NOTE | 2020-02-20 00:20 | NUR ---
PT UP TO BSC, VOIDED ONLY SMALL AMOUNT OF BROWN, STRONG SMELLING URINE. PT STOOD BY WINDOW WITH ASSISTANCE FROM LEAD RECREATION ASSISTANT WHILE THIS RN CHANGED LINENS IT WAS NOTED THAT ICE PACK HAD LEAKED ALL OVER BED. PT DENIES NAUSEA OR ABD DISCOMFORT FROM TUBE FEEDING. REPORTS 6/10 PAIN OF LEFT JAW AND REQUEST NEW ICE PACK AND SOMETHING FOR PAIN. MEDICATED WITH TORADOL AND NEW ICE PACK GIVEN. BACK TO BED, CALL LIGHT WITHIN REACH, BED ALARM ON.
--- NOTE | 2020-02-20 01:10 | NUR ---
VERBAL REPORT RECEIVED FROM CLIFF SARGENT. PT RESTING QUIETLY IN BED WITH EYES CLOSED. RR EVEN AND UNLABORED. IV FLUIDS AND ABX INFUSING. 1.2 BERTHA JEVITY FEEDING INFUSING VIA G-TUBE. PT APPEARS COMFORTABLE, NO DISTRESS NOTED. CALL LIGHT IN REACH.
--- NOTE | 2020-02-20 02:15 | NUR ---
SCHEDULED IV ABX INFUSING, SITE WNL. PT DROWSY, AWAKENS TO VOICE. FRESH ICE PACK PROVIDED FOR COMFORT, PT DID NOT VERBALLY RATE PAIN. GENERALIZED EDEMA TO LEFT AREA OF JAWLINE. AFEBRILE, AXILLARY TEMP OF 98.0. G-TUBE AT THE 4 MENDOZA AT INSERTION SITE, INSTRUMENT TECHNICIAN APPRENTICECLIFF COATS ALSO IN ROOM TO ASSESS. EXTERNAL BOLSTER NOT FLUSH TO ABDOMEN, BUT PATENT AND FLUSHES EASILY. HOB REMAINS ELEVATED AND JEVITY 1.5 BERTHA WITH FIBER INFUSING AT 20MLS/HR. NO DISTRESS NOTED WITH FLUSH OR INFUSION. WILL CONTINUE TO MONITOR. NO ADDITIONAL NEEDS VERBALIZED, CALL LIGHT IN REACH.
--- NOTE | 2020-02-20 04:35 | NUR ---
PT CALLING OUT FOR HELP, STATES "WHY ARE THESE BEDS SO SMALL? I AM ALL CRAMPED UP". PT REPOSITIONED WITH HELP FROM RAJ ORTIZ, PT CONCERNS RESOLVED. NO FURTHER NEEDS, CALL LIGHT IN REACH. G-TUBE REMAINS AT MARKER 4, PATENT. CALL LIGHT IN REACH.
--- NOTE | 2020-02-20 05:17 | NUR ---
VS COMPLETE, PT RESTING IN BED. NEW BAG IV FLUIDS INFUSING, SITE WNL. NO ADDITIONAL NEEDS VERBALIZED. CALL LIGHT IN REACH.
--- NOTE | 2020-02-20 06:30 | NUR ---
scheduled iv abx given (see emar). verified compatability of main fluids with telepharmacy. site wnl. oral swabs provided, pt requesting "lollipop". education given regarding npo status. no change to g-tube site. 5mls residual noted, brown in color. and flushed per md orders. flushes easily and patent. emesis bag and call light in reach. bed alarm on.
--- NOTE | 2020-02-20 07:00 | NUR ---
MESSAGE SENT TO DR SHIPMAN REGARDING LOW UO, DAYSJAYCE VARELA ALSO MADE AWARE.
--- NOTE | 2020-02-20 07:46 | NUR ---
PATIENT RESTING IN BED. PATIENT'S HANDS AND FACE WASHED. ICE PACK GIVEN. WHITE BOARD UPDATED. CALL LIGHT WITHIN REACH. NO OTHER NEEDS AT THIS TIME
--- NOTE | 2020-02-20 08:00 | NUR ---
SBA UP TO BSC, VOIDED 200ML DARK YELLOW URINE, KEEPS ASKING FOR POPCYCLES, STATES HE JUST NEEDS SOMETHING FOR FLAVOR, I WILL SPEAK TO DR OCAMPO. BACK TO BED WITH WARM BLANKETS, TOLERATING GT FEEDING WELL, SCHEDULED MEDS GIVEN. CALL LIGHT IN EASY REACH, BED ALARM IS ACTIVE FOR SAFETY.
--- NOTE | 2020-02-20 08:53 | NUR ---
CALL LIGHT ANSWERED. PATIENT SITTING UP IN CHAIR. PATIENT ASSISTED TO USE THE URINAL. ONE PERSON ASSISTING WITH WALKER. PATIENT BACKS TO CHAIR. SETS UP TABLE FOR BREAKFAST. CALL LIGHT WITHIN REACH. CHAIR ALARM ON. NO OTHER NEEDS AT THIS TIME
--- NOTE | 2020-02-20 09:34 | NUR ---
PATIENT RESTING IN BED. VITAL SIGNS AND I&O DONE. LOW SYSTOLIC BLOOD PRESSURE. PATIENT DID NOT VOID DURING THIS PERIOD. RN NOTIFIED. CALL LIGHT WITHIN REACH. NO OTHER NEEDS AT THIS TIME
--- NOTE | 2020-02-20 10:23 | NUR ---
GT FLUSHED EASILY WITH 50ML WATER, DENIES NAUSEA, PT GIVEN 1/2 POCYCLE PER OK FROM DR OCAMPO, EXPLAINED TO PT TO USE SPARINGLY, NOT GOOD FOR INFECTION IN JAW. PT STATES HE WILL.
--- NOTE | 2020-02-20 11:28 | NUR ---
PATIENT RESTING IN BED. SISTER IN ROOM. PATIENT GOES TO USE THE BATHROOM. ONE PERSON ASSISTING. LINENS CHANGED. GOWN AND PANTS CHANGED. PATIENT'S HANDS WASHED. PATIENT BACKS TO CHAIR. CALL LIGHT WITHIN REACH. NO OTHER NEEDS AT THIS TIME
--- NOTE | 2020-02-20 13:48 | NUR ---
PATIENT SITTING UP IN CHAIR. VITAL SIGNS AND I&O DONE. LOW BLOOD PRESSURE. RN NOTIFIED. CALL LIGHT WITHIN REACH. NO OTHER NEEDS AT THIS TIME
--- NOTE | 2020-02-20 14:38 | NUR ---
PT C/O PAIN IN NECK/JAW AND JUST "ALL OVER." SPOKE WITH DR OCAMPO AND RECIEVED ORDER FOR OXYCODONE FOR PAIN. REPOSITIONED IN BED FOR COMFORT. PT STATES HE IS FEELING THINGS CRAWL INSIDE HIM. THOUGHTS IN HIS HEAD. PT IS VERY WEAK AND NEEDS ASSIST TO STAND OR EVEN TURN OVER IN BED. BED ALRM IS ACTIVE FOR SAFETY. CONT. TF AND IVF.
--- NOTE | 2020-02-20 16:00 | NUR ---
PT SLEPT FOR A BIT, ASKED TO GET UP TO RECLINER BUT IMMED WANTED TO GET BACK TO BED, C/O COCCYX PAIN, PILLOW PROVIDED FOR COMFORT, C/O INCREASED PAIN IN BACK OF NECK, HEAD AND EXTENDING TO CLAVICLE. AREAS OF REDNESS AND SWELLING MARKED. CONT. TOLERATING TF WELL, DR OCAMPO AWARE OF INCREASED REDNESS AND SWELLING. DENIES ANY DIFFICULTY BREATHING. BED ALARM FOR SAFETY. PT SEEMS INCREASING CONFUSED AND VERY HARD TO UNDERSTAND, MUMBLING ALOT.
--- NOTE | 2020-02-20 17:59 | NUR ---
PATIENT RESTING IN BED. PATIENT REFUSED TO TAKE HIS VITAL SIGNS, HE IS COMBATIVE AND COMPLAINS THAT THE HOSPITAL DOES NOT GIVE HIM FOOD, HE SAID THAT TUBE FEEDING IS NOT THE SAME. RN NOTIFIED. CALL LIGHT WITHIN REACH. NO OTHER NEEDS AT THIS TIME
--- NOTE | 2020-02-20 18:05 | NUR ---
PT CONT. TO REFUSE TO ALLOW VS, REFUSING TO ANSWERE WHEN SPOKEN TO. RESP ARE UNLABORED, LAYING WITH EYES CLOSED IN BED. BED ALARM IS ACTIVE FOR SAFETY.
--- NOTE | 2020-02-20 18:50 | NUR ---
PT CALLING OUT, ASKING TO HAVE SUCTION SO HE CAN SUCTION OUT L EAR, C/O PAIN INCREASING, OXYCODONE 5MG GIVEN PER GT, 50 ML WATER FLUSH, TOLERATED WELL. REPOSITIONED WITH PILLOW FOR COMFORT. CONT. TO REFUSE VS. NOTED PT HAS BEEN PULLING ON GT, DISCUSSED WITH PT IMPORTANCE OF NOT PULLING ON TUBE, PT STATES IT SHOULD COME OUT SO HE CAN EAT. STATED HE WILL LEAVE IT ALONE NOW.
--- NOTE | 2020-02-20 19:15 | NUR ---
SHIFT REPORT RECEIVED FROM LANIEARON VARELA AT BEDSIDE. PT RESTING QUIETLY AT THIS TIME, RR EVEN AND UNLABORED. NO DISTRESS NOTED, PT DOES REPORT SOME PAIN R/T HEADACHE, HOB ELEVATED FOR COMFORT. GENERALIZED EDEMA TO LEFT JAWLINE AND BACK OF HEAD, OUTLINED FROM DEJA. PER REPORT, PT HAS BEEN REFUSING VS AND SOMEWHAT COMBATIVE, AWAITING ORDERS FROM DR SHIPMAN. BED ALARM ON FOR SAFETY AND CALL LIGHT IN REACH. G-TUBE PATENT AND INFUSING PER MD ORDERS, SITE WNL.
--- NOTE | 2020-02-20 19:44 | NUR ---
INFOMRED BY CLIFF CHUNG THAT PT WAS REPORTING HIS FINGER WAS "LEAKING" AND THAT HE NEEDED "A FIX FOR IT". THIS RN IN ROOM TO ASSESS. PT RESTING IN BED WITH EYES CLOSED, RR EVEN AND UNLABORED. NO DISTRESS NOTED. WILL CONTINUE TO MONITOR. CALL LIGHT IN REACH.
--- NOTE | 2020-02-20 20:30 | NUR ---
ASSESSMENT COMPLETE AND SCHEDULED MEDS GIVEN (SEE EMAR). SBP IN THE UPPER 80'S, DR SHIPMAN MADE AWARE. NO NEW ORDERS, PER MD OKAY FOR SBP TO BE IN 80'S. WILL MONITOR. OTHER VSS. PRN TORADOL ALSO GIVEN FOR 9/10 PAIN. NO INCREASE IN EDEMA NOTED AT THIS TIME, WILL CONTINUE TO MONITOR. BREATHING WNL, HOB ELEVATED. KANGAROO PUMP INFUSING AT 20MLS/HR, G-TUBE WNL AND PATENT. 4 MARKER FLUSH WITH THE INSERTION SITE. FLUSHES EASILY, MEDS GIVEN THROUGH G-TUBE. IV FLUIDS AND ABX INFUSING, SITE WNL. BED ALARM ON, CALL LIGHT IN REACH.
--- NOTE | 2020-02-20 21:45 | NUR ---
IN ROOM TO GIVE IV ABX. PT ASKED FOR GAUZE FOR HIS ARMPIT, UPON INSPECTION THERE IS DRIED BLOOD ON HIS GOWN IN L ARMPIT. WILL CHECK FOR WOUND ORDERS AND RETURN TO CLEAN IT UP. CALL LIGHT IS CLOSE.
--- NOTE | 2020-02-20 23:00 | NUR ---
BROWN THICK PUS COMING FROM SMALL ZIT LIKE ABSCESS TO LEFT ARMPIT. WARM CLOTH TO ARMPIT, CLEANED AT THIS TIME. CLEAN GOWN PROVIDED WITH HELP FROM RAJ ORTIZ. ABD PAD TO ARMPIT. KANGAROO PUMP ALSO CHANGED AT THIS TIME, PUMP CLEARED.PT PERSISTENT ON GETTING POSICLE. DISCUSSED WITH PIPE INSTALLER, HOB ELEVATED. PT ALLOWED TO LICK POPSICLE 2-3 TIMES. NO ISSUES NOTED. NO FURTHER NEEDS, CALL LIGHT IN REACH AND BED ALARM ON. PT RECENTLY VOIDED WITH HELP FROM RAJ ORTIZ.
--- NOTE | 2020-02-20 23:47 | NUR ---
PT CALLED, NEEDED HELP FINDING A CHANNEL, REQUEST MORE POPCILE, PROVIDED A LITTLE MORE FOR COMFORT, NO FURTHER REQUEST AT THIS TIME
--- NOTE | 2020-02-20 23:53 | NUR ---
PT CALLING ASKING FOR HELP WITH POSITIONING, RAJ ORTIZ IN ROOM.
--- NOTE | 2020-02-21 00:26 | NUR ---
PT RESTING IN BED, HOB REMAINS ELEVATED FOR COMFORT AND FOR TUBE FEEDING. EYES CLOSED, TELE#[address], SINUS RHYTHM. NO DISTRESS NOTED, CALL LIGHT IN REACH.
--- NOTE | 2020-02-21 02:38 | NUR ---
ASSESSMENT COMPLETE, NO NEW CHANGES. GENERALIZED EDEMA TO RIGHT JAWLINE/NECK REMAINS NOTED. NO SIGNS OF INCREASED SWELLING AT THIS TIME, WILL MONITOR. RESPIRATIONS EVEN AND UNLABORED, HOB ELEVATED. FRESH ICE PACK TO JAWLINE. PT AWAKENS BRIEFLY DURING ASSESSMENT BEFORE QUICKLY RETURNING TO SLEEP. G-TUBE FLUSHED PER MD ORDERS, NO RESIDUAL NOTED. KANGAROO AND IV PUMPS CLEARED. PT BOOSTED IN BED WITH HELP FROM CLIFF ALLEN. SLIGHT REDDENED COCCYX, BLANCHABLE. PT ABLE TO CHANGE POSITIONS IN BED. IV ABX INFUSING, SITE WNL. BED ALARM ON AND CALL LIGHT IN REACH.
--- NOTE | 2020-02-21 03:00 | NUR ---
IV ABX INFUSING PER MD ORDERS, SITE WNL. PT APPEARS RELAXED AT THIS TIME. NO DISTRESS OR OUTWARD SIGNS OF PAIN NOTED. WILL MONITOR. CALL LIGHT IN REACH.
--- NOTE | 2020-02-21 06:46 | NUR ---
g-tube patent and flushed with 50mls, no change in appearance. new bag iv fluids hung and infusing per md orders, site wnl. no change in swelling to right jaw/neck. hob remains elevated. mathematical engineer roney in room to assist pt with voiding.
--- NOTE | 2020-02-21 07:25 | NUR ---
MESSAGE SENT TO DR SHIPMAN REGARDING LEFT ARMPIT AND DRAINAGE.
--- NOTE | 2020-02-21 07:35 | NUR ---
PATIENT SLEEPING. WHITE BOARD UPDATED. CALL LIGHT WITHIN REACH. NO OTHER NEEDS AT THIS TIME
--- NOTE | 2020-02-21 07:55 | NUR ---
pt quiet alert bedside report received. PT SITTING UP IN BED RINSES MOUTH WITH H20 AND SPITS IT OUT, REQUESTS REGULAR BREAKFAST STATING HE WONT SWALLOW IT HE JUST WANTS TO CHEW ON IT FOR THE TASTE. ENCOURAGED PT TO SPEAK WITH DOCTOR ABOUT THIS. PT DENIES IMMEDIATE NEEDS.
--- NOTE | 2020-02-21 10:00 | NUR ---
PT WAS ALERT AND ASKING FOR FOOD AT SHIFT CHANGE. RINSED MOUTH WITH ICE BAG WATER AND SPIT INTO EMESIS BAG. NO COUGHING OR CHOKING. ORAL CARE ITEMS PROVIDED, PT ENCOURAGED TO REAMIN NPO PER MD INSTRUCTION. ASSISTED TO SWAB MOUTH WITH MOUTHWASH/WATER MIX FOR COMFORT PT AGREES THIS MADE HIM FEEL BETTER. DRESSING TO ARMPIT CHANGED THICK GREENISH DRAINAGE NOTED IN COPIOUS AMOUNT. NO RESIDUAL PRESENT WHEN FEED TUBE FLUSHED AT 1000. DENIES NAUSEA OR DISCOMFORT.
--- NOTE | 2020-02-21 12:57 | NUR ---
DR SHIPMAN IN TO SEE PT HE WAS VERY DROWSY SHE RETURNS LATER WITH PT ALERT AND INTERACTIVE. CONDITION AND PLAN GOING FORWARD DISCUSSED AT LENGTH POLST FORM FILLED OUT
--- NOTE | 2020-02-21 14:06 | NUR ---
PATIENT RESTING IN BED. VITAL SIGNS AND I&O DONE. LOW BLOOD PRESSURE. PATIENT DID NOT VOID DURING THIS PERIOD ALTHOUGH HE WAS ENCOURAGED TO USE THE TOILET/URINAL. RN NOTIFIED. CALL LIGHT WITHIN REACH. NO OTHER NEEDS AT THIS TIME
--- NOTE | 2020-02-21 14:30 | NUR ---
PT AWAKENS TO VOICE AGREES HE IS COMFORTABLE BUT REQUESTS FOOD. IV ABX ADMINISTERED, CHECKED PEG TUBE FOR RESIDUAL THERE IS NONE, FLUSHED WITH 50 MLS H20 FEEDING RESUMED. PT RESTING EYES CLOSED APPEARS TO BE SLEEPING.
--- NOTE | 2020-02-21 17:40 | NUR ---
PATIENT RESTING IN BED. RN IN ROOM. VITAL SIGNS AND I&O DONE. LOW BLOOD PRESSURE. PATIENT DID NOT VOID DURING THIS PERIOD. RN NOTIFIED. CALL LIGHT WITHIN REACH. NO OTHER NEEDS AT THIS TIME
--- NOTE | 2020-02-21 18:13 | NUR ---
GIVES OKAY FOR ICE CREAM, ICE CHIPS, AND POPCYCLES. PT RESTING IN BED APPEARS HAPPY WITH THIS. NOTIFIED BP IS RUNNING LOW IS URINE OUTPUT NO NEW ORDERS IN THIS REGARD. PT APPEARS TO BE COMFORTABLE DENIES NEEDS OTHER THAN FOOD ITEMS
--- NOTE | 2020-02-21 18:28 | NUR ---
PATIENT RESTING IN BED. RN IN ROOM. PATIENT USES THE BATHROOM. LINENS CHANGED. TWO PERSON ASSISTING. PATIENT BACKS TO CHAIR. WARM BLANKET PROVIDED. CALL LIGHT WITHIN REACH. NO OTHER NEEDS AT THIS TIME
--- NOTE | 2020-02-21 18:35 | NUR ---
PT UP OUT OF BED FOR THE FIRST TIME THIS SHIFT. AMBULATES TO THE BATHROOM STANDBY ASSIST ABLE TO VOID. PT TO RECLINER CHAIR, [employer]AV[employer] PROVIDED. CALL LIGHT AND TV REMOTE IN HAND PT AGREES HE IS CONTENT
--- NOTE | 2020-02-21 19:25 | NUR ---
SHIFT REPORT RECEIVED FROM DAYSMDFT CLIFF VAUGHAN AT BEDSIDE. PT AWAKE AND RESTING IN BED. IV FLUIDS AND G-TUBE INFUSING PER MD ORDERS, SITES WNL. NO DISTRESS NOTED. PT SWABBING MOUTH FOR COMFORT. NO ADDITIONAL NEEDS, CALL LIGHT IN REACH.
--- NOTE | 2020-02-21 20:30 | NUR ---
ASSESSMENT COMPLETE AND SCHEDULED MEDS GIVEN (SEE EMAR). CARDIAC MED HELD D/T LOW BP. HR WNL. PT APPEARS COMFORTABLE AND NO DISTRESS IS NOTED. IV FLUIDS AND ABX INFUSING, IV SITES X2 WNL. G-TUBE FLUSHES EASILY , 30MLS RESIDUAL NOTED. HOB ELEVATED. NO ADDITIONAL NEEDS AT THIS TIME. CALL LIGHT IN REACH.
--- NOTE | 2020-02-21 20:37 | NUR ---
TOOK PT VITALS AT I&Os FOR RN, RN WILL BE IN FOR PM MEDS AND ASSESSMENT, NO FURTHER REQUESTS AT THIS TIME
--- NOTE | 2020-02-22 00:05 | NUR ---
KANGAROO PUMP BAG CHANGED AND INFUSING PER MD ORDERS, G-TUBE SITE WNL. NEW BAG OF FLUIDS HUNG AND INFUSING PER MD ORDERS. CALL LIGHT IN REACH, BED ALARM ON.
--- NOTE | 2020-02-22 01:30 | NUR ---
PT RESTING QUIETLY IN BED WITH EYES CLOSED. RR EVEN AND UNLABORED, NO DISTRESS NOTED. PT APPEARS COMFORTABLE AT THIS TIME. WILL MONITOR. IV FLUIDS AND G-TUBE INFUSION INFUSING PER MD ORDERS. CALL LIGHT IN REACH, HOB ELEVATED.
--- NOTE | 2020-02-22 02:30 | NUR ---
ASSESSMENT COMPLETE, SCHEDULED IV ABXS INFUSING. SITES X2 WNL. G-TUBE FLUSHED EASILY PER MD ORDERS, SITE WNL. NO NAUSEA REPORTED, HOB ELEVATED. ORAL CARE PROVIDED, NO FURTHER NEEDS. ORAL TEMP, AFREBILE. CALL LIGHT IN REACH.
--- NOTE | 2020-02-22 06:30 | NUR ---
g-tube flushed per policy, 26 mls residual noted. pt in bed, alarm on. call light in reach.
--- NOTE | 2020-02-22 06:59 | NUR ---
MESSAGE SENT TO DR SHIPMAN WITH PT'S REFUSAL FOR VS AND TO GET OOB TO VOID.
--- NOTE | 2020-02-22 07:28 | NUR ---
BEDSIDE HANDOFF REPORT RECEIVED FROM SERGER RN. PT SLEEPING. TUBE FEEDING AT 30 ML/HR. IV FLUIDS INFUSING AT 125ML/HR. DIRECTOR TELECOMMUNICATIONS TO BEDSIDE FOR LAB DRAW.
--- NOTE | 2020-02-22 07:59 | NUR ---
PATIENT RESTING IN BED, EYES CLOSED. WHITE BOARD UPDATED. CALL LIGHT WITHIN REACH. NO OTHER NEEDS AT THIS TIME
--- NOTE | 2020-02-22 08:20 | NUR ---
PT RESTING IN BED. PT DROWSY, GARBLED SPEECH. PT ON ROOM AIR, LUNGS CLEAR. BOWEL TONES ACTIVE, TUBE FEEDING PER GTUBE AT 30ML/HR CONTINUOUS. PT WITH SWELLING TO LEFT CHEEK AND NECK. CMS INTACT WITHOUT LE EDEMA. IV FLUIDS INFUSING 1/2NS AT 125ML/HR, CEFEPIMNE AND FLAGYL INFUSING. PT REQUESTING ASSISTANCE TO BATHROOM, SBA. PT DENIES OTHER NEEDS AT THIS TIME.
--- NOTE | 2020-02-22 08:40 | NUR ---
PATIENT RESTING IN BED. RN IN ROOM. PATIENT GOES TO USE THE BATHROOM. TWO PERSON ASSISTING. LINENS CHANGED. PATIENT BACKS TO CHAIR. WARM BLANKET PROVIDED. SETS UP BATHROOM FOR SHOWER. CALL LIGHT WITHIN REACH. NO OTHER NEEDS AT THIS TIME
--- NOTE | 2020-02-22 09:15 | NUR ---
PATIENT SITTING UP IN CHAIR. VITAL SIGNS AND I&O DONE. CALL LIGHT WITHIN REACH. NO OTHER NEEDS AT THIS TIME
--- NOTE | 2020-02-22 09:50 | NUR ---
Spoke with Ant. He denies any preference for admission. Will go whereever needed. Called and left a message for Jennifer at [facility] to see if pt has local intermodal truck driver medicaid to pay for a stay at a facility. I was unable to reach. Called [facility] and attempted to speak with Lazarus Salomon and Marco Antonio Bartholomew about possible placement for this patient. Messages left.
--- NOTE | 2020-02-22 10:03 | NUR ---
PATIENT TOLERATING JEVITY 1.2 CONTINUOUS FEED AT 30 ML/HR. RATE WAS INCREASED TO 30 AT 1600 YESTERDAY PLANNED. PER NURSING, PATIENT COMPLAINING OF HUNGER. NA+ STILL HIGH BUT IMPROVING, PHOS LOW, POTASSIUM WNL. GLUCOSE WAS 98 THIS MORNING. STILL AT RISK FOR REFEEDING FOR THE NEXT 4 DAYS. PLAN TO INCREASE RATE TO 50 ML/HR TOMORROW MORNING IF LABS LOOK GOOD AND RESIDUALS ARE LESS THAN 250 ML/HR. GOAL RATE IS 70 ML/HR CONTINUOUS FEED. PATIENT IS ALLOWED POPSICLES, ICE CHIPS AND ICE CREAM BY MOUTH FOR COMFORT. CONTINUE 50 ML WATER FLUSHES EVERY 4 HOURS. KEEP HOB ELEVATED 30-45 DEGREES.
--- NOTE | 2020-02-22 10:15 | NUR ---
Received a return message from Jennifer at [facility]. [facility] is in process for this patient. She suggest I speak with [id number] as they have been paying for a motel for this patient.
--- NOTE | 2020-02-22 11:00 | NUR ---
Called and left messages requesting a return call from anyone at [facility] to assist with placement of this patient.
--- NOTE | 2020-02-22 11:26 | NUR ---
FREE WATER FLUSH OF 50ML WATER PER ORDER, G TUBE WITH 5ML RESIDUAL. PT RATING PAIN 6/10, GIVEN 30MG TORADOL IV. PT REQUESTING BROTH, ICE CREAM AND TEA WITH HONEY, ORDER PLACED WITH DIETARY. PT REQUESTING SHOWER, WILL COMPLETE AFTER CEFEPIME INFUSION COMPLETED. PT DENIES OTHER NEEDS AT THIS TIME.
--- NOTE | 2020-02-22 12:28 | NUR ---
PATIENT UP TO SHOWER AND BACK TO CHAIR, SBA. PATIENT MOSTLY IND IN SHOWER. NEW GOWN PROVIDED. CALL LIGHT IN REACH. NO FURTHER NEEDS AT THIS TIME.
--- NOTE | 2020-02-22 12:30 | NUR ---
Medications reconciled to the best of my abilty with limited information. It appears that patient is not compliant with regularly filling prescribed medications
--- NOTE | 2020-02-22 13:38 | NUR ---
PATIENT RESTING IN BED. VITAL SIGNS AND I&O DONE. CALL LIGHT WITHIN REACH. NO OTHER NEEDS AT THIS TIME
--- NOTE | 2020-02-22 15:27 | NUR ---
FLAGYL GIVEN PER [employer] ORDERED. PT REQUESTIND TO ORDER FOOD, DISCUSSED WITH DR. SHIPMAN, ALLOWED TO HAVE RECREATION DIET LONG PT DOES NOT SWALLOW FOODS, EXPLAINED TO PT. PT REQUESTING TO SPEAK WITH "OTHER RN", DALTON CORONADO ASKED TO SPEAK WITH PT.
--- NOTE | 2020-02-22 15:56 | NUR ---
PT REQUESTING PAIN MEDICATION, RATING PAIN 7-8/10, GIVEN 5MG OXYCODONE PER GTUBE, TUBE FLUSHED WITH 50ML WATER. PT DENIES OTHER NEEDS AT THIS TIME.
--- NOTE | 2020-02-22 16:00 | NUR ---
Received two messages from Paola from [employer] Team. He has spoken with Rachel in [place] about placement. He request I call Ros[facility]. Called and spoke with Rosetta, she requests I send a chart, they HAVE NOT accepted this pt. H&P, progress notes, notes from [facility], [facility] for surgery, covid test, face sheet, faxed to Rachel.
--- NOTE | 2020-02-22 17:10 | NUR ---
PATIENT RESTING IN BED. VITAL SIGNS AND I&O DONE. CALL LIGHT WITHIN REACH. NO OTHER NEEDS AT THIS TIME
--- NOTE | 2020-02-22 17:39 | NUR ---
PT TRANSITIONED TO ORAL FLAGYL, CEFEPIME DISCONTINUED. G TUBE FEED INCREASED TO 40ML/HR OF JEVITY 1.2 BERTHA. PT ALLOWED TO HAVE RECREATION DIET, ENCOURAGE TO SPIT OUT FOODS TO AVOID OBSTRUCTION. PT UP SBA. IV FLUIDS INFUSING 1/2 NS AT 125ML/HR. PT RECEIVED TORADOL AND OXYCODONE X1, WITH GOOD RELIEF OF PAIN. PT SHOWERED AND DRESSING CHANGED TO LEFT AXILLARY ABSCESS.
--- NOTE | 2020-02-22 17:39 | NUR ---
GTUBE FLUSHED PER ORDER. PT REQUESTING CARROT CAKE AND ICE CREAM, ORDERED, THIS RN REMAINED WITH PT TO REMIND PT NOT TO SWALLOW.
--- NOTE | 2020-02-22 19:33 | NUR ---
REPORT RECEIVED FROM CLIFF BARNES. PT REPORTS DISCOMFORT, MADE PLAN WITH PT FOR PRN MEDICATIONS. TUBE FEEDING WNL AT 40 ML/HR. ON ROOM AIR. IVF INFUSING WNL. HOB ELEVATED. WILL CONTINUE TO MONITOR.
--- NOTE | 2020-02-22 21:53 | NUR ---
SCHEDULED MEDICATIONS ADMINISTERED, ASSESSMENT COMPLETE. VS AND I/OS COMPLETE. G TUBE WNL, FLUSHED WITH 50 ML WATER. PRN MEDICATIONS ADMINISTERED VIA TUBE. AXILLARY CYST PRODUCING SMALL AMOUNT DRAINAGE. PT REQUESTED POPSICLE AND PUDDING. REPOSITIONED WITH PILLOWS. CALL LIGHT WITHIN REACH. LIGHTS OFF, PT STATES NO OTHER NEEDS AT THIS TIME.
--- NOTE | 2020-02-22 23:30 | NUR ---
ROUNDED ON PATIENT, IN BED WITH LIGHTS OFF, BREATHING EVEN, SNORING. CALL LIGHT WITHIN REACH. NO APPARENT NEEDS AT THIS TIME.
--- NOTE | 2020-02-22 23:55 | NUR ---
ANSWERED CALL LIGHT, PT UP TO USE URINAL TO VOID. BACK TO BED, LIGHTS OFF, REPOSITIONED WITH PILLOWS. NO FURTHER NEEDS AT THIST TIME.
--- NOTE | 2020-02-23 00:50 | NUR ---
ROUNDED ON PATIENT, AWAKE IN BED, DENIES NEEDS AT THIS TIME.
--- NOTE | 2020-02-23 05:24 | NUR ---
[facility] DOWNTIME. SCHEDULED MEDICATIONS ADMINISTERED. PRN NAUSEA, PAIN AND ANXIETY MEDICATIONS ADMINISTERED. ASSESSMENT COMPELTE. 50 ML TAP WATER FLUSH INTO G TUBE, WNL. NO RESIDUALS. NEW BAG IVF HUNG, INFUSING WNL. TUBE FEEDING INFUSING WNL. CALL LIGHT IN REACH. PT HAS CALLED APPROPRIATELY.
--- NOTE | 2020-02-23 05:42 | NUR ---
[facility] DOWNTIME THIS SHIFT. PT HAS USED CALL LIGHT APPROPRIATELY. STANDS WITH 1PA SBA TO USE URINAL OR AMBULATE TO BR TO VOID. PRN PAIN MEDICATIONS, ANTI NAUSEA AND ANTI ANXIETY MEDICATIONS ADMINISTERED. G TUBE WNL, NO RESIDUALS, FLUSHED PER ORDERS. AXILLARY ABCESS HAS PURULENT DRAINAGE, ABD PAD IN PLACE. IVF INFUSING WNL. VSS. A+O, PT VERBALIZES DISCOMFORT AND HAS BEEN CLEAR WITH REQUESTS THIS SHIFT. WILL CONTINUE TO MONITOR.
--- NOTE | 2020-02-23 06:18 | NUR ---
SCHEDULED MEDICATIONS ADMINISTERED, 5O ML FLUSH PER ORDER ADMINISTERED. G TUBE WNL. PRN PAIN MEDICATION FOR PAIN CONTROL GIVEN. TUBE FEEDING INFUSING WNL. IVF INFUSING WNL. VSS. CALL LIGHT WITHIN REACH.
--- NOTE | 2020-02-23 07:25 | NUR ---
REPORT RECEIVED FROM CLIFF SHARMA. PT RESTING IN BED WITH EYES CLOSED, BED RAILS UP. CALL LIGHT WITHIN REACH. PT ALLOWED TO REST.
--- NOTE | 2020-02-23 08:03 | NUR ---
MORNING ASSESSMENT AND MEDICAION DUE. THIS RN TO BEDSIDE. PT RESTING WITH EYES CLOSED. PT RESPONSE TO VOICE AND LIGHT TOUCH. PT VERY DROWSY. PT REPORTS 7/10 PAIN AND FALLS QUICKLY BACK TO SLEEP. ASSESSMENT DONE. PINPOINT PUPILS NOTED. PT OREINTED X4 AND ANSWERING QUESTIONS APPROPRIALY ALTHOUGH WITH SLURRED AND GARBLED SPEACH. G - TUBE INTACT AND RUBBING ON SKIN. GAUZE APPLIED BETWEEN G-TUBE AND SKIN FOR COMFORT. DRESSING TO LEFT AXILLARY AREA SATURATED WITH YELLOW DRAINAGE. DRESSING REMOVED, AREA CLEANED WITH SALINE. NEW ABD PAD AND MEDAPORE TAPE APPLIED. PT UP TO STAND WITH 1 PERSON ASSIST TO USE URINAL. PT BACK TO BED AND FALLS QUICKLY TO SLEEP. G-TUBE ASSESSED, RESIDUAL VOLUE = 10ML. VTIALS TAKEN. CONULSTED REGARDING ADMINISTERING CLONIDINE. MD STATES OK TO GIVE CLONIDINE WITH CURRENT BLOOD PRESSURE. PHARMACIST CALLED AND CONFIRMS MEDICATIONS CAN BE CRUSHED AND ADMINISTERED THROUGH G-TUBE. MEDICATIONS GIVEN, LINE FLUSHED WIHT 50ML TAP WATER. FEEDING RESUMED AT 40ML/HR. PT UP TO CHAIR WITH STAND BY ASSIST. WARM BLANKET PROVIDED. NO ADDITIONAL REQUESTS OR COMPLAINTS. CALL LIGHT WITHIN REACH.
--- NOTE | 2020-02-23 08:10 | NUR ---
PATIENT RESTING IN BED. RN AND STUDENT RN IN ROOM. PATIENT ASSISTED TO USE THE URINAL. PATIENT BACKS TO CHAIR. LINENS CHANGED. CALL LIGHT WITHIN REACH. NO OTHER NEEDS AT THIS TIME
--- NOTE | 2020-02-23 08:50 | NUR ---
Called and spoke with Rosetta her [facility] in [place]. Her team has reviewed the chart and they do not think Ant is appropriate for the SNF.
--- NOTE | 2020-02-23 09:10 | NUR ---
Received call from Jennifer at [facility], she states she has been notified that Ant will qualify for [facility]. Updated [facility] declined. She suggessted [facility] as Kieran was discussing placement with them last week.
--- NOTE | 2020-02-23 09:15 | NUR ---
BREAKFAST ORDER INCLUDING CAKE, PANCAKES, SAUSAGE, AND URDU MUFFIN ARRIVED FOR PT. EDUCATION DONE WITH PT REGARDING DIET RESTRICTIONS AND SAFETY. PT STATES HE WAS ALLOWED TO EAT CAKE AND OTHER FOOD YESTERDAY. MD CONSULTED REGARDING COMFORT ORDERS. MD STATES ORDERS STAND AND PT SHOULD ONLY HAVE LIQUIDS WHICH HE SHOULD IMMEDIATLY SPIT OUT. PT UPDATED, SITUATION EXPLAINED TO PT. PT VERBALIZES UNDERSTANDING AND STATES HE DOES NOT AGREE WITH THIS PLAN. PT STATES "I EAT WHATEVER I WANT WHEN I'M HOME." DIAGRAM DRAWN FOR PT TO INCREASE UNDERSTANDING. PT STATES "I DON'T CARE, I WANT TO EAT ANYWAY." MD AWARE OF SITUATION. PT REPORTING HE WOULD LIKE TO "GO HOME NOW." PT AGREES TO WAIT TO TALK TO THE DOCTOR WHEN SHE ROUNDS. PT UP TO CHAIR. STUDENT RN AT BEDSIDE VISITING WITH PT. CALL OWEN KIMBLE.
--- NOTE | 2020-02-23 09:44 | NUR ---
PATIENT SITTING UP IN CHAIR. STUDENT RN IN ROOM. VITAL SIGNS AND I&O DONE. CALL LIGHT WITHIN REACH. NO OTHER NEEDS AT THIS TIME
--- NOTE | 2020-02-23 10:34 | NUR ---
THIS RN TO ROOM TO CHECK ON PT. PT RETURNED FROM PHYSICAL THERAPY. PT REPORTS PHYSICAL THERAPY WENT WELL AND HE WAS "ABLE TO WALK A BIT." PHYSICAL THERAPY REPORTS PT WAS ABLE TO WALK A LAP AROUND THE UNIT AND DO SOME EXERCISES. PT REPORTS 8/10 PAIN. MEDICATION GIVEN THROUGH G-TUBE. LINE FLUSHED WITH 20ML TAP WATER. FEEDING TUBE BAG DUE TO BE CHANGED. NEW KANGAROO PUMP BAG HUNG WITH JEVITY 1.2. PT RESTING IN CHAIR. WARM BLANKETS PROVIDED. CALL LIGHT WITHIN REACH.
--- NOTE | 2020-02-23 11:10 | NUR ---
Called and spoke with Merlene from [facility] and Megan from [facility] and rehab. Chart sent for possible placement.
--- NOTE | 2020-02-23 12:13 | NUR ---
THIS RN TO ROOM TO CHECK ON PT. PT RESTING IN CHAIR WITH EYES CLOSED. RESPIRATIONS EVEN AND UNLABORED. PT AWAKENS TO MOVEMENT IN THE ROOM AND STATES HE WANTS TO HAVE SOME "MARIJAUANA." PT ADVISED THAT MARIJAUANA IS NOT AVALIABLE IN THE HOSPITAL BUT THAT HE HAS BEEN GIVEN PAIN MEDICATION. PT REPORTS 7/10 ACHING PAIN IN HIS LEFT JAW AND QUICKLY FALLS BACK TO SLEEP. ROOM TIDIED UP. PT DENIES ADDITIONAL REQUESTS OR COMPLAINTS. BANDAGE TO LEFT AXILLARY AREA CLEAN DRY AND INTACT AT THIS TIME. PT CONTINUES RESTING WITH EYES CLOSED. CALL LIGHT WITHIN REACH. PT EASILY VIEWED FROM NURSES STATION.
--- NOTE | 2020-02-23 12:30 | NUR ---
Received call from Brea Seo [employer] Maker at [facility]. She has been attempting to place pt for the last few weeks. She also states she called [facility] and they stated they had not received Ant's chart. UPdate I had spoken with Rosetta this am and they declined Ant. Informed I have sent the chart to [facility] and [facility] and rehab. She states she will assist any way she can.
--- NOTE | 2020-02-23 13:30 | NUR ---
In room for rounding. Pt was sitting up in chair, table and call light beside her. Pt denies nausea and reports 5/10 pain. Pt verbalized concerns about her glucose level being at 186 at present (via her continuous glucose monitor). Pt is concerned that we aren't giving her "Jardiance" for her diabetes like she takes at home. Pt was educated on hyper & hypo-glycemia and how the post surgery healing process works on our glucose levels. Pt seems to be accepting my response, but remains somewhat concerned about it. Pt reports no further needs at this time. Pt left sitting up in chair, table and call light within reach, chair alarm on.
--- NOTE | 2020-02-23 13:40 | NUR ---
Spoke to pts MD Esteban and respiratory medicine physician Becky, about pts concerns for her glucose levels and her home medication not being given here. and charge confirm all the things mentioned to pt before in pt education.
--- NOTE | 2020-02-23 13:40 | NUR ---
PATIENT TOLERATING JEVITY 1.2 CONTINUOUS FEED AT 40 ML/HR. SPOKE WITH DR. SHIPMAN ABOUT INCREASING RATE TO 50 ML/HR AND SHE SAID TO HOLD OFF ON DOING SO. PATIENT IS STILL AT RISK FOR REFEEDING AND SHE DOESN'T WANT TO COMPLICATE HIS MEDICAL SITUATION. GLUCOSE WAS 112 THIS MORNING. NA+ WNL NOW AT 134. K+ WNL. NO MAGNESIUM LEVEL TODAY. JEVITY 1.2 AT 40 ML/HR PROVIDING 1,152 CALORIES, 53 GRAMS PROTEIN, AND 775 ML FREE WATER. GOAL RATE USING JEVITY 1.2 IS 70 ML/HR FOR 2,016 CALORIES, 93 GRAMS PROTEIN, AND 1,355 ML FREE WATER. WILL WAIT AND SEE WHAT PATIENT'S DISCHARGE PLANS ARE AND MAKE A PLAN FOR NUTRITION ACCORDINGLY.
--- NOTE | 2020-02-23 13:53 | NUR ---
AFTERNOON ASSESSMENT DUE. PT FOUND UP IN ROOM WITH LINES STRETCHED OUT. PT REPORTS HE WANTS TO "LEAVE RIGHT NOW" AND THAT HE WANTS TO USE THE RESTROOM. 1 PERSON ASSIST UP TO RESTROOM. PT VOIDS WITHOUT ISSUE. PT ASSISTED BACK TO CHAIR BY CLIFF CLEMENT. PT COTINUES TO BE VERY AGITATED. MD CONSULTED REGARDING PTS PLAN OF CARE. MD STATES TO GIVE PRN MEDICATION TO HELP PT CALM AND IF PT DOES LEAVE WANT TO LEAVE AMA TO CALL [facility] FOR ASSISTANCE WITH PLAN OF CARE. PT RPEORTS 8/10 PAIN. PRN ATAVAN AND OXYCODONE GIVEN THROUGH G-TUBE, G-TUBE FLUSHED WITH 50ML TAP WATER. PT REFUESE KETORALAC. ASSESSMENT DONE. DRESSING TO LEFT AXILLA C/D/I AT THIS TIME. PT PULLING HAIR OUT OF BACK OF SCALP AT OLD ABRASION SITE. CAR REPAIRMAN, LIANA, TO BEDSIDE. THERAPUTIC COMMUNICATION DONE WITH PT. PT CONTINUES TO STATE HE WOULD LIKE TO LEAVE AMA. LIANA CALLING [facility]. PT STANDING IN ROOM AND PACING FROM TIME TO TIME. THIS RN AT BEDSIDE. CHARGE NURSE UPDATED.
--- NOTE | 2020-02-23 14:06 | NUR ---
Spoke with Ant, he is upset and has become agitated. States he is going home and wants his discharge papers. Lisa is attempting to calm patient. Dr Esteabn requests [facility] to be called to evaluate patient for a hold. Called the Crisis team and they can be here in 20 to 30 min.
--- NOTE | 2020-02-23 14:36 | NUR ---
Call from Naomi at [facility]. She is attempting to contact Julien Albarado to speak with Ant and determine if he needs a medical hold. She will call be back.
--- NOTE | 2020-02-23 14:50 | NUR ---
Call from Brea Arroyo, she had spoken with Naomi. Updated she was attempting to contact [facility]. They will all me back.
--- NOTE | 2020-02-23 15:08 | NUR ---
THIS RN TO ROOM TO CHECK ON PT. MEDICATION DUE. PT REPORTS 4/10 PAIN AND DENIES NAUSEA. PT EATING POPSICLES AND SODA AND SPITTING IT OUT INTO A BAG. PT CONTINUES TO STATE HE WANTS TO "LEAVE TODAY." EDUCATION DONE WITH PT REGARDING HIS OPTIONS. PT CONTINUES TO WAIT IN CHAIR. VITALS TAKEN. DR. SHIPMAN STATES OK TO GIVE CLONIPINE WITH CURRENT BLOOD PRESSURE. MEDICATION GIVEN (SEE MAR). PT NOW REPORTS 6/10 ACHING PAIN IN LEFT JAW AND AGREES TO TORADOL (SEE MAR). NO ADDITIONAL REQUESTS OR COMPLAINTS AT THIS TIME. CALL LIGHT WITHIN REACH. [employer] HAS YET TO ARRIVE FOR CONSULTATION. PT EASILY VIEWED FROM NURSES STATION.
--- NOTE | 2020-02-23 15:34 | NUR ---
TILA FROM [facility] ARRIVED. TILA UPDATED ON PTS WISHES, PLAN OF CARE AND SITUATION. TILA TO BEDSIDE FOR PT EVALUATION. PT UP TO CHAIR TALKING WITH TILA. CALL LIGHT WITHIN REACH.
--- NOTE | 2020-02-23 15:40 | NUR ---
Spoke with Brea Martinez, she and Naomi have discussed. They have requested Oswald Bernard continuous pillowcase cutter from [facility] to come to the hospital to speak with him. He is here now.+
--- NOTE | 2020-02-23 15:50 | NUR ---
Received call from Naomi from [facility]. She has spoken with Julien Albarado and they are unable to put pt on a hold. She was also notified, no [facility] staff will assist him to leave. If pt goes AMA he will be on his own. Marco Antonio is speaking with Ant at this time. 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 To room and spoke with Marco Antonio and Ant. Ant has changed his mind about leaving. Plans on staying for placement. Ant has called his sister and requested she bring his home meds, informed home meds are not allowed. Marco Antonio states he has just discussed this with Ant. Marco Antonio states he will call tomorrow around 10, he will come sit with Ant if needed.
--- NOTE | 2020-02-23 16:19 | NUR ---
PT CALL LIGHT ON X3 WITH PT ASKING FOR DISCHARGE PAPERWORK SO HE CAN LEAVE. EACH TIME THIS RN REVIEWS WITH PT THAT THE DOCTOR DOES NOT FEEL HE IS SAFE FOR DISCHARGE AND WOULD LIKE HIM TO STAY AT THE HOSPITAL. PT CONTINUES TO STATE HE WANTS TO LEAVE "NO MATTER WHAT." OPTIONS REVEIWED WITH PT. PT APPERS CONFUSED STATING "ALL YOU DO IS DRUG ME HERE WITH THOSE THINGS FOR PAIN AND I'M LOOPY." AND ALSO STATING "YOU DON'T GIVE ME ANYTHING TO HELP MY PAIN. I LAY HERE ALL NIGHT IN SO MUCH PAIN." PT STATES "I CAN GO HOME AND DO ALL THIS STUFF YOU ARE DOING FOR ME BY MYSELF." TREATMENTS AND THE NECESSITY OF MEDICAL CARE REVIEWED WITH PT. UPDATED ON PT SITUATION. PT CONTINUES VISITING WITH TILA FROM [facility]. CALL LIGHT WITHIN REACH.
--- NOTE | 2020-02-23 16:30 | NUR ---
PT CALL LIGHT ON. PT NOW STATES HE IS WILLING TO STAY ONE MORE NIGHT. PT HAS MADE PLAN WITH TILA TO HELP HIM FEEL BETTER ABOUT STAYING. PT REPORTS 4/10 PAIN AT THIS TIME AND REQUESTS, BROTH, PUDDING AND APPLE SAUCE FOR SWISH AND SPIT FLAVORS. FOOD ITEMS PROVIDED. CASE MANAGEMENT TO BEDSIDE TO CONTINUE TALKING WITH PT. NO ADDITIONAL REQUESTS OR COMPLAINTS AT THIS TIME. CALL LIGHT WITHIN REACH. TILA ([facility]) AND LIANA ([facility]) REMAIN AT BEDSIDE.
--- NOTE | 2020-02-23 16:55 | NUR ---
TILA FROM [facility] LEAVING FACILITY. PT AGREES TO STAY ANOTHER NIGHT. PT REQUESTS ADDITIONAL PAIN MEDICATION FOR 6/10 PAIN. CONSULTED AND STATES TO CHANGE OXYCODONE MEDICATION TO Q2 HOUR PRN. ORDER CHANGED. MEDICAITON GIVEN (SEE MAR) THROUGH G-TUBE. LINE FLUSHED WIHT 50ML TAP WATER. PT DOING SWISH AND SPIT WITH BROTH AND APPLE CIDER. PT BACK TO BED. WARM BLANKETS PROVIDED. PT RESTING IN BED WITH EYES CLOSED. BED RAILS UP. BED ALARM ON. CALL LIGHT WITHIN REACH.
--- NOTE | 2020-02-23 17:16 | NUR ---
PT HERE FOR ACUTE PAROTITIS. STAND BY ASSIST FOR TUBE MANAGMENT. KANGAROO PUMP TUBING CHANGED THIS SHIFT WITH TUBE FEEDING CONTINUING AT 40ML/HR. PT DECLINES ADDITION OF NICOTENE SUPPLIEMENTS TO HIS EMAR THIS SHFIT. PT AGITATED THIS SHIFT. PRN MEDICATIONS GIVEN FOR AGITATION AND [facility] TO BEDSIDE FOR CONSULTATION. PT AGREES TO STAY ONE MORE NIGHT AND PT HAS MADE PLAN WITH CASE MANAGEMENT AND [facility] FOR FURTHER CARE. DRESSING CHANGED TO AXILLARY ABCESS. GAUZE PLACED UNDER G-TUBE FOR SKIN PROTECTION. CLONIDINE GIVEN PER MD ORDER, SBP REMAINS IN THE 90'S, MD AWARE. MD STATES PT IS ONLY TO HAVE LIQUIDS FOR SWISH AND SPIT TASTING. PT TOLERATING SWISH AND SPIT DIET THIS SHIFT. MEDICATIONS GIVEN THROUGH G-TUBE. RESIDUAL CHECKS LESS THAN 20ML/CHECK. PT VOIDING QUANTITY SUFFICENT. PT USES CALL LIGHT INCONSISTANTLY.
--- NOTE | 2020-02-23 17:37 | NUR ---
PT SISTER, SORAYA, AT BEDSIDE VISITING WITH PTJoe LIRA UPDATED ON PTS PLAN OF CARE AND STATES SHE HAS ALREADY CLEANED OUT PTS HOTEL ROOM. TELMA STATES HER QUESTIONS HAVE BEEN ANSWERED AND SHE HAS NO ADDITIONAL CONCERNS AT THIS TIME. PT DROWSY AT THIS TIME, AWAKENS TO VOICE AND REPORTS 5/10 PAIN IN LEFT JAW. NO ADDITIONAL REQUESTS OR CONCERNS. CALL LIGHT WITHIN REACH. BED RAILS UP. PTS SISTER REMAINS AT BEDSIDE.
--- NOTE | 2020-02-23 18:12 | NUR ---
THIS RN TO ROOM TO CHECK ON PT. PT RESTING WITH EYES CLOSED, RR = 16. BED RAILS UP. CALL LIGHT WITHIN REACH. PT ALLOWED TO REST.
--- NOTE | 2020-02-23 18:26 | NUR ---
PATIENT IN BED RESTING WITH EYES CLOSED. BLOOD PRESSURE TAKEN TWICE ON MACHINE AND BOTH LOW, THEN RETAKEN MANUALLY AND STILL LOW, RN NOTIFIED. CALL LIGHT IN REACH. NO FURTHER NEEDS AT THIS TIME.
--- NOTE | 2020-02-23 18:50 | NUR ---
NOTIFIED OF PTS BLOOD PRESSURE. NO NEW ORDERS AT THIS TIME. THIS RN TO ROOM TO CHECK ON PT. PT RESTING IN BED WITH EYES CLOSED. AWAKENS TO MOVEMENT IN ROOM. PT REPORTS 4/10 PAIN AT THIS TIME AND STATES HE FEELS "TIRED." NO ADDITONAL REQUESTS OR COMPLAINTS. CALL LIGHT WITHIN REACH. BED RAILS UP. PT ALLOWED TO REST.
--- NOTE | 2020-02-23 20:01 | NUR ---
BEDSIDE REPORT RECEIVED FROM RNS URBANO AND GLORIA. pt RESTING IN BED WITH EYES CLOSED. IVF INFUSING ORDERED, TUBE FEEDING AT 40 ML/HR. CALL LIGHT IN REACH.
--- NOTE | 2020-02-23 20:43 | NUR ---
pt DROWSY, AWAKE IN BED WITH URINAL. UP INDEPENDENTLY FOR 400 ML VOID AND BACK IN BED. ASSESSMENT COMPLETE. GAUZE CDI UNDER LEFT ARMPIT. pt RATES PAIN 9/10 "REALLY HIGH" IN JAW, ABDOMEN. PRN PAIN MEDICATION ADMINISTERED. JEVITY INFUSING T TUBE WNL, NO RESIDUAL NOTED. IV SITES FLUSHED, IV ANTIBIOTIC INFUSING RIGHT FOREARM WNL, SITE WITH GOOD BLOOD RETURN. LEFT FOREARM IV SL. pt HAS CALL LIGHT IN LAP NO REQUESTS AT THIS TIME. LIGHTS OFF IN ROOM.
--- NOTE | 2020-02-23 22:43 | NUR ---
CHECKED ON pt. RESTING IN BED WITH EYES CLOSED, BREATHING EQUAL AND UNLABORED. IVF AND TUBE FEEDING INFUSING ORDERED. LIGHTS OFF IN ROOM.
--- NOTE | 2020-02-24 02:22 | NUR ---
IN pt ROOM FOR SCHEDULED G TUBE FLUSH. pt AWAKENS TO VOICE. RATES PAIN 7/10 IN JAW, ABDOMEN. PRN MEDICATIONS ADMINISTERED IV AND PER TUBE. SBA TO RESTROOM FOR UNMEASURED VOID. URINAL ON BED SIDE TABLE EMPTIED. pt BACK IN BED, TUBE FLUSHED WNL. IVF INFUSING ORDERED. TUBE FEEDING INFUSING. CALL LIGHT IN REACH. WARM BLANKETS PROVIDED.
--- NOTE | 2020-02-24 03:53 | NUR ---
ROUNDED ON pt. RESTING IN BED WITH EYES CLOSED, BREATHING UNLABORED. NEW BAG IVF INFUSING WNL ORDERED.
--- NOTE | 2020-02-24 04:58 | NUR ---
pt RESTED WELL THIS SHIFT. VOIDING QS IN URINAL. TUBE FEEDING AT 40 ML/HR TO G TUBE, NO RESIDUALS NOTED. FLUSHED ORDERED WNL. IVF INFUSING WNL ORDERED. pt USING CALL LIGHT APPROPRIATELY. ALERT, ORIENTED, COOPERATIVE WITH CARES. HYPOTENSIVE. PRN PAIN MEDICATION ADMINISTERED THROUGHOUT SHIFT. NO REPORTS OF NAUSEA THIS SHIFT.
--- NOTE | 2020-02-24 06:19 | NUR ---
CALL LIGHT ANSWERED. SBA TO RESTROOM FOR UNMEASURED VOID AND BACK TO BED. pt C/O NAUSEA, PRN MEDICATION ADMINISTERED. pt RATES PAIN 6-7/10, PRN PAIN MEDICATION ADMINISTERED. NO RESIDUAL NOTED, GTUBE FLUSHED. IVF INFUSING WNL ORDERED. pt REQUESTING POPSICLE AND BROWNIE, PROVIDED TO pt. CALL LIGHT IN REACH.
--- NOTE | 2020-02-24 08:00 | NUR ---
Called Margarita from [facility], she waiting to hear from their RN if they can take Ant. Questions about mobility. Questions answered and she will call me back.
--- NOTE | 2020-02-24 08:30 | NUR ---
PT IS ALERT SITTING UP IN BED, EATING BREAKFAST AND SPITTING INTO EMESIS BAG, STATES IT JUST FEELS GOOD TO EAT AND HAVE TASTE. IN GOOD SPIRITS. TOLERATING TF WELL, STATES HE IS COMFORTABLE. LUNGS CLEAR, GOOD BS. VOIDING QS. USING CALL LIGHT APPROP.
--- NOTE | 2020-02-24 09:10 | NUR ---
Call from [facility], they are declining [facility]. Called Megan from [facility]. Their RN is gone today and they cannot accept this patient until she reviews the chart. They will call tomorrow. Chart faxed to T with updated notes and spoke with [facility]. She will review and let me know if they can accept this pt.
--- NOTE | 2020-02-24 10:30 | NUR ---
PATIENT AWAKE IN BED. PARENTS IN TO VISIT. VITALS AND I&OS CHARTED.CALL LIGHT IN REACH, NOOTHER NEEDS ATT HIS TIME
--- NOTE | 2020-02-24 11:20 | NUR ---
In and spoke with Ant. Updated I am awaiting phone calls [facility] He would like to go to as his sister lives there and his father lives in [place]. Again discussed hospice and comfort care. Pt is agreement with hospice and comfort care. I will cont. to search for placement.
--- NOTE | 2020-02-24 11:29 | NUR ---
PT C/O BEING UNCOMFORTABLE NECK AND JAW ACHING, OXYCODONE GIVEN, TORADOL GIVEN, REPOSITIONED FOR COMFORT, WATCHING A MOVIE. CONT. TO USE EAT FOR ENJOYMENT BUT SPITTING EVERYTHING UP. PT DOING BETTER WITH SMALL BITES AND LESS VOLUME.
--- NOTE | 2020-02-24 11:30 | NUR ---
PATIENT CALLED FOR LUNCH ORDER. 1PA TO BR WELL, 2 PILLOWS UNDER BUTTOCKS FOR CUSHION. CALL LIGHTIN REACH
--- NOTE | 2020-02-24 12:45 | NUR ---
CAll from [facility]. She has exhausted facilities for placement. She states there are 0 open mental health beds in the state. Informed I will cont. to make calls. Ant is eduardo greement for placement to an SNF. Asked if there is a possibility he can live with family, they have already approached. Father is elderly and due to pt's psych issues and meth use, daughter will not allow him to live in her home.
--- NOTE | 2020-02-24 13:19 | NUR ---
PT REMAINS IN GOOD SPIRITS, WATCHING MOVIE ON TV, CONT. TO EAT FOOD AND SPIT INTO EMESIS BAG FOR COMFORT. NO RESP DIFFICULTY. DENIES PAIN AT THIS TIME.
--- NOTE | 2020-02-24 14:17 | NUR ---
PATIENT SITTING UP IN BED EATING LUNCH. VERY PLEASANT TODAY, HAPPY TO BE EATING. CALL LIGHT WITHIN REACH
--- NOTE | 2020-02-24 14:29 | NUR ---
Notified by Lidia at [facility]. They are unable to accept Ant.
--- NOTE | 2020-02-24 14:56 | NUR ---
PT IS SLEEPING, RESP EVEN AND UNLABORED, TF, IVF INFUSING. CALL LIGHT IN EASY REACH.
--- NOTE | 2020-02-24 15:59 | NUR ---
PT AWAKE, AGREED TO WORK WITH PT, AMBULATED IN HALLS AND WORKED ON EQUIPMENT IN PT ROOM, STATES HE FEELS STRONGER TODAY. REMAINS IN GOOD SPIRITS, CONT. TO CHEW ON SNACKS IN ROOM BUT SPITS BACK OUT INTO EMESIS BAGS. TF AND IVF PATENT. TOLERATING FLUSHES WELL, GOOD URINE OUTPUT. USING CALL LIGHT APPROP.
--- NOTE | 2020-02-24 16:39 | NUR ---
Received names of ALFs in [place] and attempted to call [facility] disconnected, [facility] no beds, [facility] disconnected, [facility] is in [place] and [place] Medicaid will not pay out of state. Will cont. tomorrow.
--- NOTE | 2020-02-24 17:34 | NUR ---
patient moved to new room, sitting up in bed eating dinner, no other needs at this time
--- NOTE | 2020-02-24 17:46 | NUR ---
GT- < 10ML RESIDUAL, GT-FLUSHED EASILY, PT C/O HURTING AFTER WORKING WITH PT, OXYCODONE GIVEN VIA GT. PT SITTING UP WATCHING MOVIE, PICKING AT DINNER TRAY.
--- NOTE | 2020-02-24 18:09 | NUR ---
PATIENT HAS ORDERED LARGE AMOUNTS OF FOOD FOR EACH MEAL TODAY. PATIENT IS GETTING NO NUTRITION FROM THE SOLID FOOD, HE EITHER CHEWS AND SPITS IT OUT OR SWALLOWS AND IT COMES RIGHT BACK UP. RECREATIONAL DIET PER AVEYR CORONADO.
--- NOTE | 2020-02-24 18:18 | NUR ---
ENCOURAGED PT TO CHEW AND SPIT FOODS FOR COMFORT, HE IS DOING MUCH BETTER WITH SMALL VOUMES, BUT HAS BEEN MAKING BIZZARE STATEMENTS, WANTS ARM CUT OPEN FOR BLOOD TRANSFUSION. REPORTED TO CHARGE NURSE AND WILL GIVE ATIVAN.
--- NOTE | 2020-02-24 18:28 | NUR ---
PT HAS CONT. TO BECOME MORE AGITATED AND ANGRY, REFUSING ATIVAN, DEMANDING SOME ALCOHOL AND CIGARETTES. KEEPS CURSING AND SAYING NO ONE CARES HE HAS LOST HIS SOLE, APPEARS PT HAS GOTTEN UPSET WITH INCREASING AGITATION SINCE MOVING FROM ROOM 111 TO 110. PT AGREED TO ROOM CHANGE TO ALLOW FLOOR WAXING TONIGHT. WILL MONITOR CLOSELY AND REASSURE HIM HE IS OK.
--- NOTE | 2020-02-24 18:40 | NUR ---
SHORTLY AFTER MOVING PATIENT TO NEW ROOM AND AFTER DINNER, HE HAS BEEN GETTING MORE AND MORE AGITATED. MAKING BIZARRE COMMENTS-STATING HE HAS BEEN TREATED HORRIBLY BY "YOU PEOPLE" "PEOPLE ALWAYS GRABBING THE WRONGS THINGS, AND MESSING CRAP UP" ASKING FOR HIS EYES TO BE CUT OUT, BECAUSE HE'S "OBVIOUSLY SEEING THINGS." CLIFF VARELA NOTIFIED.
--- NOTE | 2020-02-24 19:10 | NUR ---
SHIFT REPORT RECEIVEDF NORBERT SHORT RN AVERY AT BEDSIDE. PT AWAKE AND RESTING IN BED, HOB ELEVATED. NO DISTRESS NOTED, PT RECENTLY COMBATIVE AND YELLING AT SKI MAKER PER SHIFT REPORT. WILL MONITOR. CALL LIGHT IN REACH.
--- NOTE | 2020-02-24 20:45 | NUR ---
CAME IN TO TAKE PT VITALS, PT RELUCTANT AT FIRST THEN AGREEDED, RN CAME TO FOR ASSESSMENT, PT BROSWING ON IPAD FOR CALMING MUSIC TO LISTEN TO, NO FURTHER REQUESTS FOR ME AT THIS TIME
--- NOTE | 2020-02-24 21:15 | NUR ---
ASSESSMENT COMPLETE, SCHEDULED MEDS GIVEN (SEE EMAR). PT AGITATED WITH CARE PLAN, AND REPEATEDLY SWEARS REGARDING PROVIDED CARE. NOT YET PHYSICALLY COMBATIVE, BUT OBVIOUS SIGNS OF AGITATION NOTED. PRN ANXIETY MED GIVEN (SEE EMAR). G-TUBE PATENT AND FLUSHES EASILY, FEEDING INFUSING PER MD ORDERS. IV SITES X2 WNL, FLUIDS INFUSING PER MD ORDERS. BED ALARM ON, CALL LIGHT IN REACH.
--- NOTE | 2020-02-24 23:24 | NUR ---
PT APPEARS MORE RELAXED AT THIS TIME, RESTING WITH EYES CLOSED. RR EVEN AND UNLABORED. BED ALARM REMAINS ON FOR SAFETY. CALL LIGHT IN REACH AND IN VIEW OF RN STATION.
--- NOTE | 2020-02-24 23:59 | NUR ---
BED ALARM SOUNDED PT WAS TRYING TO SIT UP AND USE URINAL. HE VOIDED 500MLS AND IS NOW SITTING AT THE EDGE OF THE BED. HE DENIES NEEDS. CALL LIGHT IS CLOSE.
--- NOTE | 2020-02-25 00:23 | NUR ---
PT RESTING IN BED, ALARM ON. CALL LIGHT IN REACH. IV FLUIDS INFUSING, SITE WNL. CALL LIGHT IN REACH.
--- NOTE | 2020-02-25 02:10 | NUR ---
ASSESSMENT COMPLETE, PT RESTLESS IN BED. REPORTS PAIN, DEN BUT DOES NOT RATE. GRIMACING NOTED, BEFORE RETURNING TO SLEEP. RR EVEN AND UNLABORED, PRN OXYCODONE GIVEN VIA G-TUBE. NUTRITION INFUSING PER MD ORDERS, PATENT AND FLUSHED PER MD ORDERS. IV FLUIDS INFUSING, SITE WNL. ROOM TIDED AND BOARD UPDATED. CALL LIGHT IN REACH AND BED ALARM ON.
--- NOTE | 2020-02-25 04:00 | NUR ---
pt resting in bed with eyes closed, rr even and unlabored. no distress noted, bed alarm on. fluids and g-tube nutrition infusing per md orders. call light in reach.
--- NOTE | 2020-02-25 06:58 | NUR ---
scheduled po abx crushed (okay per telepharmacy), g-tube flushed per md orders. patent. new bag iv fluids hung and infusing at 65mls/hr, site wnl. call light in reach and bed alarm on.
--- NOTE | 2020-02-25 07:29 | NUR ---
REPORT RECIEVED FROM HOUSEKEEPER SUPERVISOR NURSE ANGUS.
--- NOTE | 2020-02-25 07:44 | NUR ---
Called and left message with [facility] as Brea Seo stated she or someone at [facility] had discussed TC at [facility] with the hospital. She is not sure if any progress was made. I left a message and asked for return call from their Transitional Care Team.
--- NOTE | 2020-02-25 07:57 | NUR ---
PATIENT RESTING IN BED, TUBE FEEDING RESTARTED. PATIENT IS LOOKING AT MENU TO ORDER SOMETHING FOR BREAKFAST, DENIES OTHER NEEDS AT THIS TIME.
--- NOTE | 2020-02-25 09:00 | NUR ---
Called and spoke with Kmi from [facility] in [place]. UPdated to [facility] case, she will check if they can take a pt with a feeding tube. Thinks they may be able to do so if Hospice or HH are in with the patient. Chart faxed. Awaiting call from [facility] to see if they would be willing to take Ant.
--- NOTE | 2020-02-25 09:48 | NUR ---
PATIENT GIVEN MORNING MEDICATIONS. 5MG OXY PER G-TUBE FOR 6/10 PAIN. G-TUBE FLUSHED WITH 200ML TAP WATER, PATENT. PATIENT IS EATING BREAKFAST, VOMITING IT BACK UP TO EMESIS BASIN, 4MG IV ZOFRAN GIVEN.
--- NOTE | 2020-02-25 10:03 | NUR ---
PATIENT FEEDING TUBE BAG AND LINE CHANGED.
--- NOTE | 2020-02-25 10:22 | NUR ---
PATIENT UP TO SHOWER.
--- NOTE | 2020-02-25 10:45 | NUR ---
Spoke with Ant, he has just showered. States he is tired and is resting in bed. He is wanting to know if he will be able to take Chemo treatments. Discussed he has be sick and he would need to go to his oncologist and discuss. I asked how he feels about having cancer. He states he doesn't as this has been made up by the . He feels this is a made up story to keep him in the hospital. Reassured that is not true, but he has the right to think what he wants. He states he was very depressed yesterday, but is better today. Wants to know if [facility] accepted him. UPdated the Director of nurses has not reviewed his charte as she has been gone, but is returning today. I will call this afternoon, if I have not heard from them.
--- NOTE | 2020-02-25 11:10 | NUR ---
PATIENT DONE WITH SHOWER. PHYSICAL THERAPY IN TO WORK WITH PATIENT.
--- NOTE | 2020-02-25 13:08 | NUR ---
PATIENT SLEEPING IN BED WITH REGULAR RESPIRATIONS.
--- NOTE | 2020-02-25 13:12 | NUR ---
JUST SPOKE TO DR. ADAMS ABOUT A PLAN FOR [facility]. PLAN IS TO SWITCH HIM TO BOLUS FEEDING. JEVITY 1.5 FORMULA, 5 CARTONS A DAY FOR TOTAL VOLUME OF 1200 ML OF FORMULA. A GOOD SCHEDULE WILL BE BOLUS 1 CARTON EVERY 3 HOURS SUCH AT 0700, 1000, 1300, 1600, AND 1700. HE WILL GET 912 ML WATER FROM THE FORMULA. DR. ADAMS MENTIONED 150 ML WATER FLUSH AFTER EACH FEEDING WHICH WILL GIVE HIM ANOTHER 750 ML OF WATER. THIS WILL PROVIDE 1800 CALORIES, 76 GM PROTEIN, AND 1662 ML WATER (33 BERTHA/KG, 1.4 GM PROTEIN/KG). PATIENT IS STILL EATING FOOD FOR TASTE THEN SPITTING IT OUT. NO NEW LABS SINCE 02/23/20. PATIENT WAS TOLERATING THE CONTINUOUS FEEDING AT 40 ML/HR WELL WITH LITTLE TO NO RESIDUALS. WILL CONTINUE TO MONITOR.
--- NOTE | 2020-02-25 13:53 | NUR ---
PATIENT G-TUBE FLUSHED WITH 150CC TAP WATER. BOLUS FEEDING STOPPED, PLAN TO GIVE ONE CAN PLUS 150CC FLUSH AT 1600. PATIENT ENDORSES FEELING CONSTIPATED, WILL DISCUSS THIS WITH DR. ADAMS.
--- NOTE | 2020-02-25 14:18 | NUR ---
PATIENT SITTING UP IN BED TO EAT LUNCH, DENIES OTHER NEEDS AT THIS TIME. G-TUBE IS PLUGGED.
--- NOTE | 2020-02-25 15:17 | NUR ---
Call from Brea Seo, she has spoken with [facility]. She requests a chart be sent. Chart faxed.
--- NOTE | 2020-02-25 15:18 | NUR ---
Attempted to call [facility]. Unable to reach, message left.
--- NOTE | 2020-02-25 15:46 | NUR ---
PATIENT RESTING IN BED, [facility] HOOKER OFF IN TO SEE PATIENT. PATIENT TOLERATED JEVITY BOLUS FOLLOWED BY 200ML TAPWATER FLUSH. PATIENT GIVEN 5MG OXYCODONE PER G-TUBE FOR 8/10 LEFT JAW PAIN.
--- NOTE | 2020-02-25 16:00 | NUR ---
Call from Brea Seo, she has called trying to find placement. [facility] confirmed they had open beds and requested a Chart. I faxed [facility] chart and called and spoke with Wendy. They will let us know tomrrow if they can accept Ant. Awaiting call from [facility], [facility], and [facility] for placement.
--- NOTE | 2020-02-25 17:53 | NUR ---
PATIENT IS RESTING IN BED FOR AN HOUR BEFORE THE NEXT FEEDING AT 1900.
--- NOTE | 2020-02-25 19:00 | NUR ---
SHIFT REPORT RECEIVED FROM DAYSHIFT CLIFF TABARES AT BEDSIDE. PT AWAKE AND RESTING IN BED, CHEWING ON FOOD FROM DINNER AND SPITTING IT INTO EMESIS BAG. NO NEEDS VERBALIZED AT THIS TIME. CALL LIGHT IN REACH.
--- NOTE | 2020-02-25 19:30 | NUR ---
PT CALLED, C\O ACHE ALL OVER, SORENESS, RN NOTIFIED, TOOK VITALS, I&OS IN, BP WAS LOW, RN WILL HAVE IT CHECKED ONCE PT GOT UP, NO FURTHER REQEUST AT THIS TIME
--- NOTE | 2020-02-25 20:30 | NUR ---
ASSESSMENT COMPLETE, 1900 BOLUS FEEDING ALSO DONE ALSO WITH SCHEDULED MEDS AND 150MLS FLUSH (SEE EMAR). NO ISSUES NOTED, ASPIRATIONS PRECAUTIONS IN PLACE. PT RESERVED, BUT COMPLIANT. IV SITE TO RIGHT FOREARM DUE TO BE CHANGED, SITE DISCONTINUED (CATHETER TIP INTACT). IV SITE TO LEFT FOREARM WNL, FLUSHES EASILY. PRN PAIN MEDICATION ALSO GIVEN FOR 9/10 PAIN. BED ALARM ON, CALL LIGHT IN REACH.
--- NOTE | 2020-02-25 22:35 | NUR ---
PT RESTING IN BED WITH EYES CLOSED. RR EVEN AND UNLABORED, NO DISTRESS NOTED. CALL LIGHT IN REACH AND BED ALARM ON.
--- NOTE | 2020-02-26 00:47 | NUR ---
PT RESTING IN BED WITH EYES CLOSED. RESPIRATIONS EVEN AND UNLABORED, NO DISTRESS OR SIGNS OF PAIN NOTED. APPEARS RELAXED AND COMFORTABLE. CALL LIGHT IN REACH AND BED ALARM ON.
--- NOTE | 2020-02-26 01:35 | NUR ---
BED ALARM GOING OFF, PT UP TO VOID. UNMEASURED VOID X1 NOTED, PT REPORTING GENERALIZED 10/10 PAIN THROUGHOUT HIS TORSO, PRN OXY GIVEN (SEE EMAR). G-TUBE PATENT AND FLUSHED PER MD ORDERS. ASSESSMENT COMPLETE, NO NEW CONCERNS. CALL LIGHT IN REACH AND BED ALARM ON.
--- NOTE | 2020-02-26 03:28 | NUR ---
PT RESTING IN BED WITH EYES CLOSED. RR EVEN AND UNLABORED, NO DISTRESS NOTED. CALL LIGHT IN REACH. BED ALARM ON.
--- NOTE | 2020-02-26 04:10 | NUR ---
PT RESTING IN BED, EYES ARE CLOSED. RESPIRATIONS REMAIN EVEN AND UNLABORED, NO DISTRESS NOTED. CALL LIGHT IN REACH AND BED ALARM ON.
--- NOTE | 2020-02-26 06:19 | NUR ---
am meds given along with prn oxy (see emar). per bill from [facility] to give levaquin and oxycodone together. 0700 scheduled feeding and flush completed per md orders, g-tube patent. pt denies nausea, aspiration precautions remain in place. vss and i&o's complete. call light in reach.
--- NOTE | 2020-02-26 07:35 | NUR ---
BEDSIDE HANDOFF REPORT RECEIVED FROM WINE MERCHANT RN. PT SLEEPING, LEFT UNDISTURBED.
--- NOTE | 2020-02-26 09:09 | NUR ---
CALLED [facility] [phone] AND LEFT MESSAGE FOR [facility] IN BUSINESS OFFICE TO ASK IF THEY CAN ACCEPT. ALSO THAT HE IS READY FOR DISCHARGE AND WE NEED ANSWER THIS MORNING IF POSSIBLE.
--- NOTE | 2020-02-26 09:32 | NUR ---
SPOKE WITH EDEL FROM [facility] IN [place]. SHE STATES THEY TRIED TO TAKE IT UP THE CHAIN TO SEE IF THEY COULD ACCOMODATE PATIENT, BUT THEY HAVE POLICIES THAT THEY DO NOT TAKE PATIENTS WITH FEEDING TUBES. THEY WILL HAVE TO DECLINE.
--- NOTE | 2020-02-26 09:39 | NUR ---
[facility] [phone]. THEY STATE THAT MARIA ISABEL IS THE PERSON NEEDED TO SPEAK TO AND SHE IS IN MEETING. THEY ASK FOR A CALL BACK IN ABOUT AN HOUR.
--- NOTE | 2020-02-26 09:45 | NUR ---
PT RESTING IN BED. PT ON ROOM AIR, LUNG SOUNDS CLEAR, DENIES SOB. PT WITH FREQUENT SPITTING UP/ EMESIS, DENIES NAUSEA. PT ASSISTED TO ORDER BREAKFAST. BOWEL TONES ACTIVE, G TUBE WITH 10ML OF RESIDUAL GASTRIC CONTENT, ABX GIVEN PER TUBE, TUBE FEED OF 355 ML OF JEVITY 1.5 AND 150ML OF FREE WATER GIVEN. MS INTACT, WITHOUT EDEAM. PT CONITNUES TO HAVE SWELLING TO LEFT JAW, IMPROVING. PT DENIES OTHER NEEDS AT THIS TIME.
--- NOTE | 2020-02-26 10:13 | NUR ---
Pt states his abd/back have pain rated at a 7/10 and he was medicated as ordered.
--- NOTE | 2020-02-26 11:00 | NUR ---
RECEIVED PHONE MESSAGE FROM [facility], JOSE. SHE STATED NURSING HAS NOT REVIEWED CHART. THEY HAVE NO OPENINGS AT THIS TIME. SHE STATES POSSIBLE OPENINGS SATURDAY, TO CALL BACK THEN. CALLED [facility] TWICE AND FINALLY GOT MARIA ISABEL WHO STATES THEY REVIEWED CHART AND DO NOT THINK THEY CAN PROVIDE SAFE CARE FOR PATIENT DUE TO HIS PULLING ON G TUBE. THEY WILL DECLINE.
--- NOTE | 2020-02-26 11:24 | NUR ---
SPOKE WITH ANALI STARK [facility] COORDINATOR. DISCUSSED THAT WE STILL HAVE NOT FOUND PLACEMENT. DISCUSSED WITH HER THAT PATIENT IS DISCHARGABLE MEDICALLY, BUT DR ADAMS FEELS HE IS NOT SAFE TO DISCHARGE TO STREET DUE TO TUBE FEEDING NEEDS, ETC. DISCUSSED I WILL CALL [facility] TO DISCUSS WITH THEM. SHE SUGGESTS CALLING DAVID PARHAM WHO IS LEAD RN COORDINATOR FOR [facility] AT [facility] [phone]. ANALI DISCUSSED THAT [facility] HAS NOT BEEN ABLE TO FIND PLACEMENT WITH THEIR REGULAR MENTAL HEALTH HOUSINGS DUE TO HIS MEDICAL NEEDS. WE WILL CONTINUE TO WORK WITH THEM AND [facility] ON OPTIONS FOR PATIENT. CALLED DAVID AT ABOVE NUMBER, MESSAGE LEFT FOR CALLBACK.
--- NOTE | 2020-02-26 12:39 | NUR ---
SPOKE WITH PATIENT IN ROOM FOR APPROXIMATELY 35 MINUTES. PATIENT HAD LUNCH TRAY, WAS TAKING BITES AND THEN SPITTING FOOD BACK OUT INTO EMISIS BAG. PATIENT REMEMBERS ME FROM SEEING HIM LAST IN ED A WEEK OR SO AGO. HE ASKED IF I HAD FOUND HIM A PLACE TO GO, SPECIFICALLY IF [facility] WAS TAKING HIM. DISCUSSED THAT I DID GET A CALL AND THEIR LONGTERM DOES NOT HAVE OPENINGS TODAY BUT WE CAN CALL BACK SATURDAY. PATIENT DID STATE HE WANTS TO GO TO [facility] BECAUSE HE HAS FAMILY OVER THERE. I DID REMIND HIM THAT SOME PLACES ARE NOT ALLOWING VISITORS ANYWAY DUE TO COVID, HE STATES "I KNOW". I DID LET HIM KNOW THAT I AM STILL LOOKING FOR SOME OTHER PLACES, THAT I WAS GIVEN A NAME OF A PLACE IN [place]. HE STATES "OK". WE TALKED ABOUT HOW HE WAS FEELING. HE STATES HE IS "VERY VERY WEAK". WE DISCUSSED WHAT HE WANTS GOING FORWARD. WE DISCUSSED TREATMENT VS. HOSPICE ISSUES. PATIENT HAS GOOD INSIGHT ON WHAT THE DIFFERENCE IS AND HOW HE FEELS. HE STATES HE KNOWS HE IS TOO WEAK FOR CHEMO AND HE ALSO STATES HE "IS DYING FROM CANCER". ASKED IF HE IS AFRAID OF , PATIENT STATES "NO BUT I AM AFRAID NO ONE WILL HELP ME". I EXPLAINED WE WILL FIND HIM A PLACE WHERE SOMEONE WILL HELP HIM. ASKED IF HE WOULD TAKE THE CHEMO IF HE GOT STRONGER AND HE STATES "MAYBE, BUT I DON'T THINK THAT WILL HAPPEN, I THINK THE CANCER IS GOING TO GET ME FIRST". I WENT OVER WHAT HOSPICE ENTAILS. HIS QUESTIONS WERE WHO WAS GOING TO ORDER THE MEDICATIONS AND CAN HE HAVE THE NURSE FROM [facility]. I EXPLAINED THE HOSPICE DOCTOR WOULD DO ALL HIS MEDS AND PROBABLY WOULD BE A DIFFERENT NURSE, BUT THAT [facility] DOES HAVE A HOSPICE PROGRAM. HE STATES HE WOULD LIKE THEM TO HELP HIM. I AGAIN DISCUSSED THAT I WILL KEEP LOOKING FOR A PLACE, BUT IF HE GOES ON HOSPICE IT MIGHT OPEN SOME OTHER OPTIONS OF WHO CAN TAKE HIM. HE ASKED ME TO COME BACK AND LET HIM KNOW IF I FIND SOMEWHERE. I EXPLAINED HE WILL BE HERE OVER THE WEEKEND FOR SURE. HE WAS RELIEVED TO KNOW THAT. STAFF AND DR ADAMS UPDATED.
--- NOTE | 2020-02-26 12:45 | NUR ---
DR. ADAMS TO BEDSIDE TO [facility] PT. PT WITH LEAKING FROM MAIN PORT OF GTUBE, NOW ABLE TO GET PROPER SEAL WITH CAP. RUBBER CAP FROM CLEAN URINE CATH LEG BAG USED TO OBTAIN SEAL. BED LINENS CHANGED. PT DENIES OTHER NEEDS AT THIS TIME.
--- NOTE | 2020-02-26 13:10 | NUR ---
SPOKE WITH MADONNA FROM [facility]. SHE STATES IT WOULDN'T BE A PROBLEM PROBABLY TO MOVE PATIENT TO HOSPICE. SHE SUGGESTED I TRY TWO OPTIONS FOR [facility] [phone] OR [facility] [phone]. CALLED BOTH PLACES, BOTH ARE FULL AT THIS TIME. CALLED [facility] TO CHECK FOR OPENINGS. THEY STILL DO NOT HAVE A BED FOR A MALE. CALLED [facility] AND LEFT MESSAGE FOR KIT REGARDING POSSIBLE ADMISSION AT DISCHARGE.
--- NOTE | 2020-02-26 13:51 | NUR ---
RESIDUE PER FEEDING TUBE MEASURED 5 ML. PT GIVEN HIS ORDERED TUBE FEEDING AND WATER ORDERED. PT STATES HIS BACK AND JAW PAIN IS A 7 BUT FELL TO SLEEP DURRING THIS ASSESSMENT, WILL CONTINUE TO MONITOR. LEFT JAW SWELLING IS MUCH LESS WHEN I SAW THE PT A FEW DAYS AGO. SEE ASSESSMENT FOR A FULL UPDATE. PT SLEEPING WITH THE HOB ELEVATED AND CALL LIGHT WITHIN REACH.
--- NOTE | 2020-02-26 15:08 | NUR ---
CALLED [facility] FOR [facility]. DISCUSSED THAT PATIENT WILL BE DISCHARGING ON HOSPICE, ASKED IF THEY MIGHT RECONSIDER PLACEMENT THERE IF HE HAD HOSPICE TO FOLLOW. SHE STATES THAT DOES CHANGE THINGS. SHE REQUESTED UPDATED NOTES FAXED TO HER AT [phone]. FAX CONFIRMATION RECEIVED AT 310PM.
--- NOTE | 2020-02-26 15:48 | NUR ---
Residule checked which is 20 ml. Tube feeding and water flush given as ordered. Pt now having a popcicle for comfort.
--- NOTE | 2020-02-26 16:00 | NUR ---
RECEIVED CALL FROM LOUIS AT [facility]. SHE STATES THEY RECEIVED A REFERRAL FROM [facility] AND THEY WILL HAVE HOSPICE MD LOOK AT IT SATURDAY. WE DISCUSSED THAT I AM STILL TRYING TO FIND PLACEMENT FOR CARE. WE WILL TALK AGAIN NEXT WEEK.
--- NOTE | 2020-02-26 16:47 | NUR ---
Pt states he is having some back pain and he was repositioned in his bed at this time.
--- NOTE | 2020-02-26 18:59 | NUR ---
Pt has had several bout of emesis after he eats something, this is unchanged for the pt. Pt drowsy now after a dose of pain medication and states his pain is "better". Tube feeding and water given as ordered with a residule proir of 5 ml.
--- NOTE | 2020-02-26 20:10 | NUR ---
PT ASLEEP IN BED. EVEN UNLABORED BREATHING IS NOTED. NO APPARANT SIGNS OF DISTRESS. PT IS IN VIEW OF NURSES STATION.
--- NOTE | 2020-02-26 20:30 | NUR ---
DAIRY TECHNOLOGIST ROUNDING NOTE. PT RESTING IN BED, ROOM PHONE RINGING. PT UTILIZES CALL LIGHT FOR ASSISTANCE WITH PHONE. COIL MACHINE SUPERVISOR REQUESTS BLANKET BE PLACED ON HIM. WRTIER LEAVE THE ROOM, PT CALLS OUT FROM ROOM FOR HELP. PT FOUND SITTING AT BEDSIDE, LEANING ON KNEES. PT REQUESTS FRESH EMESIS BAG, ICE WATER. PROVIDED. TRASH CAN SCOOTED CLOSER TO PT. PT TAKES FEW SIPS OF WATER, BEGINS HAVING FREQUENT EMESIS. COLD RAG PROVIDED FOR PT'S FACE. PT DENIES FURTHER NEEDS. WHITE BOARD UDPATED.
--- NOTE | 2020-02-26 21:40 | NUR ---
ASSESSMENT COMPLETE AND MEDICATION ADMINISTERED. PT REQUESTS PRN OXYCODONE FOR PAIN OF 7/10 IN BACK AND ABDOMEN. PEG TUBE RESIDUAL ABOUT 40ML. PT HAS NO RECORDED URINE OUTPUT AT THIS TIME. VSS, BP REMAINS HYPOTENSIVE. CALL LIGHT WITHIN REACH.
--- NOTE | 2020-02-27 00:11 | NUR ---
PT LAYING LEFT LATERAL IN BED. APPEARS TO BE SLEEPING WITH EVEN BREATHING. NO APPARENT SIGNS OF DISTRESS.
--- NOTE | 2020-02-27 01:50 | NUR ---
CALL LIGHT ANSWERED. PT REQUESTS PRN OXYCODONE FOR PAIN 12/27. OXYCODONE ADMINISTERED VIA G-TUBE. NO FURTHER NEEDS AT THIS TIME.
--- NOTE | 2020-02-27 04:54 | NUR ---
PT SLEEPING ON BACK WITH EVEN UNLABORED BREATHING. NO APPARENT SIGNS OF DISTRESS. CALL LIGHT WITHIN REACH
--- NOTE | 2020-02-27 06:02 | NUR ---
PT SLEPT WELL THIS SHIFT AND DID REPOSITION HISSELF FROM SIDE TO SIDE TO RELIEVE COCCYX REDNESS. PT NEEDED 5MG OXYCODONE TWICE THIS SHIFT. TUBE RESIDUAL 40ML AT BEGINNING OF THIS SHIFT. G-TUBE FLUSHES WELL.
--- NOTE | 2020-02-27 07:36 | NUR ---
0708: Report received from Shonna CORONADO. Pt resting in his bed with his call mims within reach.
--- NOTE | 2020-02-27 09:54 | NUR ---
FEEDING GIVEN ORDERED WELL THE FLUID FLUSH WITH ORDERED MEDICATIONS. PT CONTINUES TO EAT AND DRINK AND VOMIT IT ALL UP WHICH IS UNCHANGED FOR HIM. PT'S STATUS APPEARS UNCHANGED FROM YESTERDAY. SEE ASSESSMENT FOR A FULL UPDATE.
--- NOTE | 2020-02-27 10:39 | NUR ---
Pt resting in his bed and is visiting with his sister at this time.
--- NOTE | 2020-02-27 12:43 | NUR ---
PT CONTINUES TO EAT AND VOMIT IT BACK UP, THIS IS UNCHANGED. SEE ASSESSMENT.
--- NOTE | 2020-02-27 14:36 | NUR ---
PATIENT IN BED WATCHING TV. CALL LIGHT IN REACH. NO FURTHER NEEDS AT THIS TIME.
--- NOTE | 2020-02-27 18:36 | NUR ---
Pt ordered a very large lunch and ate most it throwing up many times as he was eating. It appears that everything he eats he throws up. The pt has also ordered a very large dinner and is complaining that there is many items he ordered not on his tray, he is yelling it from his room. The kitchen staff heard him and bringing up the items at this time. Emesis bag remains at the bedside, two of them as he keeps filling them when he eats.
--- NOTE | 2020-02-27 19:29 | NUR ---
REPORT RECEIVED FROM CLIFF LÓPEZ. pt RESTING IN BED. DENIES NEEDS AT THIS TIME. OFFERED TO CLEAR TRAY TABLE, pt REFUSES. CALL LIGHT IN REACH.
--- NOTE | 2020-02-27 20:35 | NUR ---
pt AWAKE RESTING IN BED. ASSESSMENT COMPLETE. 20 MLS RESIDUAL NOTED, G TUBE FLUSHED WITH 50 MLS AND ADDITIONAL 30 MLS PER pt REQUEST "I'M DEHYDRATED". pt RATES PAIN 8/10 IN ABDOMEN. REFUSES SCHEDULED BOWEL MEDICATION STATES "I'M HAVING BOWEL MOVEMENTS AND IT'S REALLY UPSETTING MY STOMACH". REQUESTING DOCTOR ORDER MOTRIN. MD PHONED, TO PLACE ORDERS FOR ADDITIONAL PAIN MEDICATION.
--- NOTE | 2020-02-27 20:52 | NUR ---
pt DROWSY, RESTING IN BED HOB ELEVATED. PRN PAIN MEDICATION ADMINISTERED PER TUBE FOR 8/10 REPORTED ABDOMINAL PAIN. IV SL WNL. CALL LIGHT IN REACH. LIGHTS OFF IN ROOM.
--- NOTE | 2020-02-27 23:06 | NUR ---
CHECKED ON pt. RESTING IN BED WITH EYES CLOSED. LIGHTS OFF IN ROOM.
--- NOTE | 2020-02-28 02:17 | NUR ---
CHECKED ON pt. RESTING IN BED WITH EYES CLOSED, BREATHING EQUAL AND UNLABORED, RR 20. LIGHTS OFF IN ROOM.
--- NOTE | 2020-02-28 04:20 | NUR ---
pt OUT OF BED FOR VOID, PASSING GAS. BOWEL TONES ACTIVE. ASSESSMENT COMPLETE. pt STATES PAIN IS "OKAY". RATES PAIN 7/10. PRN PAIN AND ANXIETY MEDICATIONS ADMINISTERED REQUESTED. G TUBE WITH 5 ML RESIDUAL FLUSHED WITH 50 MLS WATER. WARM BLANKET PROVIDED. CALL LIGHT IN REACH. TRAY TABLE CLEARED.
--- NOTE | 2020-02-28 05:16 | NUR ---
pt COOPERATIVE THIS SHIFT, RESTED WELL. PRN PAIN MEDICATION FOR ABDOMINAL PAIN. INDEPENDENT IN ROOM. RECREATIONAL DIET, pt CONTINUES TO CHEW AND SPIT OUT FOOD DESIRED. USES CALL LIGHT APPROPRIATELY. G TUBE FLUSED WITH 50 MLS WATER Q4H. PRN ANXIETY MEDICATION X 2 THIS SHIFT. IV SL.
--- NOTE | 2020-02-28 06:47 | NUR ---
pt SLEEPING, AWAKENS TO VOICE. RATES PAIN 6/10 IN ABDOMEN. PRN PAIN MEDICATION AND SCHEDULED ANTIBIOTIC ADMINISTERED PER G TUBE. 50 ML FLUSH ORDERED WNL. pt CLOSING EYES, SNORING. CALL LIGHT IN REACH.
--- NOTE | 2020-02-28 07:43 | NUR ---
THIS RN RECEIVED REPORT FROM GUILHERME CORONADO. PER GUILHERME PT RESTING AT THIS TIME SO BED REPORT DONE OUTSIDE OF ROOM.
--- NOTE | 2020-02-28 09:50 | NUR ---
THIS RN IN ROOM TO GIVE PT MORNING MEDS AND DO MORNING ASSESSMENT. PT SITTING UP IN BED. PT REFUSED BOWEL MEDS AND REFUSED SECOND CAN OF TUBE FEEDING. PT STATED THAT THE SECOND BOTTLE/CAN OF THE FEEDING MAKES HIM FEEL TOO FULL, PER PT REQUEST THIS RN ONLY PROVIDED PT WITH 1 BOTTLE/CAN OF TUBE FEED THIS AM. WHILE THIS RN IN ROOM PT ORDERED SECOND BREAKFAST TO CHEW AND THEN SPIT UP. PT COMPLIANT WITH CARE OTHERWISE THIS AM.
--- NOTE | 2020-02-28 11:50 | NUR ---
PT NOTIFIED PHYSCIAL THERAPIST THAT HE WAS HAVING CHEST PAIN, THE PHYSICAL THERAPIST NOTIFIED THIS RN OF PTS PAIN. THIS RN INTO SEE PT. PT POINTS THAT HIS PAIN IS ON HIS LEFT CHEST. PT STATES PAIN IS 8/10 AND THAT IT STARTED 30MINS AGO AND THAT IT COMES AND GOES LUNG SOUNDS ARE CLEAR AND EQUAL, HEART SOUNDS ARE WNL
--- NOTE | 2020-02-28 12:00 | NUR ---
THIS RN NOTIFED OF PTS PAIN. THIS RN GAVE PT 1MG OF ATIVAN AT THIS TIME. PT TOLERATED TUBE FEEDING WELL, PT FELL ASLEEP DURING TUBE FEEDING
--- NOTE | 2020-02-28 15:10 | NUR ---
PT MOVED FROM ROOM 110 TO 123. PT TOLERATED WELL AND COMPLIANT WITH MOVE
--- NOTE | 2020-02-28 18:03 | NUR ---
THIS RN IN PTS ROOM TO GIVE TUBE FEEDING. PT TOLERATED WELL BUT STATES THAT HE FEELS BLOATED, THIS RN DISCUSSED NEW ORDERS WITH PT TO KEEP HIM COMFORTABLE
--- NOTE | 2020-02-28 20:44 | NUR ---
Pt laying down in bed, had 200cc very undigested food, had been eating chips and drinking soda earlier. c/o abd pain 12/27 medicated with 5mg oxycontin. Coop with assessment. On room air, lungs clear, Peg tube patent,1900 tube feeding given at this time when asked, meds crushed followed by 50cc free water. tolerarated well, did not comply with keeping HOB elevated while doing above. very faing bowel tones, had voided right before I got into room. No further requets, fresh water give.
--- NOTE | 2020-02-29 00:56 | NUR ---
Resting, eyes closed, no distress, on room air. fluids and call light at bedside
--- NOTE | 2020-02-29 02:00 | NUR ---
c/o upset stomach and facial pain, medicated with Oxycontin 5mg dissolved through PEG. flushes easily. had another 100cc very undigested food . Has been eating snack. Up to BR, voided.
--- NOTE | 2020-02-29 06:41 | NUR ---
pt has slept most of this shift. Continoues to eat regular snacks and foods and regurgitate it. PEG tube feeding, c/o abd and jaw pain, medicated x2 with oxycontin 5mg each, effective, [facility]. semi receptive to information given. sl patent
--- NOTE | 2020-02-29 07:15 | NUR ---
REPORT RECEIVED. PATIENT RESTING IN BED. CALL LIGHT WITHIN REACH.
--- NOTE | 2020-02-29 08:24 | NUR ---
PATIENT AWAKE IN BED, INDEPENDENT IN ROOM. GATHERED SHOWER SUPPLIES AND FRESH CLOTHES. PATIENT WATCHING TV AT THIS TIME NO FURTHER NEEDS. WHITE BOARD UPDATED, CALL LIGHT WITHIN REACH.
--- NOTE | 2020-02-29 09:18 | NUR ---
PATIENT ASSESSMENT COMPLETE AND MORNING MEDS GIVEN VIA FEEDING TUBE. PATIENT EATING BREAKFAST. VOMITING EVERYTHING HE PUTS DOWN. PATIENT UP TO VOID IN TOILET. PATIENT COMPLAINS OF PAIN ON URINATION FOR PAST WEEK. NO FURTHER REQUESTS. CALL LIGHT WITHIN REACH.
--- NOTE | 2020-02-29 09:23 | NUR ---
PATIENT RESIDUAL 65. DISCARDED 50 DUE TO PATIENT COMPLAINTS OF ABDOMINAL DISTENTION AND PAIN. ADMINISTERD MEDS WITH 50 ML FLUSH. PATIENT TOLERATED WELL. PATIENT GIVEN PAIN MED FOR 7/10 PAIN FOR ABDOMINAL PAIN. RESIDUAL WAS BROWN, SLIMY, AND BILE COLORED. PATIENT UP TO CHAIR. CALL LIGHT WITHIN REACH. NO REQUESTS.
--- NOTE | 2020-02-29 09:30 | NUR ---
TUBE FEEDING. PT UP IN RECLINER RESIDUAL CHECKED 20ML PULLED, AND REPLACED, ONE BOTTLE JEVITY ADMINISTERED BY GRAVITY DRAIN IN OVER 15MIN. 100ML FREE WATER FLUSHED. PT TOLERATED WELL.
--- NOTE | 2020-02-29 09:30 | NUR ---
PATIENT CALLED ME INTO ROOM TO ASK ABOUT DISCHARGE. STATES HE WANTS TO GO TODAY. EXPLAINED I HAVE CALLS OUT TO A COUPLE PLACES. SPENT EXTENDED AMOUNT OF TIME TALKING WITH PATIENT. EXPLAINING AGAIN WHAT WE ARE DOING TO FIND A SAFE PLACE FOR HIM TO BE. CM WILL CONTINUE TO FOLLOW.
--- NOTE | 2020-02-29 10:00 | NUR ---
RECEIVED CALL FROM BETO AT [facility]. SHE STATES THEY ARE INTERESTED AND HAVE OPENING, TO PLEASE SEND CHART. DISCUSSED THAT PATIENT WILL BE DISCHARGED ON HOSPICE. FAXED CLINICALS TO HER AT [phone]. FAX CONFIRMATION [id number].
--- NOTE | 2020-02-29 12:00 | NUR ---
SPOKE WITH PATIENT IN ROOM. PATIENT [facility]S TO KNOW [facility] DISCUSSED THAT THEY HAVE CALLED AND DO NOT HAVE SPACE FOR HIM. TALKED WITH PATIENT AT LENGTH ABOUT SITUATION. PATIENT STATING "I'M GONNA GO STAY WITH MY NEICE". DISCUSSED THAT [facility] IS STILL A POSSIBILITY. HAD TO REASSURE PATIENT SEVERAL TIMES THAT I AM STILL LOOKING FOR A PLACE FOR HIM.
--- NOTE | 2020-02-29 12:18 | NUR ---
PATIENT IN CHAIR EATING LUNCH. VOMITS EVERYTHING HE PUTS DOWN. PATIENT REQUESTING OXYCODONE FOR PAIN 10/27. WATER FILLED PER PATIENT REQUEST. NO FURTHER REQUESTS. CALL LIGHT TAWNY KIMBLE.
--- NOTE | 2020-02-29 13:15 | NUR ---
PATIENT IN ROOM WITH YOVANI BUNN. HE STATES HE IS GOING TO MOVE IN WITH HER AT HIS GRANDMOTHERS HOUSE. SHE THEN STARTED SAYING THAT ITS NOT HER HOUSE AND SHE CAN'T LET HIM DO THAT. THAT IT IS UP TO HER MOM. I DISCUSSED WITH PATIENT THAT HE NEEDS TO BE AT A PLACE WHERE HE HAS HELP ALL THE TIME IN DEALING WITH HIS G-TUBE AND MEDICATIONS. WE DISCUSSED HIS CANCER AND THAT WE ARE FINDING A SAFE PLACE TO BE SO HOSPICE CAN FOLLOW HIM. PATIENT BECAME VERY VOCAL WITH HIS NEICE AND ARGUMENTATIVE ABOUT STAYING WITH HER. SHE KEPT TELLING HIM HE HAS TO TALK WITH HER MOM. HE STATES HE "IS NOT WAITING UNTIL 3PM". THIS IS THE TIME HER MOM IS OFF WORK HE SAYS. YOVANI TRYING TO VISIT WITH HIM, BUT HE IS VERY FOCUSED ON GOING HOME WITH HER. SHE TRIED TO TELL HIM SHE HAS TO GO TO SCHOOL, THEN HE STARTED SAYING IT GAVE HIM "ENCOURAGEMENT TO GO BACK TO COLLEGE". I TRIED TO REMIND HIM THAT RIGHT NOW HE NEEDS TO FOCUS ON HIS HEALTH. THE WHOLE TIME PATIENT IS REGURGITATING LIQUIDS AND FOOD INTO EMESIS BAG. DISCUSSED WITH HIM HOW SICK HE WAS WHEN HE CAME. DISCUSSED THE CONVERSATIONS WE HAVE HAD ABOUT CHEMO NOT AVAILABLE RIGHT NOW AND THAT ONCOLOGIST SENT REFERRAL TO HOSPICE. REMINDED HIM HE NEEDS [facility] GOING FORWARD. PATIENT IGNORES ME SOME OF THE TIME AND IS TRYING TO CALL HIS SISTER. CM WILL CONTINUE TO FOLLOW.
--- NOTE | 2020-02-29 13:23 | NUR ---
PATIENT UP TO SHOWER. AMBULATES WELL ON HIS OWN. CLEAN LINES AND CLOTHES GIVEN. TUBE FEEDING ADMINISTERED. PATIENT TOLERATED WELL. PAIN MED GIVEN. PATIENT STATES HE IS TOO TIRED TO AMBULATE IN [place] NOW. PLAN TO AMBULATE IN [place] LATER. NO FURTHER REQUESTS. CALL LIGHT WITHIN REACH. PATIENT UP IN CHAIR.
--- NOTE | 2020-02-29 14:11 | NUR ---
PATIENT SITTING IN CHAIR WATCHING TV. CALL LIGHT IN REACH. NO FURTHER NEEDS AT THIS TIME,.
--- NOTE | 2020-02-29 15:00 | NUR ---
PATIENT ASKED TO SEE ME AGAIN. ASKS WHAT TIME THE PEOPLE ARE COMING FROM [facility]. DISCUSSED WITH HIM THAT THEY ARE NOT ABLE TO COME TO DO ASSESSMENT UNTIL ANOTHER TWO DAYS THAT IS WHEN NURSE IS AVAILABLE. PATIENT ASKED A FEW QUESTIONS AND WAS WATCHING TV.
--- NOTE | 2020-02-29 15:28 | NUR ---
PATIENT RESTING IN CHAIR. PATIENT IN AGITATED MOOD. DECLINES ATIVAN. PATIENT STATES "CAN I GET OUT OF HERE PLEASE?" CALL LIGHT WITHIN REACH.
--- NOTE | 2020-02-29 16:16 | NUR ---
THIS NURSE TO BEDSIDE MULTIPLE TIMES R/T PT BEING AGITATED AND STATING HE WOULD LIKE TO LEAVE. JUSTICE FROM [employer] CALLED TO TRY AND TALK TO PT ABOUT STAYING. PT REFUSING ANXIETY MEDS STATING" YOUR TRYING TO DOPE ME UP". RISK OF LEAVING AND CURRENT LINE OF TREATMENTS FOR HOSPITAL STAY DISCUSSED WITH PT IN [facility].. PT STILL REQUESTING TO LEAVE. JUSTICE TO BEDSIDE. PT REQUESTING TO SPEAK WITH THE DOCTOR FOR DISCHARGE. DR MATSON CALLED AND NOTIFIED. DR MATSON SAYS HE WILL COME TALK TO PT.
--- NOTE | 2020-02-29 16:26 | NUR ---
STAFF CAME TO ME AND STATED PATIENT WANTS TO GO AMA. CALLED [employer] AND SPOKE WITH TILA WHO IS HEAD OF HIS ACT TEAM. HE STATES HE IS OUT OF TOWN BUT HE WILL CALL PATIENT AND SEE IF HE CAN GET SOMEONE FROM [place] TO COME SEE HIM. DISCUSSED WITH TILA THAT IF PATIENT WANTS TO LEAVE WE CAN'T STOP HIM. HE STATES UNDERSTANDING. WENT TO PATIENTS ROOM AND PATIENT WAS ALREADY ON THE PHONE WITH TILA. HE WAS TELLING TILA THAT WE CAN'T KEEP HIM. THAT [facility] CAN TAKE HIM EVEN IF HE ISN'T IN THE HOSPITAL. THEN STATES "I DON'T KNOW THAT I EVEN WANT TO GO THERE. I AM GOING TO [facility]. HE TOLD TILA THAT "ALL THIS PLACE DOES IS DOPE ME UP" THEN LATER STATES "MY BONES ACHE AND ACHE". CEMENT BOAT AND BARGE LOADER ALSO CAME INTO THE ROOM. WE AND TILA TRIED TO REASON WITH PATIENT. I ASKED WHERE DOES HE THINK HE WILL SLEEP TONIGHT, AND HE STATES HE "HAS A RENTAL" WHEN ASKED WHERE STATES "[place], I DON'T HAVE TO TELL YOU". ASKED WHO WOULD HELP HIM WITH HIS TUBE, FEEDINGS AND MEDICATIONS. STATES "I CAN DO THEM MYSELF" YELLING THIS. PATIENT GETTING MORE AGGITATED. TILA REMAINED SPEAKING WITH PATIENT. I EXPLAINED TO PATIENT HE WOULD HAVE TO SIGN AMA TO LEAVE WE DO NOT THINK THIS IS A SAFE PLAN. TRIED TO REMIND HIM HOW SICK HE WAS WHEN HE CAME IN, PATIENT JUST KEEPS INSISTING TO LEAVE. CEMENT BOAT AND BARGE LOADER CALLING DR MATSON WHO IS NOW ON FOR HOSPITALIST.
--- NOTE | 2020-02-29 16:35 | NUR ---
DR MATSON IN. PATIENT RESTING IN CHAIR.
[2020-02-29] MEDS ORDERED: DOXYCYCLINE HY100 MG PT (17:11)
[2020-02-29] MEDS ORDERED: LEVOFLOXACIN500 MG PT (17:11)
--- NOTE | 2020-02-29 17:15 | NUR ---
PATIENT TUBE FEEDING GIVEN WHILE SITTING UP IN CHAIR. ONLY HALF OF TUBE FEEDING GIVEN PER PT REQUEST. PATIENT TOLERATES WELL. PATIENT REQUESTS DISCHARGE PAPERWORK TO LEAVE HOSPITAL AGAINST MEDICAL ADVICE.
--- NOTE | 2020-02-29 17:29 | NUR ---
RECEIVED MESSAGE FROM ANALI GARNER [employer]. RETURNED CALL. SHE ASKED ABOUT PATIENT SHE HAD READ AN EMAIL FROM [employer] AND WAS IN A TRAINING ALL DAY. UPDATED HER ON HIS WISHES TO GO AMA. DISCUSSED THAT DR MATSON IS TRYING TO STALL HIM IN HOPES HE WILL CHANGE HIS MIND. DISCUSSED THAT WE CAN'T KEEP HIM IF HE INSISTS ON GOING. SHE AGREES, STATING THEY UNDERSTAND THAT AND THEY WILL TRY TO TALK WITH HIM AND HELP HIM ALWAYS.
--- NOTE | 2020-02-29 17:37 | NUR ---
PATIENT GIVEN DISCHARGE INSTRUCTIONS PER PATIENT REQUEST. PATIENT STATES UNDERSTADING THAT HE IS LEAVING AGAINST MEDICAL ADVICE. PATIENT SIGNS AMA PAPERWORK. PATIENT STATES HIS PLAN IS TO GO STAY WITH HIS "EX-FIANCE" TONIGHT. VS STABLE. PATIENT GIVEN HIS ORDERED ANTIBIOTICS TO TAKE WITH HIM. PATIENT BELONGINGS RETURNED TO HIM. PATIENT ESCORTED OUT OF HOSPITAL VIA WHEELCHAIR BY NURSING STAFF.
--- NOTE | 2020-03-01 13:34 | NUR ---
CALLED NAVIN AT [facility] TO LET THEM KNOW THAT PATIENT SIGNED OUT AMA YESTERDAY EVENING AND WOULD NOT BE HERE FOR THEM TO ASSESS THIS WEEK. EMAIL EXCHANGED WITH HIS MDT TEAM AT [facility] TO REPORT THE SAME SO THEY CAN CONTINUE TO TRY AND FOLLOW HIM WITH [facility].
== END 2020-02-29 17:45 | disposition left against medical advice (07) | DRG 154 ==
LOC: ED 14:21 → CCU 14:23 → MS 02-19 11:53 → CCU 02-19 11:53 → MS 02-19 16:55
PROVIDERS: ADMIT Student in an Organized Health Care Education/Training Program; ATTEND Student in an Organized Health Care Education/Training Program
DX: K11.21 Acute sialoadenitis (principal); E43 Unspecified severe protein-calorie malnutrition; E87.0 Hyperosmolality and hypernatremia; C15.9 Malignant neoplasm of esophagus, unspecified; Z68.1 Body mass index [BMI] 19.9 or less, adult; Z20.828 Contact with and (suspected) exposure to other viral communicable diseases; F20.9 Schizophrenia, unspecified; Z51.5 Encounter for palliative care; Z66 Do not resuscitate; Z93.1 Gastrostomy status; Z53.29 Procedure and treatment not carried out because of patient's decision for other reasons; Z79.899 Other long term (current) drug therapy
CPT/HCPCS: 36415; 70491; 71045; 74340; 80048; 80053; 80202; 81001; 83735; 84100; 85025; 96361; 96366; 97110; 97112; 97116; 97163; 97166; 97535; 99285-25; C9803; G0378; J0692; J1650; J1885; J2060; J2405; J3370; J3480; J7030; J7060; J7070; Q9967; U0003